=== PATIENT | male | born 1970 | race Caucasian/White ===

== ENCOUNTER 2020-01-25 14:55 | Outpatient (REF) | payer SELFPAY ==
[2020-01-25 16:40] LABS: Estmated Average Glucose 111; Hemoglobin A1C 5.5 % (4.0-6.0)
[2020-01-25 17:16] LABS: Chol HDL Ratio 4.53 mg/dL (1.0-5.00); Cholesterol 204 mg/dL (0-200); Glucose 88 mg/dL (65-115); HDL Cholesterol 45 mg/dL (60-100); LDL Cholesterol Calculated 118 mg/dL (50-129); LDL HDL Ratio 2.62 RATIO (0.00-3.22); Triglycerides 206 mg/dL (0-150)
== END 2020-01-25 14:56 | disposition home or self-care (01) ==
LOC: LAB 14:55
PROVIDERS: Family Provider Family Medicine; PCP Family Medicine; Visit Provider Dermatology
DX: Z13.9 Encounter for screening, unspecified (principal)
CPT/HCPCS: 80061; 82947; 83036

== ENCOUNTER → 2021-03-12 12:28 | Outpatient (BNVA) | payer BC, SELFPAY | PROVIDERS: Family Provider Family Medicine; PCP Family Medicine; Visit Provider Family Medicine | DX: M19.012 Primary osteoarthritis, left shoulder (principal); M51.16 Intervertebral disc disorders with radiculopathy, lumbar region; J32.1 Chronic frontal sinusitis | CPT/HCPCS: 73030 ==

== ENCOUNTER 2021-06-26 10:30 | Inpatient (IN) | payer BC, SELFPAY ==
[2021-06-26] VITALS (10 sets, daily range): BP systolic 135–173; BP diastolic 82–91; PULSE 70–116; RESP 20–32; TEMP 36.8–37.1; O2SAT 87–93; BMI 33.0
[2021-06-26] MEDS: dexamethasone 4 mg/mL INJ 6 MG IVP (11:45)
[2021-06-26] MEDS: sodium chloride 0.9% 1,000 ML 999 ML IV (11:45)
--- NOTE | 2021-06-26 11:57 | XR_ITS ---
WS: [id number] XR chest 1V portable [id number] REASON FOR EXAM: covid+ resp distress FINDINGS: The heart and mediastinum are within normal limits. Reticular nodular hazy infiltrative changes seen in the left lower and left midlung malcolm. Large are a of involvement in the left mid upper lung field. Mild degenerative changes in the lower thoracic spine. The bony thorax is otherwise intact. XR/XR chest 1V portable [id number] IMPRESSION: Infiltrates of unknown chronicity. The findings are compatible with subacute pn eumonitis, likely Covid.
--- NOTE | 2021-06-26 12:00 | ECG_ITS ---
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 Measurements Intervals [place] Rate: 114 P: 35 ND: 136 QRS: 43 QRSD: 100 T: 28 QT: 343 QTc: 472 Interpretive Statements SINUS TACHYCARDIA POSSIBLE INFERIOR MYOCARDIAL INFARCTION [30 ms Q WAVE IN II/aVF], PROBABLY OLD ABNORMAL RHYTHM ECG No previous ECG available for comparison Electronically Signed On 06-26-2021 14:42:22 CDT by Fiorella Arana M.D. [id number] f
--- NOTE | 2021-06-26 12:05 | W.ED.COVID ---
HPI - COVID General: Chief Complaint: Shortness of Breath/Dyspnea Stated Complaint: SOB COVID+ Time Seen by Provider: 06/26/21 11:43 Triage information: Has fever, cough or shortness of breath. Exposure to COVID + person last 14 days History of Present Illness: HPI Narrative: The patient is a 51-year-old male with past medical history hypertension who comes to the ER complaining of Covid symptoms since the , 9 days ago. He says his symptoms worsen significantly last night where he became short of breath satting 88% on room air. He called his primary and tried to arrange outpatient oxygen who advised him to come to the ED. Here he is satting 88% on room air and 94% on 3 L. He has previously been on steroids and azithromycin as an outpatient. MD complaint: known COVID positive COVID 19 common symptoms: positive non-productive cough, dyspnea, fatigue, body aches and headache(s); negative throat pain, nasal congestion or diarrhea COVID 19 other sytmptoms: positive requiring oxygen; negative chest pain Onset (ago): day(s) (9) Pertinent comorbid conditions: hypertension COVID Results: No Data to Display Review of Systems General: Reports: 10 or more systems reviewed and unremarkable except in HPI and below Const: Reports: body aches and fatigue Eyes: Denies: change in vision, blurry vision or eye redness ENMT: Denies: throat pain, swelling of lips/tongue, ear or mastoid pain or nasal congestion Card: Denies: chest pain, palpitations, irregular heart rhythm, edema, dyspnea on exertion or orthopnea Resp: Reports: dyspnea and non-productive cough GI: Denies: abdominal pain, diarrhea or GI cramping : Denies: flank pain, urinary frequency or urinary urgency Musc: Denies: neck pain, back pain, extremity pain, joint pain, joint redness, limited range of motion or muscle weakness Skin/Breast: Denies: rash, pruritus, erythema, skin pain or skin tenderness Neuro: Reports: headache(s) Psych: Denies: anxiety or depression Endo: Denies: polyuria All/Imm: Denies: urticaria, throat swelling or tongue swelling PFS ED PFSH: Medical History Acute sinus infection Anxiety Chronic sinusitis GERD (gastroesophageal reflux disease) Hypertension Lumbar disc disease with radiculopathy Surgical History History of circumcision History of tonsillectomy Social History Smoking and tobacco status: current every day smoker smokeless tobacco Alcohol intake: current Alcohol intake frequency: holidays/special occasions only Physical Exam Const: COMMON NORMALS: no acute distress, average body habitus, patient oriented x3, no limitations, healthy appearing, alert and well nourished GENERAL APPEARANCE: cooperative, comfortable, well kempt and well developed ORIENTATION/CONSCIOUSNESS: Yes awake, Yes oriented to person, Yes oriented to place and Yes oriented to time HENMT: COMMON NORMALS: normocephalic, external ears normal and Normal external nose present HEAD & SCALP: normal to inspection and normocephalic NOSE: Normal external nose present EXTERNAL EAR: Yes external ears normal MOUTH: Normal oral and palatal mucosa present THROAT: posterior oropharynx normal Eye: COMMON NORMALS: Equal, round and reactive pupils present and EOMs intact bilaterally GENERAL EYE: appearance normal, both eyes and all related structures PUPIL: Yes Equal, round and reactive pupils present Neck/C-Spine: COMMON NORMALS: full ROM, no lymphadenopathy, no meningeal signs and no JVD GENERAL: Yes normal visual inspection Lymph: LYMPHATIC: no lymphadenopathy noted Chest: COMMONS NORMALS: normal inspection of the chest and normal palpation of entire chest wall Resp: EFFORT & INSPECTION: Yes able to speak in complete sentences, Yes tachypneic, Yes respiratory distress (mild) and Yes uses accessory muscles AUSCULTATION: diminished lung sounds Cardio: COMMON NORMALS: no JVD, regular rhythm, S1 normal heart sound present, S2 normal heart sound present and Peripheral pulses 2+ throughout RATE: tachycardic RHYTHM: regular rhythm HEART SOUNDS: S1 normal heart sound present and S2 normal heart sound present PERIPHERAL PULSES: Peripheral pulses 2+ throughout GI: COMMON NORMALS: Normal to inspection, nondistended, normoactive bowel sounds present, Soft to palpation, non-tender and no masses INSPECTION: Yes normal to inspection PALPATION: Yes Soft to palpation : COMMON NORMALS: Yes no CVA tenderness BLADDER/KIDNEY EXAM: Yes no CVA tenderness Back/Pelvis: COMMON NORMALS: no CVA tenderness, thoracic and lumbar spine normal to inspection, no thoracic nor lumbar tenderness and thoraco-lumbar ROM normal Extremity: COMMON NORMALS: normal to inspection, full ROM, capillary refill normal, no joint enlargement and no pedal edema GENERAL: Yes normal exam except as noted Neuro: COMMON NORMALS: patient oriented x3, CN's II-XII intact bilaterally, moves all extremities, no focal motor deficits, no sensory deficits noted and gait normal SENSORIUM/ORIENTATION: Yes alert, Yes oriented to person, Yes oriented to place and Yes oriented to time MENINGEAL SIGNS: Yes no meningeal signs Psych: COMMON NORMALS: mental status grossly normal, Normal thought process present, cooperative, normal affect and speech normal APPEARANCE: Yes well kempt ATTITUDE: Yes calm SPEECH: Yes normal speech THOUGHT PROCESS: Normal thought process present Skin: COMMON NORMALS: no rashes or lesions noted GENERAL SKIN EXAM: no rashes or lesions noted Course Vital Signs: Vital signs: Vital Signs Temperature 98.3 F 06/26/21 11:30 Pulse Rate 110 H 06/26/21 21:04 Respiratory Rate 20 H 06/26/21 12:44 Blood Pressure 173/91 06/26/21 21:04 Pulse Oximetry 90 06/26/21 21:04 MDM - COVID MDM Narrative: Medical decision making narrative: The patient came in with known positive Covid on his ninth day of symptoms feeling increasing shortness of breath since last night. He is requiring 3 L and he did say albuterol did help his symptoms. He was given dexamethasone IV, fluids, remdesivir. His oxygen need has slightly increased and he is not on 4 L nasal cannula. [facility] Dr[facility] Lab Data: Labs: Lab Results 06/26/21 06/26/21 06/26/21 Range/Units 12:40 13:08 13:08 WBC 14.5 H (4.0-10.0) 10^3/ uL RBC 6.00 H (4.1-5.3) 10^6/u L Hgb 17.0 H (11.7-16.6) g/dL Hct 49.0 (42.0-52.0) % MCV 81.7 (80-94) fL MCH 28.3 (28.0-34.0) pg MCHC 34.7 (30.0-36.0) g/dL RDW 13.2 (12.1-15.1) % Plt Count 224 (130-400) 10^3/c mm MPV 9.5 (7.4-10.4) fL Neut % (Auto) 90.1 % Lymph % (Auto) 4.4 % Jefferson % (Auto) 4.2 % Eos % (Auto) 0.2 % Baso % (Auto) 0.3 % Neut # (Auto) 13.04 H (1.8-7.7) 10^3/u L Lymph # (Auto) 0.6 L (0.8-4.8) 10^3/u L Jefferson # (Auto) 0.6 (0.2-0.9) 10^3/u L Eos # (Auto) 0.0 (0.0-0.8) 10^3/u L Baso # (Auto) 0.1 (0.0-0.1) 10^3/u L Nucleated RBC % (a uto) 0 % Nucleated RBCs # 0.0 /100WBC D-Dimer (0-0.59) ug/mIFE U Specimen Type Arterial Sample Site Radial, right ABG pH 7.51 H (7.35-7.45) ABG pCO2 30.4 L (35-45) mmHg ABG pO2 55.8 L (80.0-100.0) mmH g ABG HCO3 24.2 (22-26) mmol/L ABG O2 Saturation 92.1 ABG Base Excess 2.2 H (-2.0-2.0) mmol/ L Gato Test Pos A-a O2 Gradient 17.5 H (5-10) mmHg Hematocrit 51.6 (42-52) % Hgb O2 Saturation 90.7 L (95-100) % Carboxyhemoglobin 0.9 (0.4-20.1) %THgb Methemoglobin 0.7 (0.4-1.5) % Total Hemoglobin 16.8 (14-18) g/dL Sodium 128.0 L 128 L (131-143) mmol/L Potassium 3.6 3.7 (3.5-5.0) mmol/L Glucose 109.0 99 (70-115) mg/dL Ionized Calcium 1.0 L (1.1-1.4) mmol/L O2 Delivery Device Nc O2 Liters/Min 3.0 % FiO2 32.0 % Corporate Law Specialist ID Cak Chloride 86 L (98-107) mmol/L Carbon Dioxide 26 (22-29) mmol/L Anion Gap 19.7 H (5-19) BUN 24 H (6-20) mg/dL Creatinine 1.7 H (0.7-1.2) mg/dL GFR Calculation 42.5 L (90-130) mL/min Calculated Osmolal ity 270 L (285-295) mOsm/k g Lactic Acid (0.5-2.2) mmol/L Calcium 7.7 L (8.5-10.5) mg/dL Total Bilirubin 0.5 (0.15-1.2) mg/dL AST 52 H (0-40) U/L ALT 32 (0-41) U/L Alkaline Phosphata se 69 (40-130) IU/L Troponin T Baselin e (0-15) ng/L Troponin T 120 Min [place] (0-15) ng/L Delta Troponin T (0-10) ABS# C-Reactive Protein 220.2 H (0.0-4.9) mg/L NT-Pro-B Natriuret Pep 65 (0-125) pg/mL Total Protein 6.4 L (6.6-8.7) g/dL Albumin 4.0 (3.5-5.2) g/dL Globulin 2.4 (1.3-4.6) g/dL 06/26/21 06/26/21 06/26/21 Range/Units 13:08 13:08 13:08 WBC (4.0-10.0) 10^3/ uL RBC (4.1-5.3) 10^6/u L Hgb (11.7-16.6) g/dL Hct (42.0-52.0) % MCV (80-94) fL MCH (28.0-34.0) pg MCHC (30.0-36.0) g/dL RDW (12.1-15.1) % Plt Count (130-400) 10^3/c mm MPV (7.4-10.4) fL Neut % (Auto) % Lymph % (Auto) % Jefferson % (Auto) % Eos % (Auto) % Baso % (Auto) % Neut # (Auto) (1.8-7.7) 10^3/u L Lymph # (Auto) (0.8-4.8) 10^3/u L Jefferson # (Auto) (0.2-0.9) 10^3/u L Eos # (Auto) (0.0-0.8) 10^3/u L Baso # (Auto) (0.0-0.1) 10^3/u L Nucleated RBC % (a uto) % Nucleated RBCs # /100WBC D-Dimer 0.57 (0-0.59) ug/mIFE U Specimen Type Sample Site ABG pH (7.35-7.45) ABG pCO2 (35-45) mmHg ABG pO2 (80.0-100.0) mmH g ABG HCO3 (22-26) mmol/L ABG O2 Saturation ABG Base Excess (-2.0-2.0) mmol/ L Gato Test A-a O2 Gradient (5-10) mmHg Hematocrit (42-52) % Hgb O2 Saturation (95-100) % Carboxyhemoglobin (0.4-20.1) %THgb Methemoglobin (0.4-1.5) % Total Hemoglobin (14-18) g/dL Sodium (131-143) mmol/L Potassium (3.5-5.0) mmol/L Glucose (70-115) mg/dL Ionized Calcium (1.1-1.4) mmol/L O2 Delivery Device O2 Liters/Min % FiO2 % Corporate Law Specialist ID Chloride (98-107) mmol/L Carbon Dioxide (22-29) mmol/L Anion Gap (5-19) BUN (6-20) mg/dL Creatinine (0.7-1.2) mg/dL GFR Calculation (90-130) mL/min Calculated Osmolal ity (285-295) mOsm/k g Lactic Acid 2.2 (0.5-2.2) mmol/L Calcium (8.5-10.5) mg/dL Total Bilirubin (0.15-1.2) mg/dL AST (0-40) U/L ALT (0-41) U/L Alkaline Phosphata se (40-130) IU/L Troponin T Baselin e 11 (0-15) ng/L Troponin T 120 Min [place] (0-15) ng/L Delta Troponin T (0-10) ABS# C-Reactive Protein (0.0-4.9) mg/L NT-Pro-B Natriuret Pep (0-125) pg/mL Total Protein (6.6-8.7) g/dL Albumin (3.5-5.2) g/dL Globulin (1.3-4.6) g/dL 06/26/21 Range/Units 14:26 WBC (4.0-10.0) 10^3/ uL RBC (4.1-5.3) 10^6/u L Hgb (11.7-16.6) g/dL Hct (42.0-52.0) % MCV (80-94) fL MCH (28.0-34.0) pg MCHC (30.0-36.0) g/dL RDW (12.1-15.1) % Plt Count (130-400) 10^3/c mm MPV (7.4-10.4) fL Neut % (Auto) % Lymph % (Auto) % Jefferson % (Auto) % Eos % (Auto) % Baso % (Auto) % Neut # (Auto) (1.8-7.7) 10^3/u L Lymph # (Auto) (0.8-4.8) 10^3/u L Jefferson # (Auto) (0.2-0.9) 10^3/u L Eos # (Auto) (0.0-0.8) 10^3/u L Baso # (Auto) (0.0-0.1) 10^3/u L Nucleated RBC % (a uto) % Nucleated RBCs # /100WBC D-Dimer (0-0.59) ug/mIFE U Specimen Type Sample Site ABG pH (7.35-7.45) ABG pCO2 (35-45) mmHg ABG pO2 (80.0-100.0) mmH g ABG HCO3 (22-26) mmol/L ABG O2 Saturation ABG Base Excess (-2.0-2.0) mmol/ L Gato Test A-a O2 Gradient (5-10) mmHg Hematocrit (42-52) % Hgb O2 Saturation (95-100) % Carboxyhemoglobin (0.4-20.1) %THgb Methemoglobin (0.4-1.5) % Total Hemoglobin (14-18) g/dL Sodium (131-143) mmol/L Potassium (3.5-5.0) mmol/L Glucose (70-115) mg/dL Ionized Calcium (1.1-1.4) mmol/L O2 Delivery Device O2 Liters/Min % FiO2 % Corporate Law Specialist ID Chloride (98-107) mmol/L Carbon Dioxide (22-29) mmol/L Anion Gap (5-19) BUN (6-20) mg/dL Creatinine (0.7-1.2) mg/dL GFR Calculation (90-130) mL/min Calculated Osmolal ity (285-295) mOsm/k g Lactic Acid (0.5-2.2) mmol/L Calcium (8.5-10.5) mg/dL Total Bilirubin (0.15-1.2) mg/dL AST (0-40) U/L ALT (0-41) U/L Alkaline Phosphata se (40-130) IU/L Troponin T Baselin e (0-15) ng/L Troponin T 120 Min [place] 10.43 (0-15) ng/L Delta Troponin T -0.57 L (0-10) ABS# C-Reactive Protein (0.0-4.9) mg/L NT-Pro-B Natriuret Pep (0-125) pg/mL Total Protein (6.6-8.7) g/dL Albumin (3.5-5.2) g/dL Globulin (1.3-4.6) g/dL COVID Results: No Data to Display Discharge Plan Discharge Patient Disposition: Admitted As Inpatient Admit Provider: Mo Garcia Clinical Impression: COVID-19, Hypoxia Condition: Stable Coding Level of Care Code ED 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
[2021-06-26] MEDS: remdesivir 200 MG in sodium chloride 0.9% (100 ml) 100 ML 100 MG IV (12:15)
[2021-06-26] MEDS: albuterol 8 gm MDI 2 PUFF INHALATION (12:38)
[2021-06-26 12:51] LABS: ABG PCO2 30.4 mmHg (35-45); ABG PH Result 7.51 (7.35-7.45); Alveolar-Arterial Oxygen Gradi 17.5 mmHg (5-10); Arterial Blood Gas Hematocrit 51.6 % (42-52); Base Excess ABG 2.2 mmol/L (-2.0-2.0); Blood Gas Allen Test Pos; Blood Gas Operator Identificat CAK; Blood Gas Sample Site Radial, right; Blood Gas Sample Type Arterial; Carboxyhemoglobin 0.9 %THgb (0.4-20.1); HCO3 ABG 24.2 mmol/L (22-26); HGB O2 Sat 90.7 % (95-100); Methemoglobin 0.7 % (0.4-1.5); Oxygen Device NC; Oxygen Saturation ABG 92.1; PO2 ABG 55.8 mmHg (80.0-100.0); Potassium Level - ABG 3.6 mmol/L (3.5-5.0); Total Hemoglobin 16.8 g/dL (14-18)
[2021-06-26 13:17] LABS: Basophils # 0.1 10^3/uL (0.0-0.1); Basophils % 0.3 %; Eosinophils % 0.2 %; Lymphocytes # 0.6 10^3/uL (0.8-4.8); Lymphocytes % 4.4 %; Mean Corpuscular HGB Conc 34.7 g/dL (30.0-36.0); Mean Corpuscular Hemoglobin 28.3 pg (28.0-34.0); Mean Corpuscular Volume 81.7 fL (80-94); Mean Platelet Volume 9.5 fL (7.4-10.4); Monocytes # 0.6 10^3/uL (0.2-0.9); Monocytes % 4.2 %; Neutrophils # 13.04 10^3/uL (1.8-7.7); Neutrophils % 90.1 %; Nucleated Red Blood Cells % 0 %; Platelet Count 224 10^3/cmm (130-400); Red Cell Distribution Width 13.2 % (12.1-15.1); White Blood Count 14.5 10^3/uL (4.0-10.0)
[2021-06-26 13:29] LABS: D Dimer 0.57 ug/mIFEU (0-0.59)
[2021-06-26 13:34] LABS: Lactic Sepsis W/Reflex 2.2 mmol/L (0.5-2.2)
[2021-06-26 13:36] LABS: Troponin(5th) Baseline 11 ng/L (0-15)
[2021-06-26 13:44] LABS: Alanine Aminotransferase 32 U/L (0-41); Alkaline Phosphatase 69 IU/L (40-130); Anion Gap 19.7 (5-19); Aspartate Amino Transferase 52 U/L (0-40); Blood Urea Nitrogen 24 mg/dL (6-20); C Reactive Protein 220.2 mg/L (0.0-4.9); Calcium 7.7 mg/dL (8.5-10.5); Carbon Dioxide 26 mmol/L (22-29); Chloride 86 mmol/L (98-107); Globulin 2.4 g/dL (1.3-4.6); Glomerular Filtration Rate 42.5 mL/min (90-130); Glucose 99 mg/dL (65-115); NT Pro B Type Natriuretic Pept 65 pg/mL (0-125); Osmolality Calculated 270 mOsm/kg (285-295); Potassium 3.7 mmol/L (3.5-5.1); Sodium 128 mmol/L (136-145); Total Bilirubin 0.5 mg/dL (0.15-1.2); Total Protein 6.4 g/dL (6.6-8.7)
[2021-06-26 14:54] LABS: Troponin 5 2HR 10.43 ng/L (0-15)
[2021-06-26 14:59] LABS: Troponin 5 2HR Delta -0.57 ABS# (0-10)
[2021-06-26 15:01] LABS: Reflex Lactate Order REFLEX LACTIC ORDERD
--- NOTE | 2021-06-26 16:11 | PC.NURSE ---
PT CURRENTLY HAS O2 SATURATION @ 90% ON ROOM AIR AT REST. WHEN PT TALKS WITH NURSE HIS O2 SATURATION DROPS INTO THE MID/HIGH 80S.
[2021-06-26 17:41] LABS: Lactic Acid level (Lactate) 1.1 mmol/L (0.5-2.2)
--- NOTE | 2021-06-26 19:08 | PC.NURSE ---
Report from HUNTER Torrez
--- NOTE | 2021-06-26 19:45 | PM.HP ---
Providers/Chief Complaint Primary Care Provider: Abbie Montero MD Chief Complaint: SOB COVID+ History of Present Illness Haim Gastelum is a 51 year old male with hypertension presents with about a week of congestion then fever. He was tested at outside facility and was positive for Covid. He was remaining at home watching his pulse ox. When it started to drop today he came to the emergency room. He was found to be in the 80% sat and was placed on 4 L of oxygen. Work-up in the ED showed an ABG of 7.5 12/28/54 with an O2 sat of 90% and that was on 2 L nasal cannula. Thus he was increased to the 4 L. And during my time examining him he required 6 L. Patient has a WBC of 14.5 his hemoglobin is 17 sodium 128. BUN and creatinine is 24 and 1.7. Chest x-ray shows infiltrates mostly on the left felt to be subacute pneumonitis most likely Covid. The patient will be admitted for pneumonia secondary to COVID-19 with acute respiratory failure. Review of Systems Const: Reports: fever(s), chills and body aches Eyes: Denies: change in vision Card: Denies: chest pain or palpitations Resp: Reports: dyspnea, non-productive cough and chest congestion GI: Denies: abdominal pain, nausea, vomiting or change in stool character : Denies: difficulty urinating or dysuria Musc: Denies: back pain or extremity pain Skin/Breast: Denies: rash or lesions Neuro: Denies: headache(s) or dizziness Psych: Denies: anxiety or depression Alexei/Lymph: Denies: easy bruising or easy bleeding Medications/Allergies Home Medications Medication Instructions Recorded Confirmed Last Taken Type lisinopril 10 1 tab PO DAILY 90 Days #90 tab 04/15/21 06/26/21 06/26/21 Rx mg-hydrochlorothiazide 12.5 mg tablet loratadine-pseudoephedrine ER 10 1 tab PO DAILY PRN 30 Days #30 tab 04/15/21 06/26/21 06/26/21 Rx mg-240 mg tablet,extended [id number] hydrocodone 10 mg-acetaminophen 1 tab PO BID PRN 30 Days #45 tab 05/26/21 06/26/21 Unknown Rx 325 mg tablet famotidine 20 mg tablet 20 mg PO DAILY 06/17/21 06/26/2106/26/21 History Allergies Allergy/AdvReac Type Severity Reaction Status Date / Time No Known Allergies Allergy Verified 06/17/21 09:01 PFSH Acute PFSH: Medical History Acute sinus infection Anxiety Chronic sinusitis GERD (gastroesophageal reflux disease) Hypertension Lumbar disc disease with radiculopathy Surgical History History of circumcision History of tonsillectomy Social History Smoking and tobacco status: current every day smoker smokeless tobacco Alcohol intake: current Alcohol intake frequency: holidays/special occasions only Vitals/I&O/Wt Last Vital Signs Temp 98.3 F 06/26/21 11:30 Pulse 85 06/26/21 15:55 Resp 20 H 06/26/21 12:44 BP 135/82 06/26/21 11:30 Pulse Ox 90 06/26/21 15:55 Weight last 48 hrs Weight 104.326 kg Physical Exam Const: COMMON NORMALS: patient oriented x3 GENERAL APPEARANCE: cooperative, comfortable, in distress, anxious and ill appearing NUTRITIONAL APPEARANCE: overweight ORIENTATION/CONSCIOUSNESS: Yes awake HENMT: COMMON NORMALS: normocephalic, atraumatic and hearing grossly normal bilaterally Eye: COMMON NORMALS: Equal, round and reactive pupils present, EOMs intact bilaterally, conjunctivae normal and no scleral icterus Neck/C-Spine: COMMON NORMALS: no lymphadenopathy, supple, no JVD, Thyroid normal and No carotid bruits Lymph: LYMPHATIC: no lymphadenopathy noted Chest: COMMONS NORMALS: normal inspection of the chest and normal palpation of entire chest wall Resp: COMMON NORMALS: normal respiratory effort AUSCULTATION: crackles and diminished lung sounds Cardio: COMMON NORMALS: no JVD, regular rate, regular rhythm, S1 normal heart sound present, S2 normal heart sound present and No murmurs present (Cardio) GI: COMMON NORMALS: Normal to inspection, nondistended, normoactive bowel sounds present, Soft to palpation, non-tender, No hepatosplenomegaly present and no masses : COMMON NORMALS: Yes no CVA tenderness and Yes normal external exam Back/Pelvis: COMMON NORMALS: no CVA tenderness and thoracic and lumbar spine normal to inspection Extremity: COMMON NORMALS: no joint enlargement and no calf tenderness GENERAL: Yes edema Neuro: COMMON NORMALS: patient oriented x3, CN's II-XII intact bilaterally, moves all extremities, no focal motor deficits and no sensory deficits noted Psych: COMMON NORMALS: mental status grossly normal Data : 06/26/21 13:08 06/26/21 13:08 Micro: Microbiology 06/26/21 14:26 Blood Culture - Preliminary Blood SPECIMEN COLLECTED 06/26/21 13:08 Blood Culture - Preliminary Blood SPECIMEN COLLECTED CXR: My impression: poor inspiration, elevated right hemidiaphragm. infiltrates in left lung Radiologist's impression: The heart and mediastinum are within normal limits. Reticular nodular hazy infiltrative changes seen in the left lower and left midlung malcolm. Large area of involvement in the left mid upper lung field. Mild degenerative changes in the lower thoracic spine. The bony thorax is otherwise intact. IMPRESSION: Infiltrates of unknown chronicity. The findings are compatible with subacute pneumonitis, likely Covid A&P Assessment and plan (1) COVID-19: supportive care with oxygen, RT to titrate, nebs prn, remdesivir and decadron gentle hydration. Status: Acute (2) Hypoxia: Status: Acute (3) Hypertension: continue home meds for now Status: Acute Qualifiers: Hypertension type: essential hypertension Qualified Code(s): I10 - Essential (primary) hypertension (4) Acute kidney injury: gentel hydration and monitor Status: Acute (5) Elevated WBC count: Status: Acute Attestations Medical Necessity Statement*: Pt with moderate COVID disease and will require 2 MN stay for treatment and monitoring for acute life threatening condition/complications. Coding Level of Care Code Acute Production Scheduler for [facility] Fwd Diagnoses COVID-19 U07.1 Hypoxia R09.02 Hypertension I10 Hypertension type: essential hypertension Acute kidney injury N17.9 Elevated WBC count D72.829
[2021-06-26 19:48] LABS: Troponin 5 6HR 9.82 ng/L (0-15)
[2021-06-26 19:52] LABS: Troponin 5 6HR Delta -1.18 ng/L (0-12)
[2021-06-26] MEDS: enoxaparin 40 mg/0.4 mL Syringe SUBCUT (22:06)
[2021-06-27] VITALS (15 sets, daily range): BP systolic 120–132; BP diastolic 63–80; PULSE 83–99; RESP 14–28; TEMP 36.8–38.3; O2SAT 89–95
[2021-06-27] MEDS: sodium chloride 0.9% 1,000 ML 75 ML IV (00:23)
[2021-06-27] MEDS: HYDROcodone-acetaminophen 10-325 mg Tablet 1 TAB PO ×2 (00:26→21:05)
[2021-06-27] MEDS: famotidine 20 mg Tablet PO ×3 (09:05→17:05)
[2021-06-27] MEDS: ascorbic acid 500 mg Tablet 1000 MG PO ×2 (09:06→17:05)
[2021-06-27] MEDS: docusate sodium 100 mg Capsule PO ×2 (09:06→17:05)
[2021-06-27] MEDS: lisinopril 10 mg Tablet PO (09:06)
[2021-06-27] MEDS: hydroCHLOROthiazide 25 mg Tablet 12.5 MG PO (09:06)
[2021-06-27] MEDS: dexamethasone 4 mg/mL INJ 6 MG IVP (12:00)
--- NOTE | 2021-06-27 12:49 | PM.PN ---
Subjective Subjective: Interval history: States breathing better now that on optiflow (? 70-80% FIO2) \ still very hot using towels on his head and abdomen Vitals/I&O/Wt Last Vital Signs Temp 98.9 F 06/27/21 11:53 Pulse 91 06/27/21 11:53 Resp 14 06/27/21 11:53 BP 121/75 06/27/21 11:53 Pulse Ox 95 06/27/21 11:53 06/26/21 06/27/21 06/27/21 22:59 06:59 14:59 Intake Total 1100 / 1100 750 / 1850 1240 / 1240 Output Total 700 / 700 Balance 1100 / 1100 50 / 1150 1240 / 1240 Weight last 48 hrs Weight 104.326 kg Physical Exam Narrative: EXAM NARRATIVE: ill appearing, sweating H: reg nl s1s2 no murmur L: diminished BS , scatterred crackles a: soft nt/nd nl BS E: no c/c/e Data : 06/26/21 13:08 06/26/21 13:08 Micro: Microbiology 06/26/21 14:26 Blood Culture - Preliminary Blood SPECIMEN COLLECTED 06/26/21 13:08 Blood Culture - Preliminary Blood SPECIMEN COLLECTED A&P Assessment and plan (1) Acute respiratory failure due to COVID-19: Severe worsening today from 4-6 L to Optiflow of 80% FIO2 r/o bacterial with procalcitonin. If normal or low abnormal then will use Tocilizumab. called lab to expediate. Status: Acute (2) COVID-19: supportive care with oxygen, RT ,, nebs prn, remdesivir and decadron stop hydration and keep dry. Status: Acute (3) Hypoxia: optiflow Status: Acute (4) Hypertension: continue home meds for now. Good control at this time. Status: Acute Qualifiers: Hypertension type: essential hypertension Qualified Code(s): I10 - Essential (primary) hypertension (5) Acute kidney injury: will follow stop hydration Status: Acute (6) Elevated WBC count: Status: Acute Attestations Medical Necessity Statement*: Severe worsening ARF due to COVID. Will require continued stay and aggressive measures to save his life. Coding Level of Care Code Acute Sterilization Specialist for [facility] Diagnoses Acute respiratory failure due to COVID-19 U07.1; J96.00 COVID-19 U07.1 Hypoxia R09.02 Hypertension I10 Hypertension type: essential hypertension Acute kidney injury N17.9 Elevated WBC count D72.829
[2021-06-27 13:24] LABS: Procalcitonin 0.89 ng/mL (0-0.5)
[2021-06-27 14:36] LABS: Anion Gap 16.6 (5-19); Blood Urea Nitrogen 24 mg/dL (6-20); Calcium 7.5 mg/dL (8.5-10.5); Carbon Dioxide 24 mmol/L (22-29); Chloride 95 mmol/L (98-107); Creatinine Clr Calc Pharmacy 130.6714; Glomerular Filtration Rate 101.5 mL/min (90-130); Glucose 115 mg/dL (65-115); Osmolality Calculated 279 mOsm/kg (285-295); Potassium 3.6 mmol/L (3.5-5.1); Sodium 132 mmol/L (136-145)
[2021-06-27] MEDS: remdesivir 100 MG in sodium chloride 0.9% (100 ml) 100 ML IV (17:02)
[2021-06-27] MEDS: piperacillin-tazobactam 3.375 GM in sodium chloride 0.9% (plus) 50 ML IV (18:07)
[2021-06-27 18:43] LABS: Add Urine Microscopic? NO; Charge for UA Resulting for Rev
[2021-06-27 19:12] LABS: Bilirubin Urine Neg (Negative); Blood Urine Neg (Negative); Glucose Urine UA Norm (Normal); Ketones Urine Negative (Negative); Leukocyte Esterase Urine Negative (Negative); Nitrate Urine Negative (Negative); Protein Urine Neg (Negative); Specific Gravity, Urine 1.015 (1.005-1.030); Urine Appearance Clear (CLEAR); Urine Color Yellow (Yellow); Urobilinogen Urine Norm (Negative); pH Urine 5 (5-7)
[2021-06-27] MEDS: enoxaparin 40 mg/0.4 mL Syringe SUBCUT (21:05)
[2021-06-28] VITALS (20 sets, daily range): BP systolic 92–124; BP diastolic 55–73; PULSE 72–90; RESP 16–26; TEMP 36.5–36.8; O2SAT 91–99
[2021-06-28] MEDS: piperacillin-tazobactam 3.375 GM in sodium chloride 0.9% (plus) 50 ML IV ×3 (02:46→23:40)
[2021-06-28 07:46] LABS: Basophils % 0.6 %; Hematocrit 47.9 % (42.0-52.0); Hemoglobin 15.5 g/dL (11.7-16.6); Lymphocytes # 0.8 10^3/uL (0.8-4.8); Mean Corpuscular HGB Conc 32.4 g/dL (30.0-36.0); Mean Corpuscular Hemoglobin 28.1 pg (28.0-34.0); Mean Corpuscular Volume 86.8 fL (80-94); Mean Platelet Volume 10.5 fL (7.4-10.4); Monocytes # 0.6 10^3/uL (0.2-0.9); Monocytes % 10.9 %; Neutrophils # 3.73 10^3/uL (1.8-7.7); Neutrophils % 71.6 %; Nucleated Red Blood Cells % 0 %; Platelet Count 218 10^3/cmm (130-400); Red Blood Count 5.52 10^6/uL (4.1-5.3); Red Cell Distribution Width 13.4 % (12.1-15.1); White Blood Count 5.2 10^3/uL (4.0-10.0)
--- NOTE | 2021-06-28 08:19 | PC.RESP ---
Helped patient up to chair at this time.
[2021-06-28 08:37] LABS: Blood Urea Nitrogen 23 mg/dL (6-20); Calcium 7.6 mg/dL (8.5-10.5); Carbon Dioxide 20 mmol/L (22-29); Creatinine Clr Calc Pharmacy 130.6714; Glomerular Filtration Rate 101.5 mL/min (90-130); Glucose 118 mg/dL (65-115)
[2021-06-28 08:49] LABS: Chloride 97 mmol/L (98-107); Osmolality Calculated 279 mOsm/kg (285-295); Sodium 132 mmol/L (136-145)
[2021-06-28] MEDS: docusate sodium 100 mg Capsule PO (10:13)
[2021-06-28] MEDS: famotidine 20 mg Tablet PO ×2 (10:14→18:05)
[2021-06-28] MEDS: ascorbic acid 500 mg Tablet 1000 MG PO ×2 (10:14→18:05)
[2021-06-28] MEDS: lisinopril 10 mg Tablet PO (10:14)
--- NOTE | 2021-06-28 13:59 | P.PN_ITS ---
Subjective Subjective: Interval history: Feeling much better today. seen sitting in chair. Vitals/I&O/Wt Last Vital Signs Temp 97.8 F 06/28/21 11:27 Pulse 75 06/28/21 11:27 Resp 18 06/28/21 11:27 BP 111/69 06/28/21 11:27 Pulse Ox 95 06/28/21 11:27 06/27/21 06/28/21 06/28/21 22:59 06:59 14:59 Intake Total 250 / 1490 250 / 1740 Output Total 250 / 1050 Balance 0 / 440 250 / 690 Physical Exam 2 Narrative: EXAM NARRATIVE: Looks better, still ill appearing, but better high flow oxygen 45% L and 70ish % - down from 80-100 % yesterday H: reg nl s1s2 no murmur L: diminished BS ,improved aeration and volumes, less crackles a: soft nt/nd nl BS E: no c/c/e Data : 06/28/21 07:11 06/28/21 07:11 Micro: Microbiology 06/27/21 18:14 Bacterial Antigens - Final Urine,Clean Catch 06/26/21 14:26 Blood Culture - Preliminary Blood NEGATIVE TO DATE 06/26/21 13:08 Blood Culture - Preliminary Blood NEGATIVE TO DATE A&P Assessment and plan (1) Acute respiratory failure due to COVID-19: stable to improved. Received Tocilizumab. needs protein (pt vegetarian) ordered dietary consult Status: Acute (2) COVID-19: supportive care with oxygen, RT ,, nebs prn, remdesivir and decadron stop hydration and keep dry. WBC now normal procal slightly elevated at .89 OIL RIGGER is 220 Status: Acute (3) Hypoxia: optiflow Status: Acute (4) Hypertension: continue home meds for now. Good control at this time. Status: Acute Qualifiers: Hypertension type: essential hypertension Qualified Code(s): I10 - Essential (primary) hypertension (5) Acute kidney injury: will follow stop hydration Status: Acute (6) Elevated WBC count: Status: Acute Attestations Medical Necessity Statement*: Pt with SEVERE respiratory failure due to COVID. Will require continued stay and aggressive measures to save his life. Coding Level of Care Code Acute Real Estate Transaction Coordinator for [facility] Perez Diagnoses Acute respiratory failure due to COVID-19 U07.1; J96.00 COVID-19 U07.1 Hypoxia R09.02 Hypertension I10 Hypertension type: essential hypertension Acute kidney injury N17.9 Elevated WBC count D72.829
[2021-06-28] MEDS: dexamethasone 4 mg/mL INJ 6 MG IVP (14:24)
--- NOTE | 2021-06-28 17:41 | PC.NUTR ---
NUTR CONSULT: Consult received for vegetarian. Discussed with [facility] staff pt preferences, eats eggs, no beef, fish, chicken, pork. Discussed beans, hard boiled eggs, cheese, and the use of beneprotein used in foods such as mashed potatoes, oatmeal, and beans.
[2021-06-28] MEDS: remdesivir 100 MG in sodium chloride 0.9% (100 ml) 100 ML IV (18:05)
--- NOTE | 2021-06-28 18:32 | PC.NURSE ---
Summary Has sat up in chair today, with O2 on per high flow. IV site remains intact. Has been getting self up to BSC by self today.
[2021-06-28] MEDS: enoxaparin 40 mg/0.4 mL Syringe SUBCUT (20:25)
[2021-06-28] MEDS: HYDROcodone-acetaminophen 10-325 mg Tablet 1 TAB PO (20:25)
[2021-06-29] VITALS (24 sets, daily range): BP systolic 106–125; BP diastolic 69–78; PULSE 68–93; RESP 16–24; TEMP 36.4–37.2; O2SAT 90–100
[2021-06-29] MEDS: ascorbic acid 500 mg Tablet 1000 MG PO ×2 (09:18→17:25)
[2021-06-29] MEDS: piperacillin-tazobactam 3.375 GM in sodium chloride 0.9% (plus) 50 ML IV ×2 (09:18→18:28)
[2021-06-29] MEDS: docusate sodium 100 mg Capsule PO ×2 (09:19→17:25)
[2021-06-29] MEDS: lisinopril 10 mg Tablet PO (09:19)
[2021-06-29] MEDS: famotidine 20 mg Tablet PO ×2 (09:19→17:25)
[2021-06-29] MEDS: dexamethasone 4 mg/mL INJ 6 MG IVP (11:30)
[2021-06-29] MEDS: remdesivir 100 MG in sodium chloride 0.9% (100 ml) 100 ML IV (17:25)
--- NOTE | 2021-06-29 17:56 | PM.PN ---
Subjective Subjective: Interval history: Continues to feel better. Wanting to sit in chair today. new IS -instructed in use. Vitals/I&O/Wt Last Vital Signs Temp 98.1 F 06/29/21 16:00 Pulse 78 06/29/21 16:00 Resp 18 06/29/21 16:00 BP 113/72 06/29/21 16:00 Pulse Ox 96 06/29/21 16:00 06/29/21 06/29/21 06/29/21 06:59 14:59 22:59 Intake Total 150 / 740 650 / 650 Output Total 1200 / 2200 1750 / 1750 Balance -1050 / -1460 -1100 / -1100 Physical Exam Narrative: EXAM NARRATIVE: Looks better, more color in face, less toxic appearing high flow oxygen remains 45% L and 70-80% H: reg nl s1s2 no murmur L: diminished BS ,improved aeration and volumes, few basilar crackles a: soft nt/nd nl BS E: no c/c/e Data : 06/28/21 07:11 06/28/21 07:11 A&P Assessment and plan (1) Acute respiratory failure due to COVID-19: improving now slowly Received Tocilizumab on 06/27 asked to wean oxygen and continue activity Status: Acute (2) COVID-19: supportive care with oxygen, RT ,, nebs prn, remdesivir and decadron no IVF, try to keep dry. WBC now normal procal slightly elevated at .89 CRP is 220 Will trend these markers Status: Acute (3) Hypoxia: optiflow wean Status: Acute (4) Hypertension: continue home meds for now. Good control at this time. Status: Acute Qualifiers: Hypertension type: essential hypertension Qualified Code(s): I10 - Essential (primary) hypertension (5) Acute kidney injury: will follow stop hydration Status: Acute (6) Elevated WBC count: Status: Resolved Attestations Medical Necessity Statement*: Pt with SEVERE respiratory failure due to COVID. Will require continued stay and aggressive measures to save his life. Coding Level of Care Code Acute Registration Representative for [facility] Fwadrianna Diagnoses Acute respiratory failure due to COVID-19 U07.1; J96.00 COVID-19 U07.1 Hypoxia R09.02 Hypertension I10 Hypertension type: essential hypertension Acute kidney injury N17.9 Elevated WBC count D72.829
[2021-06-29] MEDS: enoxaparin 40 mg/0.4 mL Syringe SUBCUT (21:15)
[2021-06-29] MEDS: HYDROcodone-acetaminophen 10-325 mg Tablet 1 TAB PO (21:16)
[2021-06-30] VITALS (17 sets, daily range): BP systolic 110–165; BP diastolic 66–89; PULSE 73–103; RESP 18–32; TEMP 36.4–37.6; O2SAT 83–99
[2021-06-30] MEDS: piperacillin-tazobactam 3.375 GM in sodium chloride 0.9% (plus) 50 ML IV ×3 (02:56→20:03)
[2021-06-30 07:31] LABS: Anion Gap 15.6 (5-19); Blood Urea Nitrogen 13 mg/dL (6-20); Calcium 7.9 mg/dL (8.5-10.5); Carbon Dioxide 27 mmol/L (22-29); Chloride 101 mmol/L (98-107); Glomerular Filtration Rate 141.5 mL/min (90-130); Glucose 91 mg/dL (65-115); Osmolality Calculated 290 mOsm/kg (285-295); Potassium 3.6 mmol/L (3.5-5.1); Sodium 140 mmol/L (136-145)
[2021-06-30 07:47] LABS: Ferritin 1137 ng/mL (30-400)
[2021-06-30] MEDS: docusate sodium 100 mg Capsule PO ×2 (08:55→18:21)
[2021-06-30] MEDS: lisinopril 10 mg Tablet PO (08:55)
[2021-06-30] MEDS: famotidine 20 mg Tablet PO ×2 (08:55→18:22)
[2021-06-30] MEDS: ascorbic acid 500 mg Tablet 1000 MG PO ×2 (08:55→18:21)
[2021-06-30] MEDS: dexamethasone 4 mg/mL INJ 6 MG IVP (11:03)
[2021-06-30] MEDS: albuterol 8 gm MDI 2 PUFF INHALATION ×4 (11:13→23:18)
--- NOTE | 2021-06-30 14:44 | PM.PN ---
Subjective Subjective: Interval history: He is having a headache. Some cough. Denies chest pain. Appetite is not very good. No nausea vomiting or diarrhea. Vitals/I&O/Wt Last Vital Signs Temp 97.7 F 06/30/21 12:00 Pulse 82 06/30/21 12:00 Resp 18 06/30/21 12:00 BP 119/76 06/30/21 12:00 Pulse Ox 93 06/30/21 12:00 06/29/21 06/30/21 06/30/21 22:59 06:59 14:59 Intake Total 150 / 800 410 / 410 Output Total 0 / 1750 2 1752 Balance 150 / -950 -2 / -952 410 / 410 Physical Exam Const: COMMON NORMALS: no acute distress and patient oriented x3 OTHER: Sitting up in chair HENMT: COMMON NORMALS: oropharynx normal Neck/C-Spine: COMMON NORMALS: no JVD Resp: COMMON NORMALS: normal respiratory effort and clear to auscultation bilaterally AUSCULTATION: clear to auscultation bilaterally Cardio: COMMON NORMALS: no JVD, regular rhythm, S1 normal heart sound present, S2 normal heart sound present and No murmurs present (Cardio) RHYTHM: regular rhythm HEART SOUNDS: S1 normal heart sound present and S2 normal heart sound present GI: COMMON NORMALS: Normal to inspection, nondistended, normoactive bowel sounds present, Soft to palpation and non-tender PALPATION: Yes Soft to palpation Extremity: COMMON NORMALS: no joint enlargement and no pedal edema Neuro: COMMON NORMALS: patient oriented x3 and moves all extremities Skin: COMMON NORMALS: no rashes or lesions noted GENERAL SKIN EXAM: no rashes or lesions noted Data : 06/28/21 07:11 06/30/21 06:32 A&P Assessment and plan (1) Acute respiratory failure due to COVID-19: Showing improvement initially, not improvement has plateaued on 45 L of oxygen by high flow cannula. Discussed with him and his . Continue remdesivir, Decadron at this time. CRP has come way down from 200 2211. Reassess clinical condition. Reassess inflammatory markers, D-dimer. Check chest x-ray in the morning. Depending on condition, consider repeat second dose tocilizumab if may be candidate/if available given shortage. Continue briefly on Zosyn. Does not have evidence of uncontrolled superimposed bacterial infection. Procalcitonin normalized on 06/30. Received Tocilizumab on 06/27 Discussed with his . Status: Acute (2) COVID-19: As above. Status: Acute (3) Hypoxia: optiflow wean Status: Acute (4) Hypertension: continue home meds for now. Good control at this time. Status: Acute Qualifiers: Hypertension type: essential hypertension Qualified Code(s): I10 - Essential (primary) hypertension (5) Acute kidney injury: Resolved Status: Acute (6) Elevated WBC count: Status: Resolved Attestations Medical Necessity Statement*: Continue admission for assessment management of hypoxic respiratory failure with severe COVID-19. Coding Level of Care Code Acute Sharepoint Architect for [facility] Chris Diagnoses Acute respiratory failure due to COVID-19 U07.1; J96.00 COVID-19 U07.1 Hypoxia R09.02 Hypertension I10 Hypertension type: essential hypertension Acute kidney injury N17.9 Elevated WBC count D72.829
--- NOTE | 2021-06-30 17:44 | XRR_ITS ---
PROCEDURE INFORMATION: Exam: XR Chest Exam date and time: 06/30/2021 5:44 PM Age: 51 years old Clinical indication: Other: Hypoxia TECHNIQUE: Imaging protocol: XR of the chest. Views: 1 view. COMPARISON: CR XR chest 1V portable [id number] 06/26/2021 12:03 PM FINDINGS: Lungs: Multifocal consolidations throughout both lungs with air bronchograms, more conspicuous from previous examination 06/26/2021. Pleural spaces: Unremarkable. No pleural effusion. No pneumothorax. Heart/Mediastinum: Unremarkable. No cardiomegaly. Bones/joints: Unremarkable. XR/XR chest 1V portable [id number] IMPRESSION: Multifocal consolidations throughout both lungs, more conspicuous than on previous exam, and suggestive of worsening infectious/inflammatory process.
[2021-06-30] MEDS: remdesivir 100 MG in sodium chloride 0.9% (100 ml) 100 ML IV (18:21)
[2021-06-30] MEDS: FUROsemide 10 mg/mL SDV 2mL 20 MG IVP (18:22)
[2021-06-30 21:30] LABS: D Dimer >= 20.00 ug/mIFEU (0-0.59)
[2021-06-30] MEDS: HYDROcodone-acetaminophen 10-325 mg Tablet 1 TAB PO (22:40)
[2021-06-30] MEDS: enoxaparin 40 mg/0.4 mL Syringe SUBCUT (22:40)
[2021-06-30] MEDS: linezolid premix 600 MG/300 ML PREMIX 300 MG IV (22:41)
[2021-07-01] VITALS (105 sets, daily range): BP systolic 100–162; BP diastolic 72–119; PULSE 76–113; RESP 21–49; TEMP 36.4–37.5; O2SAT 91–99
[2021-07-01] MEDS: piperacillin-tazobactam 3.375 GM in sodium chloride 0.9% (plus) 50 ML IV ×3 (02:33→18:17)
[2021-07-01] MEDS: albuterol 8 gm MDI 2 PUFF INHALATION ×4 (04:00→23:06)
--- NOTE | 2021-07-01 06:00 | XR_ITS ---
WS: [id number] Portable AP upright chest, 07/01/2021 Clinical Data: Hypoxia Comparison: Portable chest, 06/30/2021 Findings: The bilateral pulmonary opacities remain the same. The heart is normal. Monitor leads are o n the chest wall. XR/XR chest 1V portable [id number] Impression: No change in diffuse bilateral pulmonary opacities.
[2021-07-01 07:17] LABS: Basophils % 0.5 %; Eosinophils # 0.4 10^3/uL (0.0-0.8); Eosinophils % 4.9 %; Hematocrit 48.6 % (42.0-52.0); Hemoglobin 16.4 g/dL (11.7-16.6); Lymphocytes # 1.1 10^3/uL (0.8-4.8); Lymphocytes % 12.7 %; Mean Corpuscular HGB Conc 33.7 g/dL (30.0-36.0); Mean Corpuscular Hemoglobin 27.6 pg (28.0-34.0); Mean Corpuscular Volume 81.8 fL (80-94); Mean Platelet Volume 9.2 fL (7.4-10.4); Monocytes # 0.4 10^3/uL (0.2-0.9); Monocytes % 4.7 %; Neutrophils # 6.45 10^3/uL (1.8-7.7); Neutrophils % 75.7 %; Nucleated Red Blood Cells % 0 %; Platelet Count 213 10^3/cmm (130-400); Red Blood Count 5.94 10^6/uL (4.1-5.3); Red Cell Distribution Width 13.2 % (12.1-15.1); White Blood Count 8.5 10^3/uL (4.0-10.0)
[2021-07-01 07:30] LABS: C Reactive Protein 6.3 mg/L (0.0-4.9)
[2021-07-01 07:38] LABS: D Dimer >= 20.00 ug/mIFEU (0-0.59)
[2021-07-01 07:41] LABS: Alanine Aminotransferase 38 U/L (0-41); Albumin Level 3.5 g/dL (3.5-5.2); Alkaline Phosphatase 62 IU/L (40-130); Anion Gap 17.1 (5-19); Aspartate Amino Transferase 40 U/L (0-40); Blood Urea Nitrogen 15 mg/dL (6-20); Calcium 8.1 mg/dL (8.5-10.5); Carbon Dioxide 27 mmol/L (22-29); Chloride 100 mmol/L (98-107); Creatinine Clr Calc Pharmacy 149.3388; Globulin 2.2 g/dL (1.3-4.6); Glomerular Filtration Rate 118.4 mL/min (90-130); Glucose 76 mg/dL (65-115); Osmolality Calculated 290 mOsm/kg (285-295); Potassium 4.1 mmol/L (3.5-5.1); Sodium 140 mmol/L (136-145); Total Bilirubin 0.6 mg/dL (0.15-1.2); Total Protein 5.7 g/dL (6.6-8.7)
[2021-07-01] MEDS: docusate sodium 100 mg Capsule PO (08:09)
[2021-07-01] MEDS: linezolid premix 600 MG/300 ML PREMIX 300 MG IV ×2 (08:09→20:14)
[2021-07-01] MEDS: ascorbic acid 500 mg Tablet 1000 MG PO (08:09)
[2021-07-01] MEDS: lisinopril 10 mg Tablet PO (08:10)
[2021-07-01] MEDS: famotidine 20 mg Tablet PO (08:10)
--- NOTE | 2021-07-01 08:13 | PC.RESP ---
patient on NRB and heated high flow at this time. sats are 94%
--- NOTE | 2021-07-01 09:44 | PC.CHAP ---
Pastoral Care Encounter/Spiritual Assessment Type of Contact [] Declined bioprocess engineer visit [] Patient/Family/Request visit [] Outpatient visit [] Follow-up visit [] Physician referral [] Code/Alert [x] Routine visit [] Staff referral [] Actively dying [] Patient sleeping [] Family support [] [] Out of room [] Palliative care [] [] Receiving care in room [] Pre-surgical visit [] Trauma [] Long length of stay [] ICU visit [x] Other: covid Relational/Emotional Strength [] Patient feels connected with others/family/visitors/staff [] Distress [] Loneliness/isolation [] Abandonment Spirituality of Patient [] Person of Kellie [] Attends Muslim of their Kellie [] Believes in Prayer [] Reads Bible or Restorationism materials [] There are Spiritual issues to be addressed Drawing In Machine Tender Interventions [x] Prayer [] Active listening [] Non-anxious presence [] Spiritual/emotional support [] Crisis/trauma care [] Spiritual counseling [] Bereavement support [] Provided bereavement packet [] Provided Bible/devotional materials [] Provided toy/stuffed animal, coloring book to patient or family member [] Provided Communion [] Anointing/[place] [] Salvation [x] Completed spiritual assessment [] Other: Impact on Illness or Injury [] Angry [] Fearful [] Anxious [] Often cries [] Exhaustion [] Unable to work [] Unable to attend samaritan [] Unable to walk/stand [] Unable to read [] Unable to drive [] Unable to eat/drink [] Unable to sleep [] Unable to be with family [] Patient intubated [] Other: Summary Time spent with patient
[2021-07-01] MEDS: dexamethasone 4 mg/mL INJ 6 MG IVP (11:07)
--- NOTE | 2021-07-01 12:32 | USCV_ITS ---
Haim Gastelum Age: 51 Gender: M : 1970 Exam Date: 07/01/2021 14:55 Ordering Phys: Loki Kc MD Technologist: Exam [place] [facility] [place]: elevated d dimer, covid, assess dvt PROCEDURES: The following venous structures were evaluated: common femoral vein, profunda vein, proximal portion of the greater saphenous vein, superficial femoral vein, and the popliteal vein. The venous duplex Doppler examination of both lower extremities was performed in the standard fashion. FINDINGS: Left lower extremity: there is partially occlusive DVT of. Normal 2-D Doppler and augmentation and compressibility throughout the lower extremity venous structures. Additional imaging through the proximal calf veins also reveals no thrombus. Limited evaluation of the greater saphenous vein is patent with no thrombus. CONCLUSIONS No DVT bilateral lower extremities. Dr. Kim Womack DO (Electronically Signed) Final Date: 02 July 2021 07:48 S
--- NOTE | 2021-07-01 12:32 | CT_ITS ---
WS: [id number] CT CHEST ANGIOGRAPHY WITH REFORMATS HISTORY: hypoxia, tachycardia, assess PE TECHNIQUE: Contiguous axial images are obtained through the chest during arterial injection of intrav enous contrast. Images are reconstructed to evaluate the pulmonary arteries. MIP imaging also reviewe d. All CT scans at [facility] use at least one of these dose optimization techniques: aut omated exposure control; mA and/or kV adjustment per patient size (includes targeted exams where dose is matched to clinical indication); or iterative reconstruction. CONTRAST: Omnipaque 350; 95 mL IV. DLP: 540.23 mGy.cm COMPARISON: None available. Good opacification of the pulmonary arteries. No central pulmonary emboli. In the distal, subsegmenta l arteries the opacification becomes indistinct. Mildly enlarged pulmonary artery. Mild atheroscleros is aorta. Heart size is normal. No pericardial or pleural effusions. There is dense bilateral multi lobar groundglass opacifications. Increasing consolidation at the lung bases. There is evidence for pneumomediastinum and pneumopericardium. No definite pneumothorax. If t here is a pneumothorax it is very tiny. Source of the pneumomediastinum and pneumopericardium is unce rtain. Mediastinal and hilar lymphadenopathy. The largest lymph node burden at the RIGHT hilum measures 15 m m in diameter. Hepatic steatosis. Gallbladder is contracted. No adrenal mass. Straightening of the normal thoracic kyphosis. CT/CT angio chest PE protcl [id number] IMPRESSION: 1. No pulmonary embolism. 2. Pneumomediastinum and pneumopericardium. 3. Diffuse multilobar areas of groundglass attenuation and developing areas of consolidation at the lung bases from Covid 19. 4. Mediastinal and hilar lymphadenopathy may be reactive. Notified Loki Kc MD at 07/01/2021 3:53 PM. Was unable to contact Dr. Kc with this report. Also attempted to speak to patient's nurse but was unsuccessful.
--- NOTE | 2021-07-01 13:43 | PM.PN ---
Subjective Subjective: Interval history: States he is doing all right currently on high flow cannula and nonrebreather. States that overnight BiPAP did work for him. Although per discussion with RT he had previously declined to wear BiPAP, but on discussion with me he states that he will wear it if needed. Discussed with him also risks benefits and alternatives of additional escalation of supportive care with intubation mechanical ventilation. Discussed intubation being risky procedure in itself as well as risks of mechanical ventilation and associated care with sedation, possibly paralytic agents if necessary. He states he would be agreeable if this were needed. Discussed with him also regarding worsening of hypoxia. Discussed consideration of repeat second dose of Tocilizumab given clinical worsening, although CRP head been normalizing. Discussed also regarding elevation of D-dimer, worsening hypoxia. Discussed additional assessment including risks of CT angiogram PE protocol. Discussed also consideration of empiric anticoagulation for now until additional testing is performed. He is agreeable to proceed with both. Discussed also with his . He requests for his pain medication to be changed to 4 times daily as needed with reduced dose. Uses this for chronic back pain. Occasionally noted anxious by the nursing staff. Vitals/I&O/Wt Last Vital Signs Temp 97.6 F 07/01/21 12:00 Pulse 76 07/01/21 12:00 Resp 21 H 07/01/21 12:00 BP 122/72 07/01/21 12:00 Pulse Ox 98 07/01/21 12:00 06/30/21 07/01/21 07/01/21 22:59 06:59 14:59 Intake Total 250 / 660 400 / 1060 420 / 420 Output Total 800 / 800 Balance -550 / -140 400 / 260 420 / 420 Weight last 48 hrs Weight 99.246 kg Physical Exam Const: COMMON NORMALS: no acute distress, patient oriented x3 and alert GENERAL APPEARANCE: cooperative ORIENTATION/CONSCIOUSNESS: Yes awake HENMT: COMMON NORMALS: oropharynx normal Neck/C-Spine: COMMON NORMALS: no JVD Resp: COMMON NORMALS: normal respiratory effort and clear to auscultation bilaterally AUSCULTATION: clear to auscultation bilaterally Cardio: COMMON NORMALS: no JVD, regular rhythm, S1 normal heart sound present, S2 normal heart sound present and No murmurs present (Cardio) RHYTHM: regular rhythm HEART SOUNDS: S1 normal heart sound present and S2 normal heart sound present GI: COMMON NORMALS: Normal to inspection, nondistended, normoactive bowel sounds present, Soft to palpation and non-tender PALPATION: Yes Soft to palpation Extremity: COMMON NORMALS: no joint enlargement and no pedal edema Neuro: COMMON NORMALS: patient oriented x3 and moves all extremities SENSORIUM/ORIENTATION: Yes alert Skin: COMMON NORMALS: no rashes or lesions noted GENERAL SKIN EXAM: no rashes or lesions noted Data : 07/01/21 06:15 07/01/21 06:15 Micro: Microbiology 06/26/21 13:08 Blood Culture - Final Blood NO GROWTH AFTER 5 DAYS A&P Assessment and plan (1) Acute respiratory failure due to COVID-19: Worsening oxygen requirement noted overnight since last night. Required BiPAP support. Per discussion currently empiric anticoagulation, additional assessment with CTA, lower extremity duplex. Per discussion second dose of Tocilizumab. Continue high flow cannula, nonrebreather for oxygen support. He is agreeable to BiPAP as needed. Transfer to intensive care unit for closer monitoring for possible need for intubation and mechanical ventilatory support. Discussed with his who is agreeable with plan. Status: Acute (2) COVID-19: As above. Status: Acute (3) Hypoxia: Status: Acute (4) Hypertension: continue home meds for now. Good control at this time. Status: Acute Qualifiers: Hypertension type: essential hypertension Qualified Code(s): I10 - Essential (primary) hypertension (5) Acute kidney injury: Resolved Status: Acute (6) Elevated WBC count: Status: Resolved Attestations Medical Necessity Statement*: Continue admission for assessment management of hypoxic respiratory failure with severe COVID-19. Coding Level of Care Code Acute Print Shop Helper for [facility] Fw Exam Comprehensive Diagnoses Acute respiratory failure due to COVID-19 U07.1; J96.00 COVID-19 U07.1 Hypoxia R09.02 Hypertension I10 Hypertension type: essential hypertension Acute kidney injury N17.9 Elevated WBC count D72.829
[2021-07-01] MEDS: enoxaparin 100 mg/mL Syringe SUBCUT (14:28)
[2021-07-01] MEDS: ALPRAZolam 0.5 mg Tablet PO (14:39)
[2021-07-01] MEDS: iohexol 350 mg/mL 100 mL Btl IV (15:32)
--- NOTE | 2021-07-01 15:50 | PC.NURSE ---
Transfer Pt was taken down to CT then ICU. Report was given earlier to Chrissy HARRISON. Pt tolerated transfer well.
[2021-07-01] MEDS: LORazepam 2 mg/mL INJ 1 mL 1 MG IVP ×2 (15:55→21:39)
--- NOTE | 2021-07-01 16:20 | PC.NURSE ---
Patient to ICU 2 , Bipap 100%, 50RR, 109 hr, 96% SPO2, 129/90. Patient praying and reports severe anxiety. 1mg IV Ativan given stat to help control RR. Patient anxiously pulling at Bipap mask and pulled it off due to anxiety. Patient is AAOx4.
[2021-07-01 16:25] LABS: ABG PCO2 40.5 mmHg (35-45); ABG PH Result 7.48 (7.35-7.45); Alveolar-Arterial Oxygen Gradi 76.7 mmHg (5-10); Arterial Blood Gas Hematocrit 52.1 % (42-52); Base Excess ABG 5.7 mmol/L (-2.0-2.0); Blood Gas Allen Test Pos; Blood Gas Operator Identificat AMH; Blood Gas Sample Site Radial, right; Blood Gas Sample Type Arterial; Carboxyhemoglobin 0.4 %THgb (0.4-20.1); HCO3 ABG 29.9 mmol/L (22-26); HGB O2 Sat 94.8 % (95-100); Ionized Calcium Level - ABG 1.1 mmol/L (1.1-1.4); Methemoglobin 0.7 % (0.4-1.5); Oxygen Device BIPAP; Oxygen Saturation ABG 95.9; PO2 ABG 73.3 mmHg (80.0-100.0); Potassium Level - ABG 4.3 mmol/L (3.5-5.0)
[2021-07-01] MEDS: morphine 4 mg/mL SDV 1 mL 2 MG IVP (18:17)
--- NOTE | 2021-07-01 18:35 | PC.NURSE ---
, Lynnette [phone], updated on status. Patient not intubated at this time because he was able to calm down and slow his RR. She was earlier told he would be intubated. Verbal understanding. Sister, Randee,
[2021-07-02] VITALS (100 sets, daily range): BP systolic 103–135; BP diastolic 60–94; PULSE 74–105; RESP 17–43; TEMP 37.1–37.2; O2SAT 85–98; BMI 30.7
[2021-07-02] MEDS: enoxaparin 100 mg/mL Syringe SUBCUT (00:44)
[2021-07-02] MEDS: piperacillin-tazobactam 3.375 GM in sodium chloride 0.9% (plus) 50 ML IV ×3 (02:53→18:48)
[2021-07-02] MEDS: albuterol 8 gm MDI 2 PUFF INHALATION ×3 (03:08→23:55)
--- NOTE | 2021-07-02 03:19 | XRR_ITS ---
PROCEDURE INFORMATION: Exam: XR Chest Exam date and time: 07/02/2021 3:19 AM Age: 51 years old Clinical indication: Chest pressure; Patient HX: New onset of chest pain. Covid +. On bipap. TECHNIQUE: Imaging protocol: XR of the chest. Views: 1 view. COMPARISON: CR (CHEST, ) 07/01/2021 4:43 AM FINDINGS: Lungs: Stable patchy consolidation throughout both lungs. Pleural spaces: Unremarkable. No pleural effusion. No pneumothorax. Heart/Mediastinum: Unremarkable. No cardiomegaly. Bones/joints: Unremarkable. XR/XR chest 1V portable [id number] IMPRESSION: Stable chest x-ray.
[2021-07-02] MEDS: morphine 4 mg/mL SDV 1 mL 2 MG IVP ×3 (03:25→22:17)
--- NOTE | 2021-07-02 06:29 | PC.NURSE ---
Shift Summary Patient had an uneventful night. Patient complained of pain which was unrelieved by PRN Morphine IVP, patient was also anxious throughout the night, PRN Ativan was administered. Patient remains on the BIPAP with an FiO2 of 80%. Left AC IV and right AC IV remain saline locked at this time. Patient had 850 mls of clear dark yellow urine out all evening by urinal. Patient had one moderate liquid loose bowel movement. No wounds or skin issues noted at this time.
[2021-07-02 06:48] LABS: Basophils % 0.4 %; Eosinophils # 0.4 10^3/uL (0.0-0.8); Eosinophils % 4.1 %; Hematocrit 49.7 % (42.0-52.0); Hemoglobin 16.2 g/dL (11.7-16.6); Lymphocytes # 1.1 10^3/uL (0.8-4.8); Lymphocytes % 11.5 %; Mean Corpuscular HGB Conc 32.6 g/dL (30.0-36.0); Mean Corpuscular Hemoglobin 27.3 pg (28.0-34.0); Mean Corpuscular Volume 83.8 fL (80-94); Mean Platelet Volume 9.7 fL (7.4-10.4); Monocytes # 0.4 10^3/uL (0.2-0.9); Monocytes % 4.5 %; Neutrophils # 7.09 10^3/uL (1.8-7.7); Nucleated Red Blood Cells % 0 %; Platelet Count 197 10^3/cmm (130-400); Red Blood Count 5.93 10^6/uL (4.1-5.3); Red Cell Distribution Width 13.4 % (12.1-15.1); White Blood Count 9.2 10^3/uL (4.0-10.0)
[2021-07-02 07:02] LABS: Alanine Aminotransferase 37 U/L (0-41); Albumin Level 3.4 g/dL (3.5-5.2); Alkaline Phosphatase 74 IU/L (40-130); Anion Gap 16.2 (5-19); Aspartate Amino Transferase 54 U/L (0-40); Blood Urea Nitrogen 16 mg/dL (6-20); Calcium 7.9 mg/dL (8.5-10.5); Carbon Dioxide 25 mmol/L (22-29); Chloride 100 mmol/L (98-107); Globulin 2.1 g/dL (1.3-4.6); Glomerular Filtration Rate 174.6 mL/min (90-130); Glucose 80 mg/dL (65-115); Osmolality Calculated 284 mOsm/kg (285-295); Potassium 4.2 mmol/L (3.5-5.1); Sodium 137 mmol/L (136-145); Total Bilirubin 0.7 mg/dL (0.15-1.2); Total Protein 5.5 g/dL (6.6-8.7)
[2021-07-02 07:12] LABS: D Dimer >= 20.00 ug/mIFEU (0-0.59)
[2021-07-02] MEDS: HYDROcodone-acetaminophen 5-325 mg Tablet 1 TAB PO ×2 (07:34→14:54)
[2021-07-02] MEDS: linezolid premix 600 MG/300 ML PREMIX 300 MG IV ×2 (07:34→18:48)
--- NOTE | 2021-07-02 08:35 | PM.CONSULT ---
Providers/Reason For Consult Consulting Physician/Specialty*: Pulmonary critical care medicine Reason for Consult*: Acute hypoxic respiratory failure in the setting of SARS-CoV-2 pneumonia Attending Physician: Loki Kc Primary Care Provider: Abbie Montero MD History of Present Illness History of Present Illness Haim Gastelum is a 51 year old male with a past medical history only of hypertension. Patient was hospitalized on June 26 after his oxygen saturation dropped at home. When he presented to the emergency department his saturation was 80% and he was placed on 4 L oxygen. The initial blood gas showed a pH of 7.5, PCO2 of 30 and PO2 of 55. The initial chest x-ray on June 26 revealed bilateral alveolar opacity with air bronchograms. Unfortunately, after admission his oxygen requirement increased significantly and by the next day the patient was on 70 to 80% of oxygen on high flow. There had also been radiologic progression of his disease. Yesterday, the patient was requiring high flow nasal cannula 100% and a nonrebreather mask to obtain an adequate oxygen saturation. He underwent a CT angiogram of the chest which revealed no pulmonary embolism. Diffuse groundglass opacity involving both lungs were noted. The patient also had dense consolidation of the lower lobes. He has pneumomediastinum and pneumopericardium without any significant evidence of pneumothorax. The patient had been on remdesivir and dexamethasone. He had also received Tocilizumab because of increased inflammatory markers. Yesterday, there had been an elevation in his D-dimer level and a lower extremity Doppler in addition to the CTA was performed. The Doppler study was negative for DVT. The patient had received remdesivir. Currently he is on dexamethasone. He is empirically covered with linezolid and Zosyn. The patient was seen and examined in the ICU.He was resting comfortably. On BiPAP 100%. He appeared comfortable. Review of Systems Narrative: The patient was anxious. He was fatigued and short of breath. The review of system was limited because of the patient's condition and using BiPAP. Meds/Allergies Home Medications and Allergies Home Medications Medication Instructions Recorded Confirmed Last Taken Type lisinopril 10 1 tab PO DAILY 90 Days #90 tab 04/15/21 06/26/21 06/26/21 Rx mg-hydrochlorothiazide 12.5 mg tablet loratadine-pseudoephedrine ER 10 1 tab PO DAILY PRN 30 Days #30 tab 04/15/21 06/26/21 06/26/21 Rx mg-240 mg tablet,extended [id number] hydrocodone 10 mg-acetaminophen 1 tab PO BID PRN 30 Days #45 tab 05/26/21 06/26/21 Unknown Rx 325 mg tablet famotidine 20 mg tablet 20 mg PO DAILY 06/17/21 06/26/21 06/26/21 History Allergies Allergy/AdvReac Type Severity Reaction Status Date / Time No Known Allergies Allergy Verified 06/17/21 09:01 Current Medications Current Medications Generic Name Dose Route Start Last Admin Trade Name Freq PRN Reason Stop Dose Admin Hydrocodone Bitart/Acetaminophen 1 tab 07/01/21 12:40 07/02/21 07:34 Hydrocodone-Acetaminophen 5-325 Mg Tablet PO 1 tab Q6H PRN Administration MODERATE PAIN Albuterol Sulfate 2 puff 06/30/21 12:00 07/02/21 07:42 Albuterol 8 Gm Mdi INHALATION 2 puff Q4H.RESPIRATORY RAGHU Administration Alprazolam 0.5 mg 07/01/21 12:38 07/01/21 14:39 Alprazolam 0.5 Mg Tablet PO 0.5 mg Q4H PRN Administration ANXIETY Dexamethasone 6 mg 06/26/21 21:28 07/01/21 11:07 Dexamethasone 4 Mg/Ml Inj IVP 6 mg Q24H RAGHU Administration Docusate Sodium 100 mg 06/27/21 09:00 07/01/21 18:08 Docusate Sodium 100 Mg Capsule PO Not Given BID RAGHU Enoxaparin Sodium 100 mg 07/01/21 13:00 07/02/21 00:44 Enoxaparin 100 Mg/Ml Syringe 1 mg/kg (100 mg) 100 mg SUBCUT Administration Q12H RAGHU Famotidine 20 mg 06/27/21 09:00 07/01/21 18:08 Famotidine 20 Mg Tablet PO Not Given BID RAGHU Piperacillin Sod/Tazobactam 50 mls @ 12.5 mls/hr 06/27/21 15:00 07/02/21 02:53 Sod 3.375 gm/ Sodium Chloride IV 12.5 mls/hr Q8H RAGHU Administration Linezolid 600 mg in 300 mls @ 300 mls/hr 06/30/21 19:45 07/02/21 07:34 Zyvox Premix IV 300 mls/hr Q12H RAGHU Administration Protocol Lisinopril 10 mg 06/27/21 09:00 07/01/21 08:10 Lisinopril 10 Mg Tablet PO 10 mg DAILY RAGHU Administration Lorazepam 1 mg 07/01/21 15:51 07/01/21 21:39 Lorazepam 2 Mg/Ml Inj 1 Ml IVP 1 mg Q4H PRN Administration ANXIETY Morphine Sulfate 2 mg 07/01/21 17:46 07/02/21 03:25 Morphine 4 Mg/Ml Sdv 1 Ml IVP 2 mg Q4H PRN Administration SEVERE PAIN Fluticasone/Salmeterol 2 puff 06/26/21 21:28 07/02/21 07:43 Fluticasone-Salmeterol 250-50 Diskus INHALATION 2 puff BID.RESPIRATORY RAGHU Administration PFSH Acute PFSH: Medical History Acute sinus infection Anxiety Chronic sinusitis GERD (gastroesophageal reflux disease) Hypertension Lumbar disc disease with radiculopathy Surgical History History of circumcision History of tonsillectomy Social History Smoking and tobacco status: current every day smoker smokeless tobacco Alcohol intake: current Alcohol intake frequency: holidays/special occasions only Vitals/I&O/Wt Last Vital Signs Temp 98.7 F 07/02/21 07:30 Pulse 89 07/02/21 07:53 Resp 20 H 07/02/21 07:40 BP 109/80 07/02/21 07:30 Pulse Ox 93 07/02/21 07:40 07/01/21 07/02/21 07/02/21 22:59 06:59 14:59 Intake Total 450 / 920 Output Total 850 / 850 Balance -400 / 70 Weight last 48 hrs Weight 214 lb 8 oz Weight 218 lb 12.8 oz Physical Exam Narrative: EXAM NARRATIVE: General: Patient is awake alert and oriented, mild distress while resting from tachypnea Neck: No JVD Respiratory: Auscultation: Reduced breath sound bilaterally, minimal crackles at the lung bases Cardiovascular: Regular rate and rhythm, S1-S2 present, no murmur, no peripheral edema. Abdomen: Soft, nontender, nondistended, positive bowel sound Musculoskeletal: No obvious joint deformity Skin: No rash Neuro: Mental status is normal, no gross cranial nerve deficit, normal motor and coordination. Data Micro: Micro: Microbiology 06/26/21 14:26 Blood Culture - Fi nal Blood NO GROWTH AFTER 5 DAYS 06/26/21 13:08 Blood Culture - Fi nal Blood NO GROWTH AFTER 5 DAYS Other Data: Attestation for Other Data: I personally reviewed and interpreted the following: Other data: I have reviewed the patient's laboratory, microbiologic and radiologic data. A&P Assessment and plan (1) Acute respiratory failure due to COVID-19: This is a 51-year-old gentleman with severe COVID-19 due to SARS-CoV-2 pneumonia. Currently the patient is requiring 100% oxygen on BiPAP. He is on dexamethasone. He has received 5-day course of remdesivir as well as Tocilizumab. He is broadly covered with Zosyn and linezolid at this time. I am going to obtain a nasal MRSA PCR and if negative will be able to discontinue the linezolid. Status: Acute (2) ARDS (adult respiratory distress syndrome): The patient has ARDS based on the [place] definition. For now, his oxygen saturation is holding. The patient's mental status is good. If there is any worsening of the hypoxia or change in mental status the patient may need intubation. Status: Acute (3) Pneumomediastinum: The patient has evidence of pneumomediastinum and pneumopericardium without any evidence of pneumothorax. This has been a common finding in patients with COVID-19. This typically develops in the second week of infection likely due to a pathology similar to Flower phenomenon. We will have very close monitoring of his respiratory status. The patient will read immediate intervention if he develops any pneumothorax. Status: Acute (4) Pneumopericardium: See above Status: Acute (5) Hypertension: His blood pressure is stable now. The patient is on DIANE inhibitor. The initial LEANNE has resolved. I expect the patient to be in ICU for the next few days. Status: Acute Coding Level of Care Code Acute Enrollment Eligibility Representative for amrita Perez Diagnoses Acute respiratory failure due to COVID-19 U07.1; J96.00 ARDS (adult respiratory distress syndrome) J80 Pneumomediastinum J98.2 Pneumopericardium I31.9 Hypertension I10 Time Spent (min) 42
[2021-07-02] MEDS: lisinopril 10 mg Tablet PO (08:52)
[2021-07-02] MEDS: ALPRAZolam 0.5 mg Tablet PO ×2 (08:52→17:24)
[2021-07-02] MEDS: enoxaparin 40 mg/0.4 mL Syringe SUBCUT (08:52)
[2021-07-02] MEDS: docusate sodium 100 mg Capsule PO ×2 (08:52→17:23)
[2021-07-02] MEDS: famotidine 20 mg Tablet PO ×2 (08:53→17:23)
--- NOTE | 2021-07-02 09:43 | PC.CHAP ---
Pastoral Care Encounter/Spiritual Assessment Type of Contact [] Declined process designer visit [] Patient/Family/Request visit [] Outpatient visit [] Follow-up visit [] Physician referral [] Code/Alert [x] Routine visit [] Staff referral [] Actively dying [] Patient sleeping [] Family support [] [] Out of room [] Palliative care [] [x] Receiving care in room [] Pre-surgical visit [] Trauma [] Long length of stay [x] ICU visit [] Other: Relational/Emotional Strength [] Patient feels connected with others/family/visitors/staff [] Distress [] Loneliness/isolation [] Abandonment Spirituality of Patient [] Person of Kellie [] Attends Voodoo of their Kellie [] Believes in Prayer [] Reads Bible or Mormonism materials [] There are Spiritual issues to be addressed Director Of Business Operations Interventions [x] Prayer [] Active listening [] Non-anxious presence [] Spiritual/emotional support [] Crisis/trauma care [] Spiritual counseling [] Bereavement support [] Provided bereavement packet [] Provided Bible/devotional materials [] Provided toy/stuffed animal, coloring book to patient or family member [] Provided Communion [] Anointing/[place] [] Salvation [x] Completed spiritual assessment [] Other: Impact on Illness or Injury [] Angry [] Fearful [] Anxious [] Often cries [] Exhaustion [] Unable to work [] Unable to attend mormonism [] Unable to walk/stand [] Unable to read [] Unable to drive [] Unable to eat/drink [] Unable to sleep [] Unable to be with family [] Patient intubated [] Other: Summary Time spent with patient
[2021-07-02] MEDS: dexamethasone 4 mg/mL INJ 6 MG IVP (10:35)
[2021-07-02] MEDS: LORazepam 2 mg/mL INJ 1 mL 1 MG IVP (10:35)
--- NOTE | 2021-07-02 19:20 | PC.NURSE ---
Shift No events today. Patient SPO2 in mid/upper 90s on Bipap 80%, RR 20s-30s. Patient placed on 15L NRB for pills and eating periodically throughout day. Still requires Bipap support at all other times. Patient with very high anxiety, PRNs given often. Patient hopeful and feels improved.
--- NOTE | 2021-07-02 20:05 | PM.PN ---
Subjective Subjective: Interval history: Reports he feels better today. Starting to breathe easier. Denies chest pain or pressure. Denies nausea vomiting or diarrhea. Vitals/I&O/Wt Last Vital Signs Temp 98.7 F 07/02/21 07:30 Pulse 92 07/02/21 20:01 Resp 26 H 07/02/21 17:00 BP 112/74 07/02/21 17:00 Pulse Ox 97 07/02/21 20:01 07/02/21 07/02/21 07/02/21 06:59 14:59 22:59 Intake Total 520 / 520 300 / 820 Output Total 600 / 600 Balance -80 / -80 300 / 220 Weight last 48 hrs Weight 97.296 kg Weight 99.246 kg Physical Exam Const: COMMON NORMALS: no acute distress, patient oriented x3 and alert GENERAL APPEARANCE: cooperative ORIENTATION/CONSCIOUSNESS: Yes awake OTHER: Sitting up in bed HENMT: COMMON NORMALS: oropharynx normal Neck/C-Spine: COMMON NORMALS: no JVD Resp: COMMON NORMALS: normal respiratory effort and clear to auscultation bilaterally AUSCULTATION: clear to auscultation bilaterally OTHER: BiPAP on Cardio: COMMON NORMALS: no JVD, regular rhythm, S1 normal heart sound present, S2 normal heart sound present and No murmurs present (Cardio) RHYTHM: regular rhythm HEART SOUNDS: S1 normal heart sound present and S2 normal heart sound present GI: COMMON NORMALS: Normal to inspection, nondistended, normoactive bowel sounds present, Soft to palpation and non-tender PALPATION: Yes Soft to palpation Extremity: COMMON NORMALS: no joint enlargement and no pedal edema Neuro: COMMON NORMALS: patient oriented x3 and moves all extremities SENSORIUM/ORIENTATION: Yes alert Skin: COMMON NORMALS: no rashes or lesions noted GENERAL SKIN EXAM: no rashes or lesions noted Data : 07/02/21 05:47 07/02/21 05:47 A&P Assessment and plan (1) Acute respiratory failure due to COVID-19: So far has been tolerating alternating between BiPAP support and nonrebreather. Subjectively he is feeling better. CT negative for PE, on radiology read duplex negative for DVT. Lovenox dose change prophylactic. Continue Decadron. Empirically on Zosyn. Linezolid. Pneumomediastinum, pneumopericardium noted. Continue to monitor for any changes may suggest pneumothorax. Status: Acute (2) COVID-19: As above. Status: Acute (3) Hypoxia: Status: Acute (4) Hypertension: continue home meds for now. Good control at this time. Status: Acute Qualifiers: Hypertension type: essential hypertension Qualified Code(s): I10 - Essential (primary) hypertension (5) Acute kidney injury: Resolved Status: Acute (6) Elevated WBC count: Status: Resolved Attestations Medical Necessity Statement*: Continue admission for assessment management of severe COVID-19 with hypoxic respiratory failure and additional findings as above. Coding Level of Care Code Acute Supervisor Agency Appointments for [facility] Diagnoses Acute respiratory failure due to COVID-19 U07.1; J96.00 COVID-19 U07.1 Hypoxia R09.02 Hypertension I10 Hypertension type: essential hypertension Acute kidney injury N17.9 Elevated WBC count D72.829
[2021-07-03] VITALS (39 sets, daily range): BP systolic 94–165; BP diastolic 56–116; PULSE 75–137; RESP 18–42; TEMP 36.4; O2SAT 84–97
[2021-07-03] MEDS: piperacillin-tazobactam 3.375 GM in sodium chloride 0.9% (plus) 50 ML IV ×3 (03:02→19:22)
[2021-07-03] MEDS: LORazepam 2 mg/mL INJ 1 mL 1 MG IVP (03:02)
[2021-07-03] MEDS: albuterol 8 gm MDI 2 PUFF INHALATION (03:22)
[2021-07-03] MEDS: LORazepam 2 mg/mL INJ 1 mL 0.5 MG IVP (04:45)
--- NOTE | 2021-07-03 04:54 | PC.NURSE ---
pulled biapap off, very anxious, RR 60s, dr. Cortes contacted, gave t.o. ativan REGIONAL GUIDE 0.5 mg 1x, med was administered, no relief, Dr. cortes then gave t.o. for precedex drip
[2021-07-03] MEDS: morphine 4 mg/mL SDV 1 mL 2 MG IVP ×3 (05:27→20:11)
[2021-07-03] MEDS: dexmedetomidine 400 MCG in sodium chloride 0.9% (100 ml) 100 ML IV (05:29)
--- NOTE | 2021-07-03 06:47 | XRR_ITS ---
PROCEDURE INFORMATION: Exam: XR Chest Exam date and time: 07/03/2021 6:47 AM Age: 51 years old Clinical indication: Condition or disease; Lung condition and disease; Respiratory failure; Status not specified TECHNIQUE: Imaging protocol: XR of the chest. Views: 1 view. COMPARISON: CR (CHEST, ) 07/02/2021 3:23 AM FINDINGS: Lungs: Low lung volumes. Persistent bilateral airspace opacities. No large pleural effusion or pneumothorax. Pleural spaces: See Lungs finding. Heart/Mediastinum: Stable cardiomediastinal silhouette. Bones/joints: No acute osseous injury identified. XR/XR chest 1V portable [id number] IMPRESSION: Persistent bilateral airspace opacities.
[2021-07-03 06:56] LABS: Basophils # 0.2 10^3/uL (0.0-0.1); Basophils % 0.9 %; Eosinophils # 0.3 10^3/uL (0.0-0.8); Eosinophils % 1.5 %; Hematocrit 52.8 % (42.0-52.0); Hemoglobin 17.3 g/dL (11.7-16.6); Lymphocytes # 1.2 10^3/uL (0.8-4.8); Mean Corpuscular HGB Conc 32.8 g/dL (30.0-36.0); Mean Corpuscular Hemoglobin 28.1 pg (28.0-34.0); Mean Corpuscular Volume 85.9 fL (80-94); Mean Platelet Volume 9.4 fL (7.4-10.4); Monocytes # 0.9 10^3/uL (0.2-0.9); Monocytes % 4.1 %; Neutrophils % 84.6 %; Nucleated Red Blood Cells % 0 %; Platelet Count 235 10^3/cmm (130-400); Red Blood Count 6.15 10^6/uL (4.1-5.3); Red Cell Distribution Width 13.4 % (12.1-15.1); White Blood Count 20.7 10^3/uL (4.0-10.0)
[2021-07-03] MEDS: linezolid premix 600 MG/300 ML PREMIX 300 MG IV ×2 (07:04→20:02)
--- NOTE | 2021-07-03 07:04 | PC.NURSE ---
Shift Note Frequent safety and comfort rounds continue. Orders and/or nursing care completed as indicated. Patient monitored for response to intervention and treatment(s). Education provided includes[]. Patient and/or used equipment sales representative[]. Will continue to monitor.
--- NOTE | 2021-07-03 07:07 | PC.NURSE ---
Shift Note Frequent safety and comfort rounds continue. Orders and/or nursing care completed as indicated. Patient monitored for response to intervention and treatment(s). Education provided includes oxygen safety. Patient very anxious previously meds administered per mar. Will continue to monitor.
[2021-07-03 07:13] LABS: Alanine Aminotransferase 42 U/L (0-41); Albumin Level 3.6 g/dL (3.5-5.2); Alkaline Phosphatase 103 IU/L (40-130); Blood Urea Nitrogen 19 mg/dL (6-20); Calcium 7.9 mg/dL (8.5-10.5); Carbon Dioxide 26 mmol/L (22-29); Chloride 98 mmol/L (98-107); Globulin 2.3 g/dL (1.3-4.6); Glomerular Filtration Rate 118.4 mL/min (90-130); Glucose 105 mg/dL (65-115); Osmolality Calculated 287 mOsm/kg (285-295); Sodium 137 mmol/L (136-145); Total Bilirubin 0.9 mg/dL (0.15-1.2); Total Protein 5.9 g/dL (6.6-8.7)
[2021-07-03 07:21] LABS: Anion Gap 17.2 (5-19); Aspartate Amino Transferase 103 U/L (0-40); Potassium 4.2 mmol/L (3.5-5.1)
--- NOTE | 2021-07-03 07:58 | PC.NURSE ---
Patient confused at shift change, pulling Bipap mask off. Nurse reapplied and with patient until sats improved to mid 90s. Patient does not appear in pain/distress. Bipap 80%, RR 30s/40s, Vt up to 1300. Patient unable to urinate, complaining of needing to urinate, rogers placed 600 out.
--- NOTE | 2021-07-03 08:09 | PC.NURSE ---
updated on condition, possible intubation within next few hours. ask for doctor to use Toci medication again. I will inform Dr Sandoval. tearful.
--- NOTE | 2021-07-03 08:13 | PM.PN ---
Subjective Subjective: Interval history: The patient was seen and examined this morning. Overnight, the patient was confused. He received opioid and benzodiazepines. He was also on Precedex. He had also developed urinary retention. The patient was unable to follow any commands or respond appropriately to me this morning. His oxygen requirement has remained the same. He is on 80% oxygen. His oxygen saturation is in the mid 90s. His white count jumped to 20,000 today. There is some degree of hemoconcentration. His oral intake has not been the greatest. His DVT studies and CT angiogram has ruled out pulmonary embolism or deep venous thrombosis in the past. The liver enzymes are mildly elevated. Chest x-ray this morning revealed bilateral infiltrate. There has been no significant change. No pneumothorax. I have discussed his current condition with his and updated him about his current situation. Medications: Reviewed: Yes Vitals/I&O/Wt Last Vital Signs Temp 98.7 F 07/02/21 07:30 Pulse 103 H 07/03/21 08:10 Resp 31 H 07/03/21 08:08 BP 111/80 07/03/21 06:00 Pulse Ox 94 07/03/21 08:10 07/02/21 07/03/21 07/03/21 22:59 06:59 14:59 Intake Total 650 / 1170 6.241 / 6.241 Balance 650 / 570 6.241 / 6.241 Weight last 48 hrs Weight 212 lb Weight 214 lb 8 oz Physical Exam Narrative: EXAM NARRATIVE: General: The patient is tired and confused unable to answer questions Neck: No JVD Respiratory: Auscultation: Reduced breath sound bilaterally, minimal crackles at the lung bases Cardiovascular: Regular rate and rhythm, S1-S2 present, no murmur, no peripheral edema. Abdomen: Soft, nontender, nondistended, positive bowel sound Musculoskeletal: No obvious joint deformity Skin: No rash Neuro: He is moving all extremities spontaneously. There has been a sudden decline in his mental status. Urinary Catheter Management^: Barnes: Cath Placed During This Visit: yes Urinary Catheter Date of Insertion: 07/03/21 Urinary Catheter Time of Insertion: 07:56 Data : 07/03/21 06:24 07/03/21 06:24 Attestation for Other Data: I personally reviewed and interpreted the following: Other data: I have reviewed his laboratory, microbiologic and radiologic data. A&P Assessment and plan (1) Acute respiratory failure due to COVID-19: This is a 51-year-old gentleman with severe COVID-19 due to SARS-CoV-2 pneumonia. Currently the patient is requiring 80% oxygen on BiPAP. He is on dexamethasone. He has received 5-day course of remdesivir as well as 2 doses of Tocilizumab. He is broadly covered with Zosyn and linezolid at this time. He had a bump in his white count today to 20,000. This could be secondary to a bacterial or fungal infection however there is no definite evidence of that currently. The patient has received 2 doses of Tocilizumab so his risk of getting infection is higher than other individuals. Status: Acute (2) ARDS (adult respiratory distress syndrome): The patient has ARDS based on the [place] definition. Although his oxygen saturation did not deteriorate, his mental status has. The patient will likely need intubation and mechanical ventilation today. Once intubated, will get respiratory samples for bacterial and fungal cultures. His oral intake is minimal, he is going to receive D5 half NS for a liter 50 cc an hour. Status: Acute (3) Delirium: The patient has developed delirium. This could be secondary to the critical care illness or combination of critical care illness with BUSINESS SOLUTIONS DIRECTOR dysfunction in the setting of COVID-19. He had also developed urinary retention. If there is no significant change in his mental status he will need complete control of his airway. Status: Acute (4) Pneumomediastinum: The patient has evidence of pneumomediastinum and pneumopericardium without any evidence of pneumothorax. This has been a common finding in patients with COVID-19. This typically develops in the second week of infection likely due to a pathology similar to [place] phenomenon. Chest x-ray this morning did not reveal any worsening of the pneumomediastinum or new development of pneumothorax. Status: Acute (5) Pneumopericardium: See above Status: Acute (6) Hypertension: His blood pressure is stable now. The patient is on DIANE inhibitor. The initial LEANNE has resolved. Status: Acute Attestations Medical Necessity Statement*: Will defer to the primary team Coding Level of Care Code Acute Embedded Linux Developer for Zelda Perez Diagnoses Acute respiratory failure due to COVID-19 U07.1; J96.00 ARDS (adult respiratory distress syndrome) J80 Delirium R41.0 Pneumomediastinum J98.2 Pneumopericardium I31.9 Hypertension I10 Time Spent (min) 33
[2021-07-03] MEDS: dextrose 5%-sod chloride 0.45% 1,000 ML 50 ML IV (09:04)
--- NOTE | 2021-07-03 09:35 | PC.CHAP ---
Pastoral Care Encounter/Spiritual Assessment Type of Contact [] Declined director of scout work visit [] Patient/Family/Request visit [] Outpatient visit [] Follow-up visit [] Physician referral [] Code/Alert [x] Routine visit [] Staff referral [] Actively dying [] Patient sleeping [] Family support [] [] Out of room [] Palliative care [] [x] Receiving care in room [] Pre-surgical visit [] Trauma [] Long length of stay [x] ICU visit [x] Other:quarantined Relational/Emotional Strength [] Patient feels connected with others/family/visitors/staff [] Distress [] Loneliness/isolation [] Abandonment Spirituality of Patient [] Person of Kellie [] Attends Protestant of their Kellie [] Believes in Prayer [] Reads Bible or Holiness materials [] There are Spiritual issues to be addressed Erisa Attorney Interventions [x] Prayer [] Active listening [] Non-anxious presence [] Spiritual/emotional support [] Crisis/trauma care [] Spiritual counseling [] Bereavement support [] Provided bereavement packet [] Provided Bible/devotional materials [] Provided toy/stuffed animal, coloring book to patient or family member [] Provided Communion [] Anointing/[place] [] Salvation [x] Completed spiritual assessment [] Other: Impact on Illness or Injury [] Angry [] Fearful [] Anxious [] Often cries [] Exhaustion [] Unable to work [] Unable to attend tenriism [] Unable to walk/stand [] Unable to read [] Unable to drive [] Unable to eat/drink [] Unable to sleep [] Unable to be with family [] Patient intubated [] Other: Summary Time spent with patient
[2021-07-03] MEDS: dexamethasone 4 mg/mL INJ 6 MG IVP (09:57)
[2021-07-03] MEDS: enoxaparin 40 mg/0.4 mL Syringe SUBCUT (09:57)
[2021-07-03] MEDS: HYDROcodone-acetaminophen 5-325 mg Tablet 1 TAB PO ×2 (11:38→19:22)
[2021-07-03] MEDS: ALPRAZolam 0.5 mg Tablet PO (15:05)
[2021-07-03 15:31] LABS: ABG PCO2 42.8 mmHg (35-45); ABG PH Result 7.46 (7.35-7.45); Alveolar-Arterial Oxygen Gradi 58.7 mmHg (5-10); Arterial Blood Gas Hematocrit 50.9 % (42-52); Base Excess ABG 5.8 mmol/L (-2.0-2.0); Blood Gas Allen Test Pos; Blood Gas Operator Identificat GD; Blood Gas Sample Site Radial, left; Blood Gas Sample Type Arterial; Carboxyhemoglobin 0.9 %THgb (0.4-20.1); HCO3 ABG 30.4 mmol/L (22-26); HGB O2 Sat 93.1 % (95-100); Methemoglobin 0.7 % (0.4-1.5); Oxygen Device BIPAP; Oxygen Saturation ABG 94.6; PO2 ABG 67.3 mmHg (80.0-100.0); Potassium Level - ABG 4.4 mmol/L (3.5-5.0); Total Hemoglobin 16.6 g/dL (14-18)
[2021-07-03] MEDS: famotidine 20 mg Tablet PO (16:46)
--- NOTE | 2021-07-03 17:57 | P.PN_ITS ---
Subjective Subjective: Interval history: Last night he was confused, was started on Precedex drip. Through the day today his mental status has improved. So far has been able to wean off Precedex. States that he feels all right. Denies any particular complaints at this time. Vitals/I&O/Wt Last Vital Signs Temp 97.6 F 07/03/21 15:25 Pulse 91 07/03/21 16:04 Resp 26 H 07/03/21 16:00 BP 113/75 07/03/21 16:00 Pulse Ox 93 07/03/21 16:04 07/03/21 07/03/21 07/03/21 06:59 14:59 22:59 Intake Total 356.241 / 356.241 170 / 526.241 Output Total 850 / 850 Balance 356.241 / 356.241 -680 / -323.759 Weight last 48 hrs Weight 96.162 kg Weight 97.296 kg Physical Exam Const: COMMON NORMALS: no acute distress GENERAL APPEARANCE: cooperative and comfortable ORIENTATION/CONSCIOUSNESS: Yes awake OTHER: Sitting up in bed HENMT: COMMON NORMALS: oropharynx normal Neck/C-Spine: COMMON NORMALS: no JVD Resp: COMMON NORMALS: normal respiratory effort and clear to auscultation bilaterally AUSCULTATION: clear to auscultation bilaterally OTHER: BiPAP on Cardio: COMMON NORMALS: no JVD, regular rhythm, S1 normal heart sound present, S2 normal heart sound present and No murmurs present (Cardio) RHYTHM: regular rhythm HEART SOUNDS: S1 normal heart sound present and S2 normal heart sound present GI: COMMON NORMALS: Normal to inspection, nondistended, normoactive bowel sounds present, Soft to palpation and non-tender PALPATION: Yes Soft to palpation Extremity: COMMON NORMALS: no joint enlargement and no pedal edema Neuro: COMMON NORMALS: moves all extremities Skin: COMMON NORMALS: no rashes or lesions noted GENERAL SKIN EXAM: no rashes or lesions noted Urinary Catheter Management^: Barnes: Cath Placed During This Visit: yes Reason for Continuing Indwelling Catheter: Accurate Measurement of Urinary Output in Critically Ill Patients Urinary Catheter Date of Insertion: 07/03/21 Urinary Catheter Time of Insertion: 07:56 Data : 07/03/21 06:24 07/03/21 06:24 Micro: Microbiology 07/02/21 09:35 MRSA Culture - Final Nose A&P Assessment and plan (1) Acute respiratory failure due to COVID-19: Respiratory failure has been complicated by delirium. Appears to show an improvement today. Continue supportive care with BiPAP, nonrebreather as tolerating, monitoring for need for intubation/mechanical ventilation support. CT negative for PE, on radiology read duplex negative for DVT. Lovenox dose change prophylactic. Continue Decadron. Empirically on Zosyn. Linezolid. Completed course of remdesivir. Status post Tocilizumab x2. Pneumomediastinum, pneumopericardium noted. Continue to monitor for any changes may suggest pneumothorax. Status: Acute (2) COVID-19: As above. Status: Acute (3) Hypoxia: Status: Acute (4) Hypertension: continue home meds for now. Good control at this time. Status: Acute Qualifiers: Hypertension type: essential hypertension Qualified Code(s): I10 - Essential (primary) hypertension (5) Acute kidney injury: Resolved Status: Acute (6) Elevated WBC count: Status: Resolved Attestations Medical Necessity Statement*: Continue admission for hypoxic respiratory failure secondary to severe COVID-19. Coding Level of Care Code Acute Equipment Maintenance Technician for [facility] Diagnoses Acute respiratory failure due to COVID-19 U07.1; J96.00 COVID-19 U07.1 Hypoxia R09.02 Hypertension I10 Hypertension type: essential hypertension Acute kidney injury N17.9 Elevated WBC count D72.829
[2021-07-04] VITALS (31 sets, daily range): BP systolic 90–143; BP diastolic 52–86; PULSE 59–120; RESP 16–40; O2SAT 83–100
--- NOTE | 2021-07-04 00:20 | PC.NURSE ---
23:50- Hospitalist replied to my message about my concerns about pt's abd being distended and tender. X-ray of the abd was ordered. Hospitalist was asked to come to bedside due to x-ray findings. Hospitalist ordered NG to relieve pressure off abd. As the hospitalist entered the room to assess the pt the pt's HR dropped down into the 30's. After about 5-10 seconds of being in the 30's the pt went asystole. A code blue was then called. Refer to Code Blue sheet. Pt is now intubated and sedated. Before being sedated pt was alert and oriented and able to answer yes and no questions by shaking his head. I explained to the pt that we was doing good and that I was about to give him some medication to help him rest. Pt shook his head yes that he understood. at bed side. Dr. Cortes stated that the can stay at bedside for the rest of the night due to pt's condition. Pt's denies any further questions or concerns at this time. Bed in lowest and locked position, call light within reach, x's 2 rails up. Will continue to monitor pt. Dr. Montejo was notified that pt coded. Dr. Montejo stated to continue CRRT and call with AM labs.
[2021-07-04] MEDS: LORazepam 2 mg/mL INJ 1 mL 1 MG IVP (01:37)
[2021-07-04] MEDS: albuterol 8 gm MDI 2 PUFF INHALATION (01:59)
--- NOTE | 2021-07-04 02:15 | PC.NURSE ---
patient anxious with fast RR, required titration of precedex per protocol
[2021-07-04] MEDS: piperacillin-tazobactam 3.375 GM in sodium chloride 0.9% (plus) 50 ML IV ×3 (03:11→19:11)
[2021-07-04] MEDS: morphine 4 mg/mL SDV 1 mL 2 MG IVP (03:59)
[2021-07-04] MEDS: dexmedetomidine 400 MCG in sodium chloride 0.9% (100 ml) 100 ML IV (05:09)
[2021-07-04 06:03] LABS: Basophils # 0.1 10^3/uL (0.0-0.1); Basophils % 0.5 %; Eosinophils # 0.3 10^3/uL (0.0-0.8); Eosinophils % 1.6 %; Hematocrit 44.7 % (42.0-52.0); Hemoglobin 14.8 g/dL (11.7-16.6); Lymphocytes # 1.4 10^3/uL (0.8-4.8); Lymphocytes % 7.1 %; Mean Corpuscular HGB Conc 33.1 g/dL (30.0-36.0); Mean Corpuscular Hemoglobin 27.9 pg (28.0-34.0); Mean Corpuscular Volume 84.3 fL (80-94); Mean Platelet Volume 9.4 fL (7.4-10.4); Monocytes # 0.9 10^3/uL (0.2-0.9); Monocytes % 4.7 %; Neutrophils % 83.8 %; Nucleated Red Blood Cells % 0 %; Platelet Count 191 10^3/cmm (130-400); Red Cell Distribution Width 13.3 % (12.1-15.1); White Blood Count 19.7 10^3/uL (4.0-10.0)
--- NOTE | 2021-07-04 06:09 | PC.NURSE ---
Shift Note Frequent safety and comfort rounds continue. Orders and/or nursing care completed as indicated. Patient monitored for response to intervention and treatment(s). Education provided includes oxygen safety. Patient tolerated being on bipap with precedex, one episode of anxiety occurred which resulted in patient taking off bipap but was controlled with education and prns . Will continue to monitor.
[2021-07-04 06:24] LABS: Alanine Aminotransferase 33 U/L (0-41); Albumin Level 3.2 g/dL (3.5-5.2); Alkaline Phosphatase 124 IU/L (40-130); Anion Gap 11.1 (5-19); Aspartate Amino Transferase 76 U/L (0-40); Blood Urea Nitrogen 14 mg/dL (6-20); Calcium 7.5 mg/dL (8.5-10.5); Carbon Dioxide 27 mmol/L (22-29); Chloride 100 mmol/L (98-107); Globulin 1.8 g/dL (1.3-4.6); Glomerular Filtration Rate 225.9 mL/min (90-130); Glucose 108 mg/dL (65-115); Osmolality Calculated 279 mOsm/kg (285-295); Potassium 4.1 mmol/L (3.5-5.1); Sodium 134 mmol/L (136-145); Total Bilirubin 0.8 mg/dL (0.15-1.2)
[2021-07-04] MEDS: dextrose 5%-sod chloride 0.45% 1,000 ML 50 ML IV (07:42)
[2021-07-04] MEDS: linezolid premix 600 MG/300 ML PREMIX 300 MG IV (07:42)
[2021-07-04] MEDS: ipratropium-albuterol 3 mL Neb INHALATION (07:44)
[2021-07-04] MEDS: famotidine 20 mg Tablet PO ×2 (09:43→17:41)
[2021-07-04] MEDS: enoxaparin 40 mg/0.4 mL Syringe SUBCUT (09:43)
[2021-07-04] MEDS: lisinopril 10 mg Tablet PO (09:43)
[2021-07-04] MEDS: HYDROcodone-acetaminophen 5-325 mg Tablet 1 TAB PO (09:43)
--- NOTE | 2021-07-04 10:59 | PC.NURSE ---
called and notified of patient being intubated shortly.
[2021-07-04] MEDS: succinylcholine 20 mg/mL SDV 10mL 100 MG IVP (11:51)
[2021-07-04] MEDS: propofol 1,000 MG/100 ML INJ 28.85 MG IV ×2 (11:52→13:40)
[2021-07-04] MEDS: cisatracurium 100 MG in sodium chloride 0.9% 50 ML IV (11:56)
--- NOTE | 2021-07-04 13:12 | XRR_ITS ---
PROCEDURE INFORMATION: Exam: XR Chest Exam date and time: 07/04/2021 1:12 PM Age: 51 years old Clinical indication: Device placement; Other: Central line, oral gastric tube placement; Additional info: Tube placement, central line, oral gastric tube placement TECHNIQUE: Imaging protocol: XR of the chest. Views: 1 view. COMPARISON: CR XR chest 1V portable [id number] 07/03/2021 7:14 AM FINDINGS: Lungs: Patchy parenchymal densities seen throughout both lungs these findings may represent pulmonary edema or pneumonia. Comparison to prior examination appears similar. Pleural spaces: Unremarkable. No pleural effusion. No pneumothorax. Heart/Mediastinum: Unremarkable. No cardiomegaly. Bones/joints: Unremarkable. Endotracheal tube is above the kia. NG tube extends into the proximal stomach. A left central line extends into the SVC. XR/XR chest 1V portable [id number] IMPRESSION: 1. Patchy parenchymal densities in both lungs pneumonia or pulmonary edema 2. Endotracheal tube is above the kia. 3. NG tube is in the stomach. 4. Left central line is in the SVC
[2021-07-04] MEDS: dexamethasone 4 mg/mL INJ 6 MG IVP (13:29)
--- NOTE | 2021-07-04 13:58 | PC.NURSE ---
updated post intubation. All questions answered.
[2021-07-04 15:07] LABS: Arterial Blood Gas Hematocrit 51.5 % (42-52); Base Excess ABG -0.5 mmol/L (-2.0-2.0); Blood Gas Allen Test Pos; Blood Gas Sample Site Radial, right; Blood Gas Sample Type Arterial; Carboxyhemoglobin 1.2 %THgb (0.4-20.1); HCO3 ABG 32.2 mmol/L (22-26); HGB O2 Sat 90.8 % (95-100); Ionized Calcium Level - ABG 1.1 mmol/L (1.1-1.4); Methemoglobin 0.9 % (0.4-1.5); Oxygen Device VENT; Oxygen Saturation ABG 92.8; PO2 ABG 85.6 mmHg (80.0-100.0); Potassium Level - ABG 4.2 mmol/L (3.5-5.0); Total Hemoglobin 16.8 g/dL (14-18)
[2021-07-04 15:09] LABS: ABG PH Result 7.15 (7.35-7.45)
--- NOTE | 2021-07-04 16:28 | PC.NURSE ---
TOF 0/4, Nimbex titrated down to 1.75. Patient vent compliant. BIS 40s. Vitals stable, HR 111 sinus tach.
[2021-07-04 17:01] LABS: ABG PH Result 7.22 (7.35-7.45); Arterial Blood Gas Hematocrit 50.8 % (42-52); Base Excess ABG 0.2 mmol/L (-2.0-2.0); Blood Gas Allen Test Pos; Blood Gas Operator Identificat GD; Blood Gas Sample Site Radial, left; Blood Gas Sample Type Arterial; Blood Gas Tidal Volume 0.45; Carboxyhemoglobin 1.3 %THgb (0.4-20.1); HCO3 ABG 30.8 mmol/L (22-26); HGB O2 Sat 91.6 % (95-100); Ionized Calcium Level - ABG 1.1 mmol/L (1.1-1.4); Oxygen Device VENT; Oxygen Saturation ABG 93.7; PO2 ABG 79.9 mmHg (80.0-100.0); Potassium Level - ABG 4.8 mmol/L (3.5-5.0); Total Hemoglobin 16.6 g/dL (14-18)
[2021-07-04 17:02] LABS: ABG PCO2 76.1 mmHg (35-45)
--- NOTE | 2021-07-04 17:05 | PC.NUTR ---
Tube feeding recommendations: Spoke with Dr. Sandoval who states may start trickle tube feeds on pt soon. If unable to initiate oral diet within 1-3 days, and consistent with plan of care, would recommend Pulmocare, starting at 10 ml/hr, increasing by 10 ml/hr q 6 hours to goal rate of 30 ml/hr, with 200 ml H20 flushes q 6 hours, to provide 1080 kcal, 45 g protein, and 1765 ml H20. Noted pt is receiving 204 kcal from D5 and 762 kcal from propofol per day at this time. Goal rate likely to increase when propofol/D5 decrease. See full RD assessment for further details.
[2021-07-04] MEDS: cisatracurium 100 MG in sodium chloride 0.9% 50 ML 10.1 MG IV (17:40)
[2021-07-04] MEDS: propofol 1,000 MG/100 ML INJ 23.08 MG IV (17:41)
--- NOTE | 2021-07-04 18:10 | PM.PN ---
Subjective Subjective: Interval history: The patient was seen and examined this morning. He appeared comfortable on BiPAP however with removing his mask for a few seconds his oxygen saturation dropped to 70%. The patient was tired. Last night he also had an episode of confusion. On the BiPAP, the patient had a tidal volume ranging from 1200 to 1600 cc/breath. His minute ventilation was approximately 60 L. At this point, after discussion with his and the patient we had decided to proceed with intubation and mechanical ventilation and prone positioning if necessary. Medications: Reviewed: Yes Vitals/I&O/Wt Last Vital Signs Temp 97.6 F 07/03/21 15:25 Pulse 112 H 07/04/21 16:00 Resp 24 H 07/04/21 16:00 BP 92/56 07/04/21 16:00 Pulse Ox 92 07/04/21 16:00 07/04/21 07/04/21 07/04/21 06:59 14:59 22:59 Intake Total 1147.759 / 1974.000 739.465 / 739.465 295.714 / 1035.179 Output Total 450 / 1300 650 / 650 Balance 697.759 / 674.000 739.465 / 739.465 -354.286 / 385.179 Weight last 48 hrs Weight 212 lb Weight 212 lb Physical Exam Narrative: EXAM NARRATIVE: General: The patient is tired. He is awake alert and oriented and able to answer questions Neck: No JVD Respiratory: Auscultation: Reduced breath sound bilaterally, minimal crackles at the lung bases Cardiovascular: Regular rate and rhythm, S1-S2 present, no murmur, no peripheral edema. Abdomen: Soft, nontender, nondistended, positive bowel sound Musculoskeletal: No obvious joint deformity Skin: No rash Neuro: He is moving all extremities spontaneously. No focal deficit Urinary Catheter Management^: Barnes: Cath Placed During This Visit: yes Reason for Continuing Indwelling Catheter: Accurate Measurement of Urinary Output in Critically Ill Patients Urinary Catheter Date of Insertion: 07/03/21 Urinary Catheter Time of Insertion: 07:56 Data : 07/04/21 05:40 07/04/21 05:40 Micro: Microbiology 07/02/21 09:35 MRSA Culture - Final Nose Attestation for Other Data: I personally reviewed and interpreted the following: Other data: I have reviewed the patient's laboratory, microbiologic and radiologic data A&P Assessment and plan (1) Acute respiratory failure due to COVID-19: This is a 51-year-old gentleman with severe COVID-19 due to SARS-CoV-2 pneumonia. Currently the patient is requiring 80% oxygen on BiPAP. After discussion with the patient and his , the patient was intubated. His tidal volume on BiPAP ranged from 1200 to 1800 cc prior to intubation. He is on dexamethasone, today is day eight. He has received 5-day course of remdesivir as well as 2 doses of Tocilizumab. He is broadly covered with Zosyn and linezolid at this time. His nasal MRSA PCR was negative. I am going to discontinue the linezolid. The patient has developed significant amount of diarrhea and weight working him off for C. difficile infection. His white count is elevated but stable. There is no evidence of definitive infection. Status: Acute (2) ARDS (adult respiratory distress syndrome): The patient is currently intubated sedated and paralyzed. The he will be prone today. Post intubation arterial blood gas was consistent with respiratory acidosis and severe ARDS. Willing to start trickle feeds. I have discussed his care in detail with the after the patient was intubated. Status: Acute (3) Pneumomediastinum: Post intubation x-ray did not reveal any worsening evidence of pneumomediastinum or subcutaneous emphysema. There is no pneumothorax. Status: Acute (4) Pneumopericardium: See above Status: Acute (5) Shock: The patient likely has vasodilatory shock in the setting of multiple sedating medications. He is on a small dose of Levophed. The central line was inserted on 07/04/2021 Status: Acute Attestations Medical Necessity Statement*: Will defer to the primary team Coding Level of Care Code Acute Program Research Specialist for [facility] Diagnoses Acute respiratory failure due to COVID-19 U07.1; J96.00 ARDS (adult respiratory distress syndrome) J80 Pneumomediastinum J98.2 Pneumopericardium I31.9 Shock R57.9 Time Spent (min) 45
--- NOTE | 2021-07-04 18:17 | PM.ACPR ---
Procedure/Consent Time out: Time Out Performed: Yes Consent: Consent for Procedure: Emergency procedure Procedure Narrative: Name of the procedure: Endotracheal intubation. Indication: Hypoxic respiratory failure. Medications: Etomidate 20 mg, succinylcholine 100 mg Procedure: The patient was positioned optimally. The patient was oxygenated with 100% oxygen with noninvasive ventilator. After appropriate medications were given, the glide scope blade was introduced and advanced till vocal cords were visualized. The endotracheal tube was advanced through the vocal cords under direct visualization. There was fogging of the ET tube, positive change in end-tidal CO2 monitor, bilateral chest rise, bilateral positive breath sound. The ET tube was secured at 24 cm at the lips. Complications: There was no immediate complications. Chest x-ray: ET tube is in optimal place Acute Procedures Epistaxis Control: Time out performed: Yes
--- NOTE | 2021-07-04 18:19 | PM.ACPR ---
Procedure/Consent Time out: Time Out Performed: Yes Consent: Consent for Procedure: Emergency procedure Procedure Narrative: Name of the Procedure: Left Internal Jugular Central venous catheter placement under ultrasound guidance. Indication: Frequent blood work and possible need for vasopressor Anesthesiia: Lidocaine 1%, 5 ml Description of the procedure: The left IJ vein was identified with the Ultrasound from collapsibility and lack of pulsatility. The site was prepared using sterile technique. The skin and subcuteneous tissue was anesthetized using lidocaine. The introducer needle was advanced under US guidance till flash back was noted. Dark, non pulsatile blood noted. Using seldinger technique the CVC was put in.Blood return was noted in all ports. Catheter was secured with suture and covered with transparent dressing. Complications: None X-ray: The left IJ central venous catheter is in superior vena cava. No pneumothorax Acute Procedures Epistaxis Control: Time out performed: Yes
--- NOTE | 2021-07-04 19:37 | P.PN_ITS ---
Subjective Subjective: Interval history: Intubated, sedated, paralyzed. Vitals/I&O/Wt Last Vital Signs Temp 97.6 F 07/03/21 15:25 Pulse 112 H 07/04/21 16:00 Resp 24 H 07/04/21 16:00 BP 92/56 07/04/21 16:00 Pulse Ox 92 07/04/21 16:00 07/04/21 07/04/21 07/04/21 06:59 14:59 22:59 Intake Total 1147.759 / 1974.000 739.465 / 739.465 395.715 / 1135.180 Output Total 450 / 1300 650 / 650 Balance 697.759 / 674.000 739.465 / 739.465 -254.285 / 485.180 Weight last 48 hrs Weight 96.162 kg Weight 96.162 kg Physical Exam Const: COMMON NORMALS: no acute distress OTHER: Sedated, paralyzed HENMT: COMMON NORMALS: oropharynx normal Neck/C-Spine: COMMON NORMALS: no JVD Resp: COMMON NORMALS: normal respiratory effort and clear to auscultation bilaterally AUSCULTATION: clear to auscultation bilaterally Cardio: COMMON NORMALS: no JVD, regular rhythm, S1 normal heart sound present, S2 normal heart sound present and No murmurs present (Cardio) RHYTHM: regular rhythm HEART SOUNDS: S1 normal heart sound present and S2 normal heart sound present GI: COMMON NORMALS: Normal to inspection, nondistended, normoactive bowel sounds present, Soft to palpation and non-tender PALPATION: Yes Soft to pal pation Extremity: COMMON NORMALS: no joint enlargement and no pedal edema Skin: COMMON NORMALS: no rashes or lesions noted GENERAL SKIN EXAM: no rashes or lesions noted Urinary Catheter Management^: Barnes: Cath Placed During This Visit: yes Reason for Continuing Indwelling Catheter: Accurate Measurement of Urinary Output in Critically Ill Patients Urinary Catheter Date of Insertion: 07/03/21 Urinary Catheter Time of Insertion: 07:56 Data : 07/04/21 05:40 07/04/21 05:40 A&P Assessment and plan (1) Acute respiratory failure due to COVID-19: Progressive respiratory failure. Delirium. Intubated, sedated, paralyzed. Plans to be proned. Continue ventilatory support. CT negative for PE, on radiology read duplex negative for DVT. Prophylactic Lovenox. Continue Decadron. Leukocytosis. Empirically on Zosyn. MRSA PCR negative. Linezolid stopped. Completed course of remdesivir. Status post Tocilizumab x2. Pneumomediastinum, pneumopericardium noted. Continue to monitor for any changes may suggest pneumothorax. Status: Acute (2) COVID-19: As above. Status: Acute (3) Hypoxia: Status: Acute (4) Hypertension: continue home meds for now. Good control at this time. Status: Acute Qualifiers: Hypertension type: essential hypertension Qualified Code(s): I10 - Essential (primary) hypertension (5) Acute kidney injury: Resolved Status: Acute (6) Elevated WBC count: Status: Resolved (7) Diarrhea: C. difficile requested Status: Acute Attestations Medical Necessity Statement*: Continue admission for hypoxic respiratory failure with severe COVID-19 complicated by delirium. Coding Level of Care Code Acute Process Control Programmer for [facility] Diagnoses Acute respiratory failure due to COVID-19 U07.1; J96.00 COVID-19 U07.1 Hypoxia R09.02 Hypertension I10 Hypertension type: essential hypertension Acute kidney injury N17.9 Elevated WBC count D72.829 Diarrhea R19.7
--- NOTE | 2021-07-04 20:06 | PC.NURSE ---
updated on status and plan.
--- NOTE | 2021-07-04 20:06 | PC.NURSE ---
1 Prone at 1830, patient tolerated well, no significant change in vital signs, no complications.
[2021-07-04] MEDS: propofol 1,000 MG/100 ML INJ 20.19 MG IV (22:24)
[2021-07-05] VITALS (30 sets, daily range): BP systolic 74–148; BP diastolic 54–81; PULSE 75–111; RESP 16–26; O2SAT 93–98
[2021-07-05] MEDS: propofol 1,000 MG/100 ML INJ 20.19 MG IV ×5 (02:05→23:21)
[2021-07-05] MEDS: piperacillin-tazobactam 3.375 GM in sodium chloride 0.9% (plus) 50 ML IV (03:57)
[2021-07-05 04:02] LABS: Basophils # 0.2 10^3/uL (0.0-0.1); Basophils % 0.6 %; Hematocrit 44.5 % (42.0-52.0); Hemoglobin 14.8 g/dL (11.7-16.6); Lymphocytes # 1.5 10^3/uL (0.8-4.8); Lymphocytes % 4.2 %; Mean Corpuscular HGB Conc 33.3 g/dL (30.0-36.0); Mean Corpuscular Hemoglobin 28.5 pg (28.0-34.0); Mean Corpuscular Volume 85.6 fL (80-94); Mean Platelet Volume 9.7 fL (7.4-10.4); Monocytes # 1.6 10^3/uL (0.2-0.9); Monocytes % 4.4 %; Neutrophils # 31.29 10^3/uL (1.8-7.7); Neutrophils % 87.3 %; Nucleated Red Blood Cells % 0 %; Platelet Count 258 10^3/cmm (130-400); Red Cell Distribution Width 13.8 % (12.1-15.1)
[2021-07-05] MEDS: cisatracurium 100 MG in sodium chloride 0.9% 50 ML 10.1 MG IV (04:19)
[2021-07-05 04:21] LABS: Alanine Aminotransferase 42 U/L (0-41); Albumin Level 3.4 g/dL (3.5-5.2); Alkaline Phosphatase 155 IU/L (40-130); Anion Gap 15.6 (5-19); Aspartate Amino Transferase 54 U/L (0-40); Blood Urea Nitrogen 23 mg/dL (6-20); Calcium 7.2 mg/dL (8.5-10.5); Carbon Dioxide 25 mmol/L (22-29); Chloride 99 mmol/L (98-107); Globulin 1.9 g/dL (1.3-4.6); Glucose 113 mg/dL (65-115); Magnesium 2.6 mg/dL (1.7-2.3); Osmolality Calculated 284 mOsm/kg (285-295); Phosphorus 3.8 mg/dL (2.5-4.5); Potassium 4.6 mmol/L (3.5-5.1); Sodium 135 mmol/L (136-145); Total Bilirubin 0.7 mg/dL (0.15-1.2); Total Protein 5.3 g/dL (6.6-8.7)
[2021-07-05 05:00] LABS: White Blood Count 35.8 10^3/uL (4.0-10.0)
--- NOTE | 2021-07-05 05:28 | PC.NURSE ---
Dr. Sandoval notified of critical WBC 35.8, received t.o. to d/c zosyn, start vancomycin po 500 mg q6 hours, Cefepime 2gm BID, Lactate, procalcitonin, blood cultures, Linezolid
[2021-07-05] MEDS: linezolid premix 600 MG/300 ML PREMIX 300 MG IV ×2 (06:14→17:03)
[2021-07-05] MEDS: metroNIDAZOLE IV 500 MG/100 ML PREMIX 100 MG IV ×3 (06:15→22:04)
[2021-07-05 06:37] LABS: Lactate (Lactic Acid level) 1.5 mmol/L (0.5-2.2)
[2021-07-05 06:50] LABS: Procalcitonin 0.32 ng/mL (0-0.5)
--- NOTE | 2021-07-05 07:07 | PC.NURSE ---
Shift Note Frequent safety and comfort rounds continue. Orders and/or nursing care completed as indicated. Patient monitored for response to intervention and treatment(s). Education provided includes[vent compliance]. Will continue to monitor.
--- NOTE | 2021-07-05 07:21 | P.PN_ITS ---
Subjective Subjective: Interval history: The patient was seen and examined this morning. He is intubated, paralyzed and in prone position. Overall the patient did well overnight. His oxygen requirement actually has come down to 55%. However, this morning his white count has jumped to 35,000. The patient is hemodynamically stable on minimal amount of pressor. However, he has not had a bowel movement in days. We have been trying to get C. difficile PCR however could not get the sample as he did not have any bowel movement. The patient had received 2 doses of Tocilizumab which does increase his susceptibility to infection as well as bowel perforation which could be a rare side effect of Tocilizumab. Medications: Reviewed: Yes Vitals/I&O/Wt Last Vital Signs Temp 97.6 F 07/03/21 15:25 Pulse 103 H 07/05/21 06:00 Resp 26 H 07/05/21 04:50 BP 115/63 07/05/21 04:00 Pulse Ox 96 07/05/21 04:50 07/04/21 07/05/21 07/05/21 22:59 06:59 14:59 Intake Total 461.333 / 1200.798 426.784 / 1627.582 Output Total 650 / 650 300 / 950 Balance -188.667 / 550.798 126.784 / 677.582 Weight last 48 hrs Weight 219 lb Weight 212 lb Physical Exam Narrative: EXAM NARRATIVE: General: The patient is intubated, sedated and in prone position Respiratory: Auscultation: Minimal crackles at the most dependent position of the lungs in prone position Cardiovascular: Regular rate and rhythm, S1-S2 present, no murmur, no peripheral edema. Abdomen: Sluggish bowel sound Skin: No rash Neuro: Intubated and sedated Urinary Catheter Management^: Barnes: Cath Placed During This Visit: yes Reason for Continuing Indwelling Catheter: Accurate Measurement of Urinary Output in Critically Ill Patients Urinary Catheter Date of Insertion: 07/03/21 Urinary Catheter Time of Insertion: 07:56 Data : 07/05/21 03:40 07/05/21 03:40 Attestation for Other Data: I personally reviewed and interpreted the following: Other data: I have reviewed the patient's laboratory, microbiologic and radiologic data. The patient has significantly increased WBC count compared to yesterday. He has also developed LEANNE. A&P Assessment and plan (1) Acute respiratory failure due to COVID-19: This is a 51-year-old gentleman with severe COVID-19 due to SARS-CoV-2 pneumonia. The patient is intubated, paralyzed and in prone position now. He is on dexamethasone, today is day 9. He has received 5-day course of remdesivir as well as 2 doses of Tocilizumab. In the light of significantly increased WBC count and the fact that the patient had gotten 2 doses of Tocilizumab, I am going to broadly cover the patient with cefepime and linezolid. In addition, I am starting him on oral vancomycin and IV metronidazole. The patient will get a CT abdomen pelvis with oral contrast once he is in supine position. I am obtaining a repeat blood culture. His procalcitonin level was normal. Status: Acute (2) ARDS (adult respiratory distress syndrome): The patient is currently intubated sedated, paralyzed and in prone position. His oxygen requirement is down to 55%. If the oxygen requirement continues to stay below 60%, I may not have to prone him further. Status: Acute (3) Acute kidney injury: The patient sustained a LEANNE. This is likely secondary to hypoxia. However, LEANNE in the setting of SARS-CoV-2 infection is a known event. For now, we will continue with supportive therapy. The patient does not have any significant evidence of metabolic acidosis at this time. No additional IV fluid is necessary. Status: Acute (4) Shock: The patient is on small dose of Levophed. For now, I will be treating him for septic shock. His map goal of 65. The central line was inserted on 07/04/2021 Status: Acute (5) Pneumomediastinum: Post intubation x-ray did not reveal any worsening evidence of pneumomediastinum or subcutaneous emphysema. There is no pneumothorax. Status: Acute (6) Pneumopericardium: See above Status: Acute Attestations Medical Necessity Statement*: Will defer to the primary team Coding Level of Care Code Acute Correctional Supervisor Lieutenant for [facility] Diagnoses Acute respiratory failure due to COVID-19 U07.1; J96.00 ARDS (adult respiratory distress syndrome) J80 Acute kidney injury N17.9 Shock R57.9 Pneumomediastinum J98.2 Pneumopericardium I31.9 Time Spent (min) 35
[2021-07-05] MEDS: docusate sodium 100 mg Capsule PO ×2 (08:31→17:03)
[2021-07-05] MEDS: pantoprazole 40 mg SDV IVP (08:31)
[2021-07-05] MEDS: enoxaparin 40 mg/0.4 mL Syringe SUBCUT (08:31)
--- NOTE | 2021-07-05 10:09 | PC.NURSE ---
Patient in proned position so GI assessment cannot be done at this time. Will reassess.
[2021-07-05] MEDS: dexamethasone 4 mg/mL INJ 6 MG IVP (11:44)
--- NOTE | 2021-07-05 12:00 | CTR_ITS ---
PROCEDURE INFORMATION: Exam: CT Abdomen And Pelvis With Contrast Exam date and time: 07/05/2021 12:00 PM Age: 51 years old Clinical indication: Fever; Patient HX: Et and og in place covid+ w possible abd infection; Additional info: Looking for infectionn, with oral contrast TECHNIQUE: Imaging protocol: Computed tomography of the abdomen and pelvis with contrast. Total images: 256 Radiation optimization: All CT scans at this facility use at least one of these dose optimization techniques: automated exposure control; mA and/or kV adjustment per patient size (includes targeted exams where dose is matched to clinical indication); or iterative reconstruction. Contrast material: OMNI 300; Contrast volume: 95 ml; Contrast route: INTRAVENOUS (IV); Other contrast: Oral, 20ML OMNI 300, 20ML IN 450ML WATER; COMPARISON: CT angio chest PE protcl [id number] 07/01/2021 3:29 PM RADIATION DOSE METRICS: Total DLP (mGy-cm): 2016.78 FINDINGS: Tubes, catheters and devices: Nasogastric tube tip below the diaphragm tip just below the gastroesophageal junction. Central venous catheter tip partially imaged at the level of the atrial caval junction. Lungs: Limited assessment lung bases reveals diffuse ground-glass interstitial lung disease with segmental consolidated alveolar airspace disease in the bilateral lower lobes with associated air bronchograms consistent with diffuse bilateral pneumonitis/pneumonia. Pattern would be consistent with Covid-19 pneumonitis/pneumonia. Liver: Mild diffuse fatty infiltration of the liver. No visible hepatic mass or cystic structure. Gallbladder and bile ducts: Normal. No calcified stones. No ductal dilation. Pancreas: Pancreas is unremarkable. No visible pancreatic ductal ectasia. Spleen: Small splenule. Spleen otherwise unremarkable. Adrenal glands: Adrenal glands unremarkable. Kidneys and ureters: No hydronephrosis or perinephric fluid bilaterally. No visible nephrolithiasis or visible ureterolithiasis. Tiny simple cortical cyst inferior pole left kidney. No follow-up recommended. Stomach and bowel: Mild diverticulosis coli without visible evidence of acute diverticulitis. Nonobstructive bowel pattern. No visible adynamic or reactive ileus. Liquid stool within the colon. No findings to suggest the presence of either inflammatory or infectious colitis, however. Appendix: The appendix is visualized and appears noninflamed. Intraperitoneal space: No visible evidence of mesenteric lymphadenitis or active mesenteritis/panniculitis. No visible pneumoperitoneum or intraperitoneal ascites. Vasculature: Portal vein patent. The abdominal aorta is nonaneurysmal. Lymph nodes: No current visible evidence of active mesenteric or retroperitoneal lymphadenopathy. Urinary bladder: Barnes catheter within a decompressed urinary bladder. Free air within the lumen the urinary bladder. Cannot differentiate iatrogenic introduction from gas producing organism from acute cystitis. Reproductive: Unremarkable as visualized. Bones/joints: No visible active or acute osseous pathology. Soft tissues: Unremarkable. CT/CT abdomen pelvis w con* [id number] IMPRESSION: 1. Currently no visible evidence for acute abdominal or pelvic pathologic process. 2. Mild diverticulosis coli without visible evidence for acute diverticulitis. 3. Liquid stool within the colon. No findings to suggest the presence of either inflammatory or infectious colitis, however. 4. Barnes catheter within a decompressed urinary bladder. Free air within the lumen the urinary bladder. Cannot differentiate iatrogenic introduction from gas producing organism from acute cystitis. 5. Pneumonitis/pneumonia lung bases. Findings would be consistent with Covid-19 pneumonitis/pneumonia. 6. Other nonurgent/nonemergent related findings as detailed in text above. COMMENTS: Consistent with the [employer]'s Incidental Findings Committee white paper (J Am Sage [employer]iol 2018): Any incidental renal lesion less than 1 cm or classified as too small to characterize, or any incidental cystic renal lesion characterized as simple-appearing, is likely benign. No follow-up imaging is recommended for these lesions per consensus recommendations based on imaging criteria. Radiation Dose CTDIVOL = (mGy): DLP = 2016.78 (mGy-cm)
--- NOTE | 2021-07-05 16:58 | PM.PN ---
Subjective Subjective: Interval history: Intubated, sedated, paralyzed, prolonged. Vitals/I&O/Wt Last Vital Signs Temp 97.6 F 07/03/21 15:25 Pulse 86 07/05/21 16:00 Resp 26 H 07/05/21 16:00 BP 74/54 07/05/21 16:00 Pulse Ox 96 07/05/21 16:00 07/05/21 07/05/21 07/05/21 06:59 14:59 22:59 Intake Total 426.784 / 1627.582 665.158 / 665.158 Output Total 300 / 950 Balance 126.784 / 677.582 665.158 / 665.158 Weight last 48 hrs Weight 99.337 kg Weight 96.162 kg Physical Exam Const: OTHER: Sedated, paralyzed Neck/C-Spine: COMMON NORMALS: no JVD Resp: COMMON NORMALS: normal respiratory effort and clear to auscultation bilaterally AUSCULTATION: clear to auscultation bilaterally Cardio: COMMON NORMALS: no JVD, regular rhythm, S1 normal heart sound present, S2 normal heart sound present and No murmurs present (Cardio) RHYTHM: regular rhythm HEART SOUNDS: S1 normal heart sound present and S2 normal heart sound present GI: COMMON NORMALS: Normal to inspection, nondistended, normoactive bowel sounds present and Soft to palpation PALPATION: Yes Soft to palpation Extremity: COMMON NORMALS: no joint enlargement and no pedal edema Skin: COMMON NORMALS: no rashes or lesions noted GENERAL SKIN EXAM: no rashes or lesions noted Urinary Catheter Management^: Barnes: Cath Placed During This Visit: yes Reason for Continuing Indwelling Catheter: Accurate Measurement of Urinary Output in Critically Ill Patients Urinary Catheter Date of Insertion: 07/03/21 Urinary Catheter Time of Insertion: 07:56 Data : 07/05/21 03:40 07/05/21 03:40 Micro: Microbiology 07/05/21 14:35 Blood Culture - Preliminary Blood SPECIMEN COLLECTED 07/05/21 10:28 Blood Culture - Preliminary Blood SPECIMEN COLLECTED A&P Assessment and plan (1) Acute respiratory failure due to COVID-19: Has been prolonged overnight, overall with improvement in FiO2 requirement. Continue Decadron. Oxygen support. Mechanical ventilation. Noted increase in leukocytosis. Pending additional assessment by CT abdomen pelvis without contrast to exclude bowel perforation or other cause of rise of leukocytosis. Noted also request for C. difficile studies. Antibiotic regimen empirically expanded in addition to Zosyn with resumption of linezolid, addition of oral vancomycin, IV Flagyl. CT negative for PE, on radiology read duplex negative for DVT. Prophylactic Lovenox. Continue Decadron. Leukocytosis. Empirically on Zosyn. MRSA PCR negative. Linezolid stopped. Completed course of remdesivir. Status post Tocilizumab x2. Pneumomediastinum, pneumopericardium noted. Continue to monitor for any changes may suggest pneumothorax. Status: Acute (2) COVID-19: As above. Status: Acute (3) Hypoxia: Status: Acute (4) Hypertension: Antihypertensives held. Status: Acute Qualifiers: Hypertension type: essential hypertension Qualified Code(s): I10 - Essential (primary) hypertension (5) Acute kidney injury: Again noted LEANNE, creatinine 1.3. Continue supportive care. Reassess renal function. Continue to hold lisinopril. Maintain mean arterial pressure, so far requiring low intermittent rates of Levophed. Status: Acute (6) Elevated WBC count: Status: Resolved (7) Diarrhea: C. difficile PCR requested Status: Acute Attestations Medical Necessity Statement*: Continue mission for management of hypoxic respiratory failure with severe COVID-19, additional assessment and empiric antibiotic therapy with rising leukocytosis. Coding Level of Care Code Acute Hearing Healthcare Practitioner for [facility] Diagnoses Acute respiratory failure due to COVID-19 U07.1; J96.00 COVID-19 U07.1 Hypoxia R09.02 Hypertension I10 Hypertension type: essential hypertension Acute kidney injury N17.9 Elevated WBC count D72.829 Diarrhea R19.7
[2021-07-05] MEDS: cisatracurium 100 MG in sodium chloride 0.9% 50 ML 8.66 MG IV (17:04)
[2021-07-05] MEDS: iohexol 300 mg/mL 100 mL Btl IV (17:51)
[2021-07-05] MEDS: iohexol 300 mg/mL 50 mL Btl PO (17:51)
[2021-07-05] MEDS: cefepime 2,000 MG in sodium chloride 0.9% (plus) 50 ML 100 MG IV (21:21)
[2021-07-06] VITALS (32 sets, daily range): BP systolic 74–145; BP diastolic 47–88; PULSE 75–95; RESP 26–31; TEMP 37.1; O2SAT 90–98
[2021-07-06 04:06] LABS: Basophils # 0.1 10^3/uL (0.0-0.1); Basophils % 0.2 %; Eosinophils # 0.1 10^3/uL (0.0-0.8); Eosinophils % 0.3 %; Hematocrit 40.8 % (42.0-52.0); Hemoglobin 13.5 g/dL (11.7-16.6); Lymphocytes # 1.6 10^3/uL (0.8-4.8); Lymphocytes % 5.5 %; Mean Corpuscular HGB Conc 33.1 g/dL (30.0-36.0); Mean Corpuscular Volume 84.6 fL (80-94); Mean Platelet Volume 9.5 fL (7.4-10.4); Monocytes # 1.9 10^3/uL (0.2-0.9); Monocytes % 6.2 %; Neutrophils # 24.56 10^3/uL (1.8-7.7); Neutrophils % 82.5 %; Nucleated Red Blood Cells % 0 %; Platelet Count 280 10^3/cmm (130-400); Red Blood Count 4.82 10^6/uL (4.1-5.3); Red Cell Distribution Width 13.9 % (12.1-15.1); White Blood Count 29.8 10^3/uL (4.0-10.0)
[2021-07-06] MEDS: cisatracurium 100 MG in sodium chloride 0.9% 50 ML 8.66 MG IV (04:07)
[2021-07-06] MEDS: propofol 1,000 MG/100 ML INJ 20.19 MG IV ×2 (04:07→21:10)
[2021-07-06 04:41] LABS: Alanine Aminotransferase 46 U/L (0-41); Albumin Level 3.3 g/dL (3.5-5.2); Alkaline Phosphatase 171 IU/L (40-130); Anion Gap 14.3 (5-19); Aspartate Amino Transferase 58 U/L (0-40); Blood Urea Nitrogen 33 mg/dL (6-20); Calcium 7.1 mg/dL (8.5-10.5); Carbon Dioxide 26 mmol/L (22-29); Chloride 93 mmol/L (98-107); Creatinine Clr Calc Pharmacy 60.0577; Globulin 1.7 g/dL (1.3-4.6); Glomerular Filtration Rate 42.5 mL/min (90-130); Glucose 106 mg/dL (65-115); Magnesium 2.8 mg/dL (1.7-2.3); Osmolality Calculated 276 mOsm/kg (285-295); Phosphorus 3.9 mg/dL (2.5-4.5); Potassium 4.3 mmol/L (3.5-5.1); Sodium 129 mmol/L (136-145); Total Bilirubin 0.7 mg/dL (0.15-1.2)
[2021-07-06 05:15] LABS: Slide Review Slide Review Perform
[2021-07-06] MEDS: metroNIDAZOLE IV 500 MG/100 ML PREMIX 100 MG IV (05:37)
[2021-07-06] MEDS: linezolid premix 600 MG/300 ML PREMIX 300 MG IV ×2 (05:37→18:31)
--- NOTE | 2021-07-06 05:57 | PC.NURSE ---
Shift Note Frequent safety and comfort rounds continue. Orders and/or nursing care completed as indicated. Patient monitored for response to intervention and treatment(s). Education provided includes optimal respiratory function, decreased pain status]. Patient and/or field service representative reinforcement needed. Will continue to monitor.
--- NOTE | 2021-07-06 06:00 | PC.NURSE ---
BIS/TOF 1999 53/4 2200 38/4 0000 37/4 0200 52/4 0400 43/4 0600 41/4
[2021-07-06] MEDS: docusate sodium 100 mg Capsule PO (10:22)
[2021-07-06] MEDS: pantoprazole 40 mg SDV IVP (10:22)
[2021-07-06] MEDS: enoxaparin 40 mg/0.4 mL Syringe SUBCUT (10:23)
[2021-07-06] MEDS: cefepime 2,000 MG in sodium chloride 0.9% (plus) 50 ML 100 MG IV (10:32)
--- NOTE | 2021-07-06 11:52 | PM.PN ---
Subjective Subjective: Interval history: The patient was seen and examined. He is intubated sedated, paralyzed and put in prone position. Currently, the patient is on 40% FiO2. CT scan of the abdomen and pelvis with oral contrast did not reveal any significant concerning abnormalities. The C. difficile PCR was negative. Overnight, the patient has remained stable. His oxygen requirement has come down as stated above. His white count is also coming down. The patient has stable creatinine. He is likely in the polyuric phase after ATN. His serum sodium has dropped marginally. Medications: Reviewed: Yes Vitals/I&O/Wt Last Vital Signs Temp 97.6 F 07/03/21 15:25 Pulse 85 07/06/21 10:00 Resp 26 H 07/06/21 07:41 BP 108/68 07/06/21 10:00 Pulse Ox 94 07/06/21 09:00 07/05/21 07/06/21 07/06/21 22:59 06:59 14:59 Intake Total 582.536 / 1347.694 577.828 / 1925.522 100 / 100 Output Total 300 / 300 2600 / 2900 Balance 282.536 / 1047.694 -2022.172 / -974.478 100 / 100 Weight last 48 hrs Weight 224 lb 1 oz Weight 219 lb Physical Exam Narrative: EXAM NARRATIVE: General: The patient is intubated, sedated, paralyzed and in prone position Respiratory: Auscultation: Minimal crackles at the most dependent position of the lungs in prone position Cardiovascular: Regular rate and rhythm, S1-S2 present, no murmur, no peripheral edema. Abdomen: Sluggish bowel sound Skin: No rash Neuro: Intubated and sedated Urinary Catheter Management^: Barnes: Cath Placed During This Visit: yes Reason for Continuing Indwelling Catheter: Accurate Measurement of Urinary Output in Critically Ill Patients Urinary Catheter Date of Insertion: 07/03/21 Urinary Catheter Time of Insertion: 07:56 Data : 07/06/21 03:40 07/06/21 03:40 Micro: Microbiology 07/05/21 10:28 Blood Culture - Preliminary Blood NEGATIVE TO DATE 07/05/21 23:18 C.difficile Toxin B Gene (PCR) - Final Stool - Stool Aspirate 07/05/21 14:35 Blood Culture - Preliminary Blood SPECIMEN COLLECTED Attestation for Other Data: I personally reviewed and interpreted the following: Other data: I have reviewed his laboratory, microbiologic and radiologic data. Please see the HPI for detail A&P Assessment and plan (1) Acute respiratory failure due to COVID-19: This is a 51-year-old gentleman with severe COVID-19 due to SARS-CoV-2 pneumonia. The patient is intubated, paralyzed and in prone position now. Today is his second session. He is on dexamethasone, today is day 10. He has received 5-day course of remdesivir as well as 2 doses of Tocilizumab. The abdominal CT scan did not reveal any perforation or any source of infection. The C. difficile study was negative. I am going to discontinue the IV metronidazole and oral vancomycin. We will continue with the linezolid and cefepime for the time being. The white count is coming down. Blood cultures from 07/05 has remained negative so far. Status: Acute (2) ARDS (adult respiratory distress syndrome): The patient is currently intubated sedated, paralyzed and in prone position. His oxygen requirement is down to 40%. Once he is supine, he may not need to get prone position again. Over the next 24 to 48 hours, will have to optimize his sedation so he can be ready for extubation in the near future. Status: Acute (3) Acute kidney injury: The patient sustained a LEANNE. This is likely secondary to hypoxia. However, LEANNE in the setting of SARS-CoV-2 infection is a known event. His creatinine is stable. However, the patient has developed polyuria post ATN. I am going to start him on lactated Ringer's for 2 L. Status: Acute (4) Hyponatremia: Likely in the setting of polyuria. The lactated Ringer should help. Status: Acute (5) Shock: The patient is on small dose of Levophed. For now, I will be treating him for septic shock. His map goal of 65. The central line was inserted on 07/04/2021 Status: Acute (6) Pneumomediastinum: Post intubation x-ray did not reveal any worsening evidence of pneumomediastinum or subcutaneous emphysema. There is no pneumothorax. Status: Acute (7) Pneumopericardium: See above Status: Acute Additional A&P Information I am hoping for him to get extubated in the next 48 hours. Attestations Medical Necessity Statement*: Will defer to the primary team Coding Level of Care Code Acute Pathology Lab Technician for [facility] Diagnoses Acute respiratory failure due to COVID-19 U07.1; J96.00 ARDS (adult respiratory distress syndrome) J80 Acute kidney injury N17.9 Hyponatremia E87.1 Shock R57.9 Pneumomediastinum J98.2 Pneumopericardium I31.9 Time Spent (min) 38
--- NOTE | 2021-07-06 12:46 | PC.NURSE ---
Biz reading 63-71. Versed increased from 2mcg to 4mcg. TOF 4
[2021-07-06] MEDS: lactated ringers 1,000 ML 100 ML IV (13:59)
[2021-07-06] MEDS: propofol 1,000 MG/100 ML INJ 40 MG IV (17:41)
--- NOTE | 2021-07-06 20:12 | PM.PN ---
Vitals/I&O/Wt Last Vital Signs Temp 97.6 F 07/03/21 15:25 Pulse 81 07/06/21 16:00 Resp 26 H 07/06/21 19:48 BP 74/47 07/06/21 16:00 Pulse Ox 95 07/06/21 19:48 07/06/21 07/06/21 07/06/21 06:59 14:59 22:59 Intake Total 577.828 / 1925.522 415 / 415 835.158 / 1250.158 Output Total 2600 / 2900 800 / 800 Balance -2022.172 / -974.478 415 / 415 35.158 / 450.158 Weight last 48 hrs Weight 101.633 kg Weight 99.337 kg Physical Exam Const: COMMON NORMALS: no acute distress ORIENTATION/CONSCIOUSNESS: Yes awake OTHER: Sedated, paralyzed HENMT: COMMON NORMALS: oropharynx normal Neck/C-Spine: COMMON NORMALS: no JVD Resp: COMMON NORMALS: normal respiratory effort and clear to auscultation bilaterally AUSCULTATION: clear to auscultation bilaterally Cardio: COMMON NORMALS: no JVD, regular rhythm, S1 normal heart sound present, S2 normal heart sound present and No murmurs present (Cardio) RHYTHM: regular rhythm HEART SOUNDS: S1 normal heart sound present and S2 normal heart sound present GI: COMMON NORMALS: Normal to inspection, nondistended, normoactive bowel sounds present and Soft to palpation PALPATION: Yes Soft to palpation Extremity: COMMON NORMALS: no joint enlargement and no pedal edema Skin: COMMON NORMALS: no rashes or lesions noted GENERAL SKIN EXAM: no rashes or lesions noted Urinary Catheter Management^: Barnes: Cath Placed During This Visit: yes Reason for Continuing Indwelling Catheter: Accurate Measurement of Urinary Output in Critically Ill Patients Urinary Catheter Date of Insertion: 07/03/21 Urinary Catheter Time of Insertion: 07:56 Data : 07/06/21 03:40 07/06/21 03:40 Micro: Microbiology 07/05/21 14:35 Blood Culture - Preliminary Blood NEGATIVE TO DATE 07/05/21 10:28 Blood Culture - Preliminary Blood NEGATIVE TO DATE 07/05/21 23:18 C.difficile Toxin B Gene (PCR) - Final Stool - Stool Aspirate A&P Assessment and plan (1) Acute respiratory failure due to COVID-19: Continue Decadron. Oxygen support. MV. Noted increase in leukocytosis. No suggestion of active pathology by CT abdomen pelvis without contrast to exclude bowel perforation or other cause of rise of leukocytosis. Liquid stool in colon. C. difficile tested and negative. Zosyn, linezolid. Oral vancomycin, IV Flagyl were stopped. Weaning off paralytics, sedation considered. CT negative for PE, on radiology read duplex negative for DVT. Prophylactic Lovenox. Continue Decadron. Leukocytosis. Empirically on Zosyn. MRSA PCR negative. Completed course of remdesivir. Status post Tocilizumab x2. Pneumomediastinum, pneumopericardium noted. Continue to monitor for any changes may suggest pneumothorax. Status: Acute (2) COVID-19: As above. Status: Acute (3) Hypoxia: Status: Acute (4) Hypertension: Antihypertensives held. Status: Acute Qualifiers: Hypertension type: essential hypertension Qualified Code(s): I10 - Essential (primary) hypertension (5) Acute kidney injury: Again noted LEANNE, creatinine 1.3. Continue supportive care. Reassess renal function. Continue to hold lisinopril. Maintain mean arterial pressure, so far requiring low intermittent rates of Levophed. Status: Acute (6) Elevated WBC count: Status: Resolved (7) Diarrhea: C. difficile PCR requested Status: Acute (8) Hyponatremia: Started on LR due to polyuria. Status: Acute (9) Shock: Restarted on small dose of Levophed. Monitor blood pressures closely. Avoid hypotension. Status: Acute Attestations Medical Necessity Statement*: Continue admission for hypoxic respiratory failure with severe COVID-19, ARDS, acute kidney injury, leukocytosis. Coding Level of Care Code Acute Material Disposition Inspector for [facility] Fwd Exam Comprehensive Diagnoses Acute respiratory failure due to COVID-19 U07.1; J96.00 COVID-19 U07.1 Hypoxia R09.02 Hypertension I10 Hypertension type: essential hypertension Acute kidney injury N17.9 Elevated WBC count D72.829 Diarrhea R19.7 Hyponatremia E87.1 Shock R57.9
[2021-07-07] VITALS (56 sets, daily range): BP systolic 75–122; BP diastolic 43–78; PULSE 66–92; RESP 24–35; TEMP 36.3–36.8; O2SAT 88–99
--- NOTE | 2021-07-07 00:44 | PC.NURSE ---
07/07/[address] Nguyen at bedside Sats 83% patient breathing 35 per/min. Per Dr. Nguyen increase midazolam to 6 mg/hr. Order followed through, will continue to monitor.
[2021-07-07] MEDS: lactated ringers 1,000 ML 100 ML IV (01:04)
[2021-07-07] MEDS: propofol 1,000 MG/100 ML INJ 25.96 MG IV ×2 (01:16→05:30)
[2021-07-07 03:30] LABS: Basophils % 0.1 %; Eosinophils # 0.1 10^3/uL (0.0-0.8); Eosinophils % 0.3 %; Hematocrit 38.2 % (42.0-52.0); Hemoglobin 12.8 g/dL (11.7-16.6); Lymphocytes # 2.1 10^3/uL (0.8-4.8); Mean Corpuscular HGB Conc 33.5 g/dL (30.0-36.0); Mean Corpuscular Hemoglobin 28.3 pg (28.0-34.0); Mean Corpuscular Volume 84.3 fL (80-94); Mean Platelet Volume 9.8 fL (7.4-10.4); Monocytes # 2.8 10^3/uL (0.2-0.9); Monocytes % 8.2 %; Neutrophils # 27.32 10^3/uL (1.8-7.7); Nucleated Red Blood Cells % 0 %; Platelet Count 331 10^3/cmm (130-400); Red Blood Count 4.53 10^6/uL (4.1-5.3); Red Cell Distribution Width 13.7 % (12.1-15.1)
[2021-07-07 03:55] LABS: Alanine Aminotransferase 56 U/L (0-41); Albumin Level 3.1 g/dL (3.5-5.2); Alkaline Phosphatase 117 IU/L (40-130); Anion Gap 13.3 (5-19); Aspartate Amino Transferase 71 U/L (0-40); Blood Urea Nitrogen 49 mg/dL (6-20); Carbon Dioxide 25 mmol/L (22-29); Chloride 97 mmol/L (98-107); Globulin 1.7 g/dL (1.3-4.6); Glomerular Filtration Rate 37.4 mL/min (90-130); Glucose 121 mg/dL (65-115); Osmolality Calculated 286 mOsm/kg (285-295); Phosphorus 3.4 mg/dL (2.5-4.5); Potassium 4.3 mmol/L (3.5-5.1); Sodium 131 mmol/L (136-145); Total Bilirubin 0.8 mg/dL (0.15-1.2); Total Protein 4.8 g/dL (6.6-8.7)
[2021-07-07 03:59] LABS: Slide Review Slide Review Perform
[2021-07-07 04:00] LABS: White Blood Count 34.6 10^3/uL (4.0-10.0)
[2021-07-07] MEDS: linezolid premix 600 MG/300 ML PREMIX 300 MG IV ×2 (05:30→17:34)
--- NOTE | 2021-07-07 06:40 | PC.NURSE ---
Shift Note Frequent safety and comfort rounds continue. Orders and/or nursing care completed as indicated. Patient monitored for response to intervention and treatment(s). Education provided includes[]. Patient and/or territory service representative [ResponseToTeaching]. Will continue to monitor.
--- NOTE | 2021-07-07 06:41 | PC.NURSE ---
Unable to provide education at this time, patient is sedated on the vent and unable to respond.
--- NOTE | 2021-07-07 07:15 | XRR_ITS ---
PROCEDURE INFORMATION: Exam: XR Chest Exam date and time: 07/07/2021 7:15 AM Age: 51 years old Clinical indication: Condition or disease; Lung condition and disease; Pneumonia; Patient HX: Covid; Additional info: Pnemonia TECHNIQUE: Imaging protocol: XR of the chest. Views: 1 view. COMPARISON: CR XR chest 1V portable [id number] 07/04/2021 1:27 PM FINDINGS: Tubes, catheters and devices: Endotracheal tube projects above the level of the kia. Left upper extremity catheter tip projects over the SVC. NG tube courses below the diaphragm projects over the stomach bubble. Lungs: Multifocal bilateral airspace opacities which may be seen with viral pneumonia, no change. Pleural spaces: Unremarkable. No pleural effusion. No pneumothorax. Heart/Mediastinum: No cardiomegaly. Bones/joints: No acute fracture. XR/XR chest 1V portable [id number] IMPRESSION: Multifocal bilateral airspace opacities which may be seen with viral pneumonia, no change.
[2021-07-07 07:38] LABS: Magnesium 2.8 mg/dL (1.7-2.3)
--- NOTE | 2021-07-07 09:01 | PC.NURSE ---
Coffee Grower called , Lynnette, to update her on pts condition. Answered all questions and explained to her new tests ordered and the plan for the day. Instructed that we will call her back this afternoon.
--- NOTE | 2021-07-07 09:56 | PC.CHAP ---
Pastoral Care Encounter/Spiritual Assessment Type of Contact [] Declined wound care nurse visit [] Patient/Family/Request visit [] Outpatient visit [] Follow-up visit [] Physician referral [] Code/Alert [x] Routine visit [] Staff referral [] Actively dying [] Patient sleeping [] Family support [] [] Out of room [] Palliative care [] [] Receiving care in room [] Pre-surgical visit [] Trauma [] Long length of stay [x] ICU visit [] Other: Relational/Emotional Strength [] Patient feels connected with others/family/visitors/staff [] Distress [] Loneliness/isolation [] Abandonment Spirituality of Patient [] Person of Kellie [] Attends [employer] of their Kellie [] Believes in Prayer [] Reads Bible or Restoration materials [] There are Spiritual issues to be addressed Display Associate Interventions [x] Prayer [] Active listening [] Non-anxious presence [] Spiritual/emotional support [] Crisis/trauma care [] Spiritual counseling [] Bereavement support [] Provided bereavement packet [] Provided Bible/devotional materials [] Provided toy/stuffed animal, coloring book to patient or family member [] Provided Communion [] Anointing/[place] [] Salvation [x] Completed spiritual assessment [] Other: Impact on Illness or Injury [] Angry [] Fearful [] Anxious [] Often cries [] Exhaustion [] Unable to work [] Unable to attend jehovah's witness [] Unable to walk/stand [] Unable to read [] Unable to drive [] Unable to eat/drink [] Unable to sleep [] Unable to be with family [] Patient intubated [] Other: Summary Time spent with patient
[2021-07-07 10:12] LABS: ABG PCO2 45.5 mmHg (35-45); ABG PH Result 7.38 (7.35-7.45); Alveolar-Arterial Oxygen Gradi 56.9 mmHg (5-10); Arterial Blood Gas Hematocrit 42.4 % (42-52); Base Excess ABG 1.3 mmol/L (-2.0-2.0); Blood Gas Allen Test Pos; Blood Gas Operator Identificat CAK; Blood Gas Sample Site Radial, left; Blood Gas Sample Type Arterial; Carboxyhemoglobin 1.3 %THgb (0.4-20.1); HGB O2 Sat 93.3 % (95-100); Ionized Calcium Level - ABG 1.1 mmol/L (1.1-1.4); Methemoglobin 0.9 % (0.4-1.5); Oxygen Device VENT; Oxygen Saturation ABG 95.3; PO2 ABG 76.3 mmHg (80.0-100.0); Potassium Level - ABG 3.7 mmol/L (3.5-5.0); Total Hemoglobin 13.8 g/dL (14-18)
[2021-07-07] MEDS: propofol 1,000 MG/100 ML INJ 28.85 MG IV ×3 (11:00→15:36)
--- NOTE | 2021-07-07 11:05 | PC.NURSE ---
Sedation vacation. Pt very aggitated and unable to follow commands. resedated.
[2021-07-07] MEDS: enoxaparin 40 mg/0.4 mL Syringe SUBCUT (11:10)
[2021-07-07] MEDS: pantoprazole 40 mg SDV IVP (11:10)
[2021-07-07] MEDS: ipratropium-albuterol 3 mL Neb INHALATION ×4 (11:11→23:12)
[2021-07-07] MEDS: dexamethasone 4 mg/mL INJ 6 MG IVP (11:12)
--- NOTE | 2021-07-07 11:35 | PC.NURSE ---
Pt continues to breath over machine. Spoke with Dr. Reinoso, new orders to restart Nibex recieved.
[2021-07-07] MEDS: cisatracurium 100 MG in sodium chloride 0.9% 50 ML IV (12:35)
[2021-07-07] MEDS: dexmedetomidine 400 MCG in sodium chloride 0.9% (100 ml) 100 ML 5.29 MCG IV (13:28)
--- NOTE | 2021-07-07 15:33 | PC.NUTR ---
Addendum entered by Jesús Jacobs 07/07/21 15:35: Possible 12 lb weight gain per chart--also recommend monitor weight trends. Original Note: Nutrition follow up: TF as ordered providing 432 kcal, 20 g protein, and 291 ml H2O. Noted no H2O flushes in place at this time. Recommend addition of at least minimal flushes per MD discretion. Receiving 762 kcal from propofol at this time. Recommend checking triglycerides if to receive propofol for 5-7 days. If TF continues to be tolerated well, recommend increase by 10 ml/hr q 12 hrs to rate of 35 ml/hr to better meet estimated needs. See full RD assessment for further details.
[2021-07-07 16:07] LABS: D Dimer 9.35 ug/mIFEU (0-0.59)
--- NOTE | 2021-07-07 17:13 | P.PN_ITS ---
Subjective Subjective: Interval history: Hospital course, labs appreciated. Examination today patient was lying in bed, intubated. Currently patient is on 40% FiO2, PEEP of 12, rate of 14, tidal volume of 500. FiO2 has come down from 80% to 40% overnight. During the day patient sedation was weaned off and he became tachypneic. Since then he has remained on sedation and paralytic. Currently in prone position. Medications: Reviewed: Yes Vitals/I&O/Wt Last Vital Signs Temp 97.3 F L 07/07/21 13:00 Pulse 71 07/07/21 16:00 Resp 24 H 07/07/21 14:13 BP 79/45 07/07/21 16:00 Pulse Ox 96 07/07/21 16:00 07/07/21 07/07/21 07/07/21 06:59 14:59 22:59 Intake Total 1319.788 / 2714.410 550.933 / 550.933 75.01 / 625.943 Output Total 1250 / 2050 Balance 69.788 / 664.410 550.933 / 550.933 75.01 / 625.943 Weight last 48 hrs Weight 101.633 kg Weight 101.633 kg Physical Exam Narrative: EXAM NARRATIVE: General: The patient is intubated, sedated, paralyzed and in prone position Respiratory: Auscultation: Minimal crackles at the most dependent position of the lungs in prone position Cardiovascular: Regular rate and rhythm, S1-S2 present, no murmur, no peripheral edema. Abdomen: Sluggish bowel sound Skin: No rash Neuro: Intubated and sedated Urinary Catheter Management^: Barnes: Cath Placed During This Visit: yes Reason for Continuing Indwelling Catheter: Accurate Measurement of Urinary Output in Critically Ill Patients Urinary Catheter Date of Insertion: 07/03/21 Urinary Catheter Time of Insertion: 07:56 Data : 07/07/21 03:12 07/07/21 03:12 Micro: Microbiology 07/05/21 14:35 Blood Culture - Preliminary Blood NEGATIVE TO DATE A&P Assessment and plan (1) Sepsis: Patient continues to have patient continues to have elevated white count. Infectious work-up so far negative. Negative for any source of infection. Blood culture has remained negative. CT abdomen pelvis negative for any sign of infection. Recheck urinalysis, sputum culture. MRSA swab negative. Urine Legionella bacterial antigen negative. C. difficile negative. Continue linezolid. Widen from cefepime to imipenem. Check peripheral blood smear to rule out leukemoid reaction. CBC with manual differential tomorrow morning. Status: Acute (2) Shock: Restarted on small dose of Levophed. Monitor blood pressures closely. Avoid hypotension. Status: Acute (3) Acute respiratory failure due to COVID-19: ARDS: Ventilator Patient is post extended course of remdesivir. S/p 2 doses of Actemra. Continue with Decadron. Continue with nebulizations with DuoNeb and budesonide. Sedation medication when possible. Wean down ventilator support as possible keeping saturation over 90%. For now continue with sedation and sedation vacation when possible. Keep mean arterial pressure over 65. Status: Acute (4) COVID-19: As above. Status: Acute (5) Acute kidney injury: Baseline creatinine normal. Could be secondary to intermittent shock requiring Levophed along with dose of lisinopril in between. Patient did have contrast study with CTA on admission and then CT abdomen pelvis with contrast recently on July 05. Creatinine for now continues to worsen. 1.7 today. Medical reconciliation done for nephrotoxic drugs. CT abdomen pelvis negative for any obstructive uropathy, hydronephrosis. Check urine lites, urine creatinine. Urine output in last 24 hours over 2 L. Net +3 L since admission. For now continue to monitor BMP daily. No hyperkalemia or metabolic acidosis on the labs yesterday. Status: Acute (6) Elevated WBC count: Status: Resolved (7) Hyponatremia: Started on LR due to polyuria. Status: Acute (8) Hypertension: Antihypertensives held. Status: Acute Qualifiers: Hypertension type: essential hypertension Qualified Code(s): I10 - Essential (primary) hypertension (9) Diarrhea: Status: Acute Additional A&P Information Full code. Tube feedings. Lovenox for DVT prophylaxis. Famotidine for PUD prophylaxis Case discussed with air quality technician. Appreciate help. We will resume full care once patient out of ICU. Severely guarded prognosis. Attestations Medical Necessity Statement*: Requires further hospitalization for management of ARDS secondary to COVID-19 pneumonia, ventilator dependent Critical Care Time: The high probability of a clinically significant, sudden or life threatening deterioration of the patient's [cardiac, renal, respiratory] system(s) required my full and direct attention, intervention and personal management. The critical care time is as shown. This time is in addition to time spent performing any reported procedures but includes the following: [x] Data and vital sign review and interpretation [x] Patient assessment, examination and intervention [x] Documentation [x] Medication orders and management Critical Care Time (min): 50 Coding Level of Care Code Acute Survey Crew Chief for [facility] Fwd Diagnoses Sepsis A41.9 Shock R57.9 Acute respiratory failure due to COVID-19 U07.1; J96.00 COVID-19 U07.1 Acute kidney injury N17.9 Elevated WBC count D72.829 Hyponatremia E87.1 Hypertension I10 Hypertension type: essential hypertension Diarrhea R19.7
--- NOTE | 2021-07-07 18:25 | PC.NURSE ---
BIS 46 TOF 4
--- NOTE | 2021-07-07 19:17 | P.PN_ITS ---
Subjective Subjective: Interval history: pt seen at bedside today overbreathing the vent - increased sedation and paralyzed labs and imaging reviewed Medications: Reviewed: Yes Vitals/I&O/Wt Last Vital Signs Temp 97.9 F 07/07/21 17:00 Pulse 72 07/07/21 18:00 Resp 24 H 07/07/21 17:14 BP 75/43 07/07/21 18:00 Pulse Ox 97 07/07/21 18:00 07/07/21 07/07/21 07/07/21 06:59 14:59 22:59 Intake Total 1619.788 / 3014.410 750.933 / 750.933 319.966 / 1070.899 Output Total 1250 / 2050 300 / 300 Balance 369.788 / 964.410 450.933 / 450.933 319.966 / 770.899 Weight last 48 hrs Weight 224 lb 1 oz Weight 224 lb 1 oz Physical Exam Narrative: EXAM NARRATIVE: General: lying in bed, sedated and intubated. HEENT:NCAT, PERRLA, EOMI Neck: Supple Lungs: Reduced breath sounds bilaterally Heart: s1/s2, RRR Abd: soft, NT, ND, BS + Normoactive Extremities: No edema SUBSURFACE AUGMENTEE ELINT OPERATOR: sedated and limited SUBSURFACE AUGMENTEE ELINT OPERATOR exam possible, SKIN: no rash Urinary Catheter Management^: Barnes: Cath Placed During This Visit: yes Reason for Continuing Indwelling Catheter: Accurate Measurement of Urinary Output in Critically Ill Patients Urinary Catheter Date of Insertion: 07/03/21 Urinary Catheter Time of Insertion: 07:56 Data : 07/07/21 03:12 07/07/21 03:12 Other Labs: Laboratory Results WBC 34.6 10^3/uL (4.0-10.0) H* 07/07/21 03:12 RBC 4.53 10^6/uL (4.1-5.3) 07/07/21 03:12 Hgb 12.8 g/dL (11.7-16.6) 07/07/21 03:12 Hct 38.2 % (42.0-52.0) L 07/07/21 03:12 MCV 84.3 fL (80-94) 07/07/21 03:12 MCH 28.3 pg (28.0-34.0) 07/07/21 03:12 MCHC 33.5 g/dL (30.0-36.0) 07/07/21 03:12 RDW 13.7 % (12.1-15.1) 07/07/21 03:12 Plt Count 331 10^3/cmm (130-400) 07/07/21 03:12 MPV 9.8 fL (7.4-10.4) 07/07/21 03:12 Neut % (Auto) 79.0 % 07/07/21 03:12 Lymph % (Auto) 6.0 % 07/07/21 03:12 Whiteside % (Auto) 8.2 % 07/07/21 03:12 Eos % (Auto) 0.3 % 07/07/21 03:12 Baso % (Auto) 0.1 % 07/07/21 03:12 Neut # (Auto) 27.32 10^3/uL (1.8-7.7) H 07/07/21 03:12 Lymph # (Auto) 2.1 10^3/uL (0.8-4.8) 07/07/21 03:12 Whiteside # (Auto) 2.8 10^3/uL (0.2-0.9) H 07/07/21 03:12 Eos # (Auto) 0.1 10^3/uL (0.0-0.8) 07/07/21 03:12 Baso # (Auto) 0.0 10^3/uL (0.0-0.1) 07/07/21 03:12 Nucleated RBC % (auto) 0 % 07/07/21 03:12 Nucleated RBCs # 0.0 /100WBC 07/07/21 03:12 D-Dimer 9.35 ug/mIFEU (0-0.59) H 07/07/21 14:31 Specimen Type Arterial 07/07/21 10:00 Sample Site Radial, left 07/07/21 10:00 ABG pH 7.38 (7.35-7.45) 07/07/21 10:00 ABG pCO2 45.5 mmHg (35-45) H 07/07/21 10:00 ABG pO2 76.3 mmHg (80.0-100.0) L 07/07/21 10:00 ABG HCO3 27.0 mmol/L (22-26) H 07/07/21 10:00 ABG O2 Saturation 95.3 07/07/21 10:00 ABG Base Excess 1.3 mmol/L (-2.0-2.0) 07/07/21 10:00 Gato Test Pos 07/07/21 10:00 A-a O2 Gradient 56.9 mmHg (5-10) H 07/07/21 10:00 Hematocrit 42.4 % (42-52) 07/07/21 10:00 Hgb O2 Saturation 93.3 % (95-100) L 07/07/21 10:00 Carboxyhemoglobin 1.3 %THgb (0.4-20.1) 07/07/21 10:00 Methemoglobin 0.9 % (0.4-1.5) 07/07/21 10:00 Total Hemoglobin 13.8 g/dL (14-18) L 07/07/21 10:00 Sodium 131.0 mmol/L (131-143) 07/07/21 10:00 Potassium 3.7 mmol/L (3.5-5.0) 07/07/21 10:00 Glucose 123.0 mg/dL (70-115) H 07/07/21 10:00 Ionized Calcium 1.1 mmol/L (1.1-1.4) 07/07/21 10:00 O2 Delivery Device Vent 07/07/21 10:00 O2 Liters/Min 3.0 % 06/26/21 12:40 FiO2 80.0 % 07/07/21 10:00 Tidal Volume 0.50 07/07/21 10:00 PEEP 12.0 cmH20 07/07/21 10:00 Nursing Assistants Teacher ID Cak 07/07/21 10:00 Sodium 131 mmol/L (136-145) L 07/07/21 03:12 Potassium 4.3 mmol/L (3.5-5.1) 07/07/21 03:12 Chloride 97 mmol/L (98-107) L 07/07/21 03:12 Carbon Dioxide 25 mmol/L (22-29) 07/07/21 03:12 Anion Gap 13.3 (5-19) 07/07/21 03:12 BUN 49 mg/dL (6-20) H 07/07/21 03:12 Creatinine 1.9 mg/dL (0.7-1.2) H 07/07/21 03:12 GFR Calculation 37.4 mL/min (90-130) L 07/07/21 03:12 Glucose 121 mg/dL (65-115) H 07/07/21 03:12 Calculated Osmolality 286 mOsm/kg (285-295) 07/07/21 03:12 Lactic Acid 2.2 mmol/L (0.5-2.2) 06/26/21 13:08 Lactic Acid (Sepsis) 1.1 mmol/L (0.5-2.2) 06/26/21 17:10 Lactate 1.5 mmol/L (0.5-2.2) 07/05/21 06:05 Calcium 7.0 mg/dL (8.5-10.5) L 07/07/21 03:12 Phosphorus 3.4 mg/dL (2.5-4.5) 07/07/21 03:12 Magnesium 2.8 mg/dL (1.7-2.3) H 07/07/21 03:22 Ferritin 1137 ng/mL (30-400) H 06/30/21 06:32 Total Bilirubin 0.8 mg/dL (0.15-1.2) 07/07/21 03:12 AST 71 U/L (0-40) H 07/07/21 03:12 ALT 56 U/L (0-41) H 07/07/21 03:12 Alkaline Phosphatase 117 IU/L (40-130) 07/07/21 03:12 Troponin T Baseline 11 ng/L (0-15) 06/26/21 13:08 Troponin T 120 Minute 10.43 ng/L (0-15) 06/26/21 14:26 Delta Troponin T -0.57 ABS# (0-10) L 06/26/21 14:26 Troponin T Hi Sens 6Hr 9.82 ng/L (0-15) 06/26/21 18:40 Troponin T Hi Sens 6Hr Delta -1.18 ng/L (0-12) L 06/26/21 18:40 C-Reactive Protein 4.0 mg/L (0.0-4.9) 07/02/21 05:47 NT-Pro-B Natriuret Pep 65 pg/mL (0-125) 06/26/21 13:08 Total Protein 4.8 g/dL (6.6-8.7) L 07/07/21 03:12 Albumin 3.1 g/dL (3.5-5.2) L 07/07/21 03:12 Globulin 1.7 g/dL (1.3-4.6) 07/07/21 03:12 Procalcitonin 0.32 ng/mL (0-0.5) 07/05/21 06:05 Urine Color Yellow (Yellow) 06/27/21 18:14 Urine Appearance Clear (CLEAR) 06/27/21 18:14 Urine pH 5 (5-7) 06/27/21 18:14 Ur Specific [place] 1.015 (1.005-1.030) 06/27/21 18:14 Urine Protein Neg (Negative) 06/27/21 18:14 Urine Glucose (UA) Norm (Normal) 06/27/21 18:14 Urine Ketones Negative (Negative) 06/27/21 18:14 Urine Blood Neg (Negative) 06/27/21 18:14 Urine Nitrate Negative (Negative) 06/27/21 18:14 Urine Bilirubin Neg (Negative) 06/27/21 18:14 Urine Urobilinogen Norm mg/dL (Negative) 06/27/21 18:14 Ur Leukocyte Esterase Negative (Negative) 06/27/21 18:14 Impressions Chest CTA 07/01/21 12:32 IMPRESSION: 1. No pulmonary embolism. 2. Pneumomediastinum and pneumopericardium. 3. Diffuse multilobar areas of groundglass attenuation and developing areas of consolidation at the lung bases from Covid 19. 4. Mediastinal and hilar lymphadenopathy may be reactive. Notified Loki Kc MD at 07/01/2021 3:53 PM. Was unable to contact Dr. Kc with this report. Also attempted to speak to patient's nurse but was unsuccessful. Abdomen/Pelvis CT 07/05/21 12:00 IMPRESSION: 1. Currently no visible evidence for acute abdominal or pelvic pathologic process. 2. Mild diverticulosis coli without visible evidence for acute diverticulitis. 3. Liquid stool within the colon. No findings to suggest the presence of either inflammatory or infectious colitis, however. 4. Barnes catheter within a decompressed urinary bladder. Free air within the lumen the urinary bladder. Cannot differentiate iatrogenic introduction from gas producing organism from acute cystitis. 5. Pneumonitis/pneumonia lung bases. Findings would be consistent with Covid-19 pneumonitis/pneumonia. 6. Other nonurgent/nonemergent related findings as detailed in text above. COMMENTS: Consistent with the [employer]'s Incidental Findings Committee white paper (J Am Sage [employer]iol 2018): Any incidental renal lesion less than 1 cm or classified as too small to characterize, or any incidental cystic renal lesion characterized as simple-appearing, is likely benign. No follow-up imaging is recommended for these lesions per consensus recommendations based on imaging criteria. Radiation Dose CTDIVOL = (mGy): DLP = 2016.78 (mGy-cm) Chest X-Ray 07/07/21 07:15 IMPRESSION: Multifocal bilateral airspace opacities which may be seen with viral pneumonia, no change. Micro: Microbiology 07/05/21 14:35 Blood Culture - Preliminary Blood NEGATIVE TO DATE A&P Assessment and plan (1) ARDS (adult respiratory distress syndrome): Status: Acute (2) Acute respiratory failure due to COVID-19: Status: Acute (3) Pneumomediastinum: Status: Acute (4) Pneumopericardium: Status: Acute (5) Acute kidney injury: Status: Acute (6) Shock: Status: Acute (7) Delirium: Status: Acute (8) Elevated WBC count: Status: Acute - intubated, sedated, paralyzed and proned x 2 times - s/p 10 day dexamethasone 6 mg ivp carissa ; s/p 5 day remdesivir and Tocilizumab x 2 doses - On CMV 500/12/80%/26 ABG 7.38/45/76/27/95% - CTA 07/01/21:No PE; Pneumomediatinum and Pneumopericardium ; venous doppler negative for DVT - CXR 07/07/21: unchanged b/l airspace opacities which may be seen with viral pna - Duoneb q 6 hr carissa; pulmicort nebs, - monitor inflammatory markers q 48 hrs - On levophed 4 mcg/hr for septic shock - worsening renal functions and LFTS - I/O/N - +960 ml 24 hr / +3L since admission - lasix 20 mg one dose - sugars controlled - Persistent leucocytosis - on broad spectrum coverage - cefepime and linezolid - C. diff PCR negative; CT abd/pelvis 07/05/21: no visible evidence for acute abdominal or pelvic pathologic process. - so far cultures, MRSA Nares, bacterial antigens negative; low procal - PPI for gi ppx - Lovenox for DVT ppx recommendations conveyed to hospitalist, RN and RT covering the pt. Attestations Medical Necessity Statement*: Continue admission for hypoxic respiratory failure with severe COVID-19, ARDS, acute kidney injury, leukocytosis. Time Spent in Patient Care: Greater than 35 minutes (>than 50% of time spent in counselling and/or direct pt care on unit) . Critical Care Time: The high probability of a clinically significant, sudden or life threatening deterioration of the patient's [respiratory, infectious, renal ] system(s) required my full and direct attention, intervention and personal management. The critical care time is as shown. This time is in addition to time spent performing any reported procedures but includes the following: [x] Data and vital sign review and interpretation [x] Patient assessment, examination and intervention [x] Documentation [x] Medication orders and management Critical Care Time (min): 60 Coding Level of Care Code Established Pt Acute Multicultural Services Librarian for Chg Fwd Patient Type Established History Comprehensive Exam Comprehensive Medical Decision Making High Complexity Diagnoses ARDS (adult respiratory distress syndrome) J80 Acute respiratory failure due to COVID-19 U07.1; J96.00 Pneumomediastinum J98.2 Pneumopericardium I31.9 Acute kidney injury N17.9 Shock R57.9 Delirium R41.0 Elevated WBC count D72.829 Time Spent (min) 60
[2021-07-07] MEDS: propofol 1,000 MG/100 ML INJ 23.08 MG IV ×2 (19:35→23:22)
[2021-07-07] MEDS: budesonide 0.5 mg/2 mL Neb INHALATION (20:24)
[2021-07-07 20:59] LABS: LAB Peripheral Smear Sent for Review
[2021-07-07] MEDS: FUROsemide 10 mg/mL SDV 2mL 20 MG IVP (22:48)
[2021-07-07 23:28] LABS: Potassium, Radom Urine 19 mmol/L; Urine Creatinine 140 mg/dL (39-259); Urine Random Sodium 22 mmol/L
[2021-07-07 23:29] LABS: Bacteria Urine TRACE /hpf; Bilirubin Urine Neg (Negative); Blood Urine 3+ (Negative); Glucose Urine UA Norm (Normal); Ketones Urine Negative (Negative); Leukocyte Esterase Urine Negative (Negative); Nitrate Urine Negative (Negative); Protein Urine Trace (Negative); RBC Urine >100 /hpf (0-2); Squamous Epithelial Cell Urine 0-4 /hpf (0-5); Urine Appearance Hazy (CLEAR); Urine Color Dark Yellow (Yellow); Urobilinogen Urine Norm (Negative); WBC Urine 0-4 /hpf (0-5); pH Urine 5 (5-7)
[2021-07-07 23:30] LABS: Add Urine Culture? Yes; Amorphous Sediment Urine 3+ /hpf; Uric Acid Crystals Urine 15-25 /hpf
[2021-07-07 23:37] LABS: Urine Random Chloride < 10 mmol/L
[2021-07-08] VITALS (53 sets, daily range): BP systolic 85–116; BP diastolic 50–71; PULSE 63–105; RESP 15–29; TEMP 36.1–36.7; O2SAT 87–98
--- NOTE | 2021-07-08 01:24 | PC.NURSE ---
Held tube feeding at this time, due to residual being 130mL. Continue care
[2021-07-08] MEDS: cisatracurium 100 MG in sodium chloride 0.9% 50 ML 5.77 MG IV (03:02)
[2021-07-08] MEDS: propofol 1,000 MG/100 ML INJ 23.08 MG IV ×4 (03:07→16:14)
[2021-07-08] MEDS: dexmedetomidine 400 MCG in sodium chloride 0.9% (100 ml) 100 ML IV (04:12)
[2021-07-08 05:52] LABS: Hemoglobin 12.2 g/dL (11.7-16.6); Mean Corpuscular Volume 85.1 fL (80-94); Mean Platelet Volume 10.2 fL (7.4-10.4); Platelet Count 269 10^3/cmm (130-400); Red Blood Count 4.35 10^6/uL (4.1-5.3); Red Cell Distribution Width 14.2 % (12.1-15.1)
[2021-07-08 06:04] LABS: White Blood Count 34.3 10^3/uL (4.0-10.0)
[2021-07-08] MEDS: linezolid premix 600 MG/300 ML PREMIX 300 MG IV ×2 (06:13→17:32)
[2021-07-08 06:21] LABS: Alanine Aminotransferase 60 U/L (0-41); Albumin Level 3.1 g/dL (3.5-5.2); Alkaline Phosphatase 124 IU/L (40-130); Blood Urea Nitrogen 59 mg/dL (6-20); Carbon Dioxide 21 mmol/L (22-29); Chloride 95 mmol/L (98-107); Globulin 2.1 g/dL (1.3-4.6); Glomerular Filtration Rate 31.6 mL/min (90-130); Glucose 126 mg/dL (65-115); Osmolality Calculated 290 mOsm/kg (285-295); Sodium 131 mmol/L (136-145); Total Bilirubin 0.7 mg/dL (0.15-1.2); Total Protein 5.2 g/dL (6.6-8.7)
--- NOTE | 2021-07-08 06:21 | PC.NURSE ---
Shift Note Frequent safety and comfort rounds continue. Orders and/or nursing care completed as indicated. Patient monitored for response to intervention and treatment(s). Education provided includes optimal respiratory function. 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 Will continue to monitor.
[2021-07-08 06:22] LABS: Anion Gap 19.8 (5-19); Aspartate Amino Transferase 53 U/L (0-40); Potassium 4.8 mmol/L (3.5-5.1)
--- NOTE | 2021-07-08 06:22 | PC.NURSE ---
BIS TOF 1999 38/4 2200 36/4 2400 40/4 0200 34/4 0400 40/4 0600 38/
--- NOTE | 2021-07-08 06:23 | PC.NURSE ---
Taken off isolation per Dr. Reinoso
--- NOTE | 2021-07-08 07:06 | XRR_ITS ---
PROCEDURE INFORMATION: Exam: XR Chest Exam date and time: 07/08/2021 7:06 AM Age: 51 years old Clinical indication: Condition or disease; Other: Covid; Additional info: Intubated/covid TECHNIQUE: Imaging protocol: XR of the chest. Views: 1 view. COMPARISON: CR XR chest 1V portable [id number] 07/07/2021 7:33 AM FINDINGS: Tubes, catheters and devices: An endotracheal tube, central venous catheter, nasogastric tube are present in stable position. Lungs: There are diffuse bilateral pulmonary infiltrates greater in the left lung. These are unchanged. Pleural spaces: Unremarkable. No pleural effusion. No pneumothorax. Heart/Mediastinum: Unremarkable. No cardiomegaly. Bones/joints: Unremarkable. XR/XR chest 1V portable [id number] IMPRESSION: Stable extensive bilateral pulmonary infiltrates greater on the left side which are consistent with interstitial viral pneumonia.
[2021-07-08] MEDS: ipratropium-albuterol 3 mL Neb INHALATION ×4 (07:39→19:30)
[2021-07-08] MEDS: budesonide 0.5 mg/2 mL Neb INHALATION ×2 (07:39→19:30)
--- NOTE | 2021-07-08 08:01 | PM.PN ---
Subjective Subjective: Interval history: - Patient seen at bedside today multiple times -Plan is to decrease the sedation and start awakening trial -Peripheral blood smear showed atypical myeloid precursors identified with the bands, metamyelocytes and myelocytes and pathology reported although no blasts are identified there are concerns of an impending hematolymphoid disorder as the white count is extremely high but there is no source of infection identified and sent for flow cytometry -Other labs and imaging reviewed Medications: Reviewed: Yes Vitals/I&O/Wt Last Vital Signs Temp 98.1 F 07/08/21 04:00 Pulse 77 07/08/21 07:49 Resp 24 H 07/08/21 07:48 BP 92/57 07/08/21 06:00 Pulse Ox 96 07/08/21 07:48 07/07/21 07/08/21 07/08/21 22:59 06:59 14:59 Intake Total 926.716 / 1677.649 745.496 / 2423.145 100 / 100 Output Total 500 / 800 Balance 926.716 / 1377.649 245.496 / 1623.145 100 / 100 Weight last 48 hrs Weight 237 lb 8 oz Weight 224 lb 1 oz Physical Exam Narrative: EXAM NARRATIVE: General: lying in bed, sedated and intubated. HEENT:NCAT, PERRLA, EOMI Neck: Supple Lungs: Reduced breath sounds bilaterally Heart: s1/s2, RRR Abd: soft, NT, ND, BS + Normoactive Extremities: No edema BURNING MACHINE OPERATOR: sedated and limited BURNING MACHINE OPERATOR exam possible, SKIN: no rash Urinary Catheter Management^: Barnes: Cath Placed During This Visit: yes Reason for Continuing Indwelling Catheter: Accurate Measurement of Urinary Output in Critically Ill Patients Urinary Catheter Date of Insertion: 07/03/21 Urinary Catheter Time of Insertion: 07:56 Data : 07/08/21 05:26 07/08/21 19:52 Other Labs: Laboratory Results WBC 34.3 10^3/uL (4.0-10.0) H* 07/08/21 05:26 RBC 4.35 10^6/uL (4.1-5.3) 07/08/21 05:26 Hgb 12.2 g/dL (11.7-16.6) 07/08/21 05:26 Hct 37.0 % (42.0-52.0) L 07/08/21 05:26 MCV 85.1 fL (80-94) 07/08/21 05:26 MCH 28.0 pg (28.0-34.0) 07/08/21 05:26 MCHC 33.0 g/dL (30.0-36.0) 07/08/21 05:26 RDW 14.2 % (12.1-15.1) 07/08/21 05:26 Plt Count 269 10^3/cmm (130-400) 07/08/21 05:26 MPV 10.2 fL (7.4-10.4) 07/08/21 05:26 Neut % (Auto) 79.0 % 07/07/21 03:12 Lymph % (Auto) 6.0 % 07/07/21 03:12 [place] % (Auto) 8.2 % 07/07/21 03:12 Eos % (Auto) 0.3 % 07/07/21 03:12 Baso % (Auto) 0.1 % 07/07/21 03:12 Neut # (Auto) 27.32 10^3/uL (1.8-7.7) H 07/07/21 03:12 Lymph # (Auto) 2.1 10^3/uL (0.8-4.8) 07/07/21 03:12 [place] # (Auto) 2.8 10^3/uL (0.2-0.9) H 07/07/21 03:12 Eos # (Auto) 0.1 10^3/uL (0.0-0.8) 07/07/21 03:12 Baso # (Auto) 0.0 10^3/uL (0.0-0.1) 07/07/21 03:12 Nucleated RBC % (auto) 0 % 07/07/21 03:12 Total Counted 100 (0-100) 07/08/21 05:26 Atypical Lymphs % 0.0 % (0-5) 07/08/21 05:26 Absolute Neutrophils 29.8 10^3/cmm (1.4-6.5) H 07/08/21 05:26 Segmented Neutrophils 69 % 07/08/21 05:26 Abs Segm Neuts (Man) 23.7 10/cmm (1.6-7.1) H 07/08/21 05:26 Band Neutrophils 18.0 % 07/08/21 05:26 Abs Band Neuts (Man) 6.2 10^3/cmm (0.0-1.2) H 07/08/21 05:26 Absolute Lymphocytes 2.7 10^3/cmm (1.2-3.4) 07/08/21 05:26 Lymphocytes (Manual) 8 % 07/08/21 05:26 Monocytes (Manual) 3.0 % 07/08/21 05:26 Absolute Monocytes 1.0 10^3/cmm (0.1-0.6) H 07/08/21 05:26 Eosinophils (Manual) 0 % 07/08/21 05:26 Absolute Eosinophils 0.0 10^3/cmm (0.0-0.7) 07/08/21 05:26 Basophils (Manual) 0.0 % 07/08/21 05:26 Absolute Basophils 0.0 10^3/cmm (0.0-0.2) 07/08/21 05:26 Metamyelocytes 2.0 % 07/08/21 05:26 Nucleated RBCs # 0.0 /100WBC 07/07/21 03:12 Platelet Estimate Normal (Normal) 07/08/21 05:26 D-Dimer 9.35 ug/mIFEU (0-0.59) H 07/07/21 14:31 Specimen Type Arterial 07/07/21 10:00 Sample Site Radial, left 07/07/21 10:00 ABG pH 7.38 (7.35-7.45) 07/07/21 10:00 ABG pCO2 45.5 mmHg (35-45) H 07/07/21 10:00 ABG pO2 76.3 mmHg (80.0-100.0) L 07/07/21 10:00 ABG HCO3 27.0 mmol/L (22-26) H 07/07/21 10:00 ABG O2 Saturation 95.3 07/07/21 10:00 ABG Base Excess 1.3 mmol/L (-2.0-2.0) 07/07/21 10:00 Gato Test Pos 07/07/21 10:00 A-a O2 Gradient 56.9 mmHg (5-10) H 07/07/21 10:00 Hematocrit 42.4 % (42-52) 07/07/21 10:00 Hgb O2 Saturation 93.3 % (95-100) L 07/07/21 10:00 Carboxyhemoglobin 1.3 %THgb (0.4-20.1) 07/07/21 10:00 Methemoglobin 0.9 % (0.4-1.5) 07/07/21 10:00 Total Hemoglobin 13.8 g/dL (14-18) L 07/07/21 10:00 Sodium 131.0 mmol/L (131-143) 07/07/21 10:00 Potassium 3.7 mmol/L (3.5-5.0) 07/07/21 10:00 Glucose 123.0 mg/dL (70-115) H 07/07/21 10:00 Ionized Calcium 1.1 mmol/L (1.1-1.4) 07/07/21 10:00 O2 Delivery Device Vent 07/07/21 10:00 O2 Liters/Min 3.0 % 06/26/21 12:40 FiO2 80.0 % 07/07/21 10:00 Tidal Volume 0.50 07/07/21 10:00 PEEP 12.0 cmH20 07/07/21 10:00 Manager Terminal ID Cak 07/07/21 10:00 Sodium 131 mmol/L (136-145) L 07/08/21 19:52 Potassium 5.1 mmol/L (3.5-5.1) 07/08/21 19:52 Chloride 95 mmol/L (98-107) L 07/08/21 19:52 Carbon Dioxide 21 mmol/L (22-29) L 07/08/21 19:52 Anion Gap 20.1 (5-19) H 07/08/21 19:52 BUN 66 mg/dL (6-20) H 07/08/21 19:52 Creatinine 2.2 mg/dL (0.7-1.2) H 07/08/21 19:52 GFR Calculation 31.6 mL/min (90-130) L 07/08/21 19:52 Glucose 157 mg/dL (65-115) H 07/08/21 19:52 Calculated Osmolality 294 mOsm/kg (285-295) 07/08/21 19:52 Lactic Acid 2.2 mmol/L (0.5-2.2) 06/26/21 13:08 Lactic Acid (Sepsis) 1.1 mmol/L (0.5-2.2) 06/26/21 17:10 Lactate 1.5 mmol/L (0.5-2.2) 07/05/21 06:05 Calcium 7.4 mg/dL (8.5-10.5) L 07/08/21 19:52 Phosphorus 3.4 mg/dL (2.5-4.5) 07/07/21 03:12 Magnesium 2.8 mg/dL (1.7-2.3) H 07/07/21 03:22 Ferritin 1137 ng/mL (30-400) H 06/30/21 06:32 Total Bilirubin 0.7 mg/dL (0.15-1.2) 07/08/21 05:26 AST 53 U/L (0-40) H 07/08/21 05:26 ALT 60 U/L (0-41) H 07/08/21 05:26 Alkaline Phosphatase 124 IU/L (40-130) 07/08/21 05:26 Troponin T Baseline 11 ng/L (0-15) 06/26/21 13:08 Troponin T 120 Minute 10.43 ng/L (0-15) 06/26/21 14:26 Delta Troponin T -0.57 ABS# (0-10) L 06/26/21 14:26 Troponin T Hi Sens 6Hr 9.82 ng/L (0-15) 06/26/21 18:40 Troponin T Hi Sens 6Hr Delta -1.18 ng/L (0-12) L 06/26/21 18:40 C-Reactive Protein 4.0 mg/L (0.0-4.9) 07/02/21 05:47 NT-Pro-B Natriuret Pep 65 pg/mL (0-125) 06/26/21 13:08 Total Protein 5.2 g/dL (6.6-8.7) L 07/08/21 05:26 Albumin 3.1 g/dL (3.5-5.2) L 07/08/21 05:26 Globulin 2.1 g/dL (1.3-4.6) 07/08/21 05:26 Procalcitonin 0.32 ng/mL (0-0.5) 07/05/21 06:05 Urine Color Dark yellow (Yellow) 07/07/21 23:04 Urine Appearance Hazy (CLEAR) A 07/07/21 23:04 Urine pH 5 (5-7) 07/07/21 23:04 Ur Specific [place] 1.020 (1.005-1.030) 07/07/21 23:04 Urine Protein Trace (Negative) 07/07/21 23:04 Urine Glucose (UA) Norm (Normal) 07/07/21 23:04 Urine Ketones Negative (Negative) 07/07/21 23:04 Urine Blood 3+ (Negative) H 07/07/21 23:04 Urine Nitrate Negative (Negative) 07/07/21 23:04 Urine Bilirubin Neg (Negative) 07/07/21 23:04 Urine Urobilinogen Norm mg/dL (Negative) 07/07/21 23:04 Ur Leukocyte Esterase Negative (Negative) 07/07/21 23:04 Urine RBC >100 /hpf (0-2) H 07/07/21 23:04 Urine WBC 0-4 /hpf (0-5) H 07/07/21 23:04 Ur Squamous Epith Cells 0-4 /hpf (0-5) H 07/07/21 23:04 Uric Acid Crystals 15-25 /hpf H 07/07/21 23:04 Amorphous Sediment 3+ /hpf 07/07/21 23:04 Urine Bacteria Trace /hpf (NONE) 07/07/21 23:04 Ur Random Sodium 22 mmol/L 07/07/21 23:04 Ur Random Potassium 19 mmol/L 07/07/21 23:04 Ur Random Chloride < 10 mmol/L 07/07/21 23:04 Urine Creatinine 140 mg/dL (39-259) 07/07/21 23:04 Impressions Chest CTA 07/01/21 12:32 IMPRESSION: 1. No pulmonary embolism. 2. Pneumomediastinum and pneumopericardium. 3. Diffuse multilobar areas of groundglass attenuation and developing areas of consolidation at the lung bases from Covid 19. 4. Mediastinal and hilar lymphadenopathy may be reactive. Notified Loki Kc MD at 07/01/2021 3:53 PM. Was unable to contact Dr. Kc with this report. Also attempted to speak to patient's nurse but was unsuccessful. Abdomen/Pelvis CT 07/05/21 12:00 IMPRESSION: 1. Currently no visible evidence for acute abdominal or pelvic pathologic process. 2. Mild diverticulosis coli without visible evidence for acute diverticulitis. 3. Liquid stool within the colon. No findings to suggest the presence of either inflammatory or infectious colitis, however. 4. Barnes catheter within a decompressed urinary bladder. Free air within the lumen the urinary bladder. Cannot differentiate iatrogenic introduction from gas producing organism from acute cystitis. 5. Pneumonitis/pneumonia lung bases. Findings would be consistent with Covid-19 pneumonitis/pneumonia. 6. Other nonurgent/nonemergent related findings as detailed in text above. COMMENTS: Consistent with the [place] [employer]'s Incidental Findings Committee white paper (J Am Sage Radiol 2018): Any incidental renal lesion less than 1 cm or classified as too small to characterize, or any incidental cystic renal lesion characterized as simple-appearing, is likely benign. No follow-up imaging is recommended for these lesions per consensus recommendations based on imaging criteria. Radiation Dose CTDIVOL = (mGy): DLP = 2016.78 (mGy-cm) Chest X-Ray 07/08/21 07:06 IMPRESSION: Stable extensive bilateral pulmonary infiltrates greater on the left side which are consistent with interstitial viral pneumonia. A&P Assessment and plan (1) ARDS (adult respiratory distress syndrome): Status: Acute (2) Acute respiratory failure due to COVID-19: Status: Acute (3) Pneumomediastinum: Status: Acute (4) Pneumopericardium: Status: Acute (5) Acute kidney injury: Status: Acute (6) Shock: Status: Acute (7) Delirium: Status: Acute (8) Elevated WBC count: Status: Acute Qualifiers: Leukocytosis type: unspecified Qualified Code(s): D72.829 - Elevated white blood cell count, unspecified - intubated, sedated, paralyzed and proned x 2 times - s/p 10 day dexamethasone 6 mg ivp carissa ; s/p 5 day remdesivir and Tocilizumab x 2 doses - On CMV 500/12/80%/26 ABG 7.38/45/76/27/95% - CTA 07/01/21:No PE; Pneumomediatinum and Pneumopericardium ; venous doppler negative for DVT - CXR 07/07/21: Stable extensive bilateral pulmonary infiltrates greater on the left side which are consistent with interstitial viral pneumonia. No evidence of pneumomediastinum or pneumothorax - Duoneb q 6 hr carissa; pulmicort nebs, - monitor inflammatory markers q 48 hrs - On levophed 2 mcg/hr for septic shock - worsening renal functions and LFTS - I/O/N - +160 ml 24 hr / +3.4 L since admission - lasix 20 mg one dose - sugars controlled - Persistent leucocytosis -in the absence of positive infectious [id number] blood smear showing atypical myeloid precursors-flow cytometry for leukemoid/leukemia were sent to pathology -On broad spectrum coverage - cefepime and linezolid - C. diff PCR negative; CT abd/pelvis 07/05/21: no visible evidence for acute abdominal or pelvic pathologic process. - so far cultures, MRSA Nares, bacterial antigens negative; low procal - PPI for gi ppx - Lovenox for DVT ppx -Feeding, jevity Today decrease sedation and do spontaneous awakening trial and come down only fair to as much as possible recommendations conveyed to hospitalist, RN and RT covering the pt. Attestations Medical Necessity Statement*: Continue admission for hypoxic respiratory failure with severe COVID-19, ARDS, acute kidney injury, leukocytosis. Time Spent in Patient Care: Greater than 35 minutes (>than 50% of time spent in counselling and/or direct pt care on unit). Critical Care Time: The high probability of a clinically significant, sudden or life threatening deterioration of the patient's [respiratory, infectious, renal, hematologic] system(s) required my full and direct attention, intervention and personal management. The critical care time is as shown. This time is in addition to time spent performing any reported procedures but includes the following: [x] Data and vital sign review and interpretation [x] Patient assessment, examination and intervention [x] Documentation [x] Medication orders and management Critical Care Time (min): 60 Coding Level of Care Code Established Pt Acute Retort Operator for g Fwd Patient Type Established History Comprehensive Exam Comprehensive Medical Decision Making High Complexity Diagnoses ARDS (adult respiratory distress syndrome) J80 Acute respiratory failure due to COVID-19 U07.1; J96.00 Pneumomediastinum J98.2 Pneumopericardium I31.9 Acute kidney injury N17.9 Shock R57.9 Delirium R41.0 Elevated WBC count D72.829 Leukocytosis type: unspecified Time Spent (min) 60
[2021-07-08 08:17] LABS: Absolute Neutrophil 29.8 10^3/cmm (1.4-6.5); Absolute Segmented Neutrophil 23.7 10/cmm (1.6-7.1); Band Neutrophils Absolute 6.2 10^3/cmm (0.0-1.2); Eosinophils 0 %; Lymphocytes 8 %; Lymphocytes Absolute 2.7 10^3/cmm (1.2-3.4); Platelet Estimate Normal (Normal); Segmented Neutrophils 69 %; Total Cells Counted 100 (0-100)
--- NOTE | 2021-07-08 08:19 | PC.NURSE ---
Addendum entered by Verito Kay RN 07/08/21 08:21: BIZ 60 after weaning nimbex Original Note: report received at bedside. Dr. Reinoso here to round plans to weak paralytic and versed, awakening trial. TOF- 4/4 BIZ 60....will continue to closely monitor.
[2021-07-08] MEDS: enoxaparin 40 mg/0.4 mL Syringe SUBCUT (08:42)
[2021-07-08] MEDS: pantoprazole 40 mg SDV IVP (08:42)
[2021-07-08] MEDS: calcium chloride 10% Syr 10 mL 1 GM IVP (08:42)
[2021-07-08] MEDS: FUROsemide 10 mg/mL SDV 2mL 20 MG IVP (08:42)
[2021-07-08] MEDS: docusate sodium 100 mg Capsule PO ×2 (08:42→17:32)
--- NOTE | 2021-07-08 10:00 | PC.NURSE ---
BIZ 51
--- NOTE | 2021-07-08 11:21 | PC.NURSE ---
BIZ 42 and TOF 4
[2021-07-08] MEDS: dexamethasone 4 mg/mL INJ 6 MG IVP (11:49)
[2021-07-08] MEDS: LORazepam 2 mg/mL INJ 1 mL 1 MG IVP (14:14)
--- NOTE | 2021-07-08 15:57 | P.PN_ITS ---
Subjective Subjective: Interval history: No acute events overnight. Patient is on minimal ventilator setting. He is on 45% FiO2 saturating 93%. Plan for today would be to do sedation vacation and see if patient can be extubated. Patient's blood pressure overnight had been running from 88 systolic to 100 systolic. Documented urine output in last 24 hours 800 cc. Medications: Reviewed: Yes Vitals/I&O/Wt Last Vital Signs Temp 97.0 F L 07/08/21 08:00 Pulse 97 07/08/21 14:00 Resp 21 H 07/08/21 14:18 BP 108/56 07/08/21 14:00 Pulse Ox 92 07/08/21 14:18 07/08/21 07/08/21 07/08/21 06:59 14:59 22:59 Intake Total 745.496 / 2423.145 878.508 / 878.508 Output Total 500 / 800 Balance 245.496 / 1623.145 878.508 / 878.508 Weight last 48 hrs Weight 107.728 kg Weight 101.633 kg Physical Exam Narrative: EXAM NARRATIVE: General: The patient is intubated, sedated, paralyz ed and in prone position Respiratory: Auscultation: Minimal crackles at the most dependent position of the lungs in prone position Cardiovascular: Regular rate and rhythm, S1-S2 present, no murmur, no peripheral edema. Abdomen: Sluggish bowel sound Skin: No rash Neuro: Intubated and sedated Urinary Catheter Management^: Barnes: Cath Placed During This Visit: yes Reason for Continuing Indwelling Catheter: Accurate Measurement of Urinary Output in Critically Ill Patients Urinary Catheter Date of Insertion: 07/03/21 Urinary Catheter Time of Insertion: 07:56 Data : 07/08/21 05:26 07/08/21 05:26 Micro: Microbiology 07/07/21 17:40 Gram Stain - Final Sputum - Endotracheal Tube Aspirate A&P Assessment and plan (1) Sepsis: Patient continues to have patient continues to have elevated white count. Infectious work-up so far negative. Negative for any source of infection. Blood culture has remained negative. CT abdomen pelvis negative for any sign of infection. Recheck urinalysis, sputum culture. MRSA swab negative. Urine Legionella bacterial antigen negative. C. difficile negative. Continue linezolid. Widen from cefepime to imipenem. As per conversation with Dr. Arvizu from pathology peripheral smear concerning for possible leukemoid/leukemia. Flow cytometry for leukemia/lymphoma panel sent out. Status: Acute (2) Shock: Restarted on small dose of Levophed. Monitor blood pressures closely. Avoid hypotension. Status: Acute (3) Acute respiratory failure due to COVID-19: ARDS: Ventilator dependent Patient is post extended course of remdesivir. S/p 2 doses of Actemra. Continue with Decadron. Continue with nebulizations with DuoNeb and budesonide. Sedation vacation when possible. Wean down ventilator support as possible keeping saturation over 90%. For now continue with sedation and sedation vacation when possible. Keep mean arterial pressure over 65. Status: Acute (4) COVID-19: As above. Status: Acute (5) Acute kidney injury: Baseline creatinine normal. Could be secondary to intermittent shock requiring Levophed along with dose of lisinopril in between. Patient did have contrast study with CTA on admission and then CT abdomen pelvis with contrast recently on July 05. Creatinine for now continues to worsen. 1.7 today. Medical reconciliation done for nephrotoxic drugs. CT abdomen pelvis negative for any obstructive uropathy, hydronephrosis. Check urine lites, urine creatinine. Urine output in last 24 hours over 2 L. Net +3 L since admission. For now continue to monitor BMP daily. No hyperkalemia or metabolic acidosis on the labs yesterday. Given hypotension, worsening kidney function with creatinine going up to 2.2 today and patient developing oliguria with average urine output of 0.31 mL/kg/h in last 24 hours will discuss with c programmer if can give gentle hydration. Can also consider cheetah. Status: Acute (6) Elevated WBC count: Status: Resolved (7) Hyponatremia: Started on LR due to polyuria. Status: Acute (8) Hypertension: Antihypertensives held. Status: Acute Qualifiers: Hypertension type: essential hypertension Qualified Code(s): I10 - Essential (primary) hypertension (9) Diarrhea: Status: Acute Additional A&P Information Full code. Tube feedings. Lovenox for DVT prophylaxis. Famotidine for PUD prophylaxis Case discussed with c programmer. Appreciate help. We will resume full care once patient out of ICU. Severely guarded prognosis. Attestations Medical Necessity Statement*: Requires further hospitalization for management of ARDS secondary to COVID-19 pneumonia, leukocytosis, acute kidney injury, hypotension Critical Care Time: The high probability of a clinically significant, sudden or life threatening deterioration of the patient's [surgery, cardiology, nephrology] system(s) required my full and direct attention, intervention and personal management. The critical care time is as shown. This time is in addition to time spent performing any reported procedures but includes the following: [x] Data and vital sign review and interpretation [x] Patient assessment, examination and intervention [x] Documentation [x] Medication orders and management Critical Care Time (min): 60 Coding Level of Care Code Acute Food Service Hotel Runner for [facility] Diagnoses Sepsis A41.9 Shock R57.9 Acute respiratory failure due to COVID-19 U07.1; J96.00 COVID-19 U07.1 Acute kidney injury N17.9 Elevated WBC count D72.829 Hyponatremia E87.1 Hypertension I10 Hypertension type: essential hypertension Diarrhea R19.7
--- NOTE | 2021-07-08 17:57 | PC.NURSE ---
Shift Note Frequent safety and comfort rounds continue. Orders and/or nursing care completed as indicated. Patient monitored for response to intervention and treatment(s). Able to wean down the nimbex drip (TOF and BIZ monitor not monitored since weaning) and versed drip off. Levophed drip weaned down to 1 mcg. Frequent turning and oral care provided to ensure prevention of injury. heel protectors in place. rogers remains to gravity ti care provided. NO areas of skin breakdown noted except for skin tears to bilateral cheeks. Education provided to the patient and family includes plan of care and deep breathing. Patient and/or small business representative additional reinforcement will be necessary. Will continue to monitor.
[2021-07-08] MEDS: dexmedetomidine 400 MCG in sodium chloride 0.9% (100 ml) 100 ML 15.86 MCG IV (19:45)
[2021-07-08] MEDS: propofol 1,000 MG/100 ML INJ 28.85 MG IV ×2 (20:15→23:30)
[2021-07-08 20:48] LABS: Anion Gap 20.1 (5-19); Blood Urea Nitrogen 66 mg/dL (6-20); Calcium 7.4 mg/dL (8.5-10.5); Carbon Dioxide 21 mmol/L (22-29); Chloride 95 mmol/L (98-107); Glomerular Filtration Rate 31.6 mL/min (90-130); Glucose 157 mg/dL (65-115); Osmolality Calculated 294 mOsm/kg (285-295); Potassium 5.1 mmol/L (3.5-5.1); Sodium 131 mmol/L (136-145)
[2021-07-09] VITALS (66 sets, daily range): BP systolic 83–191; BP diastolic 44–136; PULSE 58–120; RESP 12–42; TEMP 36.2–36.5; O2SAT 66–98; BMI 34.0
[2021-07-09] MEDS: ipratropium-albuterol 3 mL Neb INHALATION ×6 (02:53→19:58)
[2021-07-09] MEDS: propofol 1,000 MG/100 ML INJ 28.85 MG IV ×2 (03:05→07:04)
[2021-07-09] MEDS: dexmedetomidine 400 MCG in sodium chloride 0.9% (100 ml) 100 ML 15.86 MCG IV ×3 (03:06→16:08)
--- NOTE | 2021-07-09 03:06 | PC.RESP ---
RT Shift Note Frequent safety and respiratory rounds continue. Orders completed as indicated. Patient monitored pre and post treatments throughout shift. Patient [Did.] tolerate treatments appropriately. Condition [.DidNotChange]. Patient and/or statement services representative educated on respiratory treatment and medications. Patient and/or statement services representative [Runable to comprehend]. Will continue to monitor patient progress.
[2021-07-09 05:28] LABS: Alanine Aminotransferase 62 U/L (0-41); Albumin Level 3.3 g/dL (3.5-5.2); Alkaline Phosphatase 95 IU/L (40-130); Anion Gap 17.2 (5-19); Aspartate Amino Transferase 51 U/L (0-40); Blood Urea Nitrogen 70 mg/dL (6-20); Calcium 7.4 mg/dL (8.5-10.5); Carbon Dioxide 23 mmol/L (22-29); Chloride 99 mmol/L (98-107); Glomerular Filtration Rate 28.6 mL/min (90-130); Glucose 116 mg/dL (65-115); Osmolality Calculated 299 mOsm/kg (285-295); Potassium 5.2 mmol/L (3.5-5.1); Sodium 134 mmol/L (136-145); Total Bilirubin 0.6 mg/dL (0.15-1.2); Total Protein 5.3 g/dL (6.6-8.7)
[2021-07-09] MEDS: linezolid premix 600 MG/300 ML PREMIX 300 MG IV ×2 (05:47→17:33)
--- NOTE | 2021-07-09 07:17 | PC.NURSE ---
Shift Note Frequent safety and comfort rounds continue. Orders and/or nursing care completed as indicated. Patient monitored for response to intervention and treatment(s). Education provided includes treatment plan and medication. Patient is unable to comprehend teaching due to being intubated and sedated, will need further reinforcement. Patient is unresponsive to verbal and painful stimulation. Vent settings are as follows; VC-AC, [id number], VT-400, Rate-24, PEEP-8. Will continue to monitor.
[2021-07-09] MEDS: budesonide 0.5 mg/2 mL Neb INHALATION ×2 (07:53→19:58)
[2021-07-09 08:16] LABS: Basophils # 0.1 10^3/uL (0.0-0.1); Basophils % 0.2 %; Eosinophils # 0.2 10^3/uL (0.0-0.8); Eosinophils % 0.6 %; Hematocrit 36.6 % (42.0-52.0); Hemoglobin 12.1 g/dL (11.7-16.6); Lymphocytes # 1.7 10^3/uL (0.8-4.8); Lymphocytes % 6.1 %; Mean Corpuscular HGB Conc 33.1 g/dL (30.0-36.0); Mean Corpuscular Hemoglobin 28.1 pg (28.0-34.0); Mean Corpuscular Volume 84.9 fL (80-94); Mean Platelet Volume 10.6 fL (7.4-10.4); Monocytes # 2.4 10^3/uL (0.2-0.9); Monocytes % 8.7 %; Neutrophils % 71.2 %; Nucleated Red Blood Cells % 0 %; Platelet Count 266 10^3/cmm (130-400); Red Blood Count 4.31 10^6/uL (4.1-5.3); Red Cell Distribution Width 14.2 % (12.1-15.1)
[2021-07-09] MEDS: FUROsemide 10 mg/mL SDV 4mL 40 MG IVP (08:19)
[2021-07-09] MEDS: pantoprazole 40 mg SDV IVP (08:19)
[2021-07-09] MEDS: docusate sodium 100 mg Capsule PO (08:19)
[2021-07-09] MEDS: enoxaparin 40 mg/0.4 mL Syringe SUBCUT (08:19)
[2021-07-09] MEDS: LORazepam 2 mg/mL INJ 1 mL 1 MG IVP ×4 (08:35→19:48)
[2021-07-09 09:11] LABS: Slide Review Slide Review Perform
--- NOTE | 2021-07-09 09:44 | XR_ITS ---
WS: [id number] Portable AP semiupright chest, 07/09/2021 Clinical Data: pneumonia Comparison: Portable chest, 07/08/2021 Findings: The patchy bilateral pulmonary opacities remain the same. The endotracheal tube, nasogastri c tube and left internal jugular venous catheter remain the same. The heart remains normal. Monitor l kevin are on the chest wall. XR/XR chest 1V portable [id number] Impression: 1. No change in diffuse bilateral pulmonary opacities consistent with pneumonia . 2. No change in multiple tubes.
--- NOTE | 2021-07-09 10:06 | PC.NURSE ---
0700 Report received, assessment completed. VSS. Gtts per orders. LIJ c/d/i. LAC PIV, dressing changed. Vent settings per RT. Pt does not react to stimuli. orders to decrease sedation and possibly extubate today. Barnes cath draining freely to BSD. ALYSSA hose in place. Will monitor. 914 Lasix given per orders. Sedation decreased as ordered. VT increased, ativan given per PRN orders.
[2021-07-09] MEDS: propofol 1,000 MG/100 ML INJ 25.96 MG IV (10:23)
--- NOTE | 2021-07-09 10:42 | PC.CHAP ---
Pastoral Care Encounter/Spiritual Assessment Type of Contact [] Declined industrial roof plumber visit [] Patient/Family/Request visit [] Outpatient visit [] Follow-up visit [] Physician referral [] Code/Alert [x] Routine visit [] Staff referral [] Actively dying [] Patient sleeping [] Family support [] [] Out of room [] Palliative care [] [x] Receiving care in room [] Pre-surgical visit [] Trauma [] Long length of stay [x] ICU visit [x] Other: ventilator Relational/Emotional Strength [] Patient feels connected with others/family/visitors/staff [] Distress [] Loneliness/isolation [] Abandonment Spirituality of Patient [] Person of Kellie [] Attends Buddhism of their Kellie [] Believes in Prayer [] Reads Bible or Worship materials [] There are Spiritual issues to be addressed Sales Representative Womens Health Interventions [x] Prayer [] Active listening [] Non-anxious presence [] Spiritual/emotional support [] Crisis/trauma care [] Spiritual counseling [] Bereavement support [] Provided bereavement packet [] Provided Bible/devotional materials [] Provided toy/stuffed animal, coloring book to patient or family member [] Provided Communion [] Anointing/[place] [] Salvation [x] Completed spiritual assessment [] Other: Impact on Illness or Injury [] Angry [] Fearful [] Anxious [] Often cries [] Exhaustion [] Unable to work [] Unable to attend synagogue [] Unable to walk/stand [] Unable to read [] Unable to drive [] Unable to eat/drink [] Unable to sleep [] Unable to be with family [] Patient intubated [] Other: Summary Time spent with patient
[2021-07-09 11:04] LABS: ABG PCO2 37.8 mmHg (35-45); ABG PH Result 7.39 (7.35-7.45); Alveolar-Arterial Oxygen Gradi 27.6 mmHg (5-10); Base Excess ABG -1.6 mmol/L (-2.0-2.0); Blood Gas Allen Test Pos; Blood Gas Sample Site Radial, left; Blood Gas Sample Type Arterial; Carboxyhemoglobin 1.3 %THgb (0.4-20.1); HCO3 ABG 23.1 mmol/L (22-26); HGB O2 Sat 89.6 % (95-100); Ionized Calcium Level - ABG 1.1 mmol/L (1.1-1.4); Methemoglobin 0.9 % (0.4-1.5); Oxygen Device VENT; Oxygen Saturation ABG 91.7; Potassium Level - ABG 4.6 mmol/L (3.5-5.0); Total Hemoglobin 12.4 g/dL (14-18)
[2021-07-09] MEDS: dexamethasone 4 mg/mL INJ 6 MG IVP (11:18)
--- NOTE | 2021-07-09 13:16 | PC.NURSE ---
Pt moving head around in bed. Sedation paused per orders to facilitate extubation. Pt following commands such as, squeezing hands and raising head. RT at bedside. notified. Awaiting orders.
--- NOTE | 2021-07-09 13:49 | PC.NURSE ---
Pt extubated per orders at 1332 to HHFNC 50L/100%. Tolerated well. Requires frequent teaching and reminders. 113ml fentanyl and 36ml propofol wasted per protocol with Adam Rosales RN. Will monitor.
--- NOTE | 2021-07-09 15:23 | PC.NURSE ---
Bedside swallow study performed per orders. Pt not able to follow commands enough to safely swallow. Will continue to reevaluate as possible. Will monitor.
--- NOTE | 2021-07-09 15:56 | PM.PN ---
Subjective Subjective: Interval history: -Patient seen at bedside multiple times today -Today morning was completely off sedation and started waking up -Tolerated SBT on pressure support 16/8 FiO2 45% -Extubated to hfnc 45 L 90% FiO2 -Labs and imaging reviewed Medications: Reviewed: Yes Vitals/I&O/Wt Last Vital Signs Temp 97.7 F 07/09/21 12:00 Pulse 81 07/09/21 15:32 Resp 22 H 07/09/21 15:30 BP 120/78 07/09/21 14:30 Pulse Ox 91 07/09/21 15:30 07/09/21 07/09/21 07/09/21 06:59 14:59 22:59 Intake Total 791.846 / 2448.478 803.016 / 803.016 12 / 815.016 Output Total 1200 / 1950 1350 / 1350 Balance -408.154 / 498.478 803.016 / 803.016 -1338 / -534.984 Weight last 48 hrs Weight 237 lb 3 oz Weight 237 lb 8 oz Physical Exam Narrative: EXAM NARRATIVE: General: lying in bed, sedated and intubated. HEENT:NCAT, PERRLA, EOMI Neck: Supple Lungs: Improving breath sounds bilaterally Heart: s1/s2, RRR Abd: soft, NT, ND, BS + Normoactive Extremities: No edema PRODUCTION PLANNING MANAGER: sedated and limited PRODUCTION PLANNING MANAGER exam possible, SKIN: no rash Urinary Catheter Management^: Barnes: Cath Placed During This Visit: yes Reason for Continuing Indwelling Catheter: Accurate Measurement of Urinary Output in Critically Ill Patients Urinary Catheter Date of Insertion: 07/03/21 Urinary Catheter Time of Insertion: 07:56 Data : 07/09/21 04:44 07/09/21 04:44 Other Labs: Laboratory Results WBC 28.0 10^3/uL (4.0-10.0) H 07/09/21 04:44 RBC 4.31 10^6/uL (4.1-5.3) 07/09/21 04:44 Hgb 12.1 g/dL (11.7-16.6) 07/09/21 04:44 Hct 36.6 % (42.0-52.0) L 07/09/21 04:44 MCV 84.9 fL (80-94) 07/09/21 04:44 MCH 28.1 pg (28.0-34.0) 07/09/21 04:44 MCHC 33.1 g/dL (30.0-36.0) 07/09/21 04:44 RDW 14.2 % (12.1-15.1) 07/09/21 04:44 Plt Count 266 10^3/cmm (130-400) 07/09/21 04:44 MPV 10.6 fL (7.4-10.4) H 07/09/21 04:44 Neut % (Auto) 71.2 % 07/09/21 04:44 Lymph % (Auto) 6.1 % 07/09/21 04:44 [place] % (Auto) 8.7 % 07/09/21 04:44 Eos % (Auto) 0.6 % 07/09/21 04:44 Baso % (Auto) 0.2 % 07/09/21 04:44 Neut # (Auto) 19.90 10^3/uL (1.8-7.7) H 07/09/21 04:44 Lymph # (Auto) 1.7 10^3/uL (0.8-4.8) 07/09/21 04:44 [place] # (Auto) 2.4 10^3/uL (0.2-0.9) H 07/09/21 04:44 Eos # (Auto) 0.2 10^3/uL (0.0-0.8) 07/09/21 04:44 Baso # (Auto) 0.1 10^3/uL (0.0-0.1) 07/09/21 04:44 Nucleated RBC % (auto) 0 % 07/09/21 04:44 Total Counted 100 (0-100) 07/08/21 05:26 Atypical Lymphs % 0.0 % (0-5) 07/08/21 05:26 Absolute Neutrophils 29.8 10^3/cmm (1.4-6.5) H 07/08/21 05:26 Segmented Neutrophils 69 % 07/08/21 05:26 Abs Segm Neuts (Man) 23.7 10/cmm (1.6-7.1) H 07/08/21 05:26 Band Neutrophils 18.0 % 07/08/21 05:26 Abs Band Neuts (Man) 6.2 10^3/cmm (0.0-1.2) H 07/08/21 05:26 Absolute Lymphocytes 2.7 10^3/cmm (1.2-3.4) 07/08/21 05:26 Lymphocytes (Manual) 8 % 07/08/21 05:26 Monocytes (Manual) 3.0 % 07/08/21 05:26 Absolute Monocytes 1.0 10^3/cmm (0.1-0.6) H 07/08/21 05:26 Eosinophils (Manual) 0 % 07/08/21 05:26 Absolute Eosinophils 0.0 10^3/cmm (0.0-0.7) 07/08/21 05:26 Basophils (Manual) 0.0 % 07/08/21 05:26 Absolute Basophils 0.0 10^3/cmm (0.0-0.2) 07/08/21 05:26 Metamyelocytes 2.0 % 07/08/21 05:26 Nucleated RBCs # 0.0 /100WBC 07/09/21 04:44 Platelet Estimate Normal (Normal) 07/08/21 05:26 D-Dimer 9.35 ug/mIFEU (0-0.59) H 07/07/21 14:31 Specimen Type Arterial 07/09/21 10:50 Sample Site Radial, left 07/09/21 10:50 ABG pH 7.39 (7.35-7.45) 07/09/21 10:50 ABG pCO2 37.8 mmHg (35-45) 07/09/21 10:50 ABG pO2 62.0 mmHg (80.0-100.0) L 07/09/21 10:50 ABG HCO3 23.1 mmol/L (22-26) 07/09/21 10:50 ABG O2 Saturation 91.7 07/09/21 10:50 ABG Base Excess -1.6 mmol/L (-2.0-2.0) 07/09/21 10:50 Gato Test Pos 07/09/21 10:50 A-a O2 Gradient 27.6 mmHg (5-10) H 07/09/21 10:50 Hematocrit 38.0 % (42-52) L 07/09/21 10:50 Hgb O2 Saturation 89.6 % (95-100) L 07/09/21 10:50 Carboxyhemoglobin 1.3 %THgb (0.4-20.1) 07/09/21 10:50 Methemoglobin 0.9 % (0.4-1.5) 07/09/21 10:50 Total Hemoglobin 12.4 g/dL (14-18) L 07/09/21 10:50 Sodium 133.0 mmol/L (131-143) 07/09/21 10:50 Potassium 4.6 mmol/L (3.5-5.0) 07/09/21 10:50 Glucose 124.0 mg/dL (70-115) H 07/09/21 10:50 Ionized Calcium 1.1 mmol/L (1.1-1.4) 07/09/21 10:50 O2 Delivery Device Vent 07/09/21 10:50 O2 Liters/Min 3.0 % 06/26/21 12:40 FiO2 45.0 % 07/09/21 10:50 Tidal Volume 0.50 07/07/21 10:00 PEEP 12.0 cmH20 07/07/21 10:00 Roll Forming Machine Set Up Operator ID Buttr 07/09/21 10:50 Sodium 134 mmol/L (136-145) L 07/09/21 04:44 Potassium 5.2 mmol/L (3.5-5.1) H 07/09/21 04:44 Chloride 99 mmol/L (98-107) 07/09/21 04:44 Carbon Dioxide 23 mmol/L (22-29) 07/09/21 04:44 Anion Gap 17.2 (5-19) 07/09/21 04:44 BUN 70 mg/dL (6-20) H 07/09/21 04:44 Creatinine 2.4 mg/dL (0.7-1.2) H 07/09/21 04:44 GFR Calculation 28.6 mL/min (90-130) L 07/09/21 04:44 Glucose 116 mg/dL (65-115) H 07/09/21 04:44 Calculated Osmolality 299 mOsm/kg (285-295) H 07/09/21 04:44 Lactic Acid 2.2 mmol/L (0.5-2.2) 06/26/21 13:08 Lactic Acid (Sepsis) 1.1 mmol/L (0.5-2.2) 06/26/21 17:10 Lactate 1.5 mmol/L (0.5-2.2) 07/05/21 06:05 Calcium 7.4 mg/dL (8.5-10.5) L 07/09/21 04:44 Phosphorus 3.4 mg/dL (2.5-4.5) 07/07/21 03:12 Magnesium 2.8 mg/dL (1.7-2.3) H 07/07/21 03:22 Ferritin 1137 ng/mL (30-400) H 06/30/21 06:32 Total Bilirubin 0.6 mg/dL (0.15-1.2) 07/09/21 04:44 AST 51 U/L (0-40) H 07/09/21 04:44 ALT 62 U/L (0-41) H 07/09/21 04:44 Alkaline Phosphatase 95 IU/L (40-130) 07/09/21 04:44 Troponin T Baseline 11 ng/L (0-15) 06/26/21 13:08 Troponin T 120 Minute 10.43 ng/L (0-15) 06/26/21 14:26 Delta Troponin T -0.57 ABS# (0-10) L 06/26/21 14:26 Troponin T Hi Sens 6Hr 9.82 ng/L (0-15) 06/26/21 18:40 Troponin T Hi Sens 6Hr Delta -1.18 ng/L (0-12) L 06/26/21 18:40 C-Reactive Protein 4.0 mg/L (0.0-4.9) 07/02/21 05:47 NT-Pro-B Natriuret Pep 65 pg/mL (0-125) 06/26/21 13:08 Total Protein 5.3 g/dL (6.6-8.7) L 07/09/21 04:44 Albumin 3.3 g/dL (3.5-5.2) L 07/09/21 04:44 Globulin 2.0 g/dL (1.3-4.6) 07/09/21 04:44 Procalcitonin 0.32 ng/mL (0-0.5) 07/05/21 06:05 Urine Color Dark yellow (Yellow) 07/07/21 23:04 Urine Appearance Hazy (CLEAR) A 07/07/21 23:04 Urine pH 5 (5-7) 07/07/21 23:04 Ur Specific [place] 1.020 (1.005-1.030) 07/07/21 23:04 Urine Protein Trace (Negative) 07/07/21 23:04 Urine Glucose (UA) Norm (Normal) 07/07/21 23:04 Urine Ketones Negative (Negative) 07/07/21 23:04 Urine Blood 3+ (Negative) H 07/07/21 23:04 Urine Nitrate Negative (Negative) 07/07/21 23:04 Urine Bilirubin Neg (Negative) 07/07/21 23:04 Urine Urobilinogen Norm mg/dL (Negative) 07/07/21 23:04 Ur Leukocyte Esterase Negative (Negative) 07/07/21 23:04 Urine RBC >100 /hpf (0-2) H 07/07/21 23:04 Urine WBC 0-4 /hpf (0-5) H 07/07/21 23:04 Ur Squamous Epith Cells 0-4 /hpf (0-5) H 07/07/21 23:04 Uric Acid Crystals 15-25 /hpf H 07/07/21 23:04 Amorphous Sediment 3+ /hpf 07/07/21 23:04 Urine Bacteria Trace /hpf (NONE) 07/07/21 23:04 Ur Random Sodium 22 mmol/L 07/07/21 23:04 Ur Random Potassium 19 mmol/L 07/07/21 23:04 Ur Random Chloride < 10 mmol/L 07/07/21 23:04 Urine Creatinine 140 mg/dL (39-259) 07/07/21 23:04 Impressions Chest CTA 07/01/21 12:32 IMPRESSION: 1. No pulmonary embolism. 2. Pneumomediastinum and pneumopericardium. 3. Diffuse multilobar areas of groundglass attenuation and developing areas of consolidation at the lung bases from Covid 19. 4. Mediastinal and hilar lymphadenopathy may be reactive. Notified Loki Kc MD at 07/01/2021 3:53 PM. Was unable to contact Dr. Kc with this report. Also attempted to speak to patient's nurse but was unsuccessful. Abdomen/Pelvis CT 07/05/21 12:00 IMPRESSION: 1. Currently no visible evidence for acute abdominal or pelvic pathologic process. 2. Mild diverticulosis coli without visible evidence for acute diverticulitis. 3. Liquid stool within the colon. No findings to suggest the presence of either inflammatory or infectious colitis, however. 4. Barnes catheter within a decompressed urinary bladder. Free air within the lumen the urinary bladder. Cannot differentiate iatrogenic introduction from gas producing organism from acute cystitis. 5. Pneumonitis/pneumonia lung bases. Findings would be consistent with Covid-19 pneumonitis/pneumonia. 6. Other nonurgent/nonemergent related findings as detailed in text above. COMMENTS: Consistent with the [employer]'s Incidental Findings Committee white paper (J Am Sage [employer]iol 2018): Any incidental renal lesion less than 1 cm or classified as too small to characterize, or any incidental cystic renal lesion characterized as simple-appearing, is likely benign. No follow-up imaging is recommended for these lesions per consensus recommendations based on imaging criteria. Radiation Dose CTDIVOL = (mGy): DLP = 2016.78 (mGy-cm) Chest X-Ray 07/09/21 09:44 Impression: 1. No change in diffuse bilateral pulmonary opacities consistent with pneumonia. 2. No change in multiple tubes. Micro: Microbiology 07/07/21 17:40 Gram Stain - Final Sputum - Endotracheal Tube Aspirate Sputum Culture - Preliminary Yeast species 07/07/21 23:04 Urine Culture - Final Urine,Clean Catch 07/07/21 15:00 Urine Culture - Final Urine Catheterized A&P Assessment and plan (1) ARDS (adult respiratory distress syndrome): Status: Acute (2) Acute respiratory failure due to COVID-19: Status: Acute (3) Pneumomediastinum: Status: Acute (4) Pneumopericardium: Status: Acute (5) Acute kidney injury: Status: Acute (6) Shock: Status: Acute (7) Delirium: Status: Acute (8) Elevated WBC count: Status: Acute Qualifiers: Leukocytosis type: unspecified Qualified Code(s): D72.829 - Elevated white blood cell count, unspecified - intubated, sedated, paralyzed and proned x 2 times - s/p 10 day dexamethasone 6 mg ivp carissa ; s/p 5 day remdesivir and Tocilizumab x 2 doses -Off sedation, opening eyes moving limbs, improved mentation tolerated SBT on pressure support 16/8 on 45% FiO2 saturating 92% and ABG 7.3 /62/20 3/45% FiO2 -Extubated to high flow nasal cannula 45 L and 90%, patient still anxious-still on low-dose Precedex drip -Chest x-ray 07/09/2021: No change in diffuse bilateral pulmonary opacities consistent with pneumonia - CTA 07/01/21:No PE; Pneumomediatinum and Pneumopericardium ; venous doppler negative for DVT which are consistent with interstitial viral pneumonia. No evidence of pneumomediastinum or pneumothorax - Duoneb q 6 hr carissa; pulmicort nebs, - monitor inflammatory markers q 48 hrs -Off Levophed -LEANNE likely due to COVID-19 pneumonia-renal functions plateaued - I/O/N - + 500 ml 24 hr / + 4.1 L since admission - lasix 40 mg one dose -Worsening LFTs-likely due to COVID-19 pneumonia-plan to - sugars controlled - Persistent leucocytosis -in the absence of positive infectious [id number] blood smear showing atypical myeloid precursors-flow cytometry for leukemoid/leukemia were sent to pathology-today down to 28K -On broad spectrum coverage - cefepime and linezolid since 07/05/2021-we will discontinue after total 7 days treatment -Sputum positive for yeast species-identification pending; I will start on fluconazole until final results available - C. diff PCR negative; CT abd/pelvis 07/05/21: no visible evidence for acute abdominal or pelvic pathologic process. - so far cultures, MRSA Nares, bacterial antigens negative; low procal - PPI for gi ppx - Lovenox for DVT ppx -Feeding, jevity Extubated today-on high flow 45 L 90%-intermittently anxious on Precedex drip-can give Ativan 1 mg every 2 hours as needed recommendations conveyed to hospitalist, RN and RT covering the pt. Attestations Medical Necessity Statement*: Continue admission for hypoxic respiratory failure with severe COVID-19, ARDS, acute kidney injury, leukocytosis. Time Spent in Patient Care: Greater than 35 minutes (>than 50% of time spent in counselling and/or direct pt care on unit). Critical Care Time: The high probability of a clinically significant, sudden or life threatening deterioration of the patient's [respiratory, infectious, renal, hematologic] system(s) required my full and direct attention, intervention and personal management. The critical care time is as shown. This time is in addition to time spent performing any reported procedures but includes the following: [x] Data and vital sign review and interpretation [x] Patient assessment, examination and intervention [x] Documentation [x] Medication orders and management Critical Care Time (min): 60 Coding Level of Care Code Established Pt Acute Subsystems Engineer for Chg Fwd Patient Type Established History Comprehensive Exam Comprehensive Medical Decision Making High Complexity Diagnoses ARDS (adult respiratory distress syndrome) J80 Acute respiratory failure due to COVID-19 U07.1; J96.00 Pneumomediastinum J98.2 Pneumopericardium I31.9 Acute kidney injury N17.9 Shock R57.9 Delirium R41.0 Elevated WBC count D72.829 Leukocytosis type: unspecified Time Spent (min) 60
--- NOTE | 2021-07-09 16:36 | PM.PN ---
Subjective Subjective: Interval history: Documents overnight. Has remained on ventilator. On minimal ventilator setting at present. FiO2 45% saturating 91%. Was off sedation earlier in the day and has been waking up more than before. Possible extubation within a day or 2. Has remained hemodynamically stable and afebrile. Documented urine output in last 24 hours around 2 L. Has been off pressors for more than 24 hours. Medications: Reviewed: Yes Vitals/I&O/Wt Last Vital Signs Temp 97.7 F 07/09/21 12:00 Pulse 81 07/09/21 15:32 Resp 22 H 07/09/21 15:30 BP 120/78 07/09/21 14:30 Pulse Ox 91 07/09/21 15:30 07/09/21 07/09/21 07/09/21 06:59 14:59 22:59 Intake Total 791.846 / 2448.478 803.016 / 803.016 109.275 / 912.291 Output Total 1200 / 1950 1350 / 1350 Balance -408.154 / 498.478 803.016 / 803.016 -1240.725 / -437.709 Weight last 48 hrs Weight 107.586 kg Weight 107.728 kg Physical Exam Narrative: EXAM NARRATIVE: General: The patient is intubated, sedated, paralyzed and in prone position Respiratory: Auscultation: Minimal crackles at the most dependent position of the lungs in prone position Cardiovascular: Regular rate and rhythm, S1-S2 present, no murmur, no peripheral edema. Abdomen: Sluggish bowel sound Skin: No rash Neuro: Intubated and sedated Urinary Catheter Management^: Barnes: Cath Placed During This Visit: yes Reason for Continuing Indwelling Catheter: Accurate Measurement of Urinary Output in Critically Ill Patients Urinary Catheter Date of Insertion: 07/03/21 Urinary Catheter Time of Insertion: 07:56 Data : 07/09/21 04:44 07/09/21 04:44 Micro: Microbiology 07/07/21 17:40 Gram Stain - Final Sputum - Endotracheal Tube Aspirate Sputum Culture - Preliminary Yeast species 07/07/21 23:04 Urine Culture - Final Urine,Clean Catch 07/07/21 15:00 Urine Culture - Final Urine Catheterized A&P Assessment and plan (1) Sepsis: Patient continues to have patient continues to have elevated white count. Infectious work-up so far negative. Negative for any source of infection. Blood culture has remained negative. CT abdomen pelvis negative for any sign of infection. Recheck urinalysis, sputum culture. MRSA swab negative. Urine Legionella bacterial antigen negative. C. difficile negative. White count slightly better today Continue linezolid. Widen from cefepime to imipenem. As per conversation with Dr. Lemos from pathology peripheral smear concerning for possible leukemoid/leukemia. Flow cytometry for leukemia/lymphoma panel sent out. Status: Acute (2) Shock: Restarted on small dose of Levophed. Monitor blood pressures closely. Avoid hypotension. Status: Acute (3) Acute respiratory failure due to COVID-19: ARDS: Ventilator dependent Patient is post extended course of remdesivir. S/p 2 doses of Actemra. Continue with Decadron. Continue with nebulizations with DuoNeb and budesonide. Sedation vacation when possible. Wean down ventilator support as possible keeping saturation over 90%. For now continue with sedation and sedation vacation when possible. Keep mean arterial pressure over 65. Status: Acute (4) COVID-19: As above. Status: Acute (5) Acute kidney injury: Baseline creatinine normal. Could be secondary to intermittent shock requiring Levophed along with dose of lisinopril in between. Patient did have contrast study with CTA on admission and then CT abdomen pelvis with contrast recently on July 05. Creatinine for now continues to worsen. Medical reconciliation done for nephrotoxic drugs. CT abdomen pelvis negative for any obstructive uropathy, hydronephrosis. Check urine lites, urine creatinine. Urine output in last 24 hours over 2 L. Net +3 L since admission. For now continue to monitor BMP daily. No hyperkalemia or metabolic acidosis on the labs yesterday. Case discussed with bottle gauger team. For now continue to monitor. Status: Acute (6) Elevated WBC count: Status: Resolved (7) Hyponatremia: Status: Acute (8) Hypertension: Antihypertensives held. Status: Acute Qualifiers: Hypertension type: essential hypertension Qualified Code(s): I10 - Essential (primary) hypertension (9) Diarrhea: Status: Acute Additional A&P Information Full code. Tube feedings. Lovenox for DVT prophylaxis. Famotidine for PUD prophylaxis Case discussed with bottle gauger. Appreciate help. We will resume full care once patient out of ICU. Severely guarded prognosis. Attestations Medical Necessity Statement*: Hospitalization for management of ARDS, ventilator dependent in setting of COVID-19 pneumonia, acute kidney injury Critical Care Time: The high probability of a clinically significant, sudden or life threatening deterioration of the patient's [respiratory, renal] system(s) required my full and direct attention, intervention and personal management. The critical care time is as shown. This time is in addition to time spent performing any reported procedures but includes the following: [x] Data and vital sign review and interpretation [x] Patient assessment, examination and intervention [x] Documentation [x] Medication orders and management Critical Care Time (min): 40 Coding Level of Care Code Acute Natural Gas Treating Unit Operator for [facility] Fwd Diagnoses Sepsis A41.9 Shock R57.9 Acute respiratory failure due to COVID-19 U07.1; J96.00 COVID-19 U07.1 Acute kidney injury N17.9 Elevated WBC count D72.829 Hyponatremia E87.1 Hypertension I10 Hypertension type: essential hypertension Diarrhea R19.7
--- NOTE | 2021-07-09 17:01 | PC.NURSE ---
PT very anxious, desatted into 60's. NRB placed on pt. O2 sats increased to 95%. Pt attempting to take out HFNC. Education provided r/t proper breathing and need for O2. Spoke with MD and he said to place mittens on pt if needed to keep pt from taking off NC. NRB removed. Pt given ativan per MD orders and precedex increased per orders. Will monitor.
[2021-07-09] MEDS: fentaNYL 50 mcg/mL INJ 2mL 25 MCG IVP ×2 (19:17→20:27)
[2021-07-09] MEDS: fluconazole premix 400 MG/200 ML PIGGYBACK 200 MG IV (19:54)
[2021-07-09] MEDS: midazolam 1 mg/mL INJ 2 mL 2 MG IVP (20:27)
[2021-07-09] MEDS: propofol 1,000 MG/100 ML INJ 23.08 MG IV (21:00)
--- NOTE | 2021-07-09 21:00 | PC.NURSE ---
Intubation Note Patient noted to have anxiety and respiratory distress on heated high flow at 100% FiO2 and 50L. Patient also wearing nonrebreather mask on top of the heated high flow,which was turned up to 15L. Called Dr. Reinoso and informed him about patient condition also informed him that PRN Ativan 1 mg and PRN Fentanyl 25 mcg had been given with no relief to patient. Dr. Reinoso gave verbal phone orders to give another one time dose of Fentanyl 25 mcg in addition to one time dose of Versed 2 mg. After administering those medications, patient condition did not improve. Dr. Reinoso on unit, gave orders to intubate patient due to declining respiratory status. Dr. Reinoso gave verbal orders at bedside for Etomidate 10 mg IVP, Rocuronium 100 mg IVP, and Versed 4 mg IVP for intubation. Per Dr. Reinoso orders, Etomidate 10 mg IVP admin first, then Versed 4 mg IVP admin, and then Rocuronium 100 mg IVP administered. Once ET tube was secured, orders for STAT chest x-ray, OG tube insertion, and non-violent bilateral soft wrist restraints were obtained. OG tube size 18 inserted, secured, and clamped. Auscultated for correct placement in addition to obtaining a chest x-ray. Applied non-violent bilateral soft wrist restraints to patient wrists, surrounding skin temp warm, skin color pink. Patient has Propofol infusing at 40 mcg/kg/min per Dr. Reinoso approval, Precedex infusing at 0.9 mcg/kg/hr, and Fentanyl infusing at 25 mcg/hr.
--- NOTE | 2021-07-09 21:00 | XRR_ITS ---
PROCEDURE INFORMATION: Exam: XR Chest Exam date and time: 07/09/2021 9:00 PM Age: 51 years old Clinical indication: Device placement; Ett placement (vent status); Additional info: Intubation TECHNIQUE: Imaging protocol: XR of the chest. Views: 1 view. COMPARISON: CR XR chest 1V portable [id number] 07/09/2021 10:14 AM FINDINGS: Tubes, catheters and devices: There is an enteric tube, the tip of the enteric tube is not included in the image. However, the tube has been advanced and is seen extending into the upper body of the stomach. The endotracheal tube is stable in position with the tip 4.3 cm above the kia. Left IJ central line is stable in position in the SVC. Lungs: Improved inspiration. Partial resolution of bilateral lower lobe atelectasis. There are diffuse persistent interstitial and alveolar opacities that are stable however, suspicious for pneumonia including atypical organisms. Pleural spaces: No pleural effusion. No pneumothorax. Heart/Mediastinum: Stable mild enlargement of the cardiac silhouette. Mediastinal contours are unremarkable. Bones/joints: Unremarkable for age. XR/XR chest 1V portable [id number] IMPRESSION: 1. Improved inspiration. Partial resolution of bilateral lower lobe atelectasis. There are diffuse persistent interstitial and alveolar opacities that are stable however, suspicious for pneumonia including atypical organisms. Recommend followup chest x-ray to ensure resolution. 2. There is an enteric tube, the tip of the enteric tube is not included in the image. However, the tube has been advanced and is seen extending into the upper body of the stomach. 3. The endotracheal tube is stable in position with the tip 4.3 cm above the kia. 4. Left IJ central line is stable in position in the SVC. 5. Incidental/nonacute findings are listed in the report.
--- NOTE | 2021-07-09 21:25 | PM.ACPR ---
Procedure/Consent Time out: Time Out Performed: Yes Consent: Consent for Procedure: Emergency procedure Procedure Narrative: Endotracheal Intubation Procedure Note: Indication for endotracheal intubation: Altered mental status likely secondary to opiates and benzodiazepine withdrawal and patient with COVID-19 hypoxia Consent: The patient was in immediate danger, and required the procedure emergently, also to verbal consent as witnessed by the staff. Sedation: Etomidate 10, Versed 4,-prior to intubation patient received fentanyl 25 MCG Paralytic: Rocuronium 100 Equipment: [place] scope View: Grade 1 Cricoid Pressure: No Number of attempts: 1 ETT location confirmed by colorimetric change, fogging of ET tube, bilateral breath sounds, chest x-ray. Aneudy DatarMD Pulm/Critical Care Medicine Acute Procedures Epistaxis Control: Time out performed: Yes
[2021-07-09] MEDS: midazolam 1 mg/mL INJ 2 mL 4 MG IVP (21:41)
[2021-07-09] MEDS: rocuronium 10 mg/mL INJ 5mL 100 MG IVP (21:45)
[2021-07-09] MEDS: dexmedetomidine 400 MCG in sodium chloride 0.9% (100 ml) 100 ML 23.78 MCG IV (22:12)
[2021-07-09] MEDS: norepinephrine 8 MG in dextrose 5 % 500 ML 7.62 MG IV (23:40)
[2021-07-10] VITALS (59 sets, daily range): BP systolic 83–117; BP diastolic 55–75; PULSE 75–104; RESP 10–30; TEMP 36.3–36.5; O2SAT 92–97; BMI 34.0
[2021-07-10] MEDS: quetiapine 25 mg Tablet 50 MG PO ×3 (00:01→21:48)
[2021-07-10] MEDS: ipratropium-albuterol 3 mL Neb INHALATION ×7 (00:07→23:30)
[2021-07-10 00:57] LABS: ABG PCO2 47.6 mmHg (35-45); ABG PH Result 7.31 (7.35-7.45); Alveolar-Arterial Oxygen Gradi 50.8 mmHg (5-10); Arterial Blood Gas Hematocrit 39.7 % (42-52); Base Excess ABG -2.9 mmol/L (-2.0-2.0); Blood Gas Allen Test Pos; Blood Gas Operator Identificat BD; Blood Gas Sample Site Brachial, right; Blood Gas Sample Type Arterial; Blood Gas Tidal Volume 0.45; Carboxyhemoglobin 1.3 %THgb (0.4-20.1); HCO3 ABG 23.7 mmol/L (22-26); HGB O2 Sat 93.2 % (95-100); Ionized Calcium Level - ABG 1.1 mmol/L (1.1-1.4); Oxygen Device VENT; Oxygen Saturation ABG 95.3; Potassium Level - ABG 5.3 mmol/L (3.5-5.0); Total Hemoglobin 12.9 g/dL (14-18)
[2021-07-10] MEDS: dexmedetomidine 400 MCG in sodium chloride 0.9% (100 ml) 100 ML 23.78 MCG IV ×3 (02:14→13:05)
[2021-07-10] MEDS: propofol 1,000 MG/100 ML INJ 28.85 MG IV ×4 (02:40→23:02)
--- NOTE | 2021-07-10 05:34 | PC.NURSE ---
Shift Note Frequent safety and comfort rounds continue. Orders and/or nursing care completed as indicated. Patient monitored for response to intervention and treatment(s). Education provided includes sedation medication and treatment goals. Patient is unable to comprehend teaching due to being intubated and sedated. He will require reinforcement. Patient had to be intubated earlier this evening, please see intubation note for further details. Vent settings are currently; Mode-VC-AC, FiO2-75, VT-450, Rate-20, Peep-10. Patient does not respond to verbal or painful stimuli at this time. He has bilateral skin tears on his cheeks, they are covered with dressings. No other wounds or skin issues are noted at this time. Barnes catheter drained 2125 mls of bright yellow cloudy urine and patient had 2 bowel movements. Medications infusing at this time include; Precedex @ 0.9 mcg/kg/hr, Fentanyl @ 100 mcg/hr, and Propofol @ 40 mcg/min. Versed and Levophed drips have been paused at this time. Will continue to monitor.
[2021-07-10] MEDS: propofol 1,000 MG/100 ML INJ 23.08 MG IV (06:12)
[2021-07-10] MEDS: linezolid premix 600 MG/300 ML PREMIX 300 MG IV ×2 (06:12→19:26)
[2021-07-10] MEDS: budesonide 0.5 mg/2 mL Neb INHALATION ×2 (08:07→19:36)
[2021-07-10 09:12] LABS: Hemoglobin 11.9 g/dL (11.7-16.6); Mean Corpuscular HGB Conc 33.1 g/dL (30.0-36.0); Mean Corpuscular Hemoglobin 28.8 pg (28.0-34.0); Mean Corpuscular Volume 87.2 fL (80-94); Mean Platelet Volume 10.4 fL (7.4-10.4); Platelet Count 272 10^3/cmm (130-400); Red Blood Count 4.13 10^6/uL (4.1-5.3); Red Cell Distribution Width 14.5 % (12.1-15.1); White Blood Count 25.1 10^3/uL (4.0-10.0)
[2021-07-10 09:35] LABS: Alanine Aminotransferase 56 U/L (0-41); Albumin Level 3.2 g/dL (3.5-5.2); Alkaline Phosphatase 107 IU/L (40-130); Anion Gap 17.6 (5-19); Aspartate Amino Transferase 59 U/L (0-40); Blood Urea Nitrogen 72 mg/dL (6-20); Calcium 7.4 mg/dL (8.5-10.5); Carbon Dioxide 22 mmol/L (22-29); Chloride 102 mmol/L (98-107); Globulin 1.9 g/dL (1.3-4.6); Glomerular Filtration Rate 35.3 mL/min (90-130); Glucose 107 mg/dL (65-115); Magnesium 3.1 mg/dL (1.7-2.3); Osmolality Calculated 304 mOsm/kg (285-295); Potassium 5.6 mmol/L (3.5-5.1); Sodium 136 mmol/L (136-145); Total Bilirubin 0.5 mg/dL (0.15-1.2); Total Protein 5.1 g/dL (6.6-8.7)
[2021-07-10] MEDS: enoxaparin 40 mg/0.4 mL Syringe SUBCUT (09:39)
[2021-07-10] MEDS: pantoprazole 40 mg SDV IVP (09:39)
[2021-07-10 09:54] LABS: Slide Review Slide Review Perform
[2021-07-10 09:58] LABS: Absolute Segmented Neutrophil 17.8 10/cmm (1.6-7.1); Band Neutrophils Absolute 0.5 10^3/cmm (0.0-1.2); Eosinophils 0 %; Lymphocytes 8 %; Lymphocytes Absolute 3.5 10^3/cmm (1.2-3.4); Monocytes Absolute 0.8 10^3/cmm (0.1-0.6); Segmented Neutrophils 71 %; Total Cells Counted 100 (0-100)
[2021-07-10 10:00] LABS: Absolute Neutrophil 18.3 10^3/cmm (1.4-6.5); Platelet Estimate Normal (Normal)
[2021-07-10 10:00] LABS: ABG PCO2 42.4 mmHg (35-45); ABG PH Result 7.37 (7.35-7.45); Alveolar-Arterial Oxygen Gradi 51.8 mmHg (5-10); Arterial Blood Gas Hematocrit 36.5 % (42-52); Blood Gas Allen Test Pos; Blood Gas Operator Identificat GD; Blood Gas Sample Site Radial, left; Blood Gas Sample Type Arterial; Blood Gas Tidal Volume 0.45; HCO3 ABG 24.4 mmol/L (22-26); HGB O2 Sat 95.1 % (95-100); Ionized Calcium Level - ABG 1.1 mmol/L (1.1-1.4); Methemoglobin 0.9 % (0.4-1.5); Oxygen Device VENT; PO2 ABG 84.6 mmHg (80.0-100.0); Potassium Level - ABG 5.3 mmol/L (3.5-5.0); Total Hemoglobin 11.9 g/dL (14-18)
[2021-07-10] MEDS: propofol 1,000 MG/100 ML INJ 25.96 MG IV ×3 (10:20→17:02)
--- NOTE | 2021-07-10 10:37 | PC.NUTR ---
Nutrition follow up: Discussed upward wt trend with nurse who reports some documented wts may be in error. Recommend monitor weight closely given possible 19 lb gain since 07/01. Also continue to recommend checking triglycerides given propofol use since 07/04. If appropriate, recommend resume trophic feeding at 15 ml/hr, and increase by 10 ml/hr q 12 hrs to goal of 35 ml/hr. Note additional 685 kcal from propofol. H2O flushes per MD discretion. If renal fx not improved, may benefit from change to Nepro when feeding resumed. See full RD assessment for further details.
[2021-07-10] MEDS: dexamethasone 4 mg/mL INJ 6 MG IVP (13:30)
[2021-07-10] MEDS: fluconazole premix 100 MG in empty flexible container 1 EACH 50 MG IV (17:35)
--- NOTE | 2021-07-10 17:43 | PC.RESP ---
RT Shift Note Frequent safety and respiratory rounds continue. Orders completed as indicated. Patient monitored pre and post treatments throughout shift. Patient [Did.] tolerate treatments appropriately. Condition .DidNotChange]. Patient and/or circulation sales representative educated on respiratory treatment and medications. Patient and/or circulation sales representative [unable to comprehend]. Will continue to monitor patient progress.
[2021-07-10] MEDS: dexmedetomidine 400 MCG in sodium chloride 0.9% (100 ml) 100 ML 21.14 MCG IV ×2 (18:08→23:02)
--- NOTE | 2021-07-10 18:11 | PM.PN ---
Subjective Subjective: Interval history: In last 24 hours patient was reintubated yesterday evening because of agitation and impending respiratory failure. In morning he sedated and saturating 96% on 70% FiO2. Currently he is on CMV 75% tidal volume 450 PEEP 10 sedated with fentanyl and propofol. Medications: Reviewed: Yes Vitals/I&O/Wt Last Vital Signs Temp 97.7 F 07/10/21 12:00 Pulse 86 07/10/21 16:23 Resp 30 H 07/10/21 16:23 BP 93/61 07/10/21 14:30 Pulse Ox 93 07/10/21 16:23 07/10/21 07/10/21 07/10/21 06:59 14:59 22:59 Intake Total 782.895 / 2250.643 608.936 / 608.936 205.06 / 813.996 Output Total 2125 / 3475 Balance -1342.105 / -1224.357 608.936 / 608.936 205.06 / 813.996 Weight last 48 hrs Weight 102.965 kg Weight 107.586 kg Weight 107.586 kg Physical Exam Narrative: EXAM NARRATIVE: General: The patient is intubated, sedated, Respiratory: Auscultation: Minimal crackles at the most dependent position of the lungs in prone position Cardiovascular: Regular rate and rhythm, S1-S2 present, no murmur, no peripheral edema. Abdomen: Sluggish bowel sound Skin: No rash Neuro: Intubated and sedated Urinary Catheter Management^: Barnes: Cath Placed During This Visit: yes Reason for Continuing Indwelling Catheter: Accurate Measurement of Urinary Output in Critically Ill Patients Urinary Catheter Date of Insertion: 07/03/21 Urinary Catheter Time of Insertion: 07:56 Data : 07/10/21 08:22 07/10/21 21:19 Micro: Microbiology 07/05/21 14:35 Blood Culture - Final Blood NO GROWTH AFTER 5 DAYS 07/05/21 10:28 Blood Culture - Final Blood NO GROWTH AFTER 5 DAYS A&P Assessment and plan (1) Sepsis: Patient continues to have patient continues to have elevated white count. Infectious work-up so far negative. Negative for any source of infection. Blood culture has remained negative. CT abdomen pelvis negative for any sign of infection. Recheck urinalysis, sputum culture appreciated. MRSA swab negative. Urine Legionella bacterial antigen negative. C. difficile negative. White count slightly better today Continue linezolid?day 6 today. Continue with imipenem?day 2 today. Can most likely stop Linezolid after day 7. As per conversation with Dr. Lemos from pathology peripheral smear concerning for possible leukemoid/leukemia. Flow cytometry for leukemia/lymphoma panel sent out. Status: Acute (2) Shock: Restarted on small dose of Levophed. Monitor blood pressures closely. Avoid hypotension. Status: Acute (3) Acute respiratory failure due to COVID-19: ARDS: Ventilator dependent. Failed extubation on July 09 for agitation and impending respiratory failure. Can try to wean down or extubate to Precedex drip along with fentanyl pushes. Patient is post extended course of remdesivir. S/p 2 doses of Actemra. More than 10 days of IV Decadron. Decrease to 3 mg daily. Continue with nebulizations with DuoNeb and budesonide. Sedation vacation when possible. Wean down ventilator support as possible keeping saturation over 90%. For now continue with sedation and sedation vacation when possible. Keep mean arterial pressure over 65. Status: Acute (4) COVID-19: As above. Status: Acute (5) Acute kidney injury: Baseline creatinine normal. Could be secondary to intermittent shock requiring Levophed along with dose of lisinopril in between. Patient did have contrast study with CTA on admission and then CT abdomen pelvis with contrast recently on July 05. Medical reconciliation done for nephrotoxic drugs. CT abdomen pelvis negative for any obstructive uropathy, hydronephrosis. Check urine lites, urine creatinine. Urine output in last 24 hours over 3 L. Net +3 L since admission. For now continue to monitor BMP daily. No hyperkalemia or metabolic acidosis on the labs yesterday. Case discussed with flight operations inspector team. For now continue to monitor. Status: Acute (6) Elevated WBC count: Status: Resolved (7) Hyponatremia: Status: Acute (8) Hypertension: Antihypertensives held. Status: Acute Qualifiers: Hypertension type: essential hypertension Qualified Code(s): I10 - Essential (primary) hypertension (9) Diarrhea: Status: Acute Additional A&P Information Full code. Tube feedings. Lovenox for DVT prophylaxis. Famotidine for PUD prophylaxis Case discussed with flight operations inspector. Appreciate help. We will resume full care once patient out of ICU. Severely guarded prognosis. Attestations Medical Necessity Statement*: Patient requires further hospitalization for management of ARDS secondary to COVID-19 pneumonia, ventilator dependent, failed extubation, acute kidney injury Critical Care Time: The high probability of a clinically significant, sudden or life threatening deterioration of the patient's [respiratory, renal, neurological] system(s) required my full and direct attention, intervention and personal management. The critical care time is as shown. This time is in addition to time spent performing any reported procedures but includes the following: [x] Data and vital sign review and interpretation [x] Patient assessment, examination and intervention [x] Documentation [x] Medication orders and management Coding Level of Care Code Acute Marketing Analytics Manager for [facility] Diagnoses Sepsis A41.9 Shock R57.9 Acute respiratory failure due to COVID-19 U07.1; J96.00 COVID-19 U07.1 Acute kidney injury N17.9 Elevated WBC count D72.829 Hyponatremia E87.1 Hypertension I10 Hypertension type: essential hypertension Diarrhea R19.7
--- NOTE | 2021-07-10 19:35 | PC.NURSE ---
Shift Note Frequent safety and comfort rounds continue. Orders and/or nursing care completed as indicated. Patient monitored for response to intervention and treatment(s). Uneventful shift. Was able to reduce Fentanyl rate to 50mcg. Versed and levophed have been discontinued. Patient rested comfortably in bed. throughout shift.
--- NOTE | 2021-07-10 20:53 | PM.PN ---
Subjective Subjective: Interval history: -Patient seen multiple times at bedside today -Reintubated yesterday night for confusion and agitation -Sedated and currently saturating 96% on 70% FiO2 -Labs and imaging reviewed Medications: Reviewed: Yes Vitals/I&O/Wt Last Vital Signs Temp 97.7 F 07/10/21 16:00 Pulse 83 07/10/21 19:50 Resp 22 H 07/10/21 19:42 BP 108/63 07/10/21 19:30 Pulse Ox 96 07/10/21 19:42 07/10/21 07/10/21 07/10/21 06:59 14:59 22:59 Intake Total 782.895 / 2250.643 608.936 / 608.936 482.216 / 1091.152 Output Total 2125 / 3475 1000 / 1000 Balance -1342.105 / -1224.357 608.936 / 608.936 -517.784 / 91.152 Weight last 48 hrs Weight 227 lb Weight 237 lb 3 oz Weight 237 lb 3 oz Physical Exam Narrative: EXAM NARRATIVE: General: lying in bed, sedated and intubated. HEENT:NCAT, PERRLA, EOMI Neck: Supple Lungs: Bilateral diffuse crackles Heart: s1/s2, RRR Abd: soft, NT, ND, BS + Normoactive Extremities: No edema CUT OUT OPERATOR: sedated and limited CUT OUT OPERATOR exam possible, SKIN: no rash Urinary Catheter Management^: Barnes: Cath Placed During This Visit: yes Reason for Continuing Indwelling Catheter: Accurate Measurement of Urinary Output in Critically Ill Patients Urinary Catheter Date of Insertion: 07/03/21 Urinary Catheter Time of Insertion: 07:56 Data : 07/10/21 08:22 07/10/21 08:22 Other Labs: Laboratory Results WBC 25.1 10^3/uL (4.0-10.0) H 07/10/21 08:22 RBC 4.13 10^6/uL (4.1-5.3) 07/10/21 08:22 Hgb 11.9 g/dL (11.7-16.6) 07/10/21 08:22 Hct 36.0 % (42.0-52.0) L 07/10/21 08:22 MCV 87.2 fL (80-94) 07/10/21 08:22 MCH 28.8 pg (28.0-34.0) 07/10/21 08:22 MCHC 33.1 g/dL (30.0-36.0) 07/10/21 08:22 RDW 14.5 % (12.1-15.1) 07/10/21 08:22 Plt Count 272 10^3/cmm (130-400) 07/10/21 08:22 MPV 10.4 fL (7.4-10.4) 07/10/21 08:22 Neut % (Auto) 71.2 % 07/09/21 04:44 Lymph % (Auto) Not Reportable 07/10/21 08:22 Tyler % (Auto) Not Reportable 07/10/21 08:22 Eos % (Auto) 0.6 % 07/09/21 04:44 Baso % (Auto) 0.2 % 07/09/21 04:44 Neut # (Auto) 19.90 10^3/uL (1.8-7.7) H 07/09/21 04:44 Lymph # (Auto) Not Reportable 07/10/21 08:22 Tyler # (Auto) Not Reportable 07/10/21 08:22 Eos # (Auto) 0.2 10^3/uL (0.0-0.8) 07/09/21 04:44 Baso # (Auto) 0.1 10^3/uL (0.0-0.1) 07/09/21 04:44 Nucleated RBC % (auto) 0 % 07/09/21 04:44 Total Counted 100 (0-100) 07/10/21 08:22 Atypical Lymphs % 6.0 % (0-5) H 07/10/21 08:22 Absolute Neutrophils 18.3 10^3/cmm (1.4-6.5) H 07/10/21 08:22 Segmented Neutrophils 71 % 07/10/21 08:22 Abs Segm Neuts (Man) 17.8 10/cmm (1.6-7.1) H 07/10/21 08:22 Band Neutrophils 2.0 % 07/10/21 08:22 Abs Band Neuts (Man) 0.5 10^3/cmm (0.0-1.2) 07/10/21 08:22 Absolute Lymphocytes 3.5 10^3/cmm (1.2-3.4) H 07/10/21 08:22 Lymphocytes (Manual) 8 % 07/10/21 08:22 Monocytes (Manual) 3.0 % 07/10/21 08:22 Absolute Monocytes 0.8 10^3/cmm (0.1-0.6) H 07/10/21 08:22 Eosinophils (Manual) 0 % 07/10/21 08:22 Absolute Eosinophils 0.0 10^3/cmm (0.0-0.7) 07/10/21 08:22 Basophils (Manual) 0.0 % 07/10/21 08: Absolute Basophils 0.0 10^3/cmm (0.0-0.2) 07/10/21 08: Metamyelocytes 10.0 % 07/10/21 08: Nucleated RBCs # 0.0 /100WBC 07/09/21 04:44 Platelet Estimate Normal (Normal) 07/10/21 08:22 D-Dimer 9.35 ug/mIFEU (0-0.59) H 07/07/21 14:31 Specimen Type Arterial 07/10/21 09:41 Sample Site Radial, left 07/10/21 09:41 ABG pH 7.37 (7.35-7.45) 07/10/21 09:41 ABG pCO2 42.4 mmHg (35-45) 07/10/21 09:41 ABG pO2 84.6 mmHg (80.0-100.0) 07/10/21 09:41 ABG HCO3 24.4 mmol/L (22-26) 07/10/21 09:41 ABG O2 Saturation 97.0 07/10/21 09:41 ABG Base Excess -1.0 mmol/L (-2.0-2.0) 07/10/21 09:41 Gato Test Pos 07/10/21 09:41 A-a O2 Gradient 51.8 mmHg (5-10) H 07/10/21 09:41 Hematocrit 36.5 % (42-52) L 07/10/21 09:41 Hgb O2 Saturation 95.1 % (95-100) 07/10/21 09:41 Carboxyhemoglobin 1.0 %THgb (0.4-20.1) 07/10/21 09:41 Methemoglobin 0.9 % (0.4-1.5) 07/10/21 09:41 Total Hemoglobin 11.9 g/dL (14-18) L 07/10/21 09:41 Sodium 138.0 mmol/L (131-143) 07/10/21 09:41 Potassium 5.3 mmol/L (3.5-5.0) H 07/10/21 09:41 Glucose 97.0 mg/dL (70-115) 07/10/21 09:41 Ionized Calcium 1.1 mmol/L (1.1-1.4) 07/10/21 09:41 O2 Delivery Device Vent 07/10/21 09:41 O2 Liters/Min 3.0 % 06/26/21 12:40 FiO2 75.0 % 07/10/21 09:41 Tidal Volume 0.45 07/10/21 09:41 PEEP 10.0 cmH20 07/10/21 09:41 Parking Lot Supervisor ID Gd 07/10/21 09:41 Sodium 136 mmol/L (136-145) 07/10/21 08:22 Potassium 5.6 mmol/L (3.5-5.1) H 07/10/21 08:22 Chloride 102 mmol/L (98-107) 07/10/21 08:22 Carbon Dioxide 22 mmol/L (22-29) 07/10/21 08:22 Anion Gap 17.6 (5-19) 07/10/21 08:22 BUN 72 mg/dL (6-20) H 07/10/21 08:22 Creatinine 2.0 mg/dL (0.7-1.2) H 07/10/21 08:22 GFR Calculation 35.3 mL/min (90-130) L 07/10/21 08:22 Glucose 107 mg/dL (65-115) 07/10/21 08:22 Calculated Osmolality 304 mOsm/kg (285-295) H 07/10/21 08:22 Lactic Acid 2.2 mmol/L (0.5-2.2) 06/26/21 13:08 Lactic Acid (Sepsis) 1.1 mmol/L (0.5-2.2) 06/26/21 17:10 Lactate 1.5 mmol/L (0.5-2.2) 07/05/21 06:05 Calcium 7.4 mg/dL (8.5-10.5) L 07/10/21 08:22 Phosphorus 3.4 mg/dL (2.5-4.5) 07/07/21 03:12 Magnesium 3.1 mg/dL (1.7-2.3) H 07/10/21 08:22 Ferritin 1137 ng/mL (30-400) H 06/30/21 06:32 Total Bilirubin 0.5 mg/dL (0.15-1.2) 07/10/21 08:22 AST 59 U/L (0-40) H 07/10/21 08:22 ALT 56 U/L (0-41) H 07/10/21 08:22 Alkaline Phosphatase 107 IU/L (40-130) 07/10/21 08:22 Troponin T Baseline 11 ng/L (0-15) 06/26/21 13:08 Troponin T 120 Minute 10.43 ng/L (0-15) 06/26/21 14:26 Delta Troponin T -0.57 ABS# (0-10) L 06/26/21 14:26 Troponin T Hi Sens 6Hr 9.82 ng/L (0-15) 06/26/21 18:40 Troponin T Hi Sens 6Hr Delta -1.18 ng/L (0-12) L 06/26/21 18:40 C-Reactive Protein 4.0 mg/L (0.0-4.9) 07/02/21 05:47 NT-Pro-B Natriuret Pep 65 pg/mL (0-125) 06/26/21 13:08 Total Protein 5.1 g/dL (6.6-8.7) L 07/10/21 08:22 Albumin 3.2 g/dL (3.5-5.2) L 07/10/21 08:22 Globulin 1.9 g/dL (1.3-4.6) 07/10/21 08:22 Procalcitonin 0.32 ng/mL (0-0.5) 07/05/21 06:05 Urine Color Dark yellow (Yellow) 07/07/21 23:04 Urine Appearance Hazy (CLEAR) A 07/07/21 23:04 Urine pH 5 (5-7) 07/07/21 23:04 Ur Specific [place] 1.020 (1.005-1.030) 07/07/21 23:04 Urine Protein Trace (Negative) 07/07/21 23:04 Urine Glucose (UA) Norm (Normal) 07/07/21 23:04 Urine Ketones Negative (Negative) 07/07/21 23:04 Urine Blood 3+ (Negative) H 07/07/21 23:04 Urine Nitrate Negative (Negative) 07/07/21 23:04 Urine Bilirubin Neg (Negative) 07/07/21 23:04 Urine Urobilinogen Norm mg/dL (Negative) 07/07/21 23:04 Ur Leukocyte Esterase Negative (Negative) 07/07/21 23:04 Urine RBC >100 /hpf (0-2) H 07/07/21 23:04 Urine WBC 0-4 /hpf (0-5) H 07/07/21 23:04 Ur Squamous Epith Cells 0-4 /hpf (0-5) H 07/07/21 23:04 Uric Acid Crystals 15-25 /hpf H 07/07/21 23:04 Amorphous Sediment 3+ /hpf 07/07/21 23:04 Urine Bacteria Trace /hpf (NONE) 07/07/21 23:04 Ur Random Sodium 22 mmol/L 07/07/21 23:04 Ur Random Potassium 19 mmol/L 07/07/21 23:04 Ur Random Chloride < 10 mmol/L 07/07/21 23:04 Urine Creatinine 140 mg/dL (39-259) 07/07/21 23:04 Impressions Chest CTA 07/01/21 12:32 IMPRESSION: 1. No pulmonary embolism. 2. Pneumomediastinum and pneumopericardium. 3. Diffuse multilobar areas of groundglass attenuation and developing areas of consolidation at the lung bases from Covid 19. 4. Mediastinal and hilar lymphadenopathy may be reactive. Notified Loki Kc MD at 07/01/2021 3:53 PM. Was unable to contact Dr. Kc with this report. Also attempted to speak to patient's nurse but was unsuccessful. Abdomen/Pelvis CT 07/05/21 12:00 IMPRESSION: 1. Currently no visible evidence for acute abdominal or pelvic pathologic process. 2. Mild diverticulosis coli without visible evidence for acute diverticulitis. 3. Liquid stool within the colon. No findings to suggest the presence of either inflammatory or infectious colitis, however. 4. Barnes catheter within a decompressed urinary bladder. Free air within the lumen the urinary bladder. Cannot differentiate iatrogenic introduction from gas producing organism from acute cystitis. 5. Pneumonitis/pneumonia lung bases. Findings would be consistent with Covid-19 pneumonitis/pneumonia. 6. Other nonurgent/nonemergent related findings as detailed in text above. COMMENTS: Consistent with the [employer]'s Incidental Findings Committee white paper (J Am Sage [employer]iol 2018): Any incidental renal lesion less than 1 cm or classified as too small to characterize, or any incidental cystic renal lesion characterized as simple-appearing, is likely benign. No follow-up imaging is recommended for these lesions per consensus recommendations based on imaging criteria. Radiation Dose CTDIVOL = (mGy): DLP = 2016.78 (mGy-cm) Chest X-Ray 07/09/21 21:00 IMPRESSION: 1. Improved inspiration. Partial resolution of bilateral lower lobe atelectasis. There are diffuse persistent interstitial and alveolar opacities that are stable however, suspicious for pneumonia including atypical organisms. Recommend followup chest x-ray to ensure resolution. 2. There is an enteric tube, the tip of the enteric tube is not included in the image. However, the tube has been advanced and is seen extending into the upper body of the stomach. 3. The endotracheal tube is stable in position with the tip 4.3 cm above the kai. 4. Left IJ central line is stable in position in the SVC. 5. Incidental/nonacute findings are listed in the report. Micro: Microbiology 07/05/21 14:35 Blood Culture - Final Blood NO GROWTH AFTER 5 DAYS 07/05/21 10:28 Blood Culture - Final Blood NO GROWTH AFTER 5 DAYS A&P Assessment and plan (1) ARDS (adult respiratory distress syndrome): Status: Acute (2) Acute respiratory failure due to COVID-19: Status: Acute (3) Acute kidney injury: Status: Acute (4) Delirium: Status: Acute (5) Elevated WBC count: Status: Acute Qualifiers: Leukocytosis type: unspecified Qualified Code(s): D72.829 - Elevated white blood cell count, unspecified (6) Yeast species isolated but not further identified: Status: Acute (7) COVID-19: Status: Acute (8) Elevated WBC count: Status: Resolved - intubated, sedated, paralyzed and proned x 2 times - s/p 10 day dexamethasone 6 mg ivp carissa ; s/p 5 day remdesivir and Tocilizumab x 2 doses -Off sedation, opening eyes moving limbs, improved mentation tolerated SBT on pressure support 14/07 on 45% FiO2 saturating 92% and ABG 7.3 37/62/20 3/45% FiO2 -Extubated to high flow nasal cannula 45 L and 90%, -Post extubation patient was extremely anxious and combative, on max dose Precedex drip, pulling of his high flow nasal cannula and desaturating into the 70s-got reintubated same day night 07/10/2021 -Today he is on CMV 75%/450/10 and ABG 7.3 /84/20 4/97% -Currently sedated with fentanyl, propofol -Chest x-ray 07/09/2021: Post intubation showed improved inspiration. Partial resolution of bilateral lower lobe atelectasis. There are diffuse persistent interstitial and alveolar opacities that are stable - CTA 07/01/21:No PE; Pneumomediatinum and Pneumopericardium ; venous doppler negative for DVT which are consistent with interstitial viral pneumonia. No evidence of pneumomediastinum or pneumothorax - Duoneb q 6 hr carissa; pulmicort nebs, - monitor inflammatory markers q 48 hrs -Off Levophed -LEANNE likely due to COVID-19 pneumonia-renal functions plateaued - I/O/N - + 500 ml 24 hr / + 4.1 L since admission - lasix 40 mg one dose -Worsening LFTs-likely due to COVID-19 pneumonia - sugars controlled - Persistent leucocytosis -in the absence of positive infectious [id number] blood smear showing atypical myeloid precursors-flow cytometry for leukemoid/leukemia were sent to pathology-today down to 25K -On broad spectrum coverage - cefepime and linezolid since 07/05/2021-we will discontinue after total 7 days treatment -Sputum positive for yeast species-identification pending; I will start on fluconazole until final results available - C. diff PCR negative; CT abd/pelvis 07/05/21: no visible evidence for acute abdominal or pelvic pathologic process. - so far cultures, MRSA Nares, bacterial antigens negative; low procal - PPI for gi ppx - Lovenox for DVT ppx -Feeding, jevity recommendations conveyed to hospitalist, RN and RT covering the pt. Attestations Medical Necessity Statement*: Continue admission for hypoxic respiratory failure with severe COVID-19, ARDS, acute kidney injury, leukocytosis. Time Spent in Patient Care: Greater than 35 minutes (>than 50% of time spent in counselling and/or direct pt care on unit). Critical Care Time: The high probability of a clinically significant, sudden or life threatening deterioration of the patient's [respiratory, infectious, renal, hematologic] system(s) required my full and direct attention, intervention and personal management. The critical care time is as shown. This time is in addition to time spent performing any reported procedures but includes the following: [x] Data and vital sign review and interpretation [x] Patient assessment, examination and intervention [x] Documentation [x] Medication orders and management Critical Care Time (min): 60 Coding Level of Care Code Established Pt Acute Contact Lens Manufacturer for Chg Fwd Patient Type Established History Comprehensive Exam Comprehensive Medical Decision Making High Complexity Diagnoses ARDS (adult respiratory distress syndrome) J80 Acute respiratory failure due to COVID-19 U07.1; J96.00 Acute kidney injury N17.9 Delirium R41.0 Elevated WBC count D72.829 Leukocytosis type: unspecified Yeast species isolated but not further identified B37.9 COVID-19 U07.1 Elevated WBC count D72.829 Time Spent (min) 60
[2021-07-10] MEDS: FUROsemide 10 mg/mL SDV 4mL 40 MG IVP (21:49)
[2021-07-10 22:06] LABS: Anion Gap 18.4 (5-19); Blood Urea Nitrogen 73 mg/dL (6-20); Calcium 7.2 mg/dL (8.5-10.5); Carbon Dioxide 21 mmol/L (22-29); Chloride 101 mmol/L (98-107); Glomerular Filtration Rate 35.3 mL/min (90-130); Glucose 152 mg/dL (65-115); Osmolality Calculated 303 mOsm/kg (285-295); Potassium 6.4 mmol/L (3.5-5.1); Sodium 134 mmol/L (136-145)
[2021-07-10] MEDS: calcium chloride 10% Syr 10 mL 1 GM IVP (23:27)
[2021-07-10] MEDS: dextrose 50% syringe 50 mL IVP (23:35)
[2021-07-10] MEDS: insulin regular-human 10 UNIT in SYRINGE 1 EACH 999 UNIT IVP (23:36)
[2021-07-10] MEDS: sodium bicarbonate 8.4% 1 mEq/mL 50mL Syr 50 MEQ IVP (23:50)
[2021-07-11] VITALS (64 sets, daily range): BP systolic 83–127; BP diastolic 58–77; PULSE 69–94; RESP 20–24; TEMP 36.7–37.3; O2SAT 86–98; BMI 32.4
[2021-07-11] MEDS: propofol 1,000 MG/100 ML INJ 28.85 MG IV ×6 (02:35→23:00)
[2021-07-11 02:40] LABS: Basophils % 0.1 %; Eosinophils % 0.1 %; Hematocrit 35.8 % (42.0-52.0); Hemoglobin 11.4 g/dL (11.7-16.6); Lymphocytes # 1.1 10^3/uL (0.8-4.8); Lymphocytes % 4.5 %; Mean Corpuscular HGB Conc 31.8 g/dL (30.0-36.0); Mean Corpuscular Hemoglobin 28.2 pg (28.0-34.0); Mean Corpuscular Volume 88.6 fL (80-94); Mean Platelet Volume 10.3 fL (7.4-10.4); Monocytes # 1.8 10^3/uL (0.2-0.9); Monocytes % 7.6 %; Neutrophils % 74.4 %; Nucleated Red Blood Cells % 0 %; Platelet Count 277 10^3/cmm (130-400); Red Blood Count 4.04 10^6/uL (4.1-5.3); Red Cell Distribution Width 14.6 % (12.1-15.1); White Blood Count 23.3 10^3/uL (4.0-10.0)
[2021-07-11 02:59] LABS: Slide Review Slide Review Perform
[2021-07-11 03:03] LABS: Magnesium 3.2 mg/dL (1.7-2.3)
[2021-07-11 03:05] LABS: Alanine Aminotransferase 50 U/L (0-41); Albumin Level 3.2 g/dL (3.5-5.2); Alkaline Phosphatase 105 IU/L (40-130); Anion Gap 15.5 (5-19); Aspartate Amino Transferase 55 U/L (0-40); Blood Urea Nitrogen 79 mg/dL (6-20); Calcium 8.2 mg/dL (8.5-10.5); Carbon Dioxide 24 mmol/L (22-29); Chloride 104 mmol/L (98-107); Glomerular Filtration Rate 31.6 mL/min (90-130); Glucose 97 mg/dL (65-115); Osmolality Calculated 308 mOsm/kg (285-295); Sodium 137 mmol/L (136-145); Total Bilirubin 0.7 mg/dL (0.15-1.2); Total Protein 5.2 g/dL (6.6-8.7)
[2021-07-11 03:08] LABS: Creatine Phosphokinase 648 U/L (39-308); Potassium 6.5 mmol/L (3.5-5.1)
[2021-07-11] MEDS: ipratropium-albuterol 3 mL Neb INHALATION ×6 (03:19→23:20)
[2021-07-11] MEDS: dexmedetomidine 400 MCG in sodium chloride 0.9% (100 ml) 100 ML 21.14 MCG IV ×2 (03:41→07:59)
[2021-07-11] MEDS: dextrose 50% syringe 50 mL 25 ML IVP ×2 (04:30→04:32)
[2021-07-11] MEDS: sodium polystyrene sulfonate 15 gm/60 mL Btl PO ×2 (04:32→23:21)
[2021-07-11] MEDS: insulin regular-human 10 UNIT in SYRINGE 1 EACH 999 UNIT IVP (04:32)
[2021-07-11] MEDS: dexamethasone 4 mg/mL INJ 3 MG IVP (06:06)
[2021-07-11] MEDS: linezolid premix 600 MG/300 ML PREMIX 300 MG IV ×2 (06:06→17:49)
[2021-07-11] MEDS: budesonide 0.5 mg/2 mL Neb INHALATION ×2 (07:56→20:00)
--- NOTE | 2021-07-11 08:44 | P.PN_ITS ---
Subjective Subjective: Interval history: No acute events overnight. Patient has remained hemodynamically stable and afebrile. Found to be hyperkalemic on labs today. Continues to remain on 60% mechanical ventilation saturating 95%. Plan to come down on sedation slowly. Currently on Precedex of 0.8 and fentanyl of 75. Medications: Reviewed: Yes Vitals/I&O/Wt Last Vital Signs Temp 99.1 F 07/11/21 06:00 Pulse 70 07/11/21 07:57 Resp 23 H 07/11/21 07:58 BP 99/68 07/11/21 02:30 Pulse Ox 95 07/11/21 07:58 07/10/21 07/11/21 07/11/21 22:59 06:59 14:59 Intake Total 903.299 / 1512.235 709.072 / 2221.307 498.393 / 498.393 Output Total 1000 / 1000 1350 / 2350 Balance -96.701 / 512.235 -640.928 / -128.693 498.393 / 498.393 Weight last 48 hrs Weight 102.557 kg Weight 102.965 kg Weight 107.586 kg Physical Exam Narrative: EXAM NARRATIVE: General: The patient is intubated, sedated, Respiratory: Auscultation: Minimal crackles at the most dependent position of the lungs in prone position Cardiovascular: Regular rate and rhythm, S1-S2 present, no murmur, no peripheral edema. Abdomen: Sluggish bowel sound Skin: No rash Neuro: Intubated and sedated Urinary Catheter Management^: Barnes: Cath Placed During This Visit: yes Reason for Continuing Indwelling Catheter: Accurate Measurement of Urinary Output in Critically Ill Patients Urinary Catheter Date of Insertion: 07/03/21 Urinary Catheter Time of Insertion: 07:56 Data : 07/11/21 02:00 07/11/21 14:35 Micro: Microbiology 07/05/21 14:35 Blood Culture - Final Blood NO GROWTH AFTER 5 DAYS 07/05/21 10:28 Blood Culture - Final Blood NO GROWTH AFTER 5 DAYS A&P Assessment and plan (1) Sepsis: Patient continues to have patient continues to have elevated white count. Infectious work-up so far negative. Negative for any source of infection. Blood culture has remained negative. CT abdomen pelvis negative for any sign of infection. Recheck urinalysis, sputum culture appreciated. MRSA swab negative. Urine Legionella bacterial antigen negative. C. difficile negative. White count slightly better today Last day of linezolid today. Continue with imipenem. Day 3 today. As per conversation with Dr. Lemos from pathology peripheral smear concerning for possible leukemoid/leukemia. Flow cytometry for leukemia/lymphoma panel sent out. Status: Acute (2) Shock: Restarted on small dose of Levophed. Monitor blood pressures closely. Avoid hypotension. Status: Acute (3) Acute respiratory failure due to COVID-19: ARDS: Ventilator dependent. Failed extubation on July 09 for agitation and impending respiratory failure. Can try to wean down or extubate to Precedex drip along with fentanyl pushes. Patient is post extended course of remdesivir. S/p 2 doses of Actemra. More than 10 days of IV Decadron. Decrease to 3 mg daily. Continue with nebulizations with DuoNeb and budesonide. Sedation vacation when possible. We will plan to wean sedation slowly to avoid withdrawal. Wean down ventilator support as possible keeping saturation over 90%. For now continue with sedation and sedation vacation when possible. Keep mean arterial pressure over 65. Status: Acute (4) COVID-19: As above. Status: Acute (5) Acute kidney injury: Baseline creatinine normal. Could be secondary to intermittent shock requiring Levophed along with dose of lisinopril in between. Patient did have contrast study with CTA on admission and then CT abdomen pelvis with contrast recently on July 05. Medical reconciliation done for nephrotoxic drugs. CT abdomen pelvis negative for any obstructive uropathy, hydronephrosis. Check urine lites, urine creatinine. Urine output in last 24 hours over 3 L. Net +3 L since admission. For now continue to monitor BMP daily. Case discussed with filter cloth maker team. For now continue to monitor. Status: Acute (6) Hyperkalemia: Persistent hyperkalemia. Kayexalate, calcium chloride, insulin and dextrose. Repeat BMP in 2 hours. If patient continues to have hyperkalemia will most likely have to consult nephrology for possible dialysis. For now we will continue to monitor. Status: Acute (7) Yeast species isolated but not further identified: On the sputum culture from repeat intubation on July 09. Started on fluconazole 200 mg IV daily. Status: Acute (8) Hyponatremia: Resolved. Status: Acute (9) Hypertension: Goal blood pressure less than 140/90 mmHg with mean over 65. Antihypertensives held. Status: Acute Qualifiers: Hypertension type: essential hypertension Qualified Code(s): I10 - Essential (primary) hypertension (10) Diarrhea: Status: Acute (11) Elevated WBC count: Status: Resolved Additional A&P Information Full code. Tube feedings. Lovenox for DVT prophylaxis. Famotidine for PUD prophylaxis Case discussed with filter cloth maker. Appreciate help. We will resume full care once patient out of ICU. Discharge planning: Given patient being ventilator dependent with one attempt at extubation patient would most likely require further prolonged lung gustavo abilitation. Have asked case management to look for possible transfer to select once patient is stabilized. Patient is hemodynamically stable but has worsening renal functions for now. Can plan to transfer if accepted and saturation less than 60% and renal function stabilizes. Severely guarded prognosis. Attestations Medical Necessity Statement*: Requires further hospitalization for management of ventilator dependent ARDS secondary to COVID-19 pneumonia, LEANNE hyperkalemia Critical Care Time: The high probability of a clinically significant, sudden or life threatening deterioration of the patient's renal, pulmonary system(s) required my full and direct attention, intervention and personal management. The critical care time is as shown. This time is in addition to time spent performing any reported procedures but includes the following: [x] Data and vital sign review and interpretation [x] Patient assessment, examination and intervention [x] Documentation [x] Medication orders and management Critical Care Time (min): 47 Coding Level of Care Code Acute Endo Tech for [facility] Fw Diagnoses Sepsis A41.9 Shock R57.9 Acute respiratory failure due to COVID-19 U07.1; J96.00 COVID-19 U07.1 Acute kidney injury N17.9 Hyperkalemia E87.5 Yeast species isolated but not further identified B37.9 Hyponatremia E87.1 Hypertension I10 Hypertension type: essential hypertension Diarrhea R19.7 Elevated WBC count D72.829
--- NOTE | 2021-07-11 08:50 | PC.NURSE ---
drs. sanders, datar in, will start weaning process, slowly.
[2021-07-11] MEDS: insulin regular-human 10 UNIT in SYRINGE 1 EACH IVP ×2 (08:56→17:05)
[2021-07-11] MEDS: quetiapine 25 mg Tablet 50 MG PO ×2 (08:57→17:46)
[2021-07-11] MEDS: enoxaparin 40 mg/0.4 mL Syringe SUBCUT (08:57)
[2021-07-11] MEDS: pantoprazole 40 mg SDV IVP (08:57)
[2021-07-11] MEDS: docusate sodium 100 mg Capsule PO (08:57)
[2021-07-11] MEDS: propofol 1,000 MG/100 ML INJ 25.96 MG IV (09:12)
[2021-07-11] MEDS: dextrose 50% syringe 50 mL IVP ×2 (09:21→17:04)
[2021-07-11] MEDS: sodium polystyrene sulfonate 15 gm/60 mL Btl 30 GM PR (09:21)
--- NOTE | 2021-07-11 09:21 | PC.NURSE ---
30gm. kayexelate order was per og tube not p.r. as on order.
--- NOTE | 2021-07-11 09:35 | PM.PN ---
Subjective Subjective: Interval history: Patient seen multiple times at bedside today Labs and imaging reviewed Significant aklj-hqzta-fngqiqon calcium chloride; 1 g and dextrose and insulin Intubated and sedated-on FiO2 60% Medications: Reviewed: Yes Vitals/I&O/Wt Last Vital Signs Temp 99.1 F 07/11/21 06:00 Pulse 76 07/11/21 08:30 Resp 23 H 07/11/21 07:58 BP 113/73 07/11/21 08:30 Pulse Ox 96 07/11/21 08:30 07/10/21 07/11/21 07/11/21 22:59 06:59 14:59 Intake Total 903.299 / 1512.235 709.072 / 2221.307 512.671 / 512.671 Output Total 1000 / 1000 1350 / 2350 Balance -96.701 / 512.235 -640.928 / -128.693 512.671 / 512.671 Weight last 48 hrs Weight 226 lb 1.6 oz Weight 227 lb Weight 237 lb 3 oz Physical Exam Narrative: EXAM NARRATIVE: General: lying in bed, sedated and intubated. HEENT:NCAT, PERRLA, EOMI Neck: Supple Lungs: Bilateral diffuse crackles Heart: s1/s2, RRR Abd: soft, NT, ND, BS + Normoactive Extremities: No edema YOUTH DEVELOPMENT SPECIALIST: sedated and limited YOUTH DEVELOPMENT SPECIALIST exam possible, SKIN: no rash Urinary Catheter Management^: Barnes: Cath Placed During This Visit: yes Reason for Continuing Indwelling Catheter: Accurate Measurement of Urinary Output in Critically Ill Patients Urinary Catheter Date of Insertion: 07/03/21 Urinary Catheter Time of Insertion: 07:56 Data : 07/11/21 02:00 07/11/21 02:00 Other Labs: Laboratory Results WBC 23.3 10^3/uL (4.0-10.0) H 07/11/21 02:00 RBC 4.04 10^6/uL (4.1-5.3) L 07/11/21 02:00 Hgb 11.4 g/dL (11.7-16.6) L 07/11/21 02:00 Hct 35.8 % (42.0-52.0) L 07/11/21 02:00 MCV 88.6 fL (80-94) 07/11/21 02:00 MCH 28.2 pg (28.0-34.0) 07/11/21 02:00 MCHC 31.8 g/dL (30.0-36.0) 07/11/21 02:00 RDW 14.6 % (12.1-15.1) 07/11/21 02:00 Plt Count 277 10^3/cmm (130-400) 07/11/21 02:00 MPV 10.3 fL (7.4-10.4) 07/11/21 02:00 Neut % (Auto) 74.4 % 07/11/21 02:00 Lymph % (Auto) 4.5 % 07/11/21 02:00 [place] % (Auto) 7.6 % 07/11/21 02:00 Eos % (Auto) 0.1 % 07/11/21 02:00 Baso % (Auto) 0.1 % 07/11/21 02:00 Neut # (Auto) 17.30 10^3/uL (1.8-7.7) H 07/11/21 02:00 Lymph # (Auto) 1.1 10^3/uL (0.8-4.8) 07/11/21 02:00 [place] # (Auto) 1.8 10^3/uL (0.2-0.9) H 07/11/21 02:00 Eos # (Auto) 0.0 10^3/uL (0.0-0.8) 07/11/21 02:00 Baso # (Auto) 0.0 10^3/uL (0.0-0.1) 07/11/21 02:00 Nucleated RBC % (auto) 0 % 07/11/21 02:00 Total Counted 100 (0-100) 07/10/21 08:22 Atypical Lymphs % 6.0 % (0-5) H 07/10/21 08:22 Absolute Neutrophils 18.3 10^3/cmm (1.4-6.5) H 07/10/21 08:22 Segmented Neutrophils 71 % 07/10/21 08:22 Abs Segm Neuts (Man) 17.8 10/cmm (1.6-7.1) H 07/10/21 08:22 Band Neutrophils 2.0 % 07/10/21 08:22 Abs Band Neuts (Man) 0.5 10^3/cmm (0.0-1.2) 07/10/21 08:22 Absolute Lymphocytes 3.5 10^3/cmm (1.2-3.4) H 07/10/21 08:22 Lymphocytes (Manual) 8 % 07/10/21 08:22 Monocytes (Manual) 3.0 % 07/10/21 08:22 Absolute Monocytes 0.8 10^3/cmm (0.1-0.6) H 07/10/21 08:22 Eosinophils (Manual) 0 % 07/10/21 08:22 Absolute Eosinophils 0.0 10^3/cmm (0.0-0.7) 07/10/21 08:22 Basophils (Manual) 0.0 % 07/10/21 08: Absolute Basophils 0.0 10^3/cmm (0.0-0.2) 07/10/21 08:22 Metamyelocytes 10.0 % 07/10/21 08:22 Nucleated RBCs # 0.0 /100WBC 07/11/21 02:00 Platelet Estimate Normal (Normal) 07/10/21 08:22 D-Dimer 9.35 ug/mIFEU (0-0.59) H 07/07/21 14:31 Specimen Type Arterial 07/10/21 09:41 Sample Site Radial, left 07/10/21 09:41 ABG pH 7.37 (7.35-7.45) 07/10/21 09:41 ABG pCO2 42.4 mmHg (35-45) 07/10/21 09:41 ABG pO2 84.6 mmHg (80.0-100.0) 07/10/21 09:41 ABG HCO3 24.4 mmol/L (22-26) 07/10/21 09:41 ABG O2 Saturation 97.0 07/10/21 09:41 ABG Base Excess -1.0 mmol/L (-2.0-2.0) 07/10/21 09:41 Gato Test Pos 07/10/21 09:41 A-a O2 Gradient 51.8 mmHg (5-10) H 07/10/21 09:41 Hematocrit 36.5 % (42-52) L 07/10/21 09:41 Hgb O2 Saturation 95.1 % (95-100) 07/10/21 09:41 Carboxyhemoglobin 1.0 %THgb (0.4-20.1) 07/10/21 09:41 Methemoglobin 0.9 % (0.4-1.5) 07/10/21 09:41 Total Hemoglobin 11.9 g/dL (14-18) L 07/10/21 09:41 Sodium 138.0 mmol/L (131-143) 07/10/21 09:41 Potassium 5.3 mmol/L (3.5-5.0) H 07/10/21 09:41 Glucose 97.0 mg/dL (70-115) 07/10/21 09:41 Ionized Calcium 1.1 mmol/L (1.1-1.4) 07/10/21 09:41 O2 Delivery Device Vent 07/10/21 09:41 O2 Liters/Min 3.0 % 06/26/21 12:40 FiO2 75.0 % 07/10/21 09:41 Tidal Volume 0.45 07/10/21 09:41 PEEP 10.0 cmH20 07/10/21 09:41 Extrusion Supervisor ID Gd 07/10/21 09:41 Sodium 137 mmol/L (136-145) 07/11/21 02:00 Potassium 6.5 mmol/L (3.5-5.1) H* 07/11/21 02:00 Chloride 104 mmol/L (98-107) 07/11/21 02:00 Carbon Dioxide 24 mmol/L (22-29) 07/11/21 02:00 Anion Gap 15.5 (5-19) 07/11/21 02:00 BUN 79 mg/dL (6-20) H 07/11/21 02:00 Creatinine 2.2 mg/dL (0.7-1.2) H 07/11/21 02:00 GFR Calculation 31.6 mL/min (90-130) L 07/11/21 02:00 Glucose 97 mg/dL (65-115) 07/11/21 02:00 Calculated Osmolality 308 mOsm/kg (285-295) H 07/11/21 02:00 Lactic Acid 2.2 mmol/L (0.5-2.2) 06/26/21 13:08 Lactic Acid (Sepsis) 1.1 mmol/L (0.5-2.2) 06/26/21 17:10 Lactate 1.5 mmol/L (0.5-2.2) 07/05/21 06:05 Calcium 8.2 mg/dL (8.5-10.5) L 07/11/21 02:00 Phosphorus 3.4 mg/dL (2.5-4.5) 07/07/21 03:12 Magnesium 3.2 mg/dL (1.7-2.3) H 07/11/21 02:00 Ferritin 1137 ng/mL (30-400) H 06/30/21 06:32 Total Bilirubin 0.7 mg/dL (0.15-1.2) 07/11/21 02:00 AST 55 U/L (0-40) H 07/11/21 02:00 ALT 50 U/L (0-41) H 07/11/21 02:00 Alkaline Phosphatase 105 IU/L (40-130) 07/11/21 02:00 Creatine Kinase 648 U/L (39-308) H* 07/11/21 02:00 Troponin T Baseline 11 ng/L (0-15) 06/26/21 13:08 Troponin T 120 Minute 10.43 ng/L (0-15) 06/26/21 14:26 Delta Troponin T -0.57 ABS# (0-10) L 06/26/21 14:26 Troponin T Hi Sens 6Hr 9.82 ng/L (0-15) 06/26/21 18:40 Troponin T Hi Sens 6Hr Delta -1.18 ng/L (0-12) L 06/26/21 18:40 C-Reactive Protein 4.0 mg/L (0.0-4.9) 07/02/21 05:47 NT-Pro-B Natriuret Pep 65 pg/mL (0-125) 06/26/21 13:08 Total Protein 5.2 g/dL (6.6-8.7) L 07/11/21 02:00 Albumin 3.2 g/dL (3.5-5.2) L 07/11/21 02:00 Globulin 2.0 g/dL (1.3-4.6) 07/11/21 02:00 Procalcitonin 0.32 ng/mL (0-0.5) 07/05/21 06:05 Urine Color Dark yellow (Yellow) 07/07/21 23:04 Urine Appearance Hazy (CLEAR) A 07/07/21 23:04 Urine pH 5 (5-7) 07/07/21 23:04 Ur Specific [place] 1.020 (1.005-1.030) 07/07/21 23:04 Urine Protein Trace (Negative) 07/07/21 23:04 Urine Glucose (UA) Norm (Normal) 07/07/21 23:04 Urine Ketones Negative (Negative) 07/07/21 23:04 Urine Blood 3+ (Negative) H 07/07/21 23:04 Urine Nitrate Negative (Negative) 07/07/21 23:04 Urine Bilirubin Neg (Negative) 07/07/21 23:04 Urine Urobilinogen Norm mg/dL (Negative) 07/07/21 23:04 Ur Leukocyte Esterase Negative (Negative) 07/07/21 23:04 Urine RBC >100 /hpf (0-2) H 07/07/21 23:04 Urine WBC 0-4 /hpf (0-5) H 07/07/21 23:04 Ur Squamous Epith Cells 0-4 /hpf (0-5) H 07/07/21 23:04 Uric Acid Crystals 15-25 /hpf H 07/07/21 23:04 Amorphous Sediment 3+ /hpf 07/07/21 23:04 Urine Bacteria Trace /hpf (NONE) 07/07/21 23:04 Ur Random Sodium 22 mmol/L 07/07/21 23:04 Ur Random Potassium 19 mmol/L 07/07/21 23:04 Ur Random Chloride < 10 mmol/L 07/07/21 23:04 Urine Creatinine 140 mg/dL (39-259) 07/07/21 23:04 Impressions Chest CTA 07/01/21 12:32 IMPRESSION: 1. No pulmonary embolism. 2. Pneumomediastinum and pneumopericardium. 3. Diffuse multilobar areas of groundglass attenuation and developing areas of consolidation at the lung bases from Covid 19. 4. Mediastinal and hilar lymphadenopathy may be reactive. Notified Loki Kc MD at 07/01/2021 3:53 PM. Was unable to contact Dr. Kc with this report. Also attempted to speak to patient's nurse but was unsuccessful. Abdomen/Pelvis CT 07/05/21 12:00 IMPRESSION: 1. Currently no visible evidence for acute abdominal or pelvic pathologic process. 2. Mild diverticulosis coli without visible evidence for acute diverticulitis. 3. Liquid stool within the colon. No findings to suggest the presence of either inflammatory or infectious colitis, however. 4. Barnes catheter within a decompressed urinary bladder. Free air within the lumen the urinary bladder. Cannot differentiate iatrogenic introduction from gas producing organism from acute cystitis. 5. Pneumonitis/pneumonia lung bases. Findings would be consistent with Covid-19 pneumonitis/pneumonia. 6. Other nonurgent/nonemergent related findings as detailed in text above. COMMENTS: Consistent with the [employer]'s Incidental Findings Committee white paper (J Am Sage [employer]iol 2018): Any incidental renal lesion less than 1 cm or classified as too small to characterize, or any incidental cystic renal lesion characterized as simple-appearing, is likely benign. No follow-up imaging is recommended for these lesions per consensus recommendations based on imaging criteria. Radiation Dose CTDIVOL = (mGy): DLP = 2016.78 (mGy-cm) Chest X-Ray 07/11/21 16:00 Impression: 1. No change in patchy bilateral pulmonary opacities. 2. No change in position of multiple tubes. Micro: Microbiology 07/05/21 14:35 Blood Culture - Final Blood NO GROWTH AFTER 5 DAYS 07/05/21 10:28 Blood Culture - Final Blood NO GROWTH AFTER 5 DAYS A&P Assessment and plan (1) ARDS (adult respiratory distress syndrome): Status: Acute (2) Acute respiratory failure due to COVID-19: Status: Acute (3) Acute kidney injury: Status: Acute (4) Delirium: Status: Acute (5) Elevated WBC count: Status: Acute Qualifiers: Leukocytosis type: unspecified Qualified Code(s): D72.829 - Elevated white blood cell count, unspecified (6) Yeast species isolated but not further identified: Status: Acute (7) COVID-19: Status: Acute (8) Elevated WBC count: Status: Resolved Qualifiers: Leukocytosis type: unspecified Qualified Code(s): D72.829 - Elevated white blood cell count, unspecified (9) Hyperkalemia: Status: Acute - intubated, sedated, paralyzed and proned x 2 times -Seroquel 50 mg p.o. twice daily - s/p 10 day dexamethasone 6 mg ivp carissa for 10 days; s/p 5 day remdesivir and Tocilizumab x 2 doses -Currently on dexamethasone 3 mg IV push daily -Post extubation patient was extremely anxious and combative, on max dose Precedex drip, pulling of his high flow nasal cannula and desaturating into the 70s-got reintubated same day night 07/10/2021 -Today he is on PCV 25/10/60 percent and chest x-ray no change in patchy bilateral opacities -Currently sedated with fentanyl, propofol -Chest x-ray 07/09/2021: No change in patchy bilateral pulmonary opacities - CTA 07/01/21:No PE; Pneumomediatinum and Pneumopericardium ; venous doppler negative for DVT which are consistent with interstitial viral pneumonia. No evidence of pneumomediastinum or pneumothorax - Duoneb q 6 hr carissa; pulmicort nebs, - monitor inflammatory markers q 48 hrs -Off Levophed -LEANNE likely due to COVID-19 pneumonia-renal functions plateaued - I/O/N --128/since admission - lasix 40 mg one dose -Worsening LFTs-likely due to COVID-19 pneumonia - sugars controlled - Persistent leucocytosis -in the absence of positive infectious fmzr-qb-jsjvlljfys blood smear showing atypical myeloid precursors-flow cytometry for leukemoid/leukemia were sent to pathology-today down to 23K -On broad spectrum coverage - cefepime and linezolid since 07/05/2021-we will discontinue after today's dose -Sputum positive for yeast species-identification pending; on fluconazole until final results available - C. diff PCR negative; CT abd/pelvis 07/05/21: no visible evidence for acute abdominal or pelvic pathologic process. - so far cultures, MRSA Nares, bacterial antigens negative; low procal - PPI for gi ppx - Lovenox for DVT ppx -Feeding, jevity recommendations conveyed to hospitalist, RN and RT covering the pt. Attestations Medical Necessity Statement*: Continue admission for hypoxic respiratory failure with severe COVID-19, ARDS, acute kidney injury, leukocytosis. Time Spent in Patient Care: Greater than 35 minutes (>than 50% of time spent in counselling and/or direct pt care on unit). Critical Care Time: The high probability of a clinically significant, sudden or life threatening deterioration of the patient's [respiratory, infectious, renal, hematologic] system(s) required my full and direct attention, intervention and personal management. The critical care time is as shown. 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
[2021-07-11] MEDS: FUROsemide 10 mg/mL SDV 4mL 40 MG IVP (10:19)
--- NOTE | 2021-07-11 10:27 | PC.NURSE ---
weaning gtts. conts. no changes
--- NOTE | 2021-07-11 10:55 | PC.NURSE ---
pt. turned, became anxious, oened eyes r.r. up to 30+ abd. breathing. gtts increased per dr. casas to keep pt calm.
[2021-07-11 12:25] LABS: ABG PCO2 55.2 mmHg (35-45); ABG PH Result 7.32 (7.35-7.45); Arterial Blood Gas Hematocrit 48.1 % (42-52); Base Excess ABG 0.6 mmol/L (-2.0-2.0); Blood Gas Allen Test Pos; Blood Gas Operator Identificat BD; Blood Gas Sample Site Radial, right; Blood Gas Sample Type Arterial; HCO3 ABG 28.1 mmol/L (22-26); Oxygen Device VENT; PO2 ABG 72.1 mmHg (80.0-100.0)
[2021-07-11] MEDS: dexmedetomidine 400 MCG in sodium chloride 0.9% (100 ml) 100 ML 18.5 MCG IV ×2 (14:51→21:14)
--- NOTE | 2021-07-11 15:05 | PC.RESP ---
RT Shift Note Frequent safety and respiratory rounds continue. Orders completed as indicated. Patient monitored pre and post treatments throughout shift. Patient [Did.] tolerate treatments appropriately. Condition [.DidNotChange]. Patient and/or food service sales representatives educated on respiratory treatment and medications. Patient and/or food service sales representatives [unable to comprehend]. Will continue to monitor patient progress.
--- NOTE | 2021-07-11 15:29 | PC.NURSE ---
1200- note pt.eyes open, not focusing, eyes roll back in his head. closed them shortly.
[2021-07-11 15:49] LABS: Anion Gap 18.3 (5-19); Blood Urea Nitrogen 70 mg/dL (6-20); Calcium 7.9 mg/dL (8.5-10.5); Carbon Dioxide 24 mmol/L (22-29); Chloride 101 mmol/L (98-107); Glomerular Filtration Rate 35.3 mL/min (90-130); Glucose 110 mg/dL (65-115); Magnesium 3.2 mg/dL (1.7-2.3); Osmolality Calculated 305 mOsm/kg (285-295); Potassium 6.3 mmol/L (3.5-5.1); Sodium 137 mmol/L (136-145)
--- NOTE | 2021-07-11 16:00 | XR_ITS ---
WS: [id number] Portable AP semiupright chest, 07/11/2021 Clinical Data: PNEUMONIA Comparison: Portable chest, 07/09/2021. Findings: The patchy bilateral pulmonary opacities not changed. The endotracheal tube, nasogastric tu be and left internal jugular venous catheter remain in the same position. The heart is normal. There are monitor leads on the chest wall. XR/XR chest 1V portable [id number] Impression: 1. No change in patchy bilateral pulmonary opacities. 2. No change in position of multiple tubes.
--- NOTE | 2021-07-11 16:14 | PC.NUTR ---
Tube feeding follow up: TF still not resumed at this time. Recommend resume feeding, and change formula to Nepro. Recommend starting at 20 ml/hr, and increasing by 10 ml/hr q 6 hrs to goal rate of 30 ml/hr, with 100 ml H2O flushes q 4 hrs. TF at goal with flushes to provide 1296 kcal, 58 g protein, and 1723 ml H2O. Receiving additional 762 kcal/day from propofol at current rate--may increase goal beyond 30 ml/hr once propofol decreased. Also continue to recommend checking triglycerides given propofol use since 07/04, and check Phos given renal function. See full RD assessment for further details.
[2021-07-11] MEDS: sodium polystyrene sulfonate 15 gm/60 mL Btl 30 GM NG-TUBE (17:04)
[2021-07-11] MEDS: sodium bicarbonate 8.4% 1 mEq/mL 50mL Syr 50 MEQ IVP (17:04)
[2021-07-11 17:49] LABS: ABG PCO2 44.9 mmHg (35-45); ABG PH Result 7.38 (7.35-7.45); Arterial Blood Gas Hematocrit 34.8 % (42-52); Base Excess ABG 0.9 mmol/L (-2.0-2.0); Blood Gas Allen Test Pos; Blood Gas Operator Identificat glc; Blood Gas Sample Site Radial, left; Blood Gas Sample Type Arterial; HCO3 ABG 26.4 mmol/L (22-26); HGB O2 Sat 95.9 % (95-100); Ionized Calcium Level - ABG 1.2 mmol/L (1.1-1.4); Methemoglobin 0.6 % (0.4-1.5); Oxygen Device VENT; Oxygen Saturation ABG 97.5; PO2 ABG 93.4 mmHg (80.0-100.0); Potassium Level - ABG 5.6 mmol/L (3.5-5.0); Total Hemoglobin 11.4 g/dL (14-18)
[2021-07-11] MEDS: fluconazole premix 100 MG in empty flexible container 1 EACH 50 MG IV (17:49)
[2021-07-11] MEDS: docusate sodium 10 mg/mL (5ml) Liq 100 MG PO (17:49)
[2021-07-11] MEDS: lactulose oral liq 20 gm/30 mL UDC 200 GM PR (18:43)
[2021-07-11 20:03] LABS: Potassium 5.7 mmol/L (3.5-5.1)
[2021-07-12] VITALS (44 sets, daily range): BP systolic 82–122; BP diastolic 56–82; PULSE 60–91; RESP 21–24; TEMP 36.2–36.8; O2SAT 93–97; BMI 32.1
[2021-07-12] MEDS: propofol 1,000 MG/100 ML INJ 28.85 MG IV ×5 (02:22→14:26)
[2021-07-12] MEDS: ipratropium-albuterol 3 mL Neb INHALATION ×5 (03:32→20:03)
[2021-07-12] MEDS: dexmedetomidine 400 MCG in sodium chloride 0.9% (100 ml) 100 ML 18.5 MCG IV ×4 (04:03→23:07)
[2021-07-12 04:11] LABS: Basophils # 0.1 10^3/uL (0.0-0.1); Basophils % 0.3 %; Eosinophils # 0.6 10^3/uL (0.0-0.8); Eosinophils % 2.9 %; Hematocrit 36.5 % (42.0-52.0); Hemoglobin 11.3 g/dL (11.7-16.6); Lymphocytes # 1.8 10^3/uL (0.8-4.8); Lymphocytes % 9.1 %; Mean Corpuscular Volume 90.3 fl (80-94); Mean Platelet Volume 9.9 fL (7.4-10.4); Monocytes # 2.2 10^3/uL (0.2-0.9); Monocytes % 11.2 %; Neutrophils # 12.19 10^3/uL (1.8-7.7); Neutrophils % 63.2 %; Nucleated Red Blood Cells % 0 %; Platelet Count 292 10^3/cmm (130-400); Red Blood Count 4.04 10^6/uL (4.1-5.3); Red Cell Distribution Width 15.3 % (12.1-15.1); White Blood Count 19.3 10^3/uL (4.0-10.0)
[2021-07-12 04:24] LABS: Alanine Aminotransferase 38 U/L (0-41); Albumin Level 3.2 g/dL (3.5-5.2); Alkaline Phosphatase 95 IU/L (40-130); Anion Gap 16.5 (5-19); Aspartate Amino Transferase 40 U/L (0-40); Blood Urea Nitrogen 75 mg/dL (6-20); Calcium 7.7 mg/dL (8.5-10.5); Carbon Dioxide 25 mmol/L (22-29); Chloride 107 mmol/L (98-107); Glucose 100 mg/dL (65-115); Osmolality Calculated 318 mOsm/kg (285-295); Potassium 5.5 mmol/L (3.5-5.1); Sodium 143 mmol/L (136-145); Total Bilirubin 0.5 mg/dL (0.15-1.2); Total Protein 5.2 g/dL (6.6-8.7)
[2021-07-12 04:30] LABS: Magnesium 3.3 mg/dL (1.7-2.3)
[2021-07-12 05:27] LABS: Slide Review Slide Review Perform
[2021-07-12] MEDS: dexamethasone 4 mg/mL INJ 3 MG IVP (05:35)
--- NOTE | 2021-07-12 06:00 | PC.NURSE ---
Shift Note Frequent safety and comfort rounds continue. Orders and/or nursing care completed as indicated. Patient monitored for response to intervention and treatment(s). Education provided includes informing the patient's spouse at the beginning of shift updates.[]. Patient and/or nutrition representative [ResponseToTeaching]. Will continue to monitor. The patient during the last two hours of shift displayed a SBP that was hovering between 76-84. The MAP remained at 65 while the SBP dipped during this time period. There was no previous complications with the patient's blood pressure during the shift. The patient received another dose of kayexalate and the potassium level dropped down to 5.7 this morning.
--- NOTE | 2021-07-12 08:27 | PM.PN ---
Subjective Subjective: Interval history: off pressors, precedex 0.7, fentanyl 10, propofol 50 PC 50%//09/21 afebrile ; wbc decreasing Had large bowel movements yesterday after 2 doses of kayaxalate, lactulose enema - placed rectal tube - K down to 5.5; LFTs wnl - sputum yeast - -1.1L /1.4 L - Dexa 3 - lovenox - diflucan - PPI - Vanc and imipenam - Medications: Reviewed: Yes Vitals/I&O/Wt Last Vital Signs Temp 97.5 F L 07/12/21 08:14 Pulse 88 07/12/21 08:14 Resp 21 H 07/12/21 08:14 BP 91/58 07/12/21 08:14 Pulse Ox 97 07/12/21 08:14 07/11/21 07/12/21 07/12/21 22:59 06:59 14:59 Intake Total 866.478 / 1717.415 564.215 / 2281.630 94.724 / 94.724 Output Total 950 / 1350 2075 / 3425 Balance -83.522 / 367.415 -1510.785 / -1143.370 94.724 / 94.724 Weight last 48 hrs Weight 223 lb 9.6 oz Weight 226 lb 1.6 oz Weight 227 lb Physical Exam Narrative: EXAM NARRATIVE: General: lying in bed, sedated and intubated. HEENT:NCAT, PERRLA, EOMI Neck: Supple Lungs: Bilateral diffuse crackles Heart: s1/s2, RRR Abd: soft, NT, ND, BS + Normoactive Extremities: No edema EDUCATION SITE MANAGER: sedated and limited EDUCATION SITE MANAGER exam possible, SKIN: no rash Urinary Catheter Management^: Barnes: Cath Placed During This Visit: yes Reason for Continuing Indwelling Catheter: Accurate Measurement of Urinary Output in Critically Ill Patients Urinary Catheter Date of Insertion: 07/03/21 Urinary Catheter Time of Insertion: 07:56 Data : 07/13/21 03:12 07/13/21 03:12 Other Labs: Laboratory Results WBC 19.3 10^3/uL (4.0-10.0) H 07/12/21 03:56 RBC 4.04 10^6/uL (4.1-5.3) L 07/12/21 03:56 Hgb 11.3 g/dL (11.7-16.6) L 07/12/21 03:56 Hct 36.5 % (42.0-52.0) L 07/12/21 03:56 MCV 90.3 fl (80-94) 07/12/21 03:56 MCH 28.0 pg (28.0-34.0) 07/12/21 03:56 MCHC 31.0 g/dL (30.0-36.0) 07/12/21 03:56 RDW 15.3 % (12.1-15.1) H 07/12/21 03:56 Plt Count 292 10^3/cmm (130-400) 07/12/21 03:56 MPV 9.9 fL (7.4-10.4) 07/12/21 03:56 Neut % (Auto) 63.2 % 07/12/21 03:56 Lymph % (Auto) 9.1 % 07/12/21 03:56 [place] % (Auto) 11.2 % 07/12/21 03:56 Eos % (Auto) 2.9 % 07/12/21 03:56 Baso % (Auto) 0.3 % 07/12/21 03:56 Neut # (Auto) 12.19 10^3/uL (1.8-7.7) H 07/12/21 03:56 Lymph # (Auto) 1.8 10^3/uL (0.8-4.8) 07/12/21 03:56 [place] # (Auto) 2.2 10^3/uL (0.2-0.9) H 07/12/21 03:56 Eos # (Auto) 0.6 10^3/uL (0.0-0.8) 07/12/21 03:56 Baso # (Auto) 0.1 10^3/uL (0.0-0.1) 07/12/21 03:56 Nucleated RBC % (auto) 0 % 07/12/21 03:56 Total Counted 100 (0-100) 07/10/21 08:22 Atypical Lymphs % 6.0 % (0-5) H 07/10/21 08:22 Absolute Neutrophils 18.3 10^3/cmm (1.4-6.5) H 07/10/21 08:22 Segmented Neutrophils 71 % 07/10/21 08:22 Abs Segm Neuts (Man) 17.8 10/cmm (1.6-7.1) H 07/10/21 08:22 Band Neutrophils 2.0 % 07/10/21 08:22 Abs Band Neuts (Man) 0.5 10^3/cmm (0.0-1.2) 07/10/21 08:22 Absolute Lymphocytes 3.5 10^3/cmm (1.2-3.4) H 07/10/21 08:22 Lymphocytes (Manual) 8 % 07/10/21 08:22 Monocytes (Manual) 3.0 % 07/10/21 08: Absolute Monocytes 0.8 10^3/cmm (0.1-0.6) H 07/10/21 08:22 Eosinophils (Manual) 0 % 07/10/21 08: Absolute Eosinophils 0.0 10^3/cmm (0.0-0.7) 07/10/21 08: Basophils (Manual) 0.0 % 07/10/21 08: Absolute Basophils 0.0 10^3/cmm (0.0-0.2) 07/10/21 08: Metamyelocytes 10.0 % 07/10/21 08: Nucleated RBCs # 0.0 /100WBC 07/12/21 03:56 Platelet Estimate Normal (Normal) 07/10/21 08:22 D-Dimer 9.35 ug/mIFEU (0-0.59) H 07/07/21 14:31 Specimen Type Arterial 07/11/21 17:37 Sample Site Radial, left 07/11/21 17:37 ABG pH 7.38 (7.35-7.45) 07/11/21 17:37 ABG pCO2 44.9 mmHg (35-45) 07/11/21 17:37 ABG pO2 93.4 mmHg (80.0-100.0) 07/11/21 17:37 ABG HCO3 26.4 mmol/L (22-26) H 07/11/21 17:37 ABG O2 Saturation 97.5 07/11/21 17:37 ABG Base Excess 0.9 mmol/L (-2.0-2.0) 07/11/21 17:37 Gato Test Pos 07/11/21 17:37 A-a O2 Gradient 27.0 mmHg (5-10) H 07/11/21 17:37 Hematocrit 34.8 % (42-52) L 07/11/21 17:37 Hgb O2 Saturation 95.9 % (95-100) 07/11/21 17:37 Carboxyhemoglobin 1.0 %THgb (0.4-20.1) 07/11/21 17:37 Methemoglobin 0.6 % (0.4-1.5) 07/11/21 17:37 Total Hemoglobin 11.4 g/dL (14-18) L 07/11/21 17:37 Sodium 140.0 mmol/L (131-143) 07/11/21 17:37 Potassium 5.6 mmol/L (3.5-5.0) H 07/11/21 17:37 Glucose 222.0 mg/dL (70-115) H 07/11/21 17:37 Ionized Calcium 1.2 mmol/L (1.1-1.4) 07/11/21 17:37 O2 Delivery Device Vent 07/11/21 17:37 O2 Liters/Min 3.0 % 06/26/21 12:40 FiO2 50.0 % 07/11/21 17:37 Tidal Volume 1.10 07/11/21 17:37 PEEP 10.0 cmH20 07/11/21 17:37 Wrist Liner ID glc 07/11/21 17:37 Sodium 143 mmol/L (136-145) 07/12/21 03:56 Potassium 5.5 mmol/L (3.5-5.1) H 07/12/21 03:56 Chloride 107 mmol/L (98-107) 07/12/21 03:56 Carbon Dioxide 25 mmol/L (22-29) 07/12/21 03:56 Anion Gap 16.5 (5-19) 07/12/21 03:56 BUN 75 mg/dL (6-20) H 07/12/21 03:56 Creatinine 2.3 mg/dL (0.7-1.2) H 07/12/21 03:56 GFR Calculation 30.0 mL/min (90-130) L 07/12/21 03:56 Glucose 100 mg/dL (65-115) 07/12/21 03:56 Calculated Osmolality 318 mOsm/kg (285-295) H 07/12/21 03:56 Lactic Acid 2.2 mmol/L (0.5-2.2) 06/26/21 13:08 Lactic Acid (Sepsis) 1.1 mmol/L (0.5-2.2) 06/26/21 17:10 Lactate 1.5 mmol/L (0.5-2.2) 07/05/21 06:05 Calcium 7.7 mg/dL (8.5-10.5) L 07/12/21 03:56 Phosphorus 3.4 mg/dL (2.5-4.5) 07/07/21 03:12 Magnesium 3.3 mg/dL (1.7-2.3) H 07/12/21 03:56 Ferritin 1137 ng/mL (30-400) H 06/30/21 06:32 Total Bilirubin 0.5 mg/dL (0.15-1.2) 07/12/21 03:56 AST 40 U/L (0-40) 07/12/21 03:56 ALT 38 U/L (0-41) 07/12/21 03:56 Alkaline Phosphatase 95 IU/L (40-130) 07/12/21 03:56 Creatine Kinase 648 U/L (39-308) H* 07/11/21 02:00 Troponin T Baseline 11 ng/L (0-15) 06/26/21 13:08 Troponin T 120 Minute 10.43 ng/L (0-15) 06/26/21 14:26 Delta Troponin T -0.57 ABS# (0-10) L 06/26/21 14:26 Troponin T Hi Sens 6Hr 9.82 ng/L (0-15) 06/26/21 18:40 Troponin T Hi Sens 6Hr Delta -1.18 ng/L (0-12) L 06/26/21 18:40 C-Reactive Protein 4.0 mg/L (0.0-4.9) 07/02/21 05:47 NT-Pro-B Natriuret Pep 65 pg/mL (0-125) 06/26/21 13:08 Total Protein 5.2 g/dL (6.6-8.7) L 07/12/21 03:56 Albumin 3.2 g/dL (3.5-5.2) L 07/12/21 03:56 Globulin 2.0 g/dL (1.3-4.6) 07/12/21 03:56 Procalcitonin 0.32 ng/mL (0-0.5) 07/05/21 06:05 Random Cortisol 0.70 ug/dL (2.47-19.5) L 07/11/21 14:35 Urine Color Dark yellow (Yellow) 07/07/21 23:04 Urine Appearance Hazy (CLEAR) A 07/07/21 23:04 Urine pH 5 (5-7) 07/07/21 23:04 Ur Specific [place] 1.020 (1.005-1.030) 07/07/21 23:04 Urine Protein Trace (Negative) 07/07/21 23:04 Urine Glucose (UA) Norm (Normal) 07/07/21 23:04 Urine Ketones Negative (Negative) 07/07/21 23:04 Urine Blood 3+ (Negative) H 07/07/21 23:04 Urine Nitrate Negative (Negative) 07/07/21 23:04 Urine Bilirubin Neg (Negative) 07/07/21 23:04 Urine Urobilinogen Norm mg/dL (Negative) 07/07/21 23:04 Ur Leukocyte Esterase Negative (Negative) 07/07/21 23:04 Urine RBC >100 /hpf (0-2) H 07/07/21 23:04 Urine WBC 0-4 /hpf (0-5) H 07/07/21 23:04 Ur Squamous Epith Cells 0-4 /hpf (0-5) H 07/07/21 23:04 Uric Acid Crystals 15-25 /hpf H 07/07/21 23:04 Amorphous Sediment 3+ /hpf 07/07/21 23:04 Urine Bacteria Trace /hpf (NONE) 07/07/21 23:04 Ur Random Sodium 22 mmol/L 07/07/21 23:04 Ur Random Potassium 19 mmol/L 07/07/21 23:04 Ur Random Chloride < 10 mmol/L 07/07/21 23:04 Urine Creatinine 140 mg/dL (39-259) 07/07/21 23:04 Impressions Chest CTA 07/01/21 12:32 IMPRESSION: 1. No pulmonary embolism. 2. Pneumomediastinum and pneumopericardium. 3. Diffuse multilobar areas of groundglass attenuation and developing areas of consolidation at the lung bases from Covid 19. 4. Mediastinal and hilar lymphadenopathy may be reactive. Notified Loki Kc MD at 07/01/2021 3:53 PM. Was unable to contact Dr. Kc with this report. Also attempted to speak to patient's nurse but was unsuccessful. Abdomen/Pelvis CT 07/05/21 12:00 IMPRESSION: 1. Currently no visible evidence for acute abdominal or pelvic pathologic process. 2. Mild diverticulosis coli without visible evidence for acute diverticulitis. 3. Liquid stool within the colon. No findings to suggest the presence of either inflammatory or infectious colitis, however. 4. Barnes catheter within a decompressed urinary bladder. Free air within the lumen the urinary bladder. Cannot differentiate iatrogenic introduction from gas producing organism from acute cystitis. 5. Pneumonitis/pneumonia lung bases. Findings would be consistent with Covid-19 pneumonitis/pneumonia. 6. Other nonurgent/nonemergent related findings as detailed in text above. COMMENTS: Consistent with the [employer]'s Incidental Findings Committee white paper (J [employer] Sage [employer]iol 2018): Any incidental renal lesion less than 1 cm or classified as too small to characterize, or any incidental cystic renal lesion characterized as simple-appearing, is likely benign. No follow-up imaging is recommended for these lesions per consensus recommendations based on imaging criteria. Radiation Dose CTDIVOL = (mGy): DLP = 2016.78 (mGy-cm) Chest X-Ray 07/11/21 16:00 Impression: 1. No change in patchy bilateral pulmonary opacities. 2. No change in position of multiple tubes. Micro: Microbiology 07/07/21 17:40 Gram Stain - Final Sputum - Endotracheal Tube Aspirate Sputum Culture - Preliminary Yeast species A&P Assessment and plan (1) ARDS (adult respiratory distress syndrome): Status: Acute (2) Acute respiratory failure due to COVID-19: Status: Acute (3) Acute kidney injury: Status: Acute (4) Delirium: Status: Acute (5) Elevated WBC count: Status: Acute Qualifiers: Leukocytosis type: unspecified Qualified Code(s): D72.829 - Elevated white blood cell count, unspecified (6) Yeast species isolated but not further identified: Status: Acute (7) COVID-19: Status: Acute (8) Elevated WBC count: Status: Resolved Qualifiers: Leukocytosis type: unspecified Qualified Code(s): D72.829 - Elevated white blood cell count, unspecified (9) Hyperkalemia: Status: Acute - intubated, sedated, paralyzed and proned x 2 times -Seroquel 50 mg p.o. twice daily - s/p 10 day dexamethasone 6 mg ivp carissa for 10 days; s/p 5 day remdesivir and Tocilizumab x 2 doses -Currently on dexamethasone 3 mg IV daily -Post extubation 07/10/2021 patient was extremely anxious and combative, on max dose Precedex drip, pulling of his high flow nasal cannula and desaturating into the 70s-got reintubated same day night 07/10/2021 -Today he is on PCV PC 50%//09/21 and chest x-ray no change in patchy bilateral opacities - off pressors, precedex 0.7, fentanyl 10, propofol 50 -Currently sedated with fentanyl, propofol -Chest x-ray 07/09/2021: No change in patchy bilateral pulmonary opacities - CTA 07/01/21:No PE; Pneumomediatinum and Pneumopericardium ; venous doppler negative for DVT which are consistent with interstitial viral pneumonia. No evidence of pneumomediastinum or pneumothorax - Duoneb q 6 hr carissa; pulmicort nebs, - monitor inflammatory markers q 48 hrs -LEANNE likely due to COVID-19 pneumonia-renal functions plateaued - I/O/N -- -1.1L /1.4 L -Had large bowel movements yesterday after 2 doses of kayaxalate, lactulose enema - placed rectal tube - K down to 5.5; LFTs wnl -Worsening LFTs-likely due to COVID-19 pneumonia - sugars controlled - afebrile ; wbc decreasing;- C. diff PCR negative; CT abd/pelvis 07/05/21: no visible evidence for acute abdominal or pelvic pathologic process. - so far cultures, MRSA Nares, bacterial antigens negative; low procal - s/p cefepime and linezolid 7 days -Sputum positive for yeast species-identification pending; on fluconazole until final results available - PPI for gi ppx - Lovenox for DVT ppx -Feeding, jevity recommendations conveyed to hospitalist, RN and RT covering the pt. Attestations Medical Necessity Statement*: Continue admission for hypoxic respiratory failure with severe COVID-19, ARDS, acute kidney injury, leukocytosis. Time Spent in Patient Care: Greater than 35 minutes (>than 50% of time spent in counselling and/or direct pt care on unit). Critical Care Time: The high probability of a clinically significant, sudden or life threatening deterioration of the patient's [respiratory, infectious, renal, ] system(s) required my full and direct attention, intervention and personal management. The critical care time is as shown. This time is in addition to time spent performing any reported procedures but includes the following: [x] Data and vital sign review and interpretation [x] Patient assessment, examination and intervention [x] Documentation [x] Medication orders and management Critical Care Time (min): 40 Coding Level of Care Code Established Pt Acute Body Shop Worker for Chg Fwd Patient Type Established History Comprehensive Exam Comprehensive Medical Decision Making High Complexity Diagnoses ARDS (adult respiratory distress syndrome) J80 Acute respiratory failure due to COVID-19 U07.1; J96.00 Acute kidney injury N17.9 Delirium R41.0 Elevated WBC count D72.829 Leukocytosis type: unspecified Yeast species isolated but not further identified B37.9 COVID-19 U07.1 Elevated WBC count D72.829 Leukocytosis type: unspecified Hyperkalemia E87.5 Time Spent (min) 40
[2021-07-12] MEDS: enoxaparin 40 mg/0.4 mL Syringe SUBCUT (09:18)
[2021-07-12] MEDS: docusate sodium 10 mg/mL (5ml) Liq 100 MG PO ×2 (09:18→17:23)
[2021-07-12] MEDS: quetiapine 25 mg Tablet 50 MG PO ×2 (09:18→17:22)
[2021-07-12] MEDS: pantoprazole 40 mg SDV IVP (09:19)
[2021-07-12] MEDS: budesonide 0.5 mg/2 mL Neb INHALATION ×2 (09:36→20:03)
--- NOTE | 2021-07-12 15:37 | PM.PN ---
Subjective Subjective: Interval history: No acute events overnight. Patient has remained off pressors. Currently on Precedex 0.7, fentanyl of 10, propofol at 50 on pressure support, 50% FiO2, PEEP of 10. On examination was found to have a mean arterial pressure of 66. Plan for continuous sedation vaginal bleeding for now. Monitor urine output and renal functions. Medications: Reviewed: Yes Vitals/I&O/Wt Last Vital Signs Temp 97.8 F 07/12/21 14:00 Pulse 71 07/12/21 14:00 Resp 21 H 07/12/21 14:36 BP 90/60 07/12/21 14:00 Pulse Ox 95 07/12/21 14:36 07/12/21 07/12/21 07/12/21 06:59 14:59 22:59 Intake Total 564.215 / 2281.630 538.562 / 538.562 Output Total 2075 / 3425 Balance -1510.785 / -1143.370 538.562 / 538.562 Weight last 48 hrs Weight 101.423 kg Weight 102.557 kg Weight 102.965 kg Physical Exam Narrative: EXAM NARRATIVE: General: The patient is intubated, sedated, Respiratory: Auscultation: Minimal crackles at the most dependent position of the lungs in prone position Cardiovascular: Regular rate and rhythm, S1-S2 present, no murmur, no peripheral edema. Abdomen: Sluggish bowel sound Skin: No rash Neuro: Intubated and sedated Urinary Catheter Management^: Barnes: Cath Placed During This Visit: yes Reason for Continuing Indwelling Catheter: Accurate Measurement of Urinary Output in Critically Ill Patients Urinary Catheter Date of Insertion: 07/03/21 Urinary Catheter Time of Insertion: 07:56 Data : 07/12/21 03:56 07/12/21 03:56 Micro: Microbiology 07/07/21 17:40 Gram Stain - Final Sputum - Endotracheal Tube Aspirate Sputum Culture - Preliminary Yeast species A&P Assessment and plan (1) Sepsis: Patient continues to have patient continues to have elevated white count. Infectious work-up so far negative. Negative for any source of infection. Blood culture has remained negative. CT abdomen pelvis negative for any sign of infection. Recheck urinalysis, sputum culture appreciated. MRSA swab negative. Urine Legionella bacterial antigen negative. C. difficile negative. White count slightly better today Linezolid course ended on July 11. Continue with imipenem. Day 3 today. As per conversation with Dr. Lemos from pathology peripheral smear concerning for possible leukemoid/leukemia. Flow cytometry for leukemia/lymphoma panel sent out. Status: Acute (2) Shock: Restarted on small dose of Levophed. Monitor blood pressures closely. Avoid hypotension. Status: Acute (3) Acute respiratory failure due to COVID-19: ARDS: Ventilator dependent. Failed extubation on July 09 for agitation and impending respiratory failure. Can try to wean down or extubate to Precedex drip along with fentanyl pushes. Patient is post extended course of remdesivir. S/p 2 doses of Actemra. More than 10 days of IV Decadron. Decrease to 3 mg daily. Continue with nebulizations with DuoNeb and budesonide. Sedation vacation when possible. We will plan to wean sedation slowly to avoid withdrawal. Wean down ventilator support as possible keeping saturation over 90%. For now continue with sedation and sedation vacation when possible. Keep mean arterial pressure over 65. Status: Acute (4) COVID-19: As above. Status: Acute (5) Acute kidney injury: Baseline creatinine normal. Could be secondary to intermittent shock requiring Levophed along with dose of lisinopril in between. Patient did have contrast study with CTA on admission and then CT abdomen pelvis with contrast recently on July 05. Medical reconciliation done for nephrotoxic drugs. CT abdomen pelvis negative for any obstructive uropathy, hydronephrosis. Check urine lites, urine creatinine. Urine output in last 24 hours over 3 L. Net +3 L since admission. For now continue to monitor BMP daily. Case discussed with corporate general manager team. For now continue to monitor. Status: Acute (6) Hyperkalemia: Potassium better today. Still mildly elevated. Getting better since patient side having bowel movements with lactulose. Status: Acute (7) Yeast species isolated but not further identified: On the sputum culture from repeat intubation on July 09. Started on fluconazole 200 mg IV daily. Status: Acute (8) Hyponatremia: Resolved. Status: Acute (9) Hypertension: Goal blood pressure less than 140/90 mmHg with mean over 65. Antihypertensives held. Status: Acute Qualifiers: Hypertension type: essential hypertension Qualified Code(s): I10 - Essential (primary) hypertension (10) Diarrhea: Status: Acute (11) Elevated WBC count: Status: Resolved Qualifiers: Leukocytosis type: unspecified Qualified Code(s): D72.829 - Elevated white blood cell count, unspecified Additional A&P Information Full code. Tube feedings. Lovenox for DVT prophylaxis. Famotidine for PUD prophylaxis Case discussed with corporate general manager. Appreciate help. We will resume full care once patient out of ICU. Discharge planning: Given patient being ventilator dependent with one attempt at extubation patient would most likely require further prolonged lung rehabilitation. Have asked case management to look for possible transfer to select once patient is stabilized. Patient is hemodynamically stable but has worsening renal functions for now. Can plan to transfer if accepted and saturation less than 60% and renal function stabilizes. Severely guarded prognosis. Attestations Medical Necessity Statement*: Requires further hospitalization for being vent dependent, ARDS secondary to COVID-19 pneumonia LEANNE, hyperkalemia Time Spent in Patient Care: Greater than 35 minutes (>than 50% of time spent in counselling and/or direct pt care on unit). Coding Level of Care Code Acute Process Development Associate for [facility] Fwd Diagnoses Sepsis A41.9 Shock R57.9 Acute respiratory failure due to COVID-19 U07.1; J96.00 COVID-19 U07.1 Acute kidney injury N17.9 Hyperkalemia E87.5 Yeast species isolated but not further identified B37.9 Hyponatremia E87.1 Hypertension I10 Hypertension type: essential hypertension Diarrhea R19.7 Elevated WBC count D72.829 Leukocytosis type: unspecified
[2021-07-12] MEDS: fluconazole premix 100 MG in empty flexible container 1 EACH 50 MG IV (17:36)
--- NOTE | 2021-07-12 18:44 | NUR.SHIFT ---
Shift Note Frequent safety and comfort rounds continue. Orders and/or nursing care completed as indicated. Patient monitored for response to intervention and treatment(s). Sedation weaned and pt responded to verbal stimuli and followed commands. sedation resumed at half the level of previous rate. Updated with patient status. Will continue to monitor.
[2021-07-12] MEDS: propofol 1,000 MG/100 ML INJ 14.42 MG IV (20:04)
[2021-07-13] VITALS (47 sets, daily range): BP systolic 92–157; BP diastolic 61–109; PULSE 70–119; RESP 10–23; TEMP 36.8–36.9; O2SAT 89–100; BMI 31.7
[2021-07-13] MEDS: ipratropium-albuterol 3 mL Neb INHALATION ×6 (00:37→20:25)
[2021-07-13] MEDS: propofol 1,000 MG/100 ML INJ 14.42 MG IV ×2 (01:00→05:10)
[2021-07-13 03:56] LABS: Basophils % 0.2 %; Eosinophils # 1.1 10^3/uL (0.0-0.8); Eosinophils % 6.3 %; Hematocrit 37.9 % (42.0-52.0); Hemoglobin 11.7 g/dL (11.7-16.6); Lymphocytes # 1.6 10^3/uL (0.8-4.8); Lymphocytes % 9.4 %; Mean Corpuscular HGB Conc 30.9 g/dL (30.0-36.0); Mean Corpuscular Hemoglobin 28.3 pg (28.0-34.0); Mean Corpuscular Volume 91.5 fl (80-94); Mean Platelet Volume 10.2 fL (7.4-10.4); Monocytes # 1.9 10^3/uL (0.2-0.9); Monocytes % 11.1 %; Neutrophils # 11.06 10^3/uL (1.8-7.7); Neutrophils % 64.1 %; Nucleated Red Blood Cells % 0 %; Platelet Count 275 10^3/cmm (130-400); Red Blood Count 4.14 10^6/uL (4.1-5.3); Red Cell Distribution Width 15.5 % (12.1-15.1); White Blood Count 17.3 10^3/uL (4.0-10.0)
[2021-07-13 04:21] LABS: Alanine Aminotransferase 35 U/L (0-41); Albumin Level 3.4 g/dL (3.5-5.2); Alkaline Phosphatase 99 IU/L (40-130); Aspartate Amino Transferase 38 U/L (0-40); Blood Urea Nitrogen 78 mg/dL (6-20); Carbon Dioxide 25 mmol/L (22-29); Chloride 107 mmol/L (98-107); Globulin 2.1 g/dL (1.3-4.6); Glomerular Filtration Rate 31.6 mL/min (90-130); Glucose 87 mg/dL (65-115); Osmolality Calculated 317 mOsm/kg (285-295); Sodium 142 mmol/L (136-145); Total Bilirubin 0.6 mg/dL (0.15-1.2); Total Protein 5.5 g/dL (6.6-8.7)
[2021-07-13 04:22] LABS: Magnesium 3.2 mg/dL (1.7-2.3)
[2021-07-13 04:38] LABS: Anion Gap 15.3 (5-19); Potassium 5.3 mmol/L (3.5-5.1)
[2021-07-13 04:51] LABS: Slide Review Slide Review Perform
[2021-07-13] MEDS: dexmedetomidine 400 MCG in sodium chloride 0.9% (100 ml) 100 ML 18.5 MCG IV ×3 (05:12→18:44)
[2021-07-13] MEDS: dexamethasone 4 mg/mL INJ 3 MG IVP (05:58)
--- NOTE | 2021-07-13 06:39 | PC.NURSE ---
Shift Note Frequent safety and comfort rounds continue. Orders and/or nursing care completed as indicated. Patient monitored for response to intervention and treatment(s). Education provided to the spouse]. 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 Will continue to monitor. At the beginning of shift the patient was breathing in the upper 20's, so the fentanyl and propofol drips were increased slighty. From then on the patient experience no other complications during the shift, and no new changes were noted with the patient's condition and vitals. The patient has developed a couple of pressure injuries on his cheek bilaterally from the tube tamer. Urine output was great, and the patient's elevated potassium continues to trend downward. This mornings potassium was 5.3.
--- NOTE | 2021-07-13 08:06 | XRR_ITS ---
PROCEDURE INFORMATION: Exam: XR Chest Exam date and time: 07/13/2021 8:06 AM Age: 51 years old Clinical indication: Shortness of breath; Additional info: Pneumonia TECHNIQUE: Imaging protocol: XR of the chest. Views: 1 view. Total images: 1 COMPARISON: CR XR chest 1V portable [id number] 07/11/2021 5:43 AM FINDINGS: Tubes, catheters and devices: Tubes and catheters are unchanged from the prior exam. Lungs: Bilateral pulmonary opacities are again noted with the right-sided opacities showing interval improvement. Pleural spaces: Unremarkable. No pleural effusion. No pneumothorax. Heart/Mediastinum: Heart size is stable when compared to the prior exam. Bones/joints: Osseous structures are unchanged from the prior exam. XR/XR chest 1V portable [id number] IMPRESSION: 1. Tubes and catheters are unchanged from the prior exam. 2. Bilateral pulmonary opacities are again noted with the right-sided opacities showing interval improvement.
[2021-07-13] MEDS: docusate sodium 10 mg/mL (5ml) Liq 100 MG PO ×2 (08:45→17:25)
[2021-07-13] MEDS: enoxaparin 40 mg/0.4 mL Syringe SUBCUT (08:45)
[2021-07-13] MEDS: pantoprazole 40 mg SDV IVP (08:45)
[2021-07-13] MEDS: quetiapine 25 mg Tablet 50 MG PO ×3 (08:45→20:52)
[2021-07-13] MEDS: budesonide 0.5 mg/2 mL Neb INHALATION ×2 (09:55→20:25)
[2021-07-13] MEDS: propofol 1,000 MG/100 ML INJ 17.31 MG IV (10:19)
[2021-07-13 10:58] LABS: ABG PCO2 42.5 mmHg (35-45); ABG PH Result 7.39 (7.35-7.45); Arterial Blood Gas Hematocrit 35.7 % (42-52); Base Excess ABG 0.6 mmol/L (-2.0-2.0); Blood Gas Allen Test Pos; Blood Gas Sample Type Arterial; Carboxyhemoglobin 1.3 %THgb (0.4-20.1); HCO3 ABG 25.8 mmol/L (22-26); HGB O2 Sat 94.9 % (95-100); Ionized Calcium Level - ABG 1.2 mmol/L (1.1-1.4); Methemoglobin 0.4 % (0.4-1.5); Oxygen Saturation ABG 96.6; PO2 ABG 81.3 mmHg (80.0-100.0); Total Hemoglobin 11.6 g/dL (14-18)
[2021-07-13 11:00] LABS: Alveolar-Arterial Oxygen Gradi 15.1 mmHg (5-10); Blood Gas Operator Identificat ED; Blood Gas Sample Site Radial, left; Blood Gas Tidal Volume 0.45; Oxygen Device VENT
--- NOTE | 2021-07-13 13:28 | P.PN_ITS ---
Subjective Subjective: Interval history: No complaints overnight. Coming down on sedation. Patient is opening his eyes today. Seems calm. Currently on ventilator setting of FiO2 35%, tidal volume 450 with PEEP of 8. Saturations being maintained. Blood pressures better. No pressors. Documented urine output last 24 hours 1650. Medications: Reviewed: Yes Vitals/I&O/Wt Last Vital Signs Temp 98.2 F 07/13/21 08:55 Pulse 71 07/13/21 13:07 Resp 12 07/13/21 13:04 BP 112/73 07/13/21 12:00 Pulse Ox 93 07/13/21 13:04 07/12/21 07/13/21 07/13/21 22:59 06:59 14:59 Intake Total 379.554 / 918.116 518.443 / 1436.559 192.281 / 192.281 Output Total 400 / 400 1226 / 1626 Balance -20.446 / 518.116 -707.557 / -189.441 192.281 / 192.281 Weight last 48 hrs Weight 100.386 kg Weight 101.423 kg Physical Exam Narrative: EXAM NARRATIVE: General: The patient is intubated, sedated, Respiratory: Auscultation: Minimal crackles at the most dependent position of the lungs in prone position Cardiovascular: Regular rate and rhythm, S1-S2 present, no murmur, no peripheral edema. Abdomen: Sluggish bowel sound Skin: No rash Neuro: Intubated and sedated Urinary Catheter Management^: Barnes: Cath Placed During This Visit: yes Reason for Continuing Indwelling Catheter: Accurate Measurement of Urinary Output in Critically Ill Patients Urinary Catheter Date of Insertion: 07/03/21 Urinary Catheter Time of Insertion: 07:56 Data : 07/13/21 03:12 07/13/21 03:12 A&P Assessment and plan (1) Sepsis: Patient continues to have patient continues to have elevated white count. Infectious work-up so far negative. Negative for any source of infection. Blo od culture has remained negative. CT abdomen pelvis negative for any sign of infection. Recheck urinalysis, sputum culture appreciated. MRSA swab negative. Urine Legionella bacterial antigen negative. C. difficile negative. White count slightly better today Linezolid course ended on July 11. Continue with imipenem. Day 3 today. As per conversation with Dr. Lemos from pathology peripheral smear concerning for possible leukemoid/leukemia. Flow cytometry for leukemia/lymphoma panel sent out. Status: Acute (2) Shock: Restarted on small dose of Levophed. Monitor blood pressures closely. Avoid hypotension. Status: Acute (3) Acute respiratory failure due to COVID-19: ARDS: Ventilator dependent. Failed extubation on July 09 for agitation and impending respiratory failure. Can try to wean down or extubate to Precedex drip along with fentanyl pushes. Patient is post extended course of remdesivir. S/p 2 doses of Actemra. More than 10 days of IV Decadron. Decrease to 3 mg daily. Continue with nebulizations with DuoNeb and budesonide. Sedation vacation when possible. We will plan to wean sedation slowly to avoid withdrawal. Wean down ventilator support as possible keeping saturation over 90%. For now continue with sedation and sedation vacation when possible. Keep mean arterial pressure over 65. Status: Acute (4) COVID-19: As above. Status: Acute (5) Acute kidney injury: Creatinine has remained high stable for last 3 days. Around 2.2. Baseline creatinine normal. Could be secondary to intermittent shock requiring Levophed along with dose of lisinopril in between. Patient did have contrast study with CTA on admission and then CT abdomen pelvis with contrast recently on July 05. Medical reconciliation done for nephrotoxic drugs. CT abdomen pelvis negative for any obstructive uropathy, hydronephrosis. Check urine lites, urine creatinine. Urine output in last 24 hours over 3 L. Net +3 L since admission. For now continue to monitor BMP daily. Case discussed with track worker team. For now continue to monitor. Status: Acute (6) Hyperkalemia: Potassium better today. Still mildly elevated. Getting better since patient side having bowel movements with lactulose. Status: Acute (7) Yeast species isolated but not further identified: On the sputum culture from repeat intubation on July 09. Started on fluconazole 200 mg IV daily. Status: Acute (8) Hyponatremia: Resolved. Status: Acute (9) Hypertension: Goal blood pressure less than 140/90 mmHg with mean over 65. Antihypertensives held. Status: Acute Qualifiers: Hypertension type: essential hypertension Qualified Code(s): I10 - Essential (primary) hypertension (10) Diarrhea: Status: Acute (11) Elevated WBC count: Status: Resolved Qualifiers: Leukocytosis type: unspecified Qualified Code(s): D72.829 - Elevated white blood cell count, unspecified Additional A&P Information Full code. Tube feedings. Lovenox for DVT prophylaxis. Famotidine for PUD prophylaxis Case discussed with track worker. Appreciate help. We will resume full care once patient out of ICU. Discharge planning: Given patient being ventilator dependent with one attempt at extubation patient would most likely require further prolonged lung rehabilitation. Have asked case management to look for possible transfer to select once patient is stabilized. Patient is hemodynamically stable but has worsening renal functions for now. Can plan to transfer if accepted and saturation less than 60% and renal function stabilizes. Plan for today: Continue to wean off sedation gradually, waking trial to extubate gradually to nasal cannula to prevent agitation or drug withdrawal. Severely guarded prognosis. Attestations Medical Necessity Statement*: Requires further hospitalization for management of ventilator dependent, ARDS secondary COVID-19 pneumonia, acute kidney injury with hyperkalemia. Time Spent in Patient Care: Greater than 35 minutes (>than 50% of time spent in counselling and/or direct pt care on unit) . Coding Level of Care Code Acute [employer] Customer Service for g Fwd Diagnoses Sepsis A41.9 Shock R57.9 Acute respiratory failure due to COVID-19 U07.1; J96.00 COVID-19 U07.1 Acute kidney injury N17.9 Hyperkalemia E87.5 Yeast species isolated but not further identified B37.9 Hyponatremia E87.1 Hypertension I10 Hypertension type: essential hypertension Diarrhea R19.7 Elevated WBC count D72.829 Leukocytosis type: unspecified
[2021-07-13] MEDS: propofol 1,000 MG/100 ML INJ 28.85 MG IV ×3 (14:23→20:45)
--- NOTE | 2021-07-13 15:49 | P.PN_ITS ---
Subjective Subjective: Interval history: Patient seen at bedside today morning -Plan is to do spontaneous awakening trial and followed by breathing trial -Renal functions plateaued with potassium 5.3 -Afebrile last 24 hours-downtrending WBC 17 K today -Labs and imaging reviewed Vitals/I&O/Wt Last Vital Signs Temp 98.2 F 07/13/21 08:55 Pulse 77 07/13/21 14:00 Resp 12 07/13/21 13:04 BP 112/73 07/13/21 12:00 Pulse Ox 93 07/13/21 13:04 07/13/21 07/13/21 07/13/21 06:59 14:59 22:59 Intake Total 518.443 / 1436.559 286.628 / 286.628 Output Total 1226 / 1626 Balance -707.557 / -189.441 286.628 / 286.628 Weight last 48 hrs Weight 221 lb 5 oz Weight 223 lb 9.6 oz Physical Exam Narrative: EXAM NARRATIVE: General: lying in bed, sedated and intubated. HEENT:NCAT, PERRLA, EOMI Neck: Supple Lungs: Bilateral diffuse crackles Heart: s1/s2, RRR Abd: soft, NT, ND, BS + Normoactive Extremities: No edema SADDLE LINING STITCHER: sedated and limited SADDLE LINING STITCHER exam possible, SKIN: no rash Urinary Catheter Management^: Barnes: Cath Placed During This Visit: yes Reason for Continuing Indwelling Catheter: Accurate Measurement of Urinary Output in Critically Ill Patients Urinary Catheter Date of Insertion: 07/03/21 Urinary Catheter Time of Insertion: 07:56 Data : 07/13/21 03:12 07/13/21 03:12 Other Labs: Laboratory Results WBC 17.3 10^3/uL (4.0-10.0) H 07/13/21 03:12 RBC 4.14 10^6/uL (4.1-5.3) 07/13/21 03:12 Hgb 11.7 g/dL (11.7-16.6) 07/13/21 03:12 Hct 37.9 % (42.0-52.0) L 07/13/21 03:12 MCV 91.5 fl (80-94) 07/13/21 03:12 MCH 28.3 pg (28.0-34.0) 07/13/21 03:12 MCHC 30.9 g/dL (30.0-36.0) 07/13/21 03:12 RDW 15.5 % (12.1-15.1) H 07/13/21 03:12 Plt Count 275 10^3/cmm (130-400) 07/13/21 03:12 MPV 10.2 fL (7.4-10.4) 07/13/21 03:12 Neut % (Auto) 64.1 % 07/13/21 03:12 Lymph % (Auto) 9.4 % 07/13/21 03:12 Ward % (Auto) 11.1 % 07/13/21 03:12 Eos % (Auto) 6.3 % 07/13/21 03:12 Baso % (Auto) 0.2 % 07/13/21 03:12 Neut # (Auto) 11.06 10^3/uL (1.8-7.7) H 07/13/21 03:12 Lymph # (Auto) 1.6 10^3/uL (0.8-4.8) 07/13/21 03:12 Ward # (Auto) 1.9 10^3/uL (0.2-0.9) H 07/13/21 03:12 Eos # (Auto) 1.1 10^3/uL (0.0-0.8) H 07/13/21 03:12 Baso # (Auto) 0.0 10^3/uL (0.0-0.1) 07/13/21 03:12 Nucleated RBC % (auto) 0 % 07/13/21 03:12 Total Counted 100 (0-100) 07/10/21 08:22 Atypical Lymphs % 6.0 % (0-5) H 07/10/21 08:22 Absolute Neutrophils 18.3 10^3/cmm (1.4-6.5) H 07/10/21 08:22 Segmented Neutrophils 71 % 07/10/21 08:22 Abs Segm Neuts (Man) 17.8 10/cmm (1.6-7.1) H 07/10/21 08:22 Band Neutrophils 2.0 % 07/10/21 08:22 Abs Band Neuts (Man) 0.5 10^3/cmm (0.0-1.2) 07/10/21 08:22 Absolute Lymphocytes 3.5 10^3/cmm (1.2-3.4) H 07/10/21 08:22 Lymphocytes (Manual) 8 % 07/10/21 08:22 Monocytes (Manual) 3.0 % 07/10/21 08: Absolute Monocytes 0.8 10^3/cmm (0.1-0.6) H 07/10/21 08:22 Eosinophils (Manual) 0 % 07/10/21 08: Absolute Eosinophils 0.0 10^3/cmm (0.0-0.7) 07/10/21 08:22 Basophils (Manual) 0.0 % 07/10/21 08: Absolute Basophils 0.0 10^3/cmm (0.0-0.2) 07/10/21 08: Metamyelocytes 10.0 % 07/10/21 08: Nucleated RBCs # 0.0 /100WBC 07/13/21 03:12 Platelet Estimate Normal (Normal) 07/10/21 08:22 D-Dimer 9.35 ug/mIFEU (0-0.59) H 07/07/21 14:31 Specimen Type Arterial 07/13/21 10:47 Sample Site Radial, left 07/13/21 10:47 ABG pH 7.39 (7.35-7.45) 07/13/21 10:47 ABG pCO2 42.5 mmHg (35-45) 07/13/21 10:47 ABG pO2 81.3 mmHg (80.0-100.0) 07/13/21 10:47 ABG HCO3 25.8 mmol/L (22-26) 07/13/21 10:47 ABG O2 Saturation 96.6 07/13/21 10:47 ABG Base Excess 0.6 mmol/L (-2.0-2.0) 07/13/21 10:47 Gato Test Pos 07/13/21 10:47 A-a O2 Gradient 15.1 mmHg (5-10) H 07/13/21 10:47 Hematocrit 35.7 % (42-52) L 07/13/21 10:47 Hgb O2 Saturation 94.9 % (95-100) L 07/13/21 10:47 Carboxyhemoglobin 1.3 %THgb (0.4-20.1) 07/13/21 10:47 Methemoglobin 0.4 % (0.4-1.5) 07/13/21 10:47 Total Hemoglobin 11.6 g/dL (14-18) L 07/13/21 10:47 Sodium 145.0 mmol/L (131-143) H 07/13/21 10:47 Potassium 5.0 mmol/L (3.5-5.0) 07/13/21 10:47 Glucose 127.0 mg/dL (70-115) H 07/13/21 10:47 Ionized Calcium 1.2 mmol/L (1.1-1.4) 07/13/21 10:47 O2 Delivery Device Vent 07/13/21 10:47 O2 Liters/Min 3.0 % 06/26/21 12:40 FiO2 35.0 % 07/13/21 10:47 Tidal Volume 0.45 07/13/21 10:47 PEEP 8.0 cmH20 07/13/21 10:47 Computerized Mill Recorder ID Ed 07/13/21 10:47 Sodium 142 mmol/L (136-145) 07/13/21 03:12 Potassium 5.3 mmol/L (3.5-5.1) H 07/13/21 03:12 Chloride 107 mmol/L (98-107) 07/13/21 03:12 Carbon Dioxide 25 mmol/L (22-29) 07/13/21 03:12 Anion Gap 15.3 (5-19) 07/13/21 03:12 BUN 78 mg/dL (6-20) H 07/13/21 03:12 Creatinine 2.2 mg/dL (0.7-1.2) H 07/13/21 03:12 GFR Calculation 31.6 mL/min (90-130) L 07/13/21 03:12 Glucose 87 mg/dL (65-115) 07/13/21 03:12 Calculated Osmolality 317 mOsm/kg (285-295) H 07/13/21 03:12 Lactic Acid 2.2 mmol/L (0.5-2.2) 06/26/21 13:08 Lactic Acid (Sepsis) 1.1 mmol/L (0.5-2.2) 06/26/21 17:10 Lactate 1.5 mmol/L (0.5-2.2) 07/05/21 06:05 Calcium 8.0 mg/dL (8.5-10.5) L 07/13/21 03:12 Phosphorus 3.4 mg/dL (2.5-4.5) 07/07/21 03:12 Magnesium 3.2 mg/dL (1.7-2.3) H 07/13/21 03:12 Ferritin 1137 ng/mL (30-400) H 06/30/21 06:32 Total Bilirubin 0.6 mg/dL (0.15-1.2) 07/13/21 03:12 AST 38 U/L (0-40) 07/13/21 03:12 ALT 35 U/L (0-41) 07/13/21 03:12 Alkaline Phosphatase 99 IU/L (40-130) 07/13/21 03:12 Creatine Kinase 648 U/L (39-308) H* 07/11/21 02:00 Troponin T Baseline 11 ng/L (0-15) 06/26/21 13:08 Troponin T 120 Minute 10.43 ng/L (0-15) 06/26/21 14:26 Delta Troponin T -0.57 ABS# (0-10) L 06/26/21 14:26 Troponin T Hi Sens 6Hr 9.82 ng/L (0-15) 06/26/21 18:40 Troponin T Hi Sens 6Hr Delta -1.18 ng/L (0-12) L 06/26/21 18:40 C-Reactive Protein 4.0 mg/L (0.0-4.9) 07/02/21 05:47 NT-Pro-B Natriuret Pep 65 pg/mL (0-125) 06/26/21 13:08 Total Protein 5.5 g/dL (6.6-8.7) L 07/13/21 03:12 Albumin 3.4 g/dL (3.5-5.2) L 07/13/21 03:12 Globulin 2.1 g/dL (1.3-4.6) 07/13/21 03:12 Procalcitonin 0.32 ng/mL (0-0.5) 07/05/21 06:05 Random Cortisol 0.70 ug/dL (2.47-19.5) L 07/11/21 14:35 Urine Color Dark yellow (Yellow) 07/07/21 23:04 Urine Appearance Hazy (CLEAR) A 07/07/21 23:04 Urine pH 5 (5-7) 07/07/21 23:04 Ur Specific Fleming 1.020 (1.005-1.030) 07/07/21 23:04 Urine Protein Trace (Negative) 07/07/21 23:04 Urine Glucose (UA) Norm (Normal) 07/07/21 23:04 Urine Ketones Negative (Negative) 07/07/21 23:04 Urine Blood 3+ (Negative) H 07/07/21 23:04 Urine Nitrate Negative (Negative) 07/07/21 23:04 Urine Bilirubin Neg (Negative) 07/07/21 23:04 Urine Urobilinogen Norm mg/dL (Negative) 07/07/21 23:04 Ur Leukocyte Esterase Negative (Negative) 07/07/21 23:04 Urine RBC >100 /hpf (0-2) H 07/07/21 23:04 Urine WBC 0-4 /hpf (0-5) H 07/07/21 23:04 Ur Squamous Epith Cells 0-4 /hpf (0-5) H 07/07/21 23:04 Uric Acid Crystals 15-25 /hpf H 07/07/21 23:04 Amorphous Sediment 3+ /hpf 07/07/21 23:04 Urine Bacteria Trace /hpf (NONE) 07/07/21 23:04 Ur Random Sodium 22 mmol/L 07/07/21 23:04 Ur Random Potassium 19 mmol/L 07/07/21 23:04 Ur Random Chloride < 10 mmol/L 07/07/21 23:04 Urine Creatinine 140 mg/dL (39-259) 07/07/21 23:04 Impressions Chest CTA 07/01/21 12:32 IMPRESSION: 1. No pulmonary embolism. 2. Pneumomediastinum and pneumopericardium. 3. Diffuse multilobar areas of groundglass attenuation and developing areas of consolidation at the lung bases from Covid 19. 4. Mediastinal and hilar lymphadenopathy may be reactive. Notified Loki Kc MD at 07/01/2021 3:53 PM. Was unable to contact Dr. Kc with this report. Also attempted to speak to patient's nurse but was unsuccessful. Abdomen/Pelvis CT 07/05/21 12:00 IMPRESSION: 1. Currently no visible evidence for acute abdominal or pelvic pathologic process. 2. Mild diverticulosis coli without visible evidence for acute diverticulitis. 3. Liquid stool within the colon. No findings to suggest the presence of either inflammatory or infectious colitis, however. 4. Barnes catheter within a decompressed urinary bladder. Free air within the lumen the urinary bladder. Cannot differentiate iatrogenic introduction from gas producing organism from acute cystitis. 5. Pneumonitis/pneumonia lung bases. Findings would be consistent with Covid-19 pneumonitis/pneumonia. 6. Other nonurgent/nonemergent related findings as detailed in text above. COMMENTS: Consistent with the [employer]'s Incidental Findings Committee white paper (J Am Sage [employer]iol 2018): Any incidental renal lesion less than 1 cm or classified as too small to characterize, or any incidental cystic renal lesion characterized as simple-appearing, is likely benign. No follow-up imaging is recommended for these lesions per consensus recommendations based on imaging criteria. Radiation Dose CTDIVOL = (mGy): DLP = 2016.78 (mGy-cm) Chest X-Ray 07/13/21 08:06 IMPRESSION: 1. Tubes and catheters are unchanged from the prior exam. 2. Bilateral pulmonary opacities are again noted with the right-sided opacities showing interval improvement. A&P Assessment and plan (1) ARDS (adult respiratory distress syndrome): Status: Acute (2) Acute respiratory failure due to COVID-19: Status: Acute (3) Acute kidney injury: Status: Acute (4) Delirium: Status: Acute (5) Elevated WBC count: Status: Acute Qualifiers: Leukocytosis type: unspecified Qualified Code(s): D72.829 - Elevated white blood cell count, unspecified (6) Yeast species isolated but not further identified: Status: Acute (7) COVID-19: Status: Acute (8) Elevated WBC count: Status: Resolved Qualifiers: Leukocytosis type: unspecified Qualified Code(s): D72.829 - Elevated white blood cell count, unspecified (9) Hyperkalemia: Status: Acute - intubated, sedated, paralyzed and proned x 2 times -Seroquel 50 mg p.o. twice daily - s/p 10 day dexamethasone 6 mg ivp carissa for 10 days; s/p 5 day remdesivir and Tocilizumab x 2 doses -Currently on dexamethasone 3 mg IV daily -Post extubation 07/10/2021 patient was extremely anxious and combative, on max dose Precedex drip, pulling of his high flow nasal cannula and desaturating into the 70s-got reintubated same day night 07/10/2021 -Currently on MMV 35%/12/450/16/8 - off pressors, precedex 0.7, fentanyl 50, propofol 10 - -Today plan is to taper down sedation and plan awakening trial- -Chest x-ray 07/09/2021: No change in patchy bilateral pulmonary opacities - CTA 07/01/21:No PE; Pneumomediatinum and Pneumopericardium ; venous doppler negative for DVT which are consistent with interstitial viral pneumonia. No evidence of pneumomediastinum or pneumothorax - Duoneb q 6 hr carissa; pulmicort nebs, - monitor inflammatory markers q 48 hrs -LEANNE likely due to COVID-19 pneumonia-renal functions plateaued - I/O/N ---189 cc last 24 hours/ +1.2 L since admission-potassium 5.3 today -LFTs normalized - sugars controlled - afebrile ; wbc decreasing 17 K;- C. diff PCR negative; - CT abd/pelvis 07/05/21: no visible evidence for acute abdominal or pelvic pathologic process. - so far cultures, MRSA Nares, bacterial antigens negative; low procal -S/p cefepime followed by imipenem and vancomycin-oral antibiotic DC'd -Sputum positive for yeast species-identification pending; on fluconazole until final results available - PPI for gi ppx; Colace 100 mg p.o. twice daily - Lovenox for DVT ppx - Feeding, jevity recommendations conveyed to hospitalist, RN and RT covering the pt. Attestations Medical Necessity Statement*: Continue admission for hypoxic respiratory failure with severe COVID-19, ARDS, acute kidney injury, leukocytosis. Time Spent in Patient Care: Greater than 35 minutes (>than 50% of time spent in counselling and/or direct pt care on unit) . Critical Care Time: The high probability of a clinically significant, sudden or life threatening deterioration of the patient's [respiratory, infectious, renal, ] system(s) required my full and direct attention, intervention and personal management. The critical care time is as shown. This time is in addition to time spent performing any reported procedures but includes the following: [x] Data and vital sign review and interpretation [x] Patient assessment, examination and intervention [x] Documentation [x] Medication orders and management Critical Care Time (min): 40 Coding Level of Care Code Established Pt Acute Obgyn Hospitalist Physician for Chg Fwd Patient Type Established History Comprehensive Exam Comprehensive Medical Decision Making High Complexity Diagnoses ARDS (adult respiratory distress syndrome) J80 Acute respiratory failure due to COVID-19 U07.1; J96.00 Acute kidney injury N17.9 Delirium R41.0 Elevated WBC count D72.829 Leukocytosis type: unspecified Yeast species isolated but not further identified B37.9 COVID-19 U07.1 Elevated WBC count D72.829 Leukocytosis type: unspecified Hyperkalemia E87.5 Time Spent (min) 40
[2021-07-13] MEDS: cetacaine Spray 5 gm Can 1 SPRAY TOPICAL (17:22)
[2021-07-13] MEDS: LORazepam 2 mg/mL INJ 1 mL IVP ×2 (17:22→22:45)
[2021-07-13] MEDS: fluconazole premix 100 MG in empty flexible container 1 EACH 50 MG IV (17:32)
[2021-07-13 17:35] LABS: Calcium 8.1 mg/dL (8.5-10.5); Carbon Dioxide 24 mmol/L (22-29); Chloride 108 mmol/L (98-107); Glomerular Filtration Rate 35.3 mL/min (90-130); Glucose 120 mg/dL (65-115); Osmolality Calculated 327 mOsm/kg (285-295); Sodium 144 mmol/L (136-145)
[2021-07-13 17:45] LABS: Blood Urea Nitrogen 91 mg/dL (6-20)
[2021-07-13] MEDS: FUROsemide 10 mg/mL SDV 4mL 40 MG IVP (18:22)
[2021-07-13 18:48] LABS: Ammonia 61 umol/L (16-60)
--- NOTE | 2021-07-13 19:17 | NUR.SHIFT ---
Shift Note Frequent safety and comfort rounds continue. Orders and/or nursing care completed as indicated. Patient monitored for response to intervention and treatment(s). updated on patient status. Pt restless this afternoon requiring increased sedation. Noted elevation in BUN dr. casas notified with decreased u/o of 350 mL. Will continue to monitor.
[2021-07-14] VITALS (66 sets, daily range): BP systolic 74–136; BP diastolic 56–88; PULSE 76–110; RESP 10–23; TEMP 36.4–37.1; O2SAT 87–97; BMI 31.7
[2021-07-14] MEDS: propofol 1,000 MG/100 ML INJ 28.85 MG IV ×2 (00:13→03:30)
[2021-07-14] MEDS: ipratropium-albuterol 3 mL Neb INHALATION ×7 (00:23→23:56)
[2021-07-14] MEDS: dexmedetomidine 400 MCG in sodium chloride 0.9% (100 ml) 100 ML 18.5 MCG IV ×4 (00:51→19:05)
[2021-07-14 04:43] LABS: ABG PCO2 44.5 mmHg (35-45); ABG PH Result 7.37 (7.35-7.45); Arterial Blood Gas Hematocrit 38.2 % (42-52); Base Excess ABG -0.2 mmol/L (-2.0-2.0); Blood Gas Allen Test Pos; Blood Gas Sample Type Arterial; HCO3 ABG 25.4 mmol/L (22-26)
[2021-07-14 04:44] LABS: Blood Gas Sample Site Radial, right; Oxygen Device VENT
[2021-07-14] MEDS: dexamethasone 4 mg/mL INJ 3 MG IVP (05:10)
[2021-07-14] MEDS: propofol 1,000 MG/100 ML INJ 17.31 MG IV ×2 (07:30→23:23)
--- NOTE | 2021-07-14 07:47 | PC.NURSE ---
Shift Note Frequent safety and comfort rounds continue. Orders and/or nursing care completed as indicated. Patient monitored for response to intervention and treatment(s). Education provided includes[]. Patient and/or medical sales representative [ResponseToTeaching]. Will continue to monitor. The patient had an extensive amount of urine output, once the Barnes was changed, where there was almost 2 liters at the beginning of shift that came out. During the shift the sedation was slightly increased to accommodate a very anxious patient who was breathing over the vent in the 30's. Once the adjustment was made on sedation there were no new developments that took place during the shift. Vitals were stable during the shift. Two prism were placed under the tube tamer to cover the pressure injuries bilaterally. The patient was shaved and also received a bath.
[2021-07-14] MEDS: budesonide 0.5 mg/2 mL Neb INHALATION ×2 (08:30→19:38)
--- NOTE | 2021-07-14 08:52 | PC.CHAP ---
Pastoral Care Encounter/Spiritual Assessment Type of Contact [] Declined warehouse receiving clerk visit [] Patient/Family/Request visit [] Outpatient visit [] Follow-up visit [] Physician referral [] Code/Alert [x] Routine visit [] Staff referral [] Actively dying [] Patient sleeping [] Family support [] [] Out of room [] Palliative care [] [x] Receiving care in room [] Pre-surgical visit [] Trauma [] Long length of stay [x] ICU visit [x] Other: vent Relational/Emotional Strength [] Patient feels connected with others/family/visitors/staff [] Distress [] Loneliness/isolation [] Abandonment Spirituality of Patient [] Person of Kellie [] Attends Protestant of their Kellie [] Believes in Prayer [] Reads Bible or Sikh materials [] There are Spiritual issues to be addressed Hand Silvering Supervisor Interventions [x] Prayer [] Active listening [] Non-anxious presence [] Spiritual/emotional support [] Crisis/trauma care [] Spiritual counseling [] Bereavement support [] Provided bereavement packet [] Provided Bible/devotional materials [] Provided toy/stuffed animal, coloring book to patient or family member [] Provided Communion [] Anointing/[place] [] Salvation [x] Completed spiritual assessment [] Other: Impact on Illness or Injury [] Angry [] Fearful [] Anxious [] Often cries [] Exhaustion [] Unable to work [] Unable to attend taoist [] Unable to walk/stand [] Unable to read [] Unable to drive [] Unable to eat/drink [] Unable to sleep [] Unable to be with family [] Patient intubated [] Other: Summary Time spent with patient
[2021-07-14] MEDS: quetiapine 100 mg Tablet PO ×2 (08:58→17:58)
[2021-07-14] MEDS: lactulose oral liq 20 gm/30 mL UDC 10 GM PO ×3 (08:58→20:48)
[2021-07-14] MEDS: enoxaparin 40 mg/0.4 mL Syringe SUBCUT (08:59)
[2021-07-14] MEDS: pantoprazole 40 mg SDV IVP (08:59)
[2021-07-14] MEDS: docusate sodium 10 mg/mL (5ml) Liq 100 MG PO ×2 (09:00→17:58)
[2021-07-14 10:28] LABS: Basophils # 0.1 10^3/uL (0.0-0.1); Basophils % 0.8 %; Eosinophils # 1.4 10^3/uL (0.0-0.8); Eosinophils % 8.1 %; Hematocrit 36.5 % (42.0-52.0); Hemoglobin 11.2 g/dL (11.7-16.6); Lymphocytes # 0.6 10^3/uL (0.8-4.8); Lymphocytes % 3.3 %; Mean Corpuscular HGB Conc 30.7 g/dL (30.0-36.0); Mean Corpuscular Hemoglobin 28.4 pg (28.0-34.0); Mean Corpuscular Volume 92.6 fl (80-94); Mean Platelet Volume 9.9 fL (7.4-10.4); Monocytes # 1.2 10^3/uL (0.2-0.9); Monocytes % 6.6 %; Neutrophils # 13.34 10^3/uL (1.8-7.7); Neutrophils % 76.8 %; Nucleated Red Blood Cells % 0 %; Platelet Count 236 10^3/cmm (130-400); Red Blood Count 3.94 10^6/uL (4.1-5.3); Red Cell Distribution Width 15.5 % (12.1-15.1); White Blood Count 17.4 10^3/uL (4.0-10.0)
[2021-07-14 10:47] LABS: Alanine Aminotransferase 40 U/L (0-41); Albumin Level 3.2 g/dL (3.5-5.2); Alkaline Phosphatase 100 IU/L (40-130); Anion Gap 16.6 (5-19); Aspartate Amino Transferase 41 U/L (0-40); Calcium 7.9 mg/dL (8.5-10.5); Carbon Dioxide 25 mmol/L (22-29); Chloride 109 mmol/L (98-107); Glomerular Filtration Rate 35.3 mL/min (90-130); Glucose 127 mg/dL (65-115); Magnesium 3.1 mg/dL (1.7-2.3); Osmolality Calculated 333 mOsm/kg (285-295); Potassium 4.6 mmol/L (3.5-5.1); Sodium 146 mmol/L (136-145); Total Bilirubin 0.6 mg/dL (0.15-1.2); Total Protein 5.2 g/dL (6.6-8.7)
[2021-07-14 11:01] LABS: Blood Urea Nitrogen 94 mg/dL (6-20)
[2021-07-14] MEDS: propofol 1,000 MG/100 ML INJ 14.42 MG IV (12:05)
--- NOTE | 2021-07-14 12:47 | PC.NURSE ---
Dr. Reinoso gave verbal orders to stop tube feeding and start the weaning process.
--- NOTE | 2021-07-14 14:00 | XRR_ITS ---
PROCEDURE INFORMATION: Exam: XR Chest Exam date and time: 07/14/2021 2:00 PM Age: 51 years old Clinical indication: Condition or disease; Lung condition and disease; Pneumonia; Patient HX: PT unable to provide history TECHNIQUE: Imaging protocol: XR of the chest. Views: 1 view. COMPARISON: CR (CHEST, ) 07/13/2021 9:48 AM FINDINGS: Tubes, catheters and devices: Endotracheal tube, feeding tube, and central venous catheter again demonstrated. The endotracheal tube terminates 3.8 cm above the kia. Lungs: Interstitial/asymmetric airspace disease. Pleural spaces: No significant pleural effusion. Heart/Mediastinum: Borderline cardiomegaly. Bones/joints: Unremarkable. XR/XR chest 1V portable [id number] IMPRESSION: 1. Endotracheal tube, feeding tube, and central venous catheter again demonstrated. The endotracheal tube terminates 3.8 cm above the kia. 2. Interstitial/asymmetric airspace disease.
--- NOTE | 2021-07-14 16:33 | PC.NUTR ---
Tube feeding follow up: TF held at this time to initiate weaning process and possible extubation. If extubation fails, recommend resume TF ERICKA given poor nutritional provision since 07/04. Continue to recommend change to Nepro. Nepro starting at 20 ml/hr, and increasing by 10 ml/hr q 6 hrs to goal rate of 40 ml/hr, with 200 ml H2O flushes q 4 hrs. TF at goal with flushes to provide 1728 kcal, 78 g protein, and 1896 ml H2O. Also continue to recommend checking triglycerides and Phos. If propofol resumed, may need to hold TF at 30 ml/hr to avoid overfeeding from propofol kcal. See full RD assessment for further details.
[2021-07-14] MEDS: fluconazole premix 100 MG in empty flexible container 1 EACH 50 MG IV (17:58)
--- NOTE | 2021-07-14 18:37 | PC.NURSE ---
Patient has been awake and following commands most of shift. Sedation was titrated up for comfort and rest this evening.
--- NOTE | 2021-07-14 21:29 | PM.PN ---
Subjective Subjective: Interval history: During my visit he is awake. He appears to be try to give answers by nodding, although sometimes questions need to be repeated multiple times, sometimes does not appear to understand some simple commands, other times he does. Somewhat groggy. When asked if he is in pain, states he is. When asked to try to point where the pain is, does not. Later appears perhaps trying to point downward direction of his legs, but when asked if the pain is in his legs, does not respond to me. Appears respond to the request by his nurse to raise his right hand, wiggle his fingers. Vitals/I&O/Wt Last Vital Signs Temp 97.6 F 07/14/21 20:00 Pulse 81 07/14/21 21:00 Resp 12 07/14/21 19:42 BP 134/88 07/14/21 21:00 Pulse Ox 97 07/14/21 21:00 07/14/21 07/14/21 07/14/21 06:59 14:59 22:59 Intake Total 824.599 / 1718.697 563.709 / 563.709 275.436 / 839.145 Output Total 2475 / 2825 700 / 700 550 / 1250 Balance -1650.401 / -1106.303 -136.291 / -136.291 -274.564 / -410.855 Weight last 48 hrs Weight 100.272 kg Weight 100.386 kg Physical Exam Const: COMMON NORMALS: no acute distress EXAM LIMITATIONS: physical limitations and other limitations GENERAL APPEARANCE: patient mechanically ventilated ORIENTATION/CONSCIOUSNESS: Yes awake OTHER: Sedated, paralyzed HENMT: COMMON NORMALS: oropharynx normal Neck/C-Spine: COMMON NORMALS: no JVD Resp: COMMON NORMALS: normal respiratory effort and clear to auscultation bilaterally AUSCULTATION: clear to auscultation bilaterally OTHER: BiPAP on Cardio: COMMON NORMALS: no JVD, regular rhythm, S1 normal heart sound present, S2 normal heart sound present and No murmurs present (Cardio) RHYTHM: regular rhythm HEART SOUNDS: S1 normal heart sound present and S2 normal heart sound present GI: COMMON NORMALS: Normal to inspection, nondistended, normoactive bowel sounds present and Soft to palpation PALPATION: Yes Soft to palpation Extremity: COMMON NORMALS: no joint enlargement and no pedal edema Neuro: COMMON NORMALS: moves all extremities Skin: COMMON NORMALS: no rashes or lesions noted GENERAL SKIN EXAM: no rashes or lesions noted Urinary Catheter Management^: Barnes: Cath Placed During This Visit: yes Reason for Continuing Indwelling Catheter: Accurate Measurement of Urinary Output in Critically Ill Patients Urinary Catheter Date of Insertion: 07/03/21 Urinary Catheter Time of Insertion: 07:56 Data : 07/14/21 10:05 07/14/21 10:05 Micro: Microbiology 07/14/21 09:59 C.difficile Toxin B Gene (PCR) - Final Stool - Stool Aspirate Occult Blood (FIT) - Final A&P Assessment and plan (1) Acute respiratory failure due to COVID-19: Continue times to wean sedation. Reassess in the morning with regards to mental status, ability to understand and follow commands well, weaning trial with consideration of possible extubation given prior failed attempt. Consideration of LTAC. Status: Acute (2) Sepsis: Sepsis so far has resolved. Has been taken off antibiotics. WBC count has shown improvement. Pending flow cytometry due to concern for possible leukemoid reaction. Continues on fluconazole due to yeast noted in sputum. C. difficile repeat requested today. Status: Acute (3) Shock: Resolved. Status: Acute (4) COVID-19: As above. Status: Acute (5) Acute kidney injury: Overall creatinine with improvement, today down to 2. BUN elevated 94. Monitor HEATHER. Recheck renal function. Antibiotics deescalated. C. difficile requested. Blood count stable without suggestion of GI bleeding. Continue tube feeds. Add fluid flushes. Status: Acute (6) Hyperkalemia: Potassium better Status: Acute (7) Yeast species isolated but not further identified: On the sputum culture from repeat intubation on July 09. Fluconazole Status: Acute (8) Hyponatremia: Resolved. Status: Acute (9) Hypertension: At goal Status: Acute Qualifiers: Hypertension type: essential hypertension Qualified Code(s): I10 - Essential (primary) hypertension (10) Diarrhea: Repeat C diff Status: Acute (11) Elevated WBC count: Follow-up flow cytometry for assessment possible leukemoid reaction. Repeat C. difficile. Status: Resolved Qualifiers: Leukocytosis type: unspecified Qualified Code(s): D72.829 - Elevated white blood cell count, unspecified Additional A&P Information Case discussed with broadcast director operations. Appreciate help. We will resume full care once patient out of ICU. Attestations Medical Necessity Statement*: Continue admission for cyst management of hypoxic respite failure, weaning of sedation, mechanical ventilatory support. Coding Level of Care Code Acute Instructor Hairspring for Chg Fwd Diagnoses Acute respiratory failure due to COVID-19 U07.1; J96.00 Sepsis A41.9 Shock R57.9 COVID-19 U07.1 Acute kidney injury N17.9 Hyperkalemia E87.5 Yeast species isolated but not further identified B37.9 Hyponatremia E87.1 Hypertension I10 Hypertension type: essential hypertension Diarrhea R19.7 Elevated WBC count D72.829 Leukocytosis type: unspecified
--- NOTE | 2021-07-14 22:57 | P.PN_ITS ---
Subjective Subjective: Interval history: Patient seen at bedside multiple times today -Labs and imaging reviewed -Placed on spontaneous awakening trial-and MMv on ventilator -Towards the evening patient tolerating breathing trial well and opening eyes following commands -Tomorrow we will try spontaneous breathing trial and try to extubate Medications: Reviewed: Yes Vitals/I&O/Wt Last Vital Signs Temp 97.6 F 07/14/21 20:00 Pulse 81 07/14/21 21:00 Resp 12 07/14/21 19:42 BP 134/88 07/14/21 21:00 Pulse Ox 97 07/14/21 21:00 07/14/21 07/14/21 07/14/21 06:59 14:59 22:59 Intake Total 824.599 / 1718.697 563.709 / 563.709 275.436 / 839.145 Output Total 2475 / 2825 700 / 700 550 / 1250 Balance -1650.401 / -1106.303 -136.291 / -136.291 -274.564 / -410.855 Weight last 48 hrs Weight 221 lb 1 oz Weight 221 lb 5 oz Physical Exam Narrative: EXAM NARRATIVE: General: lying in bed, sedated and intubated. HEENT:NCAT, PERRLA, EOMI Neck: Supple Lungs: Bilateral diffuse crackles Heart: s1/s2, RRR Abd: soft, NT, ND, BS + Normoactive Extremities: No edema GROUP INSURANCE SPECIAL AGENT: sedated and limited GROUP INSURANCE SPECIAL AGENT exam possible, SKIN: no rash Urinary Catheter Management^: Barnes: Cath Placed During This Visit: yes Reason for Continuing Indwelling Catheter: Accurate Measurement of Urinary Output in Critically Ill Patients Urinary Catheter Date of Insertion: 07/03/21 Urinary Catheter Time of Insertion: 07:56 Data : 07/14/21 10:05 07/14/21 10:05 Other Labs: Laboratory Results WBC 17.4 10^3/uL (4.0-10.0) H 07/14/21 10:05 RBC 3.94 10^6/uL (4.1-5.3) L 07/14/21 10:05 Hgb 11.2 g/dL (11.7-16.6) L 07/14/21 10:05 Hct 36.5 % (42.0-52.0) L 07/14/21 10:05 MCV 92.6 fl (80-94) 07/14/21 10:05 MCH 28.4 pg (28.0-34.0) 07/14/21 10:05 MCHC 30.7 g/dL (30.0-36.0) 07/14/21 10:05 RDW 15.5 % (12.1-15.1) H 07/14/21 10:05 Plt Count 236 10^3/cmm (130-400) 07/14/21 10:05 MPV 9.9 fL (7.4-10.4) 07/14/21 10:05 Neut % (Auto) 76.8 % 07/14/21 10:05 Lymph % (Auto) 3.3 % 07/14/21 10:05 [place] % (Auto) 6.6 % 07/14/21 10:05 Eos % (Auto) 8.1 % 07/14/21 10:05 Baso % (Auto) 0.8 % 07/14/21 10:05 Neut # (Auto) 13.34 10^3/uL (1.8-7.7) H 07/14/21 10:05 Lymph # (Auto) 0.6 10^3/uL (0.8-4.8) L 07/14/21 10:05 [place] # (Auto) 1.2 10^3/uL (0.2-0.9) H 07/14/21 10:05 Eos # (Auto) 1.4 10^3/uL (0.0-0.8) H 07/14/21 10:05 Baso # (Auto) 0.1 10^3/uL (0.0-0.1) 07/14/21 10:05 Nucleated RBC % (auto) 0 % 07/14/21 10:05 Total Counted 100 (0-100) 07/10/21 08: Atypical Lymphs % 6.0 % (0-5) H 07/10/21 08: Absolute Neutrophils 18.3 10^3/cmm (1.4-6.5) H 07/10/21 08:22 Segmented Neutrophils 71 % 07/10/21 08:22 Abs Segm Neuts (Man) 17.8 10/cmm (1.6-7.1) H 07/10/21 08:22 Band Neutrophils 2.0 % 07/10/21 08:22 Abs Band Neuts (Man) 0.5 10^3/cmm (0.0-1.2) 07/10/21 08:22 Absolute Lymphocytes 3.5 10^3/cmm (1.2-3.4) H 07/10/21 08:22 Lymphocytes (Manual) 8 % 07/10/21 08:22 Monocytes (Manual) 3.0 % 07/10/21 08:22 Absolute Monocytes 0.8 10^3/cmm (0.1-0.6) H 07/10/21 08:22 Eosinophils (Manual) 0 % 07/10/21 08: Absolute Eosinophils 0.0 10^3/cmm (0.0-0.7) 07/10/21 08: Basophils (Manual) 0.0 % 07/10/21 08: Absolute Basophils 0.0 10^3/cmm (0.0-0.2) 07/10/21 08: Metamyelocytes 10.0 % 07/10/21 08: Nucleated RBCs # 0.0 /100WBC 07/14/21 10:05 Platelet Estimate Normal (Normal) 07/10/21 08:22 D-Dimer 9.35 ug/mIFEU (0-0.59) H 07/07/21 14:31 Specimen Type Arterial 07/14/21 04:10 Sample Site Radial, right 07/14/21 04:10 ABG pH 7.37 (7.35-7.45) 07/14/21 04:10 ABG pCO2 44.5 mmHg (35-45) 07/14/21 04:10 ABG pO2 91.0 mmHg (80.0-100.0) 07/14/21 04:10 ABG HCO3 25.4 mmol/L (22-26) 07/14/21 04:10 ABG O2 Saturation 96.6 07/13/21 10:47 ABG Base Excess -0.2 mmol/L (-2.0-2.0) 07/14/21 04:10 Gato Test Pos 07/14/21 04:10 A-a O2 Gradient 15.1 mmHg (5-10) H 07/13/21 10:47 Hematocrit 38.2 % (42-52) L 07/14/21 04:10 Hgb O2 Saturation 94.9 % (95-100) L 07/13/21 10:47 Carboxyhemoglobin 1.3 %THgb (0.4-20.1) 07/13/21 10:47 Methemoglobin 0.4 % (0.4-1.5) 07/13/21 10:47 Total Hemoglobin 11.6 g/dL (14-18) L 07/13/21 10:47 Sodium 145.0 mmol/L (131-143) H 07/13/21 10:47 Potassium 5.0 mmol/L (3.5-5.0) 07/13/21 10:47 Glucose 127.0 mg/dL (70-115) H 07/13/21 10:47 Ionized Calcium 1.2 mmol/L (1.1-1.4) 07/13/21 10:47 O2 Delivery Device Vent 07/14/21 04:10 O2 Liters/Min 3.0 % 06/26/21 12:40 FiO2 35.0 % 07/14/21 04:10 Tidal Volume 0.45 07/13/21 10:47 PEEP 10.0 cmH20 07/14/21 04:10 Director Of Supply Chain ID Hinja 07/14/21 04:10 Sodium 146 mmol/L (136-145) H 07/14/21 10:05 Potassium 4.6 mmol/L (3.5-5.1) 07/14/21 10:05 Chloride 109 mmol/L (98-107) H 07/14/21 10:05 Carbon Dioxide 25 mmol/L (22-29) 07/14/21 10:05 Anion Gap 16.6 (5-19) 07/14/21 10:05 BUN 94 mg/dL (6-20) H* 07/14/21 10:05 Creatinine 2.0 mg/dL (0.7-1.2) H 07/14/21 10:05 GFR Calculation 35.3 mL/min (90-130) L 07/14/21 10:05 Glucose 127 mg/dL (65-115) H 07/14/21 10:05 Calculated Osmolality 333 mOsm/kg (285-295) H 07/14/21 10:05 Lactic Acid 2.2 mmol/L (0.5-2.2) 06/26/21 13:08 Lactic Acid (Sepsis) 1.1 mmol/L (0.5-2.2) 06/26/21 17:10 Lactate 1.5 mmol/L (0.5-2.2) 07/05/21 06:05 Calcium 7.9 mg/dL (8.5-10.5) L 07/14/21 10:05 Phosphorus 3.4 mg/dL (2.5-4.5) 07/07/21 03:12 Magnesium 3.1 mg/dL (1.7-2.3) H 07/14/21 10:05 Ferritin 1137 ng/mL (30-400) H 06/30/21 06:32 Total Bilirubin 0.6 mg/dL (0.15-1.2) 07/14/21 10:05 AST 41 U/L (0-40) H 07/14/21 10:05 ALT 40 U/L (0-41) 07/14/21 10:05 Alkaline Phosphatase 100 IU/L (40-130) 07/14/21 10:05 Ammonia 61 umol/L (16-60) H 07/13/21 18:19 Creatine Kinase 648 U/L (39-308) H* 07/11/21 02:00 Troponin T Baseline 11 ng/L (0-15) 06/26/21 13:08 Troponin T 120 Minute 10.43 ng/L (0-15) 06/26/21 14:26 Delta Troponin T -0.57 ABS# (0-10) L 06/26/21 14:26 Troponin T Hi Sens 6Hr 9.82 ng/L (0-15) 06/26/21 18:40 Troponin T Hi Sens 6Hr Delta -1.18 ng/L (0-12) L 06/26/21 18:40 C-Reactive Protein 4.0 mg/L (0.0-4.9) 07/02/21 05:47 NT-Pro-B Natriuret Pep 65 pg/mL (0-125) 06/26/21 13:08 Total Protein 5.2 g/dL (6.6-8.7) L 07/14/21 10:05 Albumin 3.2 g/dL (3.5-5.2) L 07/14/21 10:05 Globulin 2.0 g/dL (1.3-4.6) 07/14/21 10:05 Procalcitonin 0.32 ng/mL (0-0.5) 07/05/21 06:05 Random Cortisol 0.70 ug/dL (2.47-19.5) L 07/11/21 14:35 Urine Color Dark yellow (Yellow) 07/07/21 23:04 Urine Appearance Hazy (CLEAR) A 07/07/21 23:04 Urine pH 5 (5-7) 07/07/21 23:04 Ur Specific Clever 1.020 (1.005-1.030) 07/07/21 23:04 Urine Protein Trace (Negative) 07/07/21 23:04 Urine Glucose (UA) Norm (Normal) 07/07/21 23:04 Urine Ketones Negative (Negative) 07/07/21 23:04 Urine Blood 3+ (Negative) H 07/07/21 23:04 Urine Nitrate Negative (Negative) 07/07/21 23:04 Urine Bilirubin Neg (Negative) 07/07/21 23:04 Urine Urobilinogen Norm mg/dL (Negative) 07/07/21 23:04 Ur Leukocyte Esterase Negative (Negative) 07/07/21 23:04 Urine RBC >100 /hpf (0-2) H 07/07/21 23:04 Urine WBC 0-4 /hpf (0-5) H 07/07/21 23:04 Ur Squamous Epith Cells 0-4 /hpf (0-5) H 07/07/21 23:04 Uric Acid Crystals 15-25 /hpf H 07/07/21 23:04 Amorphous Sediment 3+ /hpf 07/07/21 23:04 Urine Bacteria Trace /hpf (NONE) 07/07/21 23:04 Ur Random Sodium 22 mmol/L 07/07/21 23:04 Ur Random Potassium 19 mmol/L 07/07/21 23:04 Ur Random Chloride < 10 mmol/L 07/07/21 23:04 Urine Creatinine 140 mg/dL (39-259) 07/07/21 23:04 Impressions Chest CTA 07/01/21 12:32 IMPRESSION: 1. No pulmonary embolism. 2. Pneumomediastinum and pneumopericardium. 3. Diffuse multilobar areas of groundglass attenuation and developing areas of consolidation at the lung bases from Covid 19. 4. Mediastinal and hilar lymphadenopathy may be reactive. Notified Loki Kc MD at 07/01/2021 3:53 PM. Was unable to contact Dr. Kc with this report. Also attempted to speak to patient's nurse but was unsuccessful. Abdomen/Pelvis CT 07/05/21 12:00 IMPRESSION: 1. Currently no visible evidence for acute abdominal or pelvic pathologic process. 2. Mild diverticulosis coli without visible evidence for acute diverticulitis. 3. Liquid stool within the colon. No findings to suggest the presence of either inflammatory or infectious colitis, however. 4. Barnes catheter within a decompressed urinary bladder. Free air within the lumen the urinary bladder. Cannot differentiate iatrogenic introduction from gas producing organism from acute cystitis. 5. Pneumonitis/pneumonia lung bases. Findings would be consistent with Covid-19 pneumonitis/pneumonia. 6. Other nonurgent/nonemergent related findings as detailed in text above. COMMENTS: Consistent with the [employer]'s Incidental Findings Committee white paper ([employer]iol 2018): Any incidental renal lesion less than 1 cm or classified as too small to characterize, or any incidental cystic renal lesion characterized as simple-appearing, is likely benign. No follow-up imaging is recommended for these lesions per consensus recommendations based on imaging criteria. Radiation Dose CTDIVOL = (mGy): DLP = 2016.78 (mGy-cm) Chest X-Ray 07/14/21 14:00 IMPRESSION: 1. Endotracheal tube, feeding tube, and central venous catheter again demonstrated. The endotracheal tube terminates 3.8 cm above the kia. 2. Interstitial/asymmetric airspace disease. Micro: Microbiology 07/14/21 09:59 C.difficile Toxin B Gene (PCR) - Final Stool - Stool Aspirate Occult Blood (FIT) - Final A&P Assessment and plan (1) ARDS (adult respiratory distress syndrome): Status: Acute (2) Acute respiratory failure due to COVID-19: Status: Acute (3) Acute kidney injury: Status: Acute (4) Delirium: Status: Acute (5) Elevated WBC count: Status: Acute Qualifiers: Leukocytosis type: unspecified Qualified Code(s): D72.829 - Elevated white blood cell count, unspecified (6) Yeast species isolated but not further identified: Status: Acute (7) COVID-19: Status: Acute (8) Elevated WBC count: Status: Resolved Qualifiers: Leukocytosis type: unspecified Qualified Code(s): D72.829 - Elevated white blood cell count, unspecified (9) Hyperkalemia: Status: Acute - intubated, sedated, paralyzed and proned x 2 times -Seroquel 50 mg p.o. twice daily - s/p 10 day dexamethasone 6 mg ivp carissa for 10 days; s/p 5 day remdesivir and Tocilizumab x 2 doses -Currently on dexamethasone 3 mg IV daily -Post extubation 07/10/2021 patient was extremely anxious and combative, on max dose Precedex drip, pulling of his high flow nasal cannula and desaturating into the 70s-got reintubated same day night 07/10/2021 -Currently on MMV 35%/12/450/16/8 and ABG 7.3 7/44/91/20 5/96% saturation - off pressors, precedex 0.7, fentanyl 50, propofol 10 - -Today plan is to taper down sedation and plan awakening trial- -We will plan for extubation next couple of days -Fentanyl 25 MCG transdermal patch applied for opiate withdrawal and on Seroquel 100 mg p.o. twice daily -Chest x-ray 07/09/2021: No change in patchy bilateral pulmonary opacities - CTA 07/01/21:No PE; Pneumomediatinum and Pneumopericardium ; venous doppler negative for DVT which are consistent with interstitial viral pneumonia. No evidence of pneumomediastinum or pneumothorax - Duoneb q 6 hr carissa; pulmicort nebs, - monitor inflammatory markers q 48 hrs -LEANNE likely due to COVID-19 pneumonia-renal functions plateaued -BUN 91 - I/O/N -1.1 L last 24 hours/ -300 cc since admission-potassium 4.6 today -LFTs normalized; ammonia 61-lactulose 10 mg p.o. 3 times daily - sugars controlled - afebrile ; wbc decreasing 17 K;- C. diff PCR negative; - CT abd/pelvis 07/05/21: no visible evidence for acute abdominal or pelvic pathologic process. - so far cultures, MRSA Nares, bacterial antigens negative; low procal -Off antibiotics -Sputum positive for yeast species-identification pending; on fluconazole until final results available - PPI for gi ppx; Colace 100 mg p.o. twice daily -Noted melena-stool occult negative, C. difficile PCR negative second time, normal hemoglobin hematocrit - Lovenox for DVT ppx - Feeding, jevity recommendations conveyed to hospitalist, RN and RT covering the pt. Attestations Medical Necessity Statement*: Continue admission for hypoxic respiratory failure with severe COVID-19, ARDS, acute kidney injury, leukocytosis. Time Spent in Patient Care: Greater than 35 minutes (>than 50% of time sp ent in counselling and/or direct pt care on unit) . Critical Care Time: The high probability of a clinically significant, sudden or life threatening deterioration of the patient's [respiratory, infectious, renal, ] system(s) required my full and direct attention, intervention and personal management. The critical care time is as shown. This time is in addition to time spent performing any reported procedures but includes the following: [x] Data and vital sign review and interpretation [x] Patient assessment, examination and intervention [x] Documentation [x] Medication orders and management Critical Care Time (min): 45 Coding Level of Care Code Established Pt Acute Asphalt Mixer for Chg Fwd Patient Type Established History Comprehensive Exam Comprehensive Medical Decision Making High Complexity Diagnoses ARDS (adult respiratory distress syndrome) J80 Acute respiratory failure due to COVID-19 U07.1; J96.00 Acute kidney injury N17.9 Delirium R41.0 Elevated WBC count D72.829 Leukocytosis type: unspecified Yeast species isolated but not further identified B37.9 COVID-19 U07.1 Elevated WBC count D72.829 Leukocytosis type: unspecified Hyperkalemia E87.5 Time Spent (min) 45
[2021-07-14] MEDS: fentaNYL 25 mcg Patch 1 PATCH TRANSDERMA (23:39)
[2021-07-15] VITALS (59 sets, daily range): BP systolic 116–168; BP diastolic 75–103; PULSE 82–117; RESP 11–33; TEMP 36.9–37.6; O2SAT 90–100
[2021-07-15] MEDS: dexmedetomidine 400 MCG in sodium chloride 0.9% (100 ml) 100 ML 18.5 MCG IV ×4 (01:15→20:20)
[2021-07-15] MEDS: propofol 1,000 MG/100 ML INJ 17.31 MG IV (03:47)
[2021-07-15] MEDS: ipratropium-albuterol 3 mL Neb INHALATION ×5 (03:56→23:28)
[2021-07-15 05:28] LABS: Basophils # 0.1 10^3/uL (0.0-0.1); Basophils % 0.8 %; Eosinophils # 1.7 10^3/uL (0.0-0.8); Eosinophils % 12.3 %; Hematocrit 37.1 % (42.0-52.0); Hemoglobin 11.6 g/dL (11.7-16.6); Lymphocytes % 7.4 %; Mean Corpuscular HGB Conc 31.3 g/dL (30.0-36.0); Mean Corpuscular Hemoglobin 28.8 pg (28.0-34.0); Mean Corpuscular Volume 92.1 fl (80-94); Mean Platelet Volume 9.9 fL (7.4-10.4); Monocytes # 1.1 10^3/uL (0.2-0.9); Monocytes % 8.3 %; Neutrophils # 9.31 10^3/uL (1.8-7.7); Neutrophils % 67.8 %; Nucleated Red Blood Cells % 0 %; Platelet Count 244 10^3/cmm (130-400); Red Blood Count 4.03 10^6/uL (4.1-5.3); Red Cell Distribution Width 15.4 % (12.1-15.1); White Blood Count 13.7 10^3/uL (4.0-10.0)
[2021-07-15 05:47] LABS: Alanine Aminotransferase 34 U/L (0-41); Albumin Level 3.2 g/dL (3.5-5.2); Alkaline Phosphatase 106 IU/L (40-130); Anion Gap 14.3 (5-19); Aspartate Amino Transferase 46 U/L (0-40); Blood Urea Nitrogen 75 mg/dL (6-20); Calcium 7.9 mg/dL (8.5-10.5); Carbon Dioxide 25 mmol/L (22-29); Chloride 113 mmol/L (98-107); Creatinine Clr Calc Pharmacy 56.9751; Globulin 2.1 g/dL (1.3-4.6); Glomerular Filtration Rate 39.8 mL/min (90-130); Glucose 104 mg/dL (65-115); Osmolality Calculated 329 mOsm/kg (285-295); Potassium 4.3 mmol/L (3.5-5.1); Sodium 148 mmol/L (136-145); Total Bilirubin 0.5 mg/dL (0.15-1.2); Total Protein 5.3 g/dL (6.6-8.7)
[2021-07-15] MEDS: dexamethasone 4 mg/mL INJ 3 MG IVP (05:51)
--- NOTE | 2021-07-15 07:05 | XRR_ITS ---
PROCEDURE INFORMATION: Exam: XR Chest Exam date and time: 07/15/2021 7:05 AM Age: 51 years old Clinical indication: Condition or disease; Lung condition and disease; Pneumonia; Patient HX: Covid follow up PT on vent TECHNIQUE: Imaging protocol: XR of the chest. Views: 1 view. Total images: 1 COMPARISON: CR XR chest 1V portable [id number] 07/14/2021 1:58 PM FINDINGS: Tubes, catheters and devices: Tubes and catheters are unchanged from the prior exam. Lungs: Bilateral pulmonary opacities are again noted and appear unchanged. Pleural spaces: Unremarkable. No pleural effusion. No pneumothorax. Heart/Mediastinum: Heart size is stable when compared to the prior exam. Bones/joints: Osseous structures are unchanged from the prior exam. XR/XR chest 1V portable [id number] IMPRESSION: 1. Tubes and catheters are unchanged from the prior exam. 2. Bilateral pulmonary opacities are again noted and appear unchanged.
[2021-07-15] MEDS: budesonide 0.5 mg/2 mL Neb INHALATION ×2 (08:00→20:03)
[2021-07-15] MEDS: lactulose oral liq 20 gm/30 mL UDC 10 GM PO ×3 (08:09→20:19)
[2021-07-15] MEDS: quetiapine 100 mg Tablet PO ×2 (08:09→17:24)
[2021-07-15] MEDS: pantoprazole 40 mg SDV IVP (08:09)
[2021-07-15] MEDS: docusate sodium 10 mg/mL (5ml) Liq 100 MG PO ×2 (09:28→20:22)
--- NOTE | 2021-07-15 09:36 | PC.CHAP ---
Pastoral Care Encounter/Spiritual Assessment Type of Contact [] Declined fax machine repairer visit [] Patient/Family/Request visit [] Outpatient visit [] Follow-up visit [] Physician referral [] Code/Alert [x] Routine visit [] Staff referral [] Actively dying [] Patient sleeping [x] Family support [] [] Out of room [] Palliative care [] [] Receiving care in room [] Pre-surgical visit [] Trauma [] Long length of stay [x] ICU visit [] Other: Relational/Emotional Strength [] Patient feels connected with others/family/visitors/staff [] Distress [] Loneliness/isolation [] Abandonment Spirituality of Patient [x] Person of Kellie [] Attends Mormon of their Kellie [] Believes in Prayer [] Reads Bible or Presybeterian materials [] There are Spiritual issues to be addressed Optical Mechanic Interventions [x] Prayer [x] Active listening [x] Non-anxious presence [x] Spiritual/emotional support [] Crisis/trauma care [] Spiritual counseling [] Bereavement support [] Provided bereavement packet [] Provided Bible/devotional materials [] Provided toy/stuffed animal, coloring book to patient or family member [] Provided Communion [] Anointing/[place] [] Salvation [x] Completed spiritual assessment [] Other: Impact on Illness or Injury [] Angry [] Fearful [] Anxious [] Often cries [] Exhaustion [] Unable to work [] Unable to attend adventism [] Unable to walk/stand [] Unable to read [] Unable to drive [] Unable to eat/drink [] Unable to sleep [] Unable to be with family [] Patient intubated [] Other: Summary patient improving.. Time spent with patient 5 min
--- NOTE | 2021-07-15 10:30 | PC.NURSE ---
Patient was extubated at around 1015 and placed on bipap. Respirations are in high 20's. at bedside.
[2021-07-15] MEDS: enoxaparin 40 mg/0.4 mL Syringe SUBCUT (10:35)
--- NOTE | 2021-07-15 10:57 | PC.RESP ---
extubated pt extubated to bipap, tolerated well
--- NOTE | 2021-07-15 17:13 | P.PN_ITS ---
Subjective Subjective: Interval history: Extubated, is at bedside, he is feeling well. She is intermittently feeling him ice chips. Denies any cough with discharge. He is comfortable. Denies chest pain or pressure. Vitals/I&O/Wt Last Vital Signs Temp 98.4 F 07/15/21 14:00 Pulse 90 07/15/21 17:00 Resp 16 07/15/21 17:00 BP 147/92 07/15/21 17:00 Pulse Ox 94 07/15/21 17:00 07/15/21 07/15/21 07/15/21 06:59 14:59 22:59 Intake Total 419.129 / 1258.274 82.633 / 82.633 Output Total 1050 / 2300 1250 / 1250 Balance -630.871 / -1041.726 -1167.367 / -1167.367 Weight last 48 hrs Weight 100.272 kg Physical Exam Narrative: EXAM NARRATIVE: at bedside. Const: COMMON NORMALS: no acute distress and alert GENERAL APPEARANCE: cooperative ORIENTATION/CONSCIOUSNESS: Yes awake OTHER: Slightly sluggish, but responds to questions, follows commands, interactive, in good spirits, joking around. HENMT: COMMON NORMALS: oropharynx normal Neck/C-Spine: COMMON NORMALS: no JVD Resp: COMMON NORMALS: normal respiratory effort and clear to auscultation bilaterally AUSCULTATION: clear to auscultation bilaterally OTHER: HHF on. Cardio: COMMON NORMALS: no JVD, regular rhythm, S1 normal heart sound present, S2 normal heart sound present and No murmurs present (Cardio) RHYTHM: regular rhythm HEART SOUNDS: S1 normal heart sound present and S2 normal heart sound present GI: COMMON NORMALS: Normal to inspection, nondistended, normoactive bowel sounds present, Soft to palpation and non-tender PALPATION: Yes Soft to p alpation Extremity: COMMON NORMALS: no joint enlargement and no pedal edema Neuro: COMMON NORMALS: moves all extremities SENSORIUM/ORIENTATION: Yes alert Skin: COMMON NORMALS: no rashes or lesions noted GENERAL SKIN EXAM: no rashes or lesions noted Urinary Catheter Management^: Barnes: Cath Placed During This Visit: yes Reason for Continuing Indwelling Catheter: Accurate Measurement of Urinary Output in Critically Ill Patients Urinary Catheter Date of Insertion: 07/03/21 Urinary Catheter Time of Insertion: 07:56 Data : 07/15/21 04:41 07/15/21 04:41 Micro: Microbiology 07/14/21 09:59 C.difficile Toxin B Gene (PCR) - Final Stool - Stool Aspirate Occult Blood (FIT) - Final A&P Assessment and plan (1) Acute respiratory failure due to COVID-19: Extubated. Currently on 50 L, 50% FiO2. Doing well so far. Continue to attempt to wean as tolerating. Continue to monitor for need for reintubation due to prior unsuccessful extubation. Hopefully they will as well. Continue supportive care. We will request for PT, OT. Resume I-S, flutter valve. Status: Acute (2) Sepsis: Sepsis so far has resolved. Has been taken off antibiotics. WBC count improving. Pending flow cytometry due to concern for possible leukemoid reaction. Continues on fluconazole due to yeast noted in sputum. C. difficile 07/14 -ve. Status: Acute (3) Shock: Resolved. Status: Acute (4) COVID-19: As above. Status: Acute (5) Acute kidney injury: Continues to improve. Monitor volume status, I&O as he appears may be in diuretic phase. Sips and ice chips currently, and if does well from respiratory status standpoint, resume oral intake as tolerating. BUN better. Hemoccult negative. C. difficile negative. Status: Acute (6) Hyperkalemia: Potassium better Status: Acute (7) Yeast species isolated but not further identified: On the sputum culture from repeat intubation on July 09. Fluconazole Status: Acute (8) Hyponatremia: Resolved. Status: Acute (9) Hypertension: At goal Status: Acute Qualifiers: Hypertension type: essential hypertension Qualified Code(s): I10 - Essential (primary) hypertension (10) Diarrhea: Repeat C diff negative Status: Acute (11) Elevated WBC count: Follow-up flow cytometry for assessment possible leukemoid reaction. Repeat C. difficile. Status: Resolved Qualifiers: Leukocytosis type: unspecified Qualified Code(s): D72.829 - Elevated white blood cell count, unspecified Attestations Medical Necessity Statement*: Continue admission for cyst management of hypoxic respiratory failure status post extubation, with prior failed extubation attempt following severe COVID-19, ARDS. Coding Level of Care Code Acute Telephone Repairer for [facility] Fwd Exam Comprehensive Diagnoses Acute respiratory failure due to COVID-19 U07.1; J96.00 Sepsis A41.9 Shock R57.9 COVID-19 U07.1 Acute kidney injury N17.9 Hyperkalemia E87.5 Yeast species isolated but not further identified B37.9 Hyponatremia E87.1 Hypertension I10 Hypertension type: essential hypertension Diarrhea R19.7 Elevated WBC count D72.829 Leukocytosis type: unspecified
[2021-07-15] MEDS: fluconazole premix 100 MG in empty flexible container 1 EACH 50 MG IV (17:25)
--- NOTE | 2021-07-15 21:09 | PM.PN ---
Subjective Subjective: Interval history: -Patient seen at bedside today multiple times -Tolerated awakening trial of breathing trial-extubated to BiPAP -Appears drowsy and weak and intermittent tachypnea -Labs and imaging reviewed Medications: Reviewed: Yes Vitals/I&O/Wt Last Vital Signs Temp 98.4 F 07/15/21 14:00 Pulse 89 07/15/21 20:36 Resp 17 07/15/21 20:02 BP 146/93 07/15/21 19:00 Pulse Ox 95 07/15/21 20:36 07/15/21 07/15/21 07/15/21 06:59 14:59 22:59 Intake Total 419.129 / 1258.274 82.633 / 82.633 254 / 336.633 Output Total 1050 / 2300 1250 / 1250 900 / 2150 Balance -630.871 / -1041.726 -1167.367 / -1167.367 -646 / -1813.367 Weight last 48 hrs Weight 221 lb 1 oz Physical Exam Narrative: EXAM NARRATIVE: General: lying in bed, extubated to BiPAP HEENT:NCAT, PERRLA, EOMI Neck: Supple Lungs: Bilateral diffuse crackles Heart: s1/s2, RRR Abd: soft, NT, ND, BS + Normoactive Extremities: No edema LINE MAINTAINER SECTION: Appears weak, following commands SKIN: no rash Urinary Catheter Management^: Barnes: Cath Placed During This Visit: yes Reason for Continuing Indwelling Catheter: Accurate Measurement of Urinary Output in Critically Ill Patients Urinary Catheter Date of Insertion: 07/03/21 Urinary Catheter Time of Insertion: 07:56 Data : 07/15/21 04:41 07/15/21 04:41 Other Labs: Laboratory Results WBC 13.7 10^3/uL (4.0-10.0) H 07/15/21 04:41 RBC 4.03 10^6/uL (4.1-5.3) L 07/15/21 04:41 Hgb 11.6 g/dL (11.7-16.6) L 07/15/21 04:41 Hct 37.1 % (42.0-52.0) L 07/15/21 04:41 MCV 92.1 fl (80-94) 07/15/21 04:41 MCH 28.8 pg (28.0-34.0) 07/15/21 04:41 MCHC 31.3 g/dL (30.0-36.0) 07/15/21 04:41 RDW 15.4 % (12.1-15.1) H 07/15/21 04:41 Plt Count 244 10^3/cmm (130-400) 07/15/21 04:41 MPV 9.9 fL (7.4-10.4) 07/15/21 04:41 Neut % (Auto) 67.8 % 07/15/21 04:41 Lymph % (Auto) 7.4 % 07/15/21 04:41 [place] % (Auto) 8.3 % 07/15/21 04:41 Eos % (Auto) 12.3 % 07/15/21 04:41 Baso % (Auto) 0.8 % 07/15/21 04:41 Neut # (Auto) 9.31 10^3/uL (1.8-7.7) H 07/15/21 04:41 Lymph # (Auto) 1.0 10^3/uL (0.8-4.8) 07/15/21 04:41 Morton # (Auto) 1.1 10^3/uL (0.2-0.9) H 07/15/21 04:41 Eos # (Auto) 1.7 10^3/uL (0.0-0.8) H 07/15/21 04:41 Baso # (Auto) 0.1 10^3/uL (0.0-0.1) 07/15/21 04:41 Nucleated RBC % (auto) 0 % 07/15/21 04:41 Total Counted 100 (0-100) 07/10/21 08:22 Atypical Lymphs % 6.0 % (0-5) H 07/10/21 08:22 Absolute Neutrophils 18.3 10^3/cmm (1.4-6.5) H 07/10/21 08:22 Segmented Neutrophils 71 % 07/10/21 08:22 Abs Segm Neuts (Man) 17.8 10/cmm (1.6-7.1) H 07/10/21 08:22 Band Neutrophils 2.0 % 07/10/21 08:22 Abs Band Neuts (Man) 0.5 10^3/cmm (0.0-1.2) 07/10/21 08:22 Absolute Lymphocytes 3.5 10^3/cmm (1.2-3.4) H 07/10/21 08:22 Lymphocytes (Manual) 8 % 07/10/21 08:22 Monocytes (Manual) 3.0 % 07/10/21 08:22 Absolute Monocytes 0.8 10^3/cmm (0.1-0.6) H 07/10/21 08:22 Eosinophils (Manual) 0 % 07/10/21 08:22 Absolute Eosinophils 0.0 10^3/cmm (0.0-0.7) 07/10/21 08:22 Basophils (Manual) 0.0 % 07/10/21 08: Absolute Basophils 0.0 10^3/cmm (0.0-0.2) 07/10/21 08: Metamyelocytes 10.0 % 07/10/21 08: Nucleated RBCs # 0.0 /100WBC 07/15/21 04:41 Platelet Estimate Normal (Normal) 07/10/21 08:22 D-Dimer 9.35 ug/mIFEU (0-0.59) H 07/07/21 14:31 Specimen Type Arterial 07/14/21 04:10 Sample Site Radial, right 07/14/21 04:10 ABG pH 7.37 (7.35-7.45) 07/14/21 04:10 ABG pCO2 44.5 mmHg (35-45) 07/14/21 04:10 ABG pO2 91.0 mmHg (80.0-100.0) 07/14/21 04:10 ABG HCO3 25.4 mmol/L (22-26) 07/14/21 04:10 ABG O2 Saturation 96.6 07/13/21 10:47 ABG Base Excess -0.2 mmol/L (-2.0-2.0) 07/14/21 04:10 Gato Test Pos 07/14/21 04:10 A-a O2 Gradient 15.1 mmHg (5-10) H 07/13/21 10:47 Hematocrit 38.2 % (42-52) L 07/14/21 04:10 Hgb O2 Saturation 94.9 % (95-100) L 07/13/21 10:47 Carboxyhemoglobin 1.3 %THgb (0.4-20.1) 07/13/21 10:47 Methemoglobin 0.4 % (0.4-1.5) 07/13/21 10:47 Total Hemoglobin 11.6 g/dL (14-18) L 07/13/21 10:47 Sodium 145.0 mmol/L (131-143) H 07/13/21 10:47 Potassium 5.0 mmol/L (3.5-5.0) 07/13/21 10:47 Glucose 127.0 mg/dL (70-115) H 07/13/21 10:47 Ionized Calcium 1.2 mmol/L (1.1-1.4) 07/13/21 10:47 O2 Delivery Device Vent 07/14/21 04:10 O2 Liters/Min 3.0 % 06/26/21 12:40 FiO2 35.0 % 07/14/21 04:10 Tidal Volume 0.45 07/13/21 10:47 PEEP 10.0 cmH20 07/14/21 04:10 Armature Straightener ID Hinja 07/14/21 04:10 Sodium 148 mmol/L (136-145) H 07/15/21 04:41 Potassium 4.3 mmol/L (3.5-5.1) 07/15/21 04:41 Chloride 113 mmol/L (98-107) H 07/15/21 04:41 Carbon Dioxide 25 mmol/L (22-29) 07/15/21 04:41 Anion Gap 14.3 (5-19) 07/15/21 04:41 BUN 75 mg/dL (6-20) H 07/15/21 04:41 Creatinine 1.8 mg/dL (0.7-1.2) H 07/15/21 04:41 GFR Calculation 39.8 mL/min (90-130) L 07/15/21 04:41 Glucose 104 mg/dL (65-115) 07/15/21 04:41 Calculated Osmolality 329 mOsm/kg (285-295) H 07/15/21 04:41 Lactic Acid 2.2 mmol/L (0.5-2.2) 06/26/21 13:08 Lactic Acid (Sepsis) 1.1 mmol/L (0.5-2.2) 06/26/21 17:10 Lactate 1.5 mmol/L (0.5-2.2) 07/05/21 06:05 Calcium 7.9 mg/dL (8.5-10.5) L 07/15/21 04:41 Phosphorus 3.4 mg/dL (2.5-4.5) 07/07/21 03:12 Magnesium 3.1 mg/dL (1.7-2.3) H 07/14/21 10:05 Ferritin 1137 ng/mL (30-400) H 06/30/21 06:32 Total Bilirubin 0.5 mg/dL (0.15-1.2) 07/15/21 04:41 AST 46 U/L (0-40) H 07/15/21 04:41 ALT 34 U/L (0-41) 07/15/21 04:41 Alkaline Phosphatase 106 IU/L (40-130) 07/15/21 04:41 Ammonia 61 umol/L (16-60) H 07/13/21 18:19 Creatine Kinase 648 U/L (39-308) H* 07/11/21 02:00 Troponin T Baseline 11 ng/L (0-15) 06/26/21 13:08 Troponin T 120 Minute 10.43 ng/L (0-15) 06/26/21 14:26 Delta Troponin T -0.57 ABS# (0-10) L 06/26/21 14:26 Troponin T Hi Sens 6Hr 9.82 ng/L (0-15) 06/26/21 18:40 Troponin T Hi Sens 6Hr Delta -1.18 ng/L (0-12) L 06/26/21 18:40 C-Reactive Protein 4.0 mg/L (0.0-4.9) 07/02/21 05:47 NT-Pro-B Natriuret Pep 65 pg/mL (0-125) 06/26/21 13:08 Total Protein 5.3 g/dL (6.6-8.7) L 07/15/21 04:41 Albumin 3.2 g/dL (3.5-5.2) L 07/15/21 04:41 Globulin 2.1 g/dL (1.3-4.6) 07/15/21 04:41 Procalcitonin 0.32 ng/mL (0-0.5) 07/05/21 06:05 Random Cortisol 0.70 ug/dL (2.47-19.5) L 07/11/21 14:35 Urine Color Dark yellow (Yellow) 07/07/21 23:04 Urine Appearance Hazy (CLEAR) A 07/07/21 23:04 Urine pH 5 (5-7) 07/07/21 23:04 Ur Specific [place] 1.020 (1.005-1.030) 07/07/21 23:04 Urine Protein Trace (Negative) 07/07/21 23:04 Urine Glucose (UA) Norm (Normal) 07/07/21 23:04 Urine Ketones Negative (Negative) 07/07/21 23:04 Urine Blood 3+ (Negative) H 07/07/21 23:04 Urine Nitrate Negative (Negative) 07/07/21 23:04 Urine Bilirubin Neg (Negative) 07/07/21 23:04 Urine Urobilinogen Norm mg/dL (Negative) 07/07/21 23:04 Ur Leukocyte Esterase Negative (Negative) 07/07/21 23:04 Urine RBC >100 /hpf (0-2) H 07/07/21 23:04 Urine WBC 0-4 /hpf (0-5) H 07/07/21 23:04 Ur Squamous Epith Cells 0-4 /hpf (0-5) H 07/07/21 23:04 Uric Acid Crystals 15-25 /hpf H 07/07/21 23:04 Amorphous Sediment 3+ /hpf 07/07/21 23:04 Urine Bacteria Trace /hpf (NONE) 07/07/21 23:04 Ur Random Sodium 22 mmol/L 07/07/21 23:04 Ur Random Potassium 19 mmol/L 07/07/21 23:04 Ur Random Chloride < 10 mmol/L 07/07/21 23:04 Urine Creatinine 140 mg/dL (39-259) 07/07/21 23:04 Impressions Chest CTA 07/01/21 12:32 IMPRESSION: 1. No pulmonary embolism. 2. Pneumomediastinum and pneumopericardium. 3. Diffuse multilobar areas of groundglass attenuation and developing areas of consolidation at the lung bases from Covid 19. 4. Mediastinal and hilar lymphadenopathy may be reactive. Notified Loki Kc MD at 07/01/2021 3:53 PM. Was unable to contact Dr. Kc with this report. Also attempted to speak to patient's nurse but was unsuccessful. Abdomen/Pelvis CT 07/05/21 12:00 IMPRESSION: 1. Currently no visible evidence for acute abdominal or pelvic pathologic process. 2. Mild diverticulosis coli without visible evidence for acute diverticulitis. 3. Liquid stool within the colon. No findings to suggest the presence of either inflammatory or infectious colitis, however. 4. Barnes catheter within a decompressed urinary bladder. Free air within the lumen the urinary bladder. Cannot differentiate iatrogenic introduction from gas producing organism from acute cystitis. 5. Pneumonitis/pneumonia lung bases. Findings would be consistent with Covid-19 pneumonitis/pneumonia. 6. Other nonurgent/nonemergent related findings as detailed in text above. COMMENTS: Consistent with the [employer]'s Incidental Findings Committee white paper (J Am Sage [employer]iol 2018): Any incidental renal lesion less than 1 cm or classified as too small to characterize, or any incidental cystic renal lesion characterized as simple-appearing, is likely benign. No follow-up imaging is recommended for these lesions per consensus recommendations based on imaging criteria. Radiation Dose CTDIVOL = (mGy): DLP = 2016.78 (mGy-cm) Chest X-Ray 07/15/21 07:05 IMPRESSION: 1. Tubes and catheters are unchanged from the prior exam. 2. Bilateral pulmonary opacities are again noted and appear unchanged. Micro: Microbiology 07/14/21 09:59 C.difficile Toxin B Gene (PCR) - Final Stool - Stool Aspirate Occult Blood (FIT) - Final A&P Assessment and plan (1) ARDS (adult respiratory distress syndrome): Status: Acute (2) Acute respiratory failure due to COVID-19: Status: Acute (3) Acute kidney injury: Status: Acute (4) Delirium: Status: Acute (5) Elevated WBC count: Status: Acute Qualifiers: Leukocytosis type: unspecified Qualified Code(s): D72.829 - Elevated white blood cell count, unspecified (6) Yeast species isolated but not further identified: Status: Acute (7) COVID-19: Status: Acute (8) Elevated WBC count: Status: Resolved Qualifiers: Leukocytosis type: unspecified Qualified Code(s): D72.829 - Elevated white blood cell count, unspecified (9) Hyperkalemia: Status: Acute -Initially extubated on 07/10/2021 patient was extremely anxious and combative, on max dose Precedex drip, pulling of his high flow nasal cannula and desaturating into the 70s-got reintubated same day night 07/10/2021 -Today appeared more awake and following commands-extubated BiPAP 50% - off pressors, continue precedex 0.7, fentanyl 25 MCG/hour and slowly taper -Also placed on fentanyl 25 MCG transdermal patch, Ativan 2 mg every 4 hours as needed -Fentanyl 25 MCG transdermal patch applied for opiate withdrawal and on Seroquel 100 mg p.o. twice daily -Chest x-ray 07/09/2021: No change in patchy bilateral pulmonary opacities - CTA 07/01/21:No PE; Pneumomediatinum and Pneumopericardium ; venous doppler negative for DVT which are consistent with interstitial viral pneumonia. No evidence of pneumomediastinum or pneumothorax - s/p 10 day dexamethasone 6 mg ivp carissa for 10 days; s/p 5 day remdesivir and Tocilizumab x 2 doses -Currently on dexamethasone 3 mg IV daily - Duoneb q 6 hr carissa; pulmicort nebs, - monitor inflammatory markers q 48 hrs -LEANNE likely due to COVID-19 pneumonia-renal functions-improving - I/O/N -1.1 L last 24 hours/ - 2.7 L cc since admission -LFTs normalized; ammonia 61-lactulose 10 mg p.o. 3 times daily - sugars controlled - afebrile ; wbc decreasing 13 K; - CT abd/pelvis 07/05/21: no visible evidence for acute abdominal or pelvic pathologic process. - so far cultures, MRSA Nares, bacterial antigens negative; low procal -Off antibiotics -Sputum positive for yeast species-identification pending; on fluconazole until final results available - PPI for gi ppx; Colace 100 mg p.o. twice daily -Noted melena-stool occult negative, C. difficile PCR negative second time, normal hemoglobin hematocrit - Lovenox for DVT ppx - Feeding, jevity recommendations conveyed to hospitalist, RN and RT covering the pt. Attestations Medical Necessity Statement*: Continue admission for hypoxic respiratory failure with severe COVID-19, ARDS, acute kidney injury, leukocytosis. Time Spent in Patient Care: Greater than 35 minutes (>than 50% of time spent in counselling and/or direct pt care on unit). Critical Care Time: The high probability of a clinically significant, sudden or life threatening deterioration of the patient's [respiratory, infectious, renal, ] system(s) required my full and direct attention, intervention and personal management. The critical care time is as shown. 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
[2021-07-16] VITALS (45 sets, daily range): BP systolic 100–166; BP diastolic 70–100; PULSE 82–111; RESP 12–36; TEMP 36.6–36.9; O2SAT 87–100
[2021-07-16] MEDS: dexmedetomidine 400 MCG in sodium chloride 0.9% (100 ml) 100 ML 18.5 MCG IV ×4 (02:10→21:11)
[2021-07-16] MEDS: ipratropium-albuterol 3 mL Neb INHALATION ×5 (03:00→20:27)
--- NOTE | 2021-07-16 04:00 | XR_ITS ---
WS: [id number] Portable AP upright chest, 07/16/2021 Clinical Data: PNEUMONIA Comparison: Portable chest, 07/15/2021 Findings: The endotracheal tube and nasogastric tube are no longer present. The left internal jugular venous catheter ends in the superior vena cava. The bilateral pulmonary opacities are not changed. T he heart is slightly enlarged. Monitor leads are on the chest wall. XR/XR chest 1V portable [id number] Impression: 1. Removal of endotracheal tube and nasogastric tube. 2. No change in bilateral pulmonary opacities.
[2021-07-16 04:20] LABS: Basophils # 0.1 10^3/uL (0.0-0.1); Basophils % 0.5 %; Eosinophils # 1.7 10^3/uL (0.0-0.8); Eosinophils % 12.1 %; Hematocrit 37.7 % (42.0-52.0); Hemoglobin 11.4 g/dL (11.7-16.6); Lymphocytes % 7.1 %; Mean Corpuscular HGB Conc 30.2 g/dL (30.0-36.0); Mean Corpuscular Volume 92.6 fl (80-94); Mean Platelet Volume 9.6 fL (7.4-10.4); Monocytes # 1.2 10^3/uL (0.2-0.9); Monocytes % 8.7 %; Neutrophils # 9.57 10^3/uL (1.8-7.7); Neutrophils % 69.6 %; Nucleated Red Blood Cells % 0 %; Platelet Count 213 10^3/cmm (130-400); Red Blood Count 4.07 10^6/uL (4.1-5.3); Red Cell Distribution Width 15.1 % (12.1-15.1); White Blood Count 13.8 10^3/uL (4.0-10.0)
[2021-07-16 04:24] LABS: ABG PCO2 40.3 mmHg (35-45); ABG PH Result 7.42 (7.35-7.45); Alveolar-Arterial Oxygen Gradi 22.3 mmHg (5-10); Arterial Blood Gas Hematocrit 37.8 % (42-52); Base Excess ABG 1.3 mmol/L (-2.0-2.0); Blood Gas Allen Test Pos; Blood Gas Operator Identificat JB; Blood Gas Sample Site Radial, right; Blood Gas Sample Type Arterial; Carboxyhemoglobin 1.4 %THgb (0.4-20.1); HCO3 ABG 25.9 mmol/L (22-26); HGB O2 Sat 90.7 % (95-100); Ionized Calcium Level - ABG 1.2 mmol/L (1.1-1.4); Methemoglobin 1.1 % (0.4-1.5); Oxygen Device BIPAP; Oxygen Saturation ABG 93.1; PO2 ABG 63.5 mmHg (80.0-100.0); Potassium Level - ABG 4.2 mmol/L (3.5-5.0); Total Hemoglobin 12.3 g/dL (14-18)
[2021-07-16 04:37] LABS: Alanine Aminotransferase 29 U/L (0-41); Albumin Level 3.3 g/dL (3.5-5.2); Alkaline Phosphatase 96 IU/L (40-130); Anion Gap 14.4 (5-19); Aspartate Amino Transferase 45 U/L (0-40); Blood Urea Nitrogen 62 mg/dL (6-20); Carbon Dioxide 26 mmol/L (22-29); Chloride 117 mmol/L (98-107); Globulin 2.2 g/dL (1.3-4.6); Glomerular Filtration Rate 53.2 mL/min (90-130); Glucose 98 mg/dL (65-115); Osmolality Calculated 334 mOsm/kg (285-295); Potassium 4.4 mmol/L (3.5-5.1); Sodium 153 mmol/L (136-145); Total Bilirubin 0.5 mg/dL (0.15-1.2); Total Protein 5.5 g/dL (6.6-8.7)
[2021-07-16 04:40] LABS: Ammonia 34 umol/L (16-60)
[2021-07-16] MEDS: dexamethasone 4 mg/mL INJ 3 MG IVP (06:01)
[2021-07-16] MEDS: dextrose 5% 1,000 ML 75 ML IV (07:18)
--- NOTE | 2021-07-16 07:28 | PC.NURSE ---
Shift Note Frequent safety and comfort rounds continue. Orders and/or nursing care completed as indicated. Patient monitored for response to intervention and treatment(s). Education provided includes anxiety management. Patient and/or sales representative facility services verbalized understanding but needs reinforcement. Will continue to monitor.
[2021-07-16] MEDS: budesonide 0.5 mg/2 mL Neb INHALATION ×2 (08:00→20:27)
[2021-07-16] MEDS: enoxaparin 40 mg/0.4 mL Syringe SUBCUT (09:14)
[2021-07-16] MEDS: pantoprazole 40 mg SDV IVP (09:14)
[2021-07-16] MEDS: docusate sodium 100 mg Capsule PO ×2 (09:14→17:39)
[2021-07-16] MEDS: quetiapine 100 mg Tablet PO ×2 (09:14→17:39)
[2021-07-16 12:34] LABS: Anion Gap 15.4 (5-19); Blood Urea Nitrogen 61 mg/dL (6-20); Calcium 8.6 mg/dL (8.5-10.5); Carbon Dioxide 25 mmol/L (22-29); Chloride 113 mmol/L (98-107); Glomerular Filtration Rate 53.2 mL/min (90-130); Glucose 122 mg/dL (65-115); Osmolality Calculated 327 mOsm/kg (285-295); Potassium 4.4 mmol/L (3.5-5.1); Sodium 149 mmol/L (136-145)
--- NOTE | 2021-07-16 13:48 | PC.NURSE ---
Noted labored breathing Labored breathing noted with restlessness. this nurse at bedside. encouraging deep breathing and remaining calm. RT at bedside increasing HHF from 40 to 50% fio2. after increase in spo2 fio2 decreased to 45% per RT. will closely monitor.
--- NOTE | 2021-07-16 15:13 | PC.RESP ---
RT Shift Note Frequent safety and respiratory rounds continue. Orders completed as indicated. Patient monitored pre and post treatments throughout shift. Patient [Did.] tolerate treatments appropriately. Condition [.DidNotChange]. Patient and/or sales support representative educated on respiratory treatment and medications. Patient and/or sales support representative [verbalized understanding, ]. Will continue to monitor patient progress.
--- NOTE | 2021-07-16 15:51 | P.PN_ITS ---
Subjective Subjective: Interval history: States he feels well. Denies any new problems today. Denies having any excessive cough. Denies chest pain pressure. No nausea or vomiting, no diarrhea. Has been feeling very thirsty. He tried to work with physical therapy today, tried to sit at the edge of the bed, became easily very tired, with associated decrease in oxygen saturation. Vitals/I&O/Wt Last Vital Signs Temp 98.0 F 07/16/21 07:00 Pulse 84 07/16/21 15:13 Resp 17 07/16/21 15:13 BP 132/93 07/16/21 12:00 Pulse Ox 94 07/16/21 15:13 07/16/21 07/16/21 07/16/21 06:59 14:59 22:59 Intake Total 204 / 540.633 806.167 / 806.167 Output Total 850 / 3000 Balance -646 / -2459.367 806.167 / 806.167 Weight last 48 hrs Weight 96.162 kg Physical Exam Const: COMMON NORMALS: no acute distress and alert EXAM LIMITATIONS: physical limitations and other limitations GENERAL APPEARANCE: cooperative ORIENTATION/CONSCIOUSNESS: Yes awake OTHER: Awake, alert, follows commands, interactive. HENMT: COMMON NORMALS: oropharynx normal Neck/C-Spine: COMMON NORMALS: no JVD Resp: COMMON NORMALS: normal respiratory effort and clear to auscultation bilaterally AUSCULTATION: clear to auscultation bilaterally OTHER: HHF on. Cardio: COMMON NORMALS: no JVD, regular rhythm, S1 normal heart sound present, S2 normal heart sound present and No murmurs present (Cardio) RHYTHM: regular rhythm HEART SOUNDS: S1 normal heart sound present and S2 normal heart sound present GI: COMMON NORMALS: Normal to inspection, nondistended, normoactive bowel sounds present, Soft to palpation and non-tender PALPATION: Yes Soft to palpation Extremity: COMMON NORMALS: no joint enlargement and no pedal edema Neuro: COMMON NORMALS: moves all extremities SENSORIUM/ORIENTATION: Yes alert Skin: COMMON NORMALS: no rashes or lesions noted GENERAL SKIN EXAM: no rashes or lesions noted Urinary Catheter Management^: Barnes: Cath Placed During This Visit: yes Reason for Continuing Indwelling Catheter: Accurate Measurement of Urinary Output in Critically Ill Patients Urinary Catheter Date of Insertion: 07/03/21 Urinary Catheter Time of Insertion: 07:56 Data : 07/16/21 03:54 07/16/21 12:00 A&P Assessment and plan (1) Acute respiratory failure due to COVID-19: Extubated. So far no signs of quite a respiratory distress he had last time after extubation, however, he is noted to be desaturating very easily, saturation dropping to 70s, as such for now continues to be monitored in ICU closely. Continue H HF support. Wean down as tolerating. Initiated PT, OT, with very limited exertional tolerance. Discussed with him will need prolonged rehabilitation. Appears likely also need prolonged weaning off oxygen support. Resume I-S, flutter valve. Continues on taper down dose of dexamethasone. Status: Acute (2) Sepsis: Sepsis so far has resolved. Has been taken off antibiotics. WBC count has been improving. Pending flow cytometry due to concern for possible leukemoid reaction. Continues on fluconazole due to yeast noted in sputum. C. difficile 07/14 -ve. Status: Acute (3) Shock: Resolved. Status: Acute (4) COVID-19: As above. Status: Acute (5) Acute kidney injury: Continues to gradually improve in terms of creatinine. Today worsening hypernatremia with noted large urine output, suspected in diuretic phase of recovery. Clear liquid diet trial today. Transiently received D5W with improvement in sodium down to 149. Continue to monitor HEATHER, fluid balance, sodium. Continues to improve. Monitor volume status, I&O as he appears may be in diuretic phase. BUN better. Hemoccult negative. C. difficile negative. Status: Acute (6) Hyperkalemia: Potassium better Status: Acute (7) Yeast species isolated but not further identified: On the sputum culture from repeat intubation on July 09. Fluconazole Status: Acute (8) Hyponatremia: Resolved. Status: Acute (9) Hypertension: At goal Status: Acute Qualifiers: Hypertension type: essential hypertension Qualified Code(s): I10 - Essential (primary) hypertension (10) Diarrhea: Repeat C diff negative Status: Acute (11) Elevated WBC count: Follow-up flow cytometry for assessment possible leukemoid reaction. Repeat C. difficile. Status: Resolved Qualifiers: Leukocytosis type: unspecified Qualified Code(s): D72.829 - Elevated white blood cell count, unspecified Additional A&P Information Case discussed with crew member. Attestations Medical Necessity Statement*: Continue weaning off high oxygen support, mobilize with physical therapy secondary to severe deconditioning, monitor for dehydration with polyuria with improving acute kidney injury. Hypernatremia. Disposition planning. 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
--- NOTE | 2021-07-16 17:34 | PC.NURSE ---
fentanyl 42 mL wasted with Kimmie HARRISON.
[2021-07-16] MEDS: fluconazole premix 100 MG in empty flexible container 1 EACH 50 MG IV (17:39)
[2021-07-16] MEDS: LORazepam 2 mg/mL INJ 1 mL 1 MG IVP (18:08)
--- NOTE | 2021-07-16 18:21 | NUR.SHIFT ---
Shift Note Frequent safety and comfort rounds continue. Orders and/or nursing care completed as indicated. Patient monitored for response to intervention and treatment(s). Patient worked with physical therapy today and was able to sit on the side the bed for a very short time before. Today required frequent deep breathing encouragement and relaxation techniques. remained at bedside during the majority of the day. Advanced diet to clear liquids and encouraged PO intake. Peripheral iv started via ultrasound to the left forearm. Central line removed from the left IJ. Pt tolerated well. Education provided includes plan of care and treatment goals as well as physical therapy activities.. Patient and/or floor representative verbalized understanding. Will continue to monitor. Patient was on 45% HHF and returned to bipap after dinner this evening per RT.
--- NOTE | 2021-07-16 22:01 | PM.PN ---
Subjective Subjective: Interval history: -Patient seen at bedside today -Successfully extubated yesterday to high flow 45 L and 45% -Follows commands and communicates-but appears extremely weak -Has episodes of tachypnea and requires Ativan 1 mg as needed -Already on Seroquel 100 mg p.o. twice daily and fentanyl patch and Precedex 0.7 gtt. for withdrawal and anxiety -Labs and imaging reviewed Medications: Reviewed: Yes Vitals/I&O/Wt Last Vital Signs Temp 97.9 F 07/16/21 16:00 Pulse 88 07/16/21 20:30 Resp 17 07/16/21 20:27 BP 133/92 07/16/21 20:00 Pulse Ox 96 07/16/21 20:30 07/16/21 07/16/21 07/16/21 06:59 14:59 22:59 Intake Total 204 / 540.633 806.167 / 841.519 9209 / 2160.167 Output Total 850 / 3000 1525 / 1525 Balance -646 / -2459.367 806.167 / 806.167 -171 / 635.167 Weight last 48 hrs Weight 212 lb Physical Exam Narrative: EXAM NARRATIVE: General: lying in bed, currently on high flow nasal cannula HEENT:NCAT, PERRLA, EOMI Neck: Supple Lungs: Bilateral diffuse crackles-improved Heart: s1/s2, RRR Abd: soft, NT, ND, BS + Normoactive Extremities: No edema MAKE UP OPERATOR: Appears weak, following commands SKIN: no rash Urinary Catheter Management^: Barnes: Cath Placed During This Visit: yes Reason for Continuing Indwelling Catheter: Accurate Measurement of Urinary Output in Critically Ill Patients Urinary Catheter Date of Insertion: 07/03/21 Urinary Catheter Time of Insertion: 07:56 Data : 07/16/21 03:54 07/16/21 12:00 Other Labs: Laboratory Results WBC 13.8 10^3/uL (4.0-10.0) H 07/16/21 03:54 RBC 4.07 10^6/uL (4.1-5.3) L 07/16/21 03:54 Hgb 11.4 g/dL (11.7-16.6) L 07/16/21 03:54 Hct 37.7 % (42.0-52.0) L 07/16/21 03:54 MCV 92.6 fl (80-94) 07/16/21 03:54 MCH 28.0 pg (28.0-34.0) 07/16/21 03:54 MCHC 30.2 g/dL (30.0-36.0) 07/16/21 03:54 RDW 15.1 % (12.1-15.1) 07/16/21 03:54 Plt Count 213 10^3/cmm (130-400) 07/16/21 03:54 MPV 9.6 fL (7.4-10.4) 07/16/21 03:54 Neut % (Auto) 69.6 % 07/16/21 03:54 Lymph % (Auto) 7.1 % 07/16/21 03:54 [place] % (Auto) 8.7 % 07/16/21 03:54 Eos % (Auto) 12.1 % 07/16/21 03:54 Baso % (Auto) 0.5 % 07/16/21 03:54 Neut # (Auto) 9.57 10^3/uL (1.8-7.7) H 07/16/21 03:54 Lymph # (Auto) 1.0 10^3/uL (0.8-4.8) 07/16/21 03:54 [place] # (Auto) 1.2 10^3/uL (0.2-0.9) H 07/16/21 03:54 Eos # (Auto) 1.7 10^3/uL (0.0-0.8) H 07/16/21 03:54 Baso # (Auto) 0.1 10^3/uL (0.0-0.1) 07/16/21 03:54 Nucleated RBC % (auto) 0 % 07/16/21 03:54 Total Counted 100 (0-100) 07/10/21 08:22 Atypical Lymphs % 6.0 % (0-5) H 07/10/21 08:22 Absolute Neutrophils 18.3 10^3/cmm (1.4-6.5) H 07/10/21 08:22 Segmented Neutrophils 71 % 07/10/21 08:22 Abs Segm Neuts (Man) 17.8 10/cmm (1.6-7.1) H 07/10/21 08:22 Band Neutrophils 2.0 % 07/10/21 08:22 Abs Band Neuts (Man) 0.5 10^3/cmm (0.0-1.2) 07/10/21 08:22 Absolute Lymphocytes 3.5 10^3/cmm (1.2-3.4) H 07/10/21 08:22 Lymphocytes (Manual) 8 % 07/10/21 08:22 Monocytes (Manual) 3.0 % 07/10/21 08: Absolute Monocytes 0.8 10^3/cmm (0.1-0.6) H 07/10/21 08:22 Eosinophils (Manual) 0 % 07/10/21 08: Absolute Eosinophils 0.0 10^3/cmm (0.0-0.7) 07/10/21 08: Basophils (Manual) 0.0 % 07/10/21 08: Absolute Basophils 0.0 10^3/cmm (0.0-0.2) 07/10/21 08: Metamyelocytes 10.0 % 07/10/21 08: Nucleated RBCs # 0.0 /100WBC 07/16/21 03:54 Platelet Estimate Normal (Normal) 07/10/21 08:22 D-Dimer 9.35 ug/mIFEU (0-0.59) H 07/07/21 14:31 Specimen Type Arterial 07/16/21 04:10 Sample Site Radial, right 07/16/21 04:10 ABG pH 7.42 (7.35-7.45) 07/16/21 04:10 ABG pCO2 40.3 mmHg (35-45) 07/16/21 04:10 ABG pO2 63.5 mmHg (80.0-100.0) L 07/16/21 04:10 ABG HCO3 25.9 mmol/L (22-26) 07/16/21 04:10 ABG O2 Saturation 93.1 07/16/21 04:10 ABG Base Excess 1.3 mmol/L (-2.0-2.0) 07/16/21 04:10 Gato Test Pos 07/16/21 04:10 A-a O2 Gradient 22.3 mmHg (5-10) H 07/16/21 04:10 Hematocrit 37.8 % (42-52) L 07/16/21 04:10 Hgb O2 Saturation 90.7 % (95-100) L 07/16/21 04:10 Carboxyhemoglobin 1.4 %THgb (0.4-20.1) 07/16/21 04:10 Methemoglobin 1.1 % (0.4-1.5) 07/16/21 04:10 Total Hemoglobin 12.3 g/dL (14-18) L 07/16/21 04:10 Sodium 155.0 mmol/L (131-143) H 07/16/21 04:10 Potassium 4.2 mmol/L (3.5-5.0) 07/16/21 04:10 Glucose 98.0 mg/dL (70-115) 07/16/21 04:10 Ionized Calcium 1.2 mmol/L (1.1-1.4) 07/16/21 04:10 O2 Delivery Device Bipap 07/16/21 04:10 O2 Liters/Min 3.0 % 06/26/21 12:40 FiO2 40.0 % 07/16/21 04:10 Tidal Volume 0.45 07/13/21 10:47 PEEP 10.0 cmH20 07/14/21 04:10 Milk Tanker Driver ID Marcelino 07/16/21 04:10 Sodium 149 mmol/L (136-145) H 07/16/21 12:00 Potassium 4.4 mmol/L (3.5-5.1) 07/16/21 12:00 Chloride 113 mmol/L (98-107) H 07/16/21 12:00 Carbon Dioxide 25 mmol/L (22-29) 07/16/21 12:00 Anion Gap 15.4 (5-19) 07/16/21 12:00 BUN 61 mg/dL (6-20) H 07/16/21 12:00 Creatinine 1.4 mg/dL (0.7-1.2) H 07/16/21 12:00 GFR Calculation 53.2 mL/min (90-130) L 07/16/21 12:00 Glucose 122 mg/dL (65-115) H 07/16/21 12:00 Calculated Osmolality 327 mOsm/kg (285-295) H 07/16/21 12:00 Lactic Acid 2.2 mmol/L (0.5-2.2) 06/26/21 13:08 Lactic Acid (Sepsis) 1.1 mmol/L (0.5-2.2) 06/26/21 17:10 Lactate 1.5 mmol/L (0.5-2.2) 07/05/21 06:05 Calcium 8.6 mg/dL (8.5-10.5) 07/16/21 12:00 Phosphorus 3.4 mg/dL (2.5-4.5) 07/07/21 03:12 Magnesium 3.1 mg/dL (1.7-2.3) H 07/14/21 10:05 Ferritin 1137 ng/mL (30-400) H 06/30/21 06:32 Total Bilirubin 0.5 mg/dL (0.15-1.2) 07/16/21 03:54 AST 45 U/L (0-40) H 07/16/21 03:54 ALT 29 U/L (0-41) 07/16/21 03:54 Alkaline Phosphatase 96 IU/L (40-130) 07/16/21 03:54 Ammonia 34 umol/L (16-60) 07/16/21 03:54 Creatine Kinase 648 U/L (39-308) H* 07/11/21 02:00 Troponin T Baseline 11 ng/L (0-15) 06/26/21 13:08 Troponin T 120 Minute 10.43 ng/L (0-15) 06/26/21 14:26 Delta Troponin T -0.57 ABS# (0-10) L 06/26/21 14:26 Troponin T Hi Sens 6Hr 9.82 ng/L (0-15) 06/26/21 18:40 Troponin T Hi Sens 6Hr Delta -1.18 ng/L (0-12) L 06/26/21 18:40 C-Reactive Protein 4.0 mg/L (0.0-4.9) 07/02/21 05:47 NT-Pro-B Natriuret Pep 65 pg/mL (0-125) 06/26/21 13:08 Total Protein 5.5 g/dL (6.6-8.7) L 07/16/21 03:54 Albumin 3.3 g/dL (3.5-5.2) L 07/16/21 03:54 Globulin 2.2 g/dL (1.3-4.6) 07/16/21 03:54 Procalcitonin 0.32 ng/mL (0-0.5) 07/05/21 06:05 Random Cortisol 0.70 ug/dL (2.47-19.5) L 07/11/21 14:35 Urine Color Dark yellow (Yellow) 07/07/21 23:04 Urine Appearance Hazy (CLEAR) A 07/07/21 23:04 Urine pH 5 (5-7) 07/07/21 23:04 Ur Specific [place] 1.020 (1.005-1.030) 07/07/21 23:04 Urine Protein Trace (Negative) 07/07/21 23:04 Urine Glucose (UA) Norm (Normal) 07/07/21 23:04 Urine Ketones Negative (Negative) 07/07/21 23:04 Urine Blood 3+ (Negative) H 07/07/21 23:04 Urine Nitrate Negative (Negative) 07/07/21 23:04 Urine Bilirubin Neg (Negative) 07/07/21 23:04 Urine Urobilinogen Norm mg/dL (Negative) 07/07/21 23:04 Ur Leukocyte Esterase Negative (Negative) 07/07/21 23:04 Urine RBC >100 /hpf (0-2) H 07/07/21 23:04 Urine WBC 0-4 /hpf (0-5) H 07/07/21 23:04 Ur Squamous Epith Cells 0-4 /hpf (0-5) H 07/07/21 23:04 Uric Acid Crystals 15-25 /hpf H 07/07/21 23:04 Amorphous Sediment 3+ /hpf 07/07/21 23:04 Urine Bacteria Trace /hpf (NONE) 07/07/21 23:04 Ur Random Sodium 22 mmol/L 07/07/21 23:04 Ur Random Potassium 19 mmol/L 07/07/21 23:04 Ur Random Chloride < 10 mmol/L 07/07/21 23:04 Urine Creatinine 140 mg/dL (39-259) 07/07/21 23:04 Impressions Chest CTA 07/01/21 12:32 IMPRESSION: 1. No pulmonary embolism. 2. Pneumomediastinum and pneumopericardium. 3. Diffuse multilobar areas of groundglass attenuation and developing areas of consolidation at the lung bases from Covid 19. 4. Mediastinal and hilar lymphadenopathy may be reactive. Notified Loki Kc MD at 07/01/2021 3:53 PM. Was unable to contact Dr. Kc with this report. Also attempted to speak to patient's nurse but was unsuccessful. Abdomen/Pelvis CT 07/05/21 12:00 IMPRESSION: 1. Currently no visible evidence for acute abdominal or pelvic pathologic process. 2. Mild diverticulosis coli without visible evidence for acute diverticulitis. 3. Liquid stool within the colon. No findings to suggest the presence of either inflammatory or infectious colitis, however. 4. Barnes catheter within a decompressed urinary bladder. Free air within the lumen the urinary bladder. Cannot differentiate iatrogenic introduction from gas producing organism from acute cystitis. 5. Pneumonitis/pneumonia lung bases. Findings would be consistent with Covid-19 pneumonitis/pneumonia. 6. Other nonurgent/nonemergent related findings as detailed in text above. COMMENTS: Consistent with the [employer]'s Incidental Findings Committee white paper (J Am Sage [employer]iol 2018): Any incidental renal lesion less than 1 cm or classified as too small to characterize, or any incidental cystic renal lesion characterized as simple-appearing, is likely benign. No follow-up imaging is recommended for these lesions per consensus recommendations based on imaging criteria. Radiation Dose CTDIVOL = (mGy): DLP = 2016.78 (mGy-cm) Chest X-Ray 07/16/21 04:00 Impression: 1. Removal of endotracheal tube and nasogastric tube. 2. No change in bilateral pulmonary opacities. A&P Assessment and plan (1) ARDS (adult respiratory distress syndrome): Status: Acute (2) Acute respiratory failure due to COVID-19: Status: Acute (3) Acute kidney injury: Status: Acute (4) Delirium: Status: Acute (5) Elevated WBC count: Status: Acute Qualifiers: Leukocytosis type: unspecified Qualified Code(s): D72.829 - Elevated white blood cell count, unspecified (6) Yeast species isolated but not further identified: Status: Acute (7) COVID-19: Status: Acute (8) Elevated WBC count: Status: Resolved Qualifiers: Leukocytosis type: unspecified Qualified Code(s): D72.829 - Elevated white blood cell count, unspecified (9) Hyperkalemia: Status: Acute -Initially extubated on 07/10/2021 patient was extremely anxious and combative, on max dose Precedex drip, pulling of his high flow nasal cannula and desaturating into the 70s - reintubated same day night 07/10/2021 and extubated 07/16/2021 to BiPAP -Awake and following commands-appeared weak -Has episodes of tachypnea and desaturation which resolves with reorientation and reassurance -Also Ativan 1 mg IV push helps, continue Precedex 0.7 drip and taper down gradually for anxiety -Fentanyl 25 MCG transdermal patch applied for opiate withdrawal and on Seroquel 100 mg p.o. twice daily -Chest x-ray 07/09/2021: No change in patchy bilateral pulmonary opacities - CTA 07/01/21:No PE; Pneumomediatinum and Pneumopericardium ; venous doppler negative for DVT which are consistent with interstitial viral pneumonia. No evidence of pneumomediastinum or pneumothorax - s/p 10 day dexamethasone 6 mg ivp carissa for 10 days; s/p 5 day remdesivir and Tocilizumab x 2 doses -Currently on dexamethasone 3 mg IV daily-we'll discuss please discontinue on 07/18/2021 - Duoneb q 6 hr carissa; pulmicort nebs, - monitor inflammatory markers q 48 hrs -LEANNE likely due to COVID-19 pneumonia-renal functions-improving - I/O/N -2.4 L / -3.4 L since admission; NA 153-started on dextrose at 75 cc/h-repeat BMP in 4 hours showed sodium 149-discontinued D5 and encouraged to drink more free water -LFTs normalized; ammonia 34-discontinue lactulose 10 mg p.o. 3 times daily and continue Colace 100 mg p.o. twice daily - sugars controlled - afebrile ; wbc decreasing 13 K; - CT abd/pelvis 07/05/21: no visible evidence for acute abdominal or pelvic pathologic process. - so far cultures, MRSA Nares, bacterial antigens negative; low procal -Off antibiotics -Sputum positive for yeast species-identification pending; on fluconazole until final results available - PPI for gi ppx; Colace 100 mg p.o. twice daily -Noted melena-stool occult negative, C. difficile PCR negative second time, normal H&H - Lovenox for DVT ppx - Feeding, jevity -Full code -Prognosis: Guarded -Updated at bedside -Would benefit from subacute rehab-select informed and currently waiting for authorization process recommendations conveyed to hospitalist, RN and RT covering the pt. Attestations Medical Necessity Statement*: Continue admission for hypoxic respiratory failure with severe COVID-19, ARDS, acute kidney injury, leukocytosis. Time Spent in Patient Care: Greater than 35 minutes (>than 50% of time spent in counselling and/or direct pt care on unit). Critical Care Time: The high probability of a clinically significant, sudden or life threatening deterioration of the patient's [respiratory, infectious, renal, ] system(s) required my full and direct attention, intervention and personal management. The critical care time is as shown. This time is in addition to time spent performing any reported procedures but includes the following: [x] Data and vital sign review and interpretation [x] Patient assessment, examination and intervention [x] Documentation [x] Medication orders and management Critical Care Time (min): 45 Coding Level of Care Code Established Pt Acute Plant Protection Guard for Chg Fwd Patient Type Established History Comprehensive Exam Comprehensive Medical Decision Making High Complexity Diagnoses ARDS (adult respiratory distress syndrome) J80 Acute respiratory failure due to COVID-19 U07.1; J96.00 Acute kidney injury N17.9 Delirium R41.0 Elevated WBC count D72.829 Leukocytosis type: unspecified Yeast species isolated but not further identified B37.9 COVID-19 U07.1 Elevated WBC count D72.829 Leukocytosis type: unspecified Hyperkalemia E87.5 Time Spent (min) 45
[2021-07-17] VITALS (54 sets, daily range): BP systolic 102–162; BP diastolic 77–104; PULSE 87–139; RESP 15–40; TEMP 36.8–37.1; O2SAT 85–100
[2021-07-17] MEDS: ipratropium-albuterol 3 mL Neb INHALATION ×5 (00:34→23:43)
[2021-07-17] MEDS: LORazepam 2 mg/mL INJ 1 mL 1 MG IVP (00:53)
--- NOTE | 2021-07-17 01:52 | PC.NURSE ---
Addendum entered by Almita Vázquez RN 07/17/21 07:08: Notified Dr. Rocha about vomiting. Ordered chest x-ray, antibiotics, and made NPO. Original Note: Shift Note Frequent safety and comfort rounds continue. Orders and/or nursing care completed as indicated. Patient monitored for response to intervention and treatment(s). Education provided includes Ativan. Patient and/or c s s representative needs reinforcement. Pt vomited while having the BIPAP mask on. No change with assessment or vitals. Will continue to monitor.
[2021-07-17] MEDS: dexmedetomidine 400 MCG in sodium chloride 0.9% (100 ml) 100 ML 18.5 MCG IV ×2 (03:31→23:55)
[2021-07-17] MEDS: piperacillin-tazobactam 3.375 GM in sodium chloride 0.9% (plus) 50 ML IV (03:36)
[2021-07-17 03:47] LABS: Basophils # 0.1 10^3/uL (0.0-0.1); Basophils % 0.4 %; Hemoglobin 11.2 g/dL (11.7-16.6); Lymphocytes # 1.6 10^3/uL (0.8-4.8); Lymphocytes % 9.8 %; Mean Corpuscular HGB Conc 30.3 g/dL (30.0-36.0); Mean Corpuscular Hemoglobin 28.1 pg (28.0-34.0); Mean Corpuscular Volume 92.7 fl (80-94); Mean Platelet Volume 9.4 fL (7.4-10.4); Monocytes # 1.4 10^3/uL (0.2-0.9); Monocytes % 8.8 %; Neutrophils # 11.05 10^3/uL (1.8-7.7); Nucleated Red Blood Cells % 0 %; Platelet Count 206 10^3/cmm (130-400); Red Blood Count 3.99 10^6/uL (4.1-5.3); Red Cell Distribution Width 15.2 % (12.1-15.1); White Blood Count 16.3 10^3/uL (4.0-10.0)
--- NOTE | 2021-07-17 04:00 | XR_ITS ---
WS: [id number] Portable AP upright chest, 07/17/2021 Clinical Data: vomited while on bipap Comparison: Portable chest, 07/16/2021 Findings: The left internal jugular venous catheter has been removed. The bilateral pulmonary opaciti es remain the same. The heart is at the upper limits of normal. Monitor leads are on the chest wall. XR/XR chest 1V portable [id number] Impression: No change in bilateral pulmonary opacities.
[2021-07-17 04:07] LABS: Alanine Aminotransferase 24 U/L (0-41); Albumin Level 3.3 g/dL (3.5-5.2); Alkaline Phosphatase 89 IU/L (40-130); Anion Gap 11.4 (5-19); Aspartate Amino Transferase 32 U/L (0-40); Blood Urea Nitrogen 51 mg/dL (6-20); Calcium 8.1 mg/dL (8.5-10.5); Carbon Dioxide 26 mmol/L (22-29); Chloride 114 mmol/L (98-107); Glomerular Filtration Rate 53.2 mL/min (90-130); Glucose 93 mg/dL (65-115); Osmolality Calculated 317 mOsm/kg (285-295); Potassium 4.4 mmol/L (3.5-5.1); Sodium 147 mmol/L (136-145); Total Bilirubin 0.6 mg/dL (0.15-1.2); Total Protein 5.3 g/dL (6.6-8.7)
[2021-07-17] MEDS: dexamethasone 4 mg/mL INJ 3 MG IVP (05:15)
[2021-07-17] MEDS: budesonide 0.5 mg/2 mL Neb INHALATION ×2 (07:54→20:19)
[2021-07-17] MEDS: docusate sodium 100 mg Capsule PO ×2 (08:11→18:17)
[2021-07-17] MEDS: enoxaparin 40 mg/0.4 mL Syringe SUBCUT (08:11)
[2021-07-17] MEDS: pantoprazole 40 mg SDV IVP (08:11)
[2021-07-17] MEDS: quetiapine 100 mg Tablet PO ×2 (08:11→18:17)
[2021-07-17] MEDS: dexmedetomidine 400 MCG in sodium chloride 0.9% (100 ml) 100 ML 15.86 MCG IV (08:56)
--- NOTE | 2021-07-17 13:40 | PC.NUTR ---
Nutrition follow up: Noted only 1 clear liquid meal consumed (at 25%), since extubation. Reportedly NPO today d/t vomiting incident, however clear liquid diet order remains in place. Recommend to clarify details of vomiting incident and safety of oral diet--BUILDING SUPERVISOR eval may be beneficial. If unable to consume oral diet, recommend to d/c clear liquid diet and consider resuming nutrition support. If able to safely consume diet, recommend clear liquids with addition of Ensure Clear for additional kcal/protein, and advance diet gradually as tolerated. See full RD assessment for further details.
[2021-07-17] MEDS: fluconazole premix 100 MG in empty flexible container 1 EACH 50 MG IV (18:17)
--- NOTE | 2021-07-17 18:50 | PC.NURSE ---
Precedex was titrated off this shift. Patient was alert and Oriented to self, year and situation. was at bedside. All questions answered.
--- NOTE | 2021-07-17 18:53 | PC.NURSE ---
Transfer Note Patient transferred to [facility] from ICU via Bed. Handoff given to Jodie. Patient oriented to environment and equipment. Covering service notified. Orders reviewed and will continue to monitor. at bedside. Precedex taken with patient and hung in room. This nurse passed on that precedex was to run at 0.1 over night.
--- NOTE | 2021-07-17 19:15 | PM.PN ---
Subjective Subjective: Interval history: -Patient seen at bedside today and check multiple times -Awake but still appears a bit confused-following commands and communicative and we can -Yesterday overnight he had an episode of vomiting and possible aspiration -Today plan is to taper down Precedex and watch him off Ativan -Labs and imaging reviewed Medications: Reviewed: Yes Vitals/I&O/Wt Last Vital Signs Temp 98.3 F 07/17/21 06:41 Pulse 102 H 07/17/21 17:29 Resp 27 H 07/17/21 16:30 BP 160/103 07/17/21 16:30 Pulse Ox 99 07/17/21 17:29 07/17/21 07/17/21 07/17/21 06:59 14:59 22:59 Intake Total 158.6 / 2318.767 188.530 / 188.530 126.61 / 315.140 Output Total 900 / 2425 350 / 350 1000 / 1350 Balance -741.4 / -106.233 -161.470 / -161.470 -873.39 / -1034.860 Weight last 48 hrs Weight 211 lb 14.4 oz Weight 212 lb Physical Exam Narrative: EXAM NARRATIVE: General: lying in bed, currently on high flow nasal cannula HEENT:NCAT, PERRLA, EOMI Neck: Supple Lungs: Bilateral diffuse crackles-improved Heart: s1/s2, RRR Abd: soft, NT, ND, BS + Normoactive Extremities: No edema PROGRAM SCHEDULE CLERK: Appears weak, following commands SKIN: no rash Urinary Catheter Management^: Barnes: Cath Placed During This Visit: yes Reason for Continuing Indwelling Catheter: Accurate Measurement of Urinary Output in Critically Ill Patients Urinary Catheter Date of Insertion: 07/03/21 Urinary Catheter Time of Insertion: 07:56 Data : 07/17/21 03:32 07/17/21 03:32 Other Labs: Laboratory Results WBC 16.3 10^3/uL (4.0-10.0) H 07/17/21 03:32 RBC 3.99 10^6/uL (4.1-5.3) L 07/17/21 03:32 Hgb 11.2 g/dL (11.7-16.6) L 07/17/21 03:32 Hct 37.0 % (42.0-52.0) L 07/17/21 03:32 MCV 92.7 fl (80-94) 07/17/21 03:32 MCH 28.1 pg (28.0-34.0) 07/17/21 03:32 MCHC 30.3 g/dL (30.0-36.0) 07/17/21 03:32 RDW 15.2 % (12.1-15.1) H 07/17/21 03:32 Plt Count 206 10^3/cmm (130-400) 07/17/21 03:32 MPV 9.4 fL (7.4-10.4) 07/17/21 03:32 Neut % (Auto) 68.0 % 07/17/21 03:32 Lymph % (Auto) 9.8 % 07/17/21 03:32 [place] % (Auto) 8.8 % 07/17/21 03:32 Eos % (Auto) 12.0 % 07/17/21 03:32 Baso % (Auto) 0.4 % 07/17/21 03:32 Neut # (Auto) 11.05 10^3/uL (1.8-7.7) H 07/17/21 03:32 Lymph # (Auto) 1.6 10^3/uL (0.8-4.8) 07/17/21 03:32 [place] # (Auto) 1.4 10^3/uL (0.2-0.9) H 07/17/21 03:32 Eos # (Auto) 2.0 10^3/uL (0.0-0.8) H 07/17/21 03:32 Baso # (Auto) 0.1 10^3/uL (0.0-0.1) 07/17/21 03:32 Nucleated RBC % (auto) 0 % 07/17/21 03:32 Total Counted 100 (0-100) 07/10/21 08:22 Atypical Lymphs % 6.0 % (0-5) H 07/10/21 08:22 Absolute Neutrophils 18.3 10^3/cmm (1.4-6.5) H 07/10/21 08:22 Segmented Neutrophils 71 % 07/10/21 08:22 Abs Segm Neuts (Man) 17.8 10/cmm (1.6-7.1) H 07/10/21 08:22 Band Neutrophils 2.0 % 07/10/21 08:22 Abs Band Neuts (Man) 0.5 10^3/cmm (0.0-1.2) 07/10/21 08:22 Absolute Lymphocytes 3.5 10^3/cmm (1.2-3.4) H 07/10/21 08:22 Lymphocytes (Manual) 8 % 07/10/21 08:22 Monocytes (Manual) 3.0 % 07/10/21 08: Absolute Monocytes 0.8 10^3/cmm (0.1-0.6) H 07/10/21 08:22 Eosinophils (Manual) 0 % 07/10/21 08: Absolute Eosinophils 0.0 10^3/cmm (0.0-0.7) 07/10/21 08: Basophils (Manual) 0.0 % 07/10/21 08: Absolute Basophils 0.0 10^3/cmm (0.0-0.2) 07/10/21 08: Metamyelocytes 10.0 % 07/10/21 08: Nucleated RBCs # 0.0 /100WBC 07/17/21 03:32 Platelet Estimate Normal (Normal) 07/10/21 08:22 D-Dimer 9.35 ug/mIFEU (0-0.59) H 07/07/21 14:31 Specimen Type Arterial 07/16/21 04:10 Sample Site Radial, right 07/16/21 04:10 ABG pH 7.42 (7.35-7.45) 07/16/21 04:10 ABG pCO2 40.3 mmHg (35-45) 07/16/21 04:10 ABG pO2 63.5 mmHg (80.0-100.0) L 07/16/21 04:10 ABG HCO3 25.9 mmol/L (22-26) 07/16/21 04:10 ABG O2 Saturation 93.1 07/16/21 04:10 ABG Base Excess 1.3 mmol/L (-2.0-2.0) 07/16/21 04:10 Gato Test Pos 07/16/21 04:10 A-a O2 Gradient 22.3 mmHg (5-10) H 07/16/21 04:10 Hematocrit 37.8 % (42-52) L 07/16/21 04:10 Hgb O2 Saturation 90.7 % (95-100) L 07/16/21 04:10 Carboxyhemoglobin 1.4 %THgb (0.4-20.1) 07/16/21 04:10 Methemoglobin 1.1 % (0.4-1.5) 07/16/21 04:10 Total Hemoglobin 12.3 g/dL (14-18) L 07/16/21 04:10 Sodium 155.0 mmol/L (131-143) H 07/16/21 04:10 Potassium 4.2 mmol/L (3.5-5.0) 07/16/21 04:10 Glucose 98.0 mg/dL (70-115) 07/16/21 04:10 Ionized Calcium 1.2 mmol/L (1.1-1.4) 07/16/21 04:10 O2 Delivery Device Bipap 07/16/21 04:10 O2 Liters/Min 3.0 % 06/26/21 12:40 FiO2 40.0 % 07/16/21 04:10 Tidal Volume 0.45 07/13/21 10:47 PEEP 10.0 cmH20 07/14/21 04:10 Geological Technical Officer ID Marcelino 07/16/21 04:10 Sodium 147 mmol/L (136-145) H 07/17/21 03:32 Potassium 4.4 mmol/L (3.5-5.1) 07/17/21 03:32 Chloride 114 mmol/L (98-107) H 07/17/21 03:32 Carbon Dioxide 26 mmol/L (22-29) 07/17/21 03:32 Anion Gap 11.4 (5-19) 07/17/21 03:32 BUN 51 mg/dL (6-20) H 07/17/21 03:32 Creatinine 1.4 mg/dL (0.7-1.2) H 07/17/21 03:32 GFR Calculation 53.2 mL/min (90-130) L 07/17/21 03:32 Glucose 93 mg/dL (65-115) 07/17/21 03:32 Calculated Osmolality 317 mOsm/kg (285-295) H 07/17/21 03:32 Lactic Acid 2.2 mmol/L (0.5-2.2) 06/26/21 13:08 Lactic Acid (Sepsis) 1.1 mmol/L (0.5-2.2) 06/26/21 17:10 Lactate 1.5 mmol/L (0.5-2.2) 07/05/21 06:05 Calcium 8.1 mg/dL (8.5-10.5) L 07/17/21 03:32 Phosphorus 3.4 mg/dL (2.5-4.5) 07/07/21 03:12 Magnesium 3.1 mg/dL (1.7-2.3) H 07/14/21 10:05 Ferritin 1137 ng/mL (30-400) H 06/30/21 06:32 Total Bilirubin 0.6 mg/dL (0.15-1.2) 07/17/21 03:32 AST 32 U/L (0-40) 07/17/21 03:32 ALT 24 U/L (0-41) 07/17/21 03:32 Alkaline Phosphatase 89 IU/L (40-130) 07/17/21 03:32 Ammonia 34 umol/L (16-60) 07/16/21 03:54 Creatine Kinase 648 U/L (39-308) H* 07/11/21 02:00 Troponin T Baseline 11 ng/L (0-15) 06/26/21 13:08 Troponin T 120 Minute 10.43 ng/L (0-15) 06/26/21 14:26 Delta Troponin T -0.57 ABS# (0-10) L 06/26/21 14:26 Troponin T Hi Sens 6Hr 9.82 ng/L (0-15) 06/26/21 18:40 Troponin T Hi Sens 6Hr Delta -1.18 ng/L (0-12) L 06/26/21 18:40 C-Reactive Protein 4.0 mg/L (0.0-4.9) 07/02/21 05:47 NT-Pro-B Natriuret Pep 65 pg/mL (0-125) 06/26/21 13:08 Total Protein 5.3 g/dL (6.6-8.7) L 07/17/21 03:32 Albumin 3.3 g/dL (3.5-5.2) L 07/17/21 03:32 Globulin 2.0 g/dL (1.3-4.6) 07/17/21 03:32 Procalcitonin 0.32 ng/mL (0-0.5) 07/05/21 06:05 Random Cortisol 0.70 ug/dL (2.47-19.5) L 07/11/21 14:35 Urine Color Dark yellow (Yellow) 07/07/21 23:04 Urine Appearance Hazy (CLEAR) A 07/07/21 23:04 Urine pH 5 (5-7) 07/07/21 23:04 Ur Specific [place] 1.020 (1.005-1.030) 07/07/21 23:04 Urine Protein Trace (Negative) 07/07/21 23:04 Urine Glucose (UA) Norm (Normal) 07/07/21 23:04 Urine Ketones Negative (Negative) 07/07/21 23:04 Urine Blood 3+ (Negative) H 07/07/21 23:04 Urine Nitrate Negative (Negative) 07/07/21 23:04 Urine Bilirubin Neg (Negative) 07/07/21 23:04 Urine Urobilinogen Norm mg/dL (Negative) 07/07/21 23:04 Ur Leukocyte Esterase Negative (Negative) 07/07/21 23:04 Urine RBC >100 /hpf (0-2) H 07/07/21 23:04 Urine WBC 0-4 /hpf (0-5) H 07/07/21 23:04 Ur Squamous Epith Cells 0-4 /hpf (0-5) H 07/07/21 23:04 Uric Acid Crystals 15-25 /hpf H 07/07/21 23:04 Amorphous Sediment 3+ /hpf 07/07/21 23:04 Urine Bacteria Trace /hpf (NONE) 07/07/21 23:04 Ur Random Sodium 22 mmol/L 07/07/21 23:04 Ur Random Potassium 19 mmol/L 07/07/21 23:04 Ur Random Chloride < 10 mmol/L 07/07/21 23:04 Urine Creatinine 140 mg/dL (39-259) 07/07/21 23:04 [facility] [place] comment 07/11/21 08:00 Impressions Chest CTA 07/01/21 12:32 IMPRESSION: 1. No pulmonary embolism. 2. Pneumomediastinum and pneumopericardium. 3. Diffuse multilobar areas of groundglass attenuation and developing areas of consolidation at the lung bases from Covid 19. 4. Mediastinal and hilar lymphadenopathy may be reactive. Notified Loki Kc MD at 07/01/2021 3:53 PM. Was unable to contact Dr. Kc with this report. Also attempted to speak to patient's nurse but was unsuccessful. Abdomen/Pelvis CT 07/05/21 12:00 IMPRESSION: 1. Currently no visible evidence for acute abdominal or pelvic pathologic process. 2. Mild diverticulosis coli without visible evidence for acute diverticulitis. 3. Liquid stool within the colon. No findings to suggest the presence of either inflammatory or infectious colitis, however. 4. Barnes catheter within a decompressed urinary bladder. Free air within the lumen the urinary bladder. Cannot differentiate iatrogenic introduction from gas producing organism from acute cystitis. 5. Pneumonitis/pneumonia lung bases. Findings would be consistent with Covid-19 pneumonitis/pneumonia. 6. Other nonurgent/nonemergent related findings as detailed in text above. COMMENTS: Consistent with the [employer]'s Incidental Findings Committee white paper (J Am [employer]iol 2018): Any incidental renal lesion less than 1 cm or classified as too small to characterize, or any incidental cystic renal lesion characterized as simple-appearing, is likely benign. No follow-up imaging is recommended for these lesions per consensus recommendations based on imaging criteria. Radiation Dose CTDIVOL = (mGy): DLP = 2016.78 (mGy-cm) Chest X-Ray 07/17/21 04:00 Impression: No change in bilateral pulmonary opacities. A&P Assessment and plan (1) ARDS (adult respiratory distress syndrome): Status: Acute (2) Acute respiratory failure due to COVID-19: Status: Acute (3) Acute kidney injury: Status: Acute (4) Delirium: Status: Acute (5) Elevated WBC count: Status: Acute Qualifiers: Leukocytosis type: unspecified Qualified Code(s): D72.829 - Elevated white blood cell count, unspecified (6) Yeast species isolated but not further identified: Status: Acute (7) COVID-19: Status: Acute (8) Elevated WBC count: Status: Resolved Qualifiers: Leukocytosis type: unspecified Qualified Code(s): D72.829 - Elevated white blood cell count, unspecified (9) Hyperkalemia: Status: Acute -Initially extubated on 07/10/2021 patient was extremely anxious and combative, on max dose Precedex drip, pulling of his high flow nasal cannula and desaturating into the 70s - reintubated same day night 07/10/2021 and extubated 07/16/2021 to BiPAP -Awake and following commands-appeared weak -Has episodes of tachypnea and desaturation which resolves with reorientation and reassurance -Today Taper off Precedex drip and watch him off Ativan: He needs aggressive physical therapy, out of bed to chair and incentive spirometry and flutter valve -Fentanyl 25 MCG transdermal patch applied for opiate withdrawal and on Seroquel 100 mg p.o. twice daily -Chest x-ray 07/09/2021: No change in patchy bilateral pulmonary opacities - CTA 07/01/21:No PE; Pneumomediatinum and Pneumopericardium ; venous doppler negative for DVT which are consistent with interstitial viral pneumonia. No evidence of pneumomediastinum or pneumothorax - s/p 10 day dexamethasone 6 mg ivp carissa for 10 days; s/p 5 day remdesivir and Tocilizumab x 2 doses -Currently on dexamethasone 3 mg IV daily-discontinued today - Duoneb q 6 hr carissa; pulmicort nebs, - monitor inflammatory markers q 48 hrs -LEANNE likely due to COVID-19 pneumonia-renal functions-improving - I/O/N -100 cc / -3.5 L since admission; sodium 147-encouraged to drink more free water -LFTs normalized; ammonia 34-discontinue lactulose 10 mg p.o. 3 times daily -continue Colace 100 mg p.o. twice daily - sugars controlled - afebrile ; WBC 16 K; had episode of vomiting and aspiration yesterday-started on Zosyn -Sputum positive for yeast species-identification pending; on fluconazole-started 07/10/2021-DC after 10 days - PPI for gi ppx; Colace 100 mg p.o. twice daily -Noted melena-stool occult negative, C. difficile PCR negative second time, normal H&H - Lovenox for DVT ppx - Feeding, jevity -Full code -Prognosis: Guarded -Updated at bedside -Would benefit from subacute rehab-[facility] informed and currently waiting for authorization process -Transfer to [facility] with cardiac monitoring and one-to-one observation recommendations conveyed to hospitalist, RN and RT covering the pt. Attestations Medical Necessity Statement*: Continue admission for hypoxic respiratory failure with severe COVID-19, ARDS, acute kidney injury, leukocytosis. Time Spent in Patient Care: Greater than 35 minutes (>than 50% of time spent in counselling and/or direct pt care on unit). Critical Care Time: The high probability of a clinically significant, sudden or life threatening deterioration of the patient's [respiratory, infectious, renal, neurological] system(s) required my full and direct attention, intervention and personal management. The critical care time is as shown. This time is in addition to time spent performing any reported procedures but includes the following: [x] Data and vital sign review and interpretation [x] Patient assessment, examination and intervention [x] Documentation [x] Medication orders and management Critical Care Time (min): 45 Coding Level of Care Code Established Pt Acute Medicaid Service Coordinator for Chg Fwd Patient Type Established History Comprehensive Exam Comprehensive Medical Decision Making High Complexity Diagnoses ARDS (adult respiratory distress syndrome) J80 Acute respiratory failure due to COVID-19 U07.1; J96.00 Acute kidney injury N17.9 Delirium R41.0 Elevated WBC count D72.829 Leukocytosis type: unspecified Yeast species isolated but not further identified B37.9 COVID-19 U07.1 Elevated WBC count D72.829 Leukocytosis type: unspecified Hyperkalemia E87.5 Time Spent (min) 45
--- NOTE | 2021-07-17 19:34 | P.PN_ITS ---
Subjective Subjective: Interval history: He reports he is feeling well. Worked with physical therapy today. Week. Set up at edge of the bed, with assistance stood up and had to be sedated. Most of the day spent on HHF. Currently on BiPAP. Denies chest pain or pressure. Vitals/I&O/Wt Last Vital Signs Temp 98.3 F 07/17/21 06:41 Pulse 102 H 07/17/21 17:29 Resp 27 H 07/17/21 16:30 BP 160/103 07/17/21 16:30 Pulse Ox 99 07/17/21 17:29 07/17/21 07/17/21 07/17/21 06:59 14:59 22:59 Intake Total 158.6 / 2318.767 188.530 / 188.530 126.61 / 315.140 Output Total 900 / 2425 350 / 350 1000 / 1350 Balance -741.4 / -106.233 -161.470 / -161.470 -873.39 / -1034.860 Weight last 48 hrs Weight 96.116 kg Weight 96.162 kg Physical Exam Narrative: EXAM NARRATIVE: at bedside. Const: COMMON NORMALS: no acute distress and alert EXAM LIMITATIONS: physical limitations and other limitations GENERAL APPEARANCE: cooperative ORIENTATION/CONSCIOUSNESS: Yes awake OTHER: Awake, alert, follows commands, interactive. HENMT: COMMON NORMALS: oropharynx normal Neck/C-Spine: COMMON NORMALS: no JVD Resp: COMMON NORMALS: normal respiratory effort and clear to auscultation bilaterally AUSCULTATION: clear to auscultation bilaterally OTHER: HHF on. Cardio: COMMON NORMALS: no JVD, regular rhythm, S1 normal heart sound present, S2 normal heart sound present and No murmurs present (Cardio) RHYTHM: regular rhythm HEART SOUNDS: S1 normal heart sound present and S2 normal heart sound present GI: COMMON NORMALS: Normal to inspection, nondistended, normoactive bowel sounds present, Soft to palpation and non-tender PALPATION: Yes Soft to palpation Extremity: COMMON NORMALS: no joint enlargement and no pedal edema Neuro: COMMON NORMALS: moves all extremities SENSORIUM/ORIENTATION: Yes alert Skin: COMMON NORMALS: no rashes or lesions noted GENERAL SKIN EXAM: no rashes or lesions noted Urinary Catheter Management^: Barnes: Cath Placed During This Visit: yes Reason for Continuing Indwelling Catheter: Accurate Measurement of Urinary Output in Critically Ill Patients Urinary Catheter Date of Insertion: 07/03/21 Urinary Catheter Time of Insertion: 07:56 Data : 07/17/21 03:32 07/17/21 03:32 A&P Assessment and plan (1) Acute respiratory failure due to COVID-19: Overnight episode of vomiting. Continue supportive care. Monitor closely. says will stay all night long, otherwise if not requested to order one-to-one sitter. Discussed with him in case he is nauseated to let someone know right away. Continue weaning off oxygen as tolerating. Continue mobilize with PT, OT. Discussed with him and his regarding placement to [facility] to continue weaning, rehabilitation, and they are interested if this were an option. I-S, flutter valve. Continue low concentrated Precedex for now if possible, 0.1. Repeat CXR Status: Acute (2) Sepsis: Sepsis so far has resolved. Has been taken off antibiotics. WBC count has been improving. Pending flow cytometry due to concern for possible leukemoid reaction. Continues on fluconazole due to yeast noted in sputum. DC on 07/19 C. difficile 07/14 -ve. Status: Acute (3) Shock: Resolved. Status: Acute (4) COVID-19: As above. Status: Acute (5) Acute kidney injury: Creatinine improved. Same stay at 1.4. Today worsening hypernatremia with noted large urine output, suspected in diuretic phase of recovery. BUN better. Hemoccult negative. C. difficile negative. Status: Acute (6) Hyperkalemia: Potassium better Status: Acute (7) Yeast species isolated but not further identified: On the sputum culture from repeat intubation on July 09. Fluconazole Status: Acute (8) Hyponatremia: Resolved. Hypernatremia gradually improving. Status: Acute (9) Hypertension: At goal Status: Acute Qualifiers: Hypertension type: essential hypertension Qualified Code(s): I10 - Essential (primary) hypertension (10) Diarrhea: Repeat C diff negative Status: Acute (11) Elevated WBC count: Follow-up flow cytometry for assessment possible leukemoid reaction. C. difficile negative. Status: Resolved Qualifiers: Leukocytosis type: unspecified Qualified Code(s): D72.829 - Elevated white blood cell count, unspecified Attestations Medical Necessity Statement*: Continue admission for hypoxic respite failure following severe COVID-19, continued weaning off high supplemental oxygen requirement, mobilize, close monitoring due to episodes of anxiety, not very good safety awareness. Coding Level of Care Code Acute Sales Center Manager for Chg Fwd Exam Comprehensive Diagnoses Acute respiratory failure due to COVID-19 U07.1; J96.00 Sepsis A41.9 Shock R57.9 COVID-19 U07.1 Acute kidney injury N17.9 Hyperkalemia E87.5 Yeast species isolated but not further identified B37.9 Hyponatremia E87.1 Hypertension I10 Hypertension type: essential hypertension Diarrhea R19.7 Elevated WBC count D72.829 Leukocytosis type: unspecified
--- NOTE | 2021-07-17 19:38 | PC.NURSE ---
Contacted regarding transferring patient to [facility] instead of [facility]. Physician ok to transfer patient to [facility] 107.
--- NOTE | 2021-07-17 20:50 | PC.NURSE ---
Shift Note Frequent safety and comfort rounds continue. Orders and/or nursing care completed as indicated. Patient monitored for response to intervention and treatment(s). Education provided includes Precedex. Patient and/or bottling equipment sales representative both verbalized complete understanding. Patient received from ICU. On heated high flow at 50%. at bedside with permission. Patient pleasant, alert and appropriate. Patient has rogers catheter and rectal tube placed. Will continue to monitor.
--- NOTE | 2021-07-17 22:25 | PC.NURSE ---
Patient feeling full and nauseous. Patient has one episode of emesis. Patient appears anxious. Pranav, RT in to see patient and adjust bipap. Informed Dr Rocha. Waiting response. Increased Precedex as documented to aid with anxiety and bipap use.
[2021-07-17] MEDS: fentaNYL 25 mcg Patch 1 PATCH TRANSDERMA (22:28)
--- NOTE | 2021-07-17 22:44 | PC.NURSE ---
Adjusted Precedex drip as documented. Patient remains alert but drowsy. Appears more relaxed. Tolerating bipap well at this time. Nausea improved.
--- NOTE | 2021-07-17 23:23 | PC.NURSE ---
Patient awake and alert. Drink provided. Adjusted medication as documented. Patient denies pain or other needs presently. Continuing to monitor.
[2021-07-18] VITALS (28 sets, daily range): BP systolic 114–156; BP diastolic 78–108; PULSE 79–126; RESP 21–37; TEMP 36.6–37.3; O2SAT 90–100
[2021-07-18] MEDS: piperacillin-tazobactam 3.375 GM in sodium chloride 0.9% (plus) 50 ML IV ×3 (01:37→18:42)
--- NOTE | 2021-07-18 01:41 | PC.NURSE ---
Patient has Precedex drip running as documented. Patient appears calm and cooperative with bipap. Alerted and oriented, wide awake. No complaints of pain or other needs at this time. No distress observed. Spouse remains at bedside.
[2021-07-18] MEDS: ipratropium-albuterol 3 mL Neb INHALATION ×6 (03:35→23:47)
--- NOTE | 2021-07-18 03:40 | PC.NURSE ---
Patient awake and alert. Tolerating bipap well. Decreased Precedex as documented.
--- NOTE | 2021-07-18 05:19 | PC.NURSE ---
Respiratory in to see patient. Removed bipap this morning and placed heated high flow nasal cannula. Patient expressed thanks and relief. Patient ready to see out the window this morning. He is in good spirits and appears AAOx3. Decreased Precedex as documented. Discussed plan to have Precedex discontinued early this morning with patient and spouse. Both expressed complete understanding. Patient denies pain or needs presently. No distress observed.
--- NOTE | 2021-07-18 06:04 | PC.NURSE ---
Shift Note Frequent safety and comfort rounds continue. Orders and/or nursing care completed as indicated. Patient monitored for response to intervention and treatment(s). Education provided includes precedex and heated high flow nc. Patient and/or merchandiser retail representative verbalized complete understanding. Spouse noted weight discrepancy, reported weighing 212 in ICU yesterday. Patient was transferred originally to [facility] where he was placed in a new bed. Instructed patient that may cause weight discrepancy. Both verbalized understanding. Patient having difficulty with heated high flow this morning. Informed RT. Waiting for response. Will continue to monitor.
[2021-07-18] MEDS: LORazepam 2 mg/mL INJ 1 mL 1 MG IVP ×2 (06:22→07:45)
--- NOTE | 2021-07-18 06:28 | PC.NURSE ---
Patient continues to struggle with heated high flow. Respirations increased and SpO2 decreased. RT in with patient replacing bipap. Ativan given as ordered for increased anxiety.
[2021-07-18 07:37] LABS: Basophils # 0.1 10^3/uL (0.0-0.1); Basophils % 0.5 %; Eosinophils # 2.1 10^3/uL (0.0-0.8); Eosinophils % 12.4 %; Hematocrit 35.1 % (42.0-52.0); Hemoglobin 10.7 g/dL (11.7-16.6); Lymphocytes # 1.3 10^3/uL (0.8-4.8); Lymphocytes % 7.7 %; Mean Corpuscular HGB Conc 30.5 g/dL (30.0-36.0); Mean Corpuscular Hemoglobin 28.6 pg (28.0-34.0); Mean Corpuscular Volume 93.9 fl (80-94); Mean Platelet Volume 9.9 fL (7.4-10.4); Monocytes # 1.5 10^3/uL (0.2-0.9); Monocytes % 9.2 %; Neutrophils # 11.62 10^3/uL (1.8-7.7); Neutrophils % 69.5 %; Nucleated Red Blood Cells % 0 %; Platelet Count 213 10^3/cmm (130-400); Red Blood Count 3.74 10^6/uL (4.1-5.3); White Blood Count 16.7 10^3/uL (4.0-10.0)
[2021-07-18] MEDS: budesonide 0.5 mg/2 mL Neb INHALATION ×2 (07:39→20:20)
[2021-07-18 08:03] LABS: Anion Gap 13.9 (5-19); Blood Urea Nitrogen 44 mg/dL (6-20); Calcium 8.5 mg/dL (8.5-10.5); Carbon Dioxide 24 mmol/L (22-29); Chloride 113 mmol/L (98-107); Glomerular Filtration Rate 63.6 mL/min (90-130); Glucose 98 mg/dL (65-115); Osmolality Calculated 315 mOsm/kg (285-295); Potassium 3.9 mmol/L (3.5-5.1); Sodium 147 mmol/L (136-145)
[2021-07-18] MEDS: quetiapine 100 mg Tablet PO ×2 (10:51→17:50)
[2021-07-18] MEDS: pantoprazole 40 mg SDV IVP (10:51)
[2021-07-18] MEDS: ondansetron 2 mg/ML SDV 2 mL 4 MG IVP ×2 (10:51→21:13)
[2021-07-18] MEDS: enoxaparin 40 mg/0.4 mL Syringe SUBCUT (10:52)
[2021-07-18] MEDS: calcium carbonate 500 mg Chew Tablet PO (10:55)
--- NOTE | 2021-07-18 11:46 | PM.PN ---
Subjective Subjective: Interval history: He had a difficult night, could not get much sleep. Had an episode of vomiting. was there and to cough oxygen mask before. In the morning became restless, required a dose of Ativan. Currently resting. Vitals/I&O/Wt Last Vital Signs Temp 98.4 F 07/18/21 04:24 Pulse 108 H 07/18/21 08:06 Resp 25 H 07/18/21 08:06 BP 128/91 07/18/21 04:22 Pulse Ox 97 07/18/21 08:06 07/17/21 07/18/21 07/18/21 22:59 06:59 14:59 Intake Total 195.637 / 192.131 6438.188 / 1539.355 13.045 / 13.045 Output Total 1000 / 1350 825 / 2175 Balance -804.363 / -965.833 330.188 / -635.645 13.045 / 13.045 Weight last 48 hrs Weight 69.581 kg Weight 96.116 kg Physical Exam Narrative: EXAM NARRATIVE: at bedside. Const: COMMON NORMALS: no acute distress GENERAL APPEARANCE: cooperative ORIENTATION/CONSCIOUSNESS: Yes awake OTHER: Wakes up easily. Answers questions. HENMT: COMMON NORMALS: oropharynx normal Neck/C-Spine: COMMON NORMALS: no JVD Resp: COMMON NORMALS: normal respiratory effort and clear to auscultation bilaterally AUSCULTATION: clear to auscultation bilaterally OTHER: HHF on. Cardio: COMMON NORMALS: no JVD, regular rhythm, S1 normal heart sound present, S2 normal heart sound present and No murmurs present (Cardio) RHYTHM: regular rhythm HEART SOUNDS: S1 normal heart sound present and S2 normal heart sound present GI: COMMON NORMALS: Normal to inspection, nondistended, normoactive bowel sounds present, Soft to palpation and non-tender PALPATION: Yes Soft to palpation Extremity: COMMON NORMALS: no joint enlargement and no pedal edema Neuro: COMMON NORMALS: moves all extremities Skin: COMMON NORMALS: no rashes or lesions noted GENERAL SKIN EXAM: no rashes or lesions noted Urinary Catheter Management^: Barnes: Cath Placed During This Visit: yes Reason for Continuing Indwelling Catheter: Acute Urinary Retention or Obstruction Urinary Catheter Date of Insertion: 07/03/21 Urinary Catheter Time of Insertion: 07:56 Data : 07/18/21 07:04 07/18/21 07:04 Micro: Microbiology 07/07/21 17:40 Gram Stain - Final Sputum - Endotracheal Tube Aspirate Sputum Culture - Final Ayleen guilliermondii A&P Assessment and plan (1) Acute respiratory failure due to COVID-19: Restless this morning. Overnight had an episode of vomiting. Oxygen was taken off by his before and. It is helpful if she is able to continue to stay with him, otherwise will need to order one-to-one sitter. Received Ativan this morning. Currently resting. Continuing on Precedex, discussed with nursing staff to wean off slowly. Does appear to withdrawal, and nausea and vomiting, tachycardia may be secondary to withdrawal as well. This morning on 70% FiO2, but were able to come down to 60% and saturating 92-93%. Likely able to calm down further. Sputum culture growing Ayleen guillermondii. Discussed with micro lab. Sensitivities will be sent out. Continues on Diflucan for today. Last dose 07/19. Continue mobilize with PT, OT. I-S, flutter valve. Repeat CXR Arrangements for placement to [facility] to continue weaning of high oxygen requirement, rehabilitation. Status: Acute (2) Sepsis: Leukocytosis, suspected related to episode of emesis night before yesterday. Repeat chest x-ray. He is currently off antibiotic, but if suggestion of acute infection restart antibiotic. Leukocytosis not as high as previously. Pending flow cytometry due to concern for possible leukemoid reaction. Continues on fluconazole due to yeast noted in sputum. DC on 07/19 C. difficile 07/14 -ve. Status: Acute (3) Shock: Resolved. Status: Acute (4) COVID-19: As above. Status: Acute (5) Acute kidney injury: Continuing to improve. BUN better. Hemoccult negative. C. difficile negative. Status: Acute (6) Hyperkalemia: Potassium better Status: Acute (7) Yeast species isolated but not further identified: On the sputum culture from repeat intubation on July 09. Ayleen guillermondii from 07/11. Requested sensitivities. Currently on Fluconazole. Planned to complete 07/19 Status: Acute (8) Hyponatremia: Resolved. Hypernatremia gradually improving. Status: Acute (9) Hypertension: At goal Status: Acute Qualifiers: Hypertension type: essential hypertension Qualified Code(s): I10 - Essential (primary) hypertension (10) Diarrhea: Repeat C diff negative Status: Acute (11) Elevated WBC count: Follow-up flow cytometry for assessment possible leukemoid reaction. C. difficile negative. Status: Resolved Qualifiers: Leukocytosis type: unspecified Qualified Code(s): D72.829 - Elevated white blood cell count, unspecified Additional A&P Information Emesis: Suspect possible withdrawal from Precedex. Continue slow wean off Precedex. Check abdominal series. Zofran as needed. She reports he said yesterday food felt like it was not progressing. Discussed with his also regarding Reglan as needed, discussed risk of extrapyramidal symptoms. Attestations Medical Necessity Statement*: Continue admission for cyst management of hypoxic respiratory failure, weaning of high oxygen requirement and gentleman requiring after severe COVID-19 infection, ARDS. Coding Level of Care Code Acute Medical Staff Specialist for [facility] Fwd Exam Comprehensive Diagnoses Acute respiratory failure due to COVID-19 U07.1; J96.00 Sepsis A41.9 Shock R57.9 COVID-19 U07.1 Acute kidney injury N17.9 Hyperkalemia E87.5 Yeast species isolated but not further identified B37.9 Hyponatremia E87.1 Hypertension I10 Hypertension type: essential hypertension Diarrhea R19.7 Elevated WBC count D72.829 Leukocytosis type: unspecified
--- NOTE | 2021-07-18 12:16 | XR_ITS ---
WS: [id number] Acute abdomen series, portable, 07/18/2021 Clinical Data: emesis Comparison: None. Findings: In the chest there are no nodules, masses or effusions. The heart is enlarged. The pulmonar y vascularity is not increased. The bilateral pulmonary opacities remain the same. The left diaphragm is elevated. Monitor leads are on the chest wall. No free air is seen beneath the diaphragms. No abnormal intra-abdominal masses or calcifications are seen. There is air in the stomach, small bowel and colon but the images are blurred because of the pa tient's breathing. No obstruction is seen. XR/XR acute abdomen series [id number] Impression: 1. No change in bilateral pulmonary opacities. 2. Moderate generalized ileus.
--- NOTE | 2021-07-18 12:43 | PC.OT ---
OT TREATMENT ATTEMPTED. FAMILY IN ROOM REPORTS THAT THE PATIENT HAS BEEN HAVING A ROUGH DAY; DID NOT SLEEP WELL LAST NIGHT AND REQUIRED ATIVAN TODAY. HR: 120s. FAMILY REQUESTS TO LET HIM REST TODAY.
[2021-07-18] MEDS: dexmedetomidine 400 MCG in sodium chloride 0.9% (100 ml) 100 ML 7.93 MCG IV (13:44)
[2021-07-18] MEDS: LORazepam 2 mg/mL INJ 1 mL 0.5 MG IVP ×2 (15:28→20:29)
[2021-07-18] MEDS: fluconazole premix 100 MG in empty flexible container 1 EACH 50 MG IV (17:50)
--- NOTE | 2021-07-18 19:43 | PC.NURSE ---
Shift Note Frequent safety and comfort rounds continue. Orders and/or nursing care completed as indicated. Patient monitored for response to intervention and treatment(s). Will continue to monitor.rectal tube was dc'd as ordered
[2021-07-19] VITALS (14 sets, daily range): BP systolic 144–166; BP diastolic 86–101; PULSE 106–140; RESP 29–50; TEMP 36.5–36.9; O2SAT 88–100
[2021-07-19] MEDS: piperacillin-tazobactam 3.375 GM in sodium chloride 0.9% (plus) 50 ML IV ×2 (02:06→13:47)
[2021-07-19] MEDS: LORazepam 2 mg/mL INJ 1 mL 0.5 MG IVP ×4 (02:15→18:29)
[2021-07-19] MEDS: dexmedetomidine 400 MCG in sodium chloride 0.9% (100 ml) 100 ML 15.86 MCG IV (03:15)
--- NOTE | 2021-07-19 04:50 | PC.NURSE ---
Around 0430: While giving patient a bed bath, I noted that the patient has developed a diffuse red rash to the upper anterior and posterior torso. Patient c/o itching. Notified Dr. Rocha.
[2021-07-19 05:02] LABS: ABG PCO2 37.6 mmHg (35-45); ABG PH Result 7.42 (7.35-7.45); Arterial Blood Gas Hematocrit 35.1 % (42-52); Base Excess ABG 0.3 mmol/L (-2.0-2.0); Blood Gas Allen Test Pos; Blood Gas Sample Site Radial, left; Blood Gas Sample Type Arterial; HCO3 ABG 24.6 mmol/L (22-26); Oxygen Device BIPAP; PO2 ABG 55.7 mmHg (80.0-100.0)
[2021-07-19] MEDS: diphenhydrAMINE 50 mg/mL SDV 1mL 25 MG IVP (05:35)
[2021-07-19] MEDS: famotidine 20 mg/2 mL INJ IVP (05:35)
[2021-07-19] MEDS: budesonide 0.5 mg/2 mL Neb INHALATION (08:14)
[2021-07-19] MEDS: ipratropium-albuterol 3 mL Neb INHALATION ×3 (08:14→15:14)
[2021-07-19 08:15] LABS: Basophils # 0.1 10^3/uL (0.0-0.1); Basophils % 0.5 %; Eosinophils # 1.6 10^3/uL (0.0-0.8); Eosinophils % 8.4 %; Hematocrit 37.7 % (42.0-52.0); Hemoglobin 11.8 g/dL (11.7-16.6); Lymphocytes # 1.2 10^3/uL (0.8-4.8); Lymphocytes % 6.1 %; Mean Corpuscular HGB Conc 31.3 g/dL (30.0-36.0); Mean Corpuscular Hemoglobin 28.9 pg (28.0-34.0); Mean Corpuscular Volume 92.2 fl (80-94); Mean Platelet Volume 11.4 fL (7.4-10.4); Monocytes # 1.7 10^3/uL (0.2-0.9); Monocytes % 8.6 %; Neutrophils # 14.53 10^3/uL (1.8-7.7); Neutrophils % 75.4 %; Nucleated Red Blood Cells % 0 %; Platelet Count 154 10^3/cmm (130-400); Red Blood Count 4.09 10^6/uL (4.1-5.3); Red Cell Distribution Width 15.2 % (12.1-15.1); White Blood Count 19.3 10^3/uL (4.0-10.0)
[2021-07-19] MEDS: pantoprazole DR 40 mg Tablet PO (08:57)
[2021-07-19] MEDS: quetiapine 100 mg Tablet PO (08:58)
[2021-07-19] MEDS: enoxaparin 40 mg/0.4 mL Syringe SUBCUT (08:58)
[2021-07-19 09:01] LABS: Blood Urea Nitrogen 35 mg/dL (6-20); Calcium 8.4 mg/dL (8.5-10.5); Carbon Dioxide 18 mmol/L (22-29); Chloride 109 mmol/L (98-107); Glomerular Filtration Rate 70.3 mL/min (90-130); Glucose 65 mg/dL (65-115); Osmolality Calculated 306 mOsm/kg (285-295); Sodium 145 mmol/L (136-145)
--- NOTE | 2021-07-19 10:18 | PC.NURSE ---
patients Bipap had came apart at the mask upon entering room this nurse fix mask patient was in the 60's and confused this nurse turned up FIo2 from 65% to 75% patient not recovering Blood pressure and HR elevating with increased respiratory need rapid response called for RT assistance Fi 02 increased by rt to 100% patient then began recovering HR remains elevated however lower than 150's Blood pressure 157/[address] Kc notified and to bedside No new orders received
--- NOTE | 2021-07-19 10:26 | PC.NURSE ---
Patient's bipap hose popped off and the patient de-sated as low as 61% Patient was turned up on FIO2 and talked to in order to keep calm. Rapid was called due to the time it took for the patient's oxygen to come up. Patient was turned up to 100%FiO2 so he could recover. Patient's oxygen maty to 97%. Titrated per respiratory therapy and patient currently on 80% Fio2 on bipap. at bedside. Will continue to monitor.
--- NOTE | 2021-07-19 10:31 | PC.OT ---
OT TREATMENT WITHHELD DUE TO RAPID RESPONSE CALLED.
--- NOTE | 2021-07-19 10:34 | PC.CHAP ---
Pastoral Care Encounter/Spiritual Assessment Type of Contact [] Declined patient service associate visit [] Patient/Family/Request visit [] Outpatient visit [] Follow-up visit [] Physician referral [] Code/Alert [] Routine visit [] Staff referral [] Actively dying [] Patient sleeping [] Family support [] [] Out of room [] Palliative care [] [] Receiving care in room [] Pre-surgical visit [] Trauma [] Long length of stay [] ICU visit [X] Other: Rapid Response Call; met with spouse Relational/Emotional Strength [] Patient feels connected with others/family/visitors/staff [] Distress [] Loneliness/isolation [] Abandonment Spirituality of Patient [] Person of Kellie [] Attends Anabaptism of their Kellie [] Believes in Prayer [] Reads Bible or Anabaptist materials [] There are Spiritual issues to be addressed Wax Room Supervisor Interventions [] Prayer [] Active listening [] Non-anxious presence [] Spiritual/emotional support [] Crisis/trauma care [] Spiritual counseling [] Bereavement support [] Provided bereavement packet [] Provided Bible/devotional materials [] Provided toy/stuffed animal, coloring book to patient or family member [] Provided Communion [] Anointing/Rozet [] Salvation [] Completed spiritual assessment [] Other: Impact on Illness or Injury [] Angry [] Fearful [] Anxious [] Often cries [] Exhaustion [] Unable to work [] Unable to attend rastafarian [] Unable to walk/stand [] Unable to read [] Unable to drive [] Unable to eat/drink [] Unable to sleep [] Unable to be with family [] Patient intubated [] Other: Summary: Post-rapid response call, patient service associate checked in with pt. ?Spouse? said that the call was more precautionary, that there had been technical difficulty with the breathing apparatus. Offered pastoral services but she said that they were good right now. Chaplain Cuadra had visited them this morning. Time spent with patient: <5 mins
[2021-07-19 10:46] LABS: Anion Gap 22.8 (5-19); Potassium 4.8 mmol/L (3.5-5.1)
--- NOTE | 2021-07-19 12:00 | PC.NURSE ---
Spoke with Dr Lopez patient lost IV access upon attempting to start a new on patient became very agitated and anxious was unable to regain access Dr lopez gave orders for Xanax 0.5mg PO x1 with a repeat x 1 PRN Erin 5/325mg po Q4H PRN for pain lidocaine jelly for IV start
[2021-07-19] MEDS: ALPRAZolam 0.5 mg Tablet PO (12:38)
--- NOTE | 2021-07-19 13:59 | PC.NURSE ---
called John with concerns of patient being placed on 100% fio2 saturation is low 90s doing ok however HR has remained elevated throughout shift john with increased concerns possible place patient in ICU
--- NOTE | 2021-07-19 15:06 | P.PN_ITS ---
Subjective Subjective: Interval history: Did not get much rest overnight. Anxious this morning. Rapid response called this afternoon after noted industry distress, but because identified as disconnection of the BiPAP conduit. Subsequently anxious after lost IV, and IV had to be replaced. Due to severe anxiety required Xanax. IV access obtained. Restarted on Precedex. Vitals/I&O/Wt Last Vital Signs Temp 98.4 F 07/19/21 11:56 Pulse 133 H 07/19/21 11:56 Resp 29 H 07/19/21 11:56 BP 159/92 07/19/21 11:56 Pulse Ox 95 07/19/21 11:56 07/19/21 07/19/21 07/19/21 06:59 14:59 22:59 Intake Total 138.181 / 437.045 159.475 / 159.475 Output Total 900 / 2160 Balance -761.819 / -1722.955 159.475 / 159.475 Weight last 48 hrs Weight 69.581 kg Physical Exam Narrative: EXAM NARRATIVE: at bedside. Const: COMMON NORMALS: no acute distress EXAM LIMITATIONS: physical limitations and other limitations GENERAL APPEARANCE: cooperative ORIENTATION/CONSCIOUSNESS: Yes awake HENMT: COMMON NORMALS: oropharynx normal Neck/C-Spine: COMMON NORMALS: no JVD Resp: COMMON NORMALS: normal respiratory effort and clear to auscultation bilaterally AUSCULTATION: clear to auscultation bilaterally OTHER: BiPAP on. Cardio: COMMON NORMALS: no JVD, regular rhythm, S1 normal heart sound present, S2 normal heart sound present and No murmurs present (Cardio) RHYTHM: regular rhythm HEART SOUNDS: S1 normal heart sound present and S2 normal heart sound present GI: COMMON NORMALS: Normal to inspection, nondistended, normoactive bowel sounds present, Soft to palpation and non-tender PALPATION: Yes Soft to palpation Extremity: COMMON NORMALS: no joint enlargement and no pedal edema Neuro: COMMON NORMALS: moves all extremities Skin: COMMON NORMALS: no rashes or lesions noted GENERAL SKIN EXAM: no rashes or lesions noted Urinary Catheter Management^: Barnes: Cath Placed During This Visit: yes Reason for Continuing Indwelling Catheter: Acute Urinary Retention or Obstruction Urinary Catheter Date of Insertion: 07/03/21 Urinary Catheter Time of Insertion: 07:56 Data : 07/19/21 06:58 07/19/21 06:58 Micro: Microbiology 07/07/21 17:40 Gram Stain - Final Sputum - Endotracheal Tube Aspirate Sputum Culture - Final Ayleen guilliermondii A&P Assessment and plan (1) Acute respiratory failure due to COVID-19: This morning FiO2 to be increased, but this seems to be mostly secondary to some more anxiety, restlessness. WBC count increased to 19,000. When I had seen him this morning we weaned down easily to 60% FiO2. However, subsequently after disconnection of the BiPAP circuit very restless, anxious, FiO2 requirement higher. Discussed with him and his regarding ileus on x-ray imaging. Discussed to go very slow on oral intake with clear liquid trial. Sputum culture growing Ayleen guillermondii. Discussed with micro lab. Sensitivities will be sent out. However, as it is not systemic infection, respiratory only, likely no need for additional treatment. Discontinue Diflucan after today. Continue mobilize with PT, OT. I-S, flutter valve. Arrangements for placement to [facility] to continue weaning of high oxygen requirement, rehabilitation. Status: Acute (2) Ileus: No vomiting last night or today. Trial of clear liquids. Discussed with him and his to go slow. I do hear bowel sounds though perhaps mildly sluggish. Status: Acute (3) Sepsis: Has been restarted on Zosyn due to episode of emesis, concern for rising leukocytosis, possible aspiration pneumonia. Leukocytosis not as high as previously. Pending flow cytometry due to concern for possible leukemoid reaction. Continues on fluconazole due to yeast noted in sputum. DC on 07/19 C. difficile 07/14 -ve. Status: Acute (4) Shock: Resolved. Status: Acute (5) COVID-19: As above. Status: Acute (6) Acute kidney injury: Continuing to improve. BUN better. Hemoccult negative. C. difficile negative. Status: Acute (7) Hyperkalemia: Potassium better Status: Acute (8) Yeast species isolated but not further identified: On the sputum culture from repeat intubation on July 09. Ayleen guillermondii from 07/11. Requested sensitivities. Not disseminated infection. Respiratory only. Currently on Fluconazole. Planned to complete 07/19 Status: Acute (9) Hyponatremia: Resolved. Hypernatremia gradually improving. Status: Acute (10) Hypertension: At goal Status: Acute Qualifiers: Hypertension type: essential hypertension Qualified Code(s): I10 - Essential (primary) hypertension (11) Diarrhea: Repeat C diff negative Status: Acute (12) Elevated WBC count: Follow-up flow cytometry for assessment possible leukemoid reaction. C. difficile negative. Status: Resolved Qualifiers: Leukocytosis type: unspecified Qualified Code(s): D72.829 - Elevated white blood cell count, unspecified Additional A&P Information Tachycardia: Possible withdrawal from Precedex, does get quite anxious, occasional nausea, emesis as well. Continue Precedex, wean down slowly over several days. Attestations Medical Necessity Statement*: Continue admission for hypoxic respite failure, weaning of high oxygen requirement, following ARDS, severe COVID-19 infection, currently complicated by ileus, prolonged weaning of sedatives, possibly withdrawal, additionally possible aspiration pneumonitis, pneumonia. 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
--- NOTE | 2021-07-19 15:42 | XRR_ITS ---
PROCEDURE INFORMATION: Exam: XR Chest Exam date and time: 07/19/2021 3:42 PM Age: 51 years old Clinical indication: Shortness of breath; Additional info: Hypoxia TECHNIQUE: Imaging protocol: XR of the chest. Views: 1 view. COMPARISON: CR XR chest 1V portable [id number] 07/17/2021 5:30 AM FINDINGS: Lungs: Diffuse reticular interstitial lung changes and hazy alveolar ground-glass opacities. Decreased lung volumes. Pleural spaces: Unremarkable. No pleural effusion. No pneumothorax. Heart/Mediastinum: Mild cardiac enlargement. Diaphragm: Mild asymmetric left diaphragm elevation. Bones/joints: Unremarkable. XR/XR chest 1V portable [id number] IMPRESSION: Widespread airspace disease radiographically worse than prior.
--- NOTE | 2021-07-19 16:45 | PC.NURSE ---
report called to ICU patient transferred to ICU 7 for closer monitoring and continued care
--- NOTE | 2021-07-19 17:16 | PC.NURSE ---
Pt arrived to unit transferred by bed on bipap. RT and CSU nurse Nancy at bedside. Lungs sounds noted to be diminished throughout. See documented vital signs. Pt attempting to take off bipap, reports it hurts. Pt has hands on his chest and reports chest pain, see EKG results. Bilateral radial and pedal pulses noted to be 3+. Zoysn and Precedex running via IV, see mar. Datar updated at this time. Will continue to monitor.
--- NOTE | 2021-07-19 17:34 | PC.NUTR ---
Nutrition follow up: Pt with worsening status and transfer back to ICU. Possible intubation per nursing. Recommend initiation of TPN when hemodynamically stable, given extended time period (24 days) of poor nutritional intake. See previous RD assessments, pt with minimal po intake before/after intubation, and very minimal calorie provision while intubated, with most days receiving zero TF. If unable to safetly consume oral diet or receive TF due to ileus, recommend increasing TPN per protocol to goal rate of 83 ml/hr. However, even if consuming oral diet or TF resumed, recommend consideration of supplemental TPN, as high TF provision or oral intake not anticipated. Notifed Dr. Kc of recommendations. Will add Ensure Clear with meals at this time, however po intake not anticipated given status. See full RD assessment for further details.
--- NOTE | 2021-07-19 17:56 | ECG_ITS ---
[facility] Test Date: 2021-07-19 Pat Name: Haim Gastelum Department: Room: [facility] Gender: Male Director Smb Sales: : 1970 Requested By: Loki Kc Order Number: [id number] Alden MD: Brittny Gonzalez M.D. Measurements Intervals Gary Rate: 139 P: 23 NE: 129 QRS: 5 QRSD: 81 T: 29 QT: 364 QTc: 555 Interpretive Statements SINUS TACHYCARDIA NONSPECIFIC T-WAVE ABNORMALITY Compared to ECG 06/26/2021 13:03:50 T-wave abnormality now present Myocardial infarct finding no longer present Electronically Signed On 07-19-2021 20:49:13 CDT by Brittny Gonzalez M.D. [id number]
[2021-07-19] MEDS: fentaNYL 50 mcg/mL INJ 2mL 25 MCG IVP (18:03)
[2021-07-19] MEDS: enoxaparin 80 mg/0.8 mL Syringe 70 MG SUBCUT (18:03)
--- NOTE | 2021-07-19 19:02 | PC.NURSE ---
Pt RR in 40s and HR in 140s. Pt on 0.7mcg of Precedex, ativan given IVP per PRN orders, 25mcg Fentanyl IVP given per Physician's orders. Physician,RT, and this nurse at bedside. Pt states, I'm tired Pt on Bipap with FiO2 of 100%. Rash noted to be on abdomen, physician notified, Zoysn discontinued at this time. Will continued to monitor.
[2021-07-19] MEDS: dexmedetomidine 400 MCG in sodium chloride 0.9% (100 ml) 100 ML 18.5 MCG IV (19:16)
--- NOTE | 2021-07-19 20:55 | P.DN_ITS ---
Pronouncement Note Date and Time of Date of : 07/19/21 Time of : 20:13 Preliminary cause of : COVID-19 Diagnoses/Contributing Factors (1) COVID-19: (2) Acute respiratory failure due to COVID-19: (3) Ileus: (4) Sepsis: (5) Shock: (6) Acute kidney injury: (7) Hyperkalemia: (8) Yeast species isolated but not further identified: (9) Hyponatremia: (10) Hypertension: (11) Diarrhea: (12) Elevated WBC count: Additional Details Patient had had respiratory decline off and on throughout the day. He was transferred to the ICU. He again declined. Dr. Kc contacted me regardin g intubation which he had discussed with the family. Patient was prepped for intubation and received RSI medications. Myself, Dr. Reinoso with pulmonology, and Dr. Ricardo from the ER were present. Cords were easily visualized. Took several attempts for successful ET tube placement. Tube was visualized passing through the cords with positive condensation, CO2 color change. Not too long after intubation, about 19:45 patient went into PEA. CPR was initiated and ACLS protocol was followed. Central line was attempted in the right groin by Dr. Reinoso. An IO was placed for additional access by Dr. Ricardo in the left lower extremity. Patient had bleeding from the airway that eventually obstructed the ETT, copious frothy bright red blood. Resuscitation efforts continued with family updates. Mr Gastelum subsequently went into asystole and we were not able to achieve reuten of spontaneous circulation. Bedside echo confirmed no heart wall movements. Code was called and patient pronounced at 2012. Mr Gastelum sister came to the room briefly during resuscitation. His Lynnette was in the waiting room and aware of situation. Support was offered and she was informed that her had despite every effort to save him. Chaplains called in for further family support. Cause of PEA/asytole from acute recurrent respiratory failure, multifactorial from covid associated ARDS/lung injury, possibly acute PE despite anticoagulation, possible secondary bacterial infection despite antibiotics and antifungals. Additional Data Confirmation of : no pulse, no respirations, no heart sounds and pupils fixed and dilated Family: contacted Additional persons at bedside: nursing staff and other (Dr Reinoso, Dr Ricardo, resp therapy) Attending physician: Loki Kc Attending/PCP notified?: Attending will be notified Was code activated?: Yes Autopsy requested?: No Advance directives?: No Hospice patient?: No
--- NOTE | 2021-07-19 21:07 | PM.ACPR ---
Procedure/Consent Time out: Time Out Performed: Yes Consent: Consent for Procedure: Emergency procedure Procedure Narrative: Endotracheal Intubation Procedure Note Indication for endotracheal intubation: Acute hypoxic respiratory failure desaturating < 40s-impending cardiac arrest Background: Patient was transferred to ICU evening for acute hypoxic respiratory failure, recently extubated and is being monitored in the cardiac stepdown unit on BiPAP 14/8 and 100% FiO2. Late afternoon patient became excessively tachycardic and was transferred to ICU complicated by severe anxiety, tachycardia-suspicious for PE. Patient was briefly comfortable after receiving fentanyl 25 MCG IV push. Lovenox was increased to therapeutic dose and plan was to do bilateral lower extremity Dopplers and obtain CT chest to rule out PE when patient is stable. At around 7 PM received a call from Dr. Kc that patient is tachycardic and decision was made to intubate. Consent: There was not time to obtain consent. The patient was in immediate danger, and required the procedure emergently. patient already sedated and paralyzed and initial attempts to intubate were unsuccessful by hospitalst and RT and patient started desaturating less than 40s. Equipment: Glidoscope Mac 4 View: Grade 2 Cricoid Pressure: No Number of attempts: 1 ETT location confirmed by fogging of ET Tube, colorimeter change and bilateral breath sounds. Aneudy DatarMD Pulm/Critical Care Medicine Acute Procedures Epistaxis Control: Time out performed: Yes
[2021-07-19] MEDS: midazolam 1 mg/mL INJ 2 mL 2 MG IVP (21:43)
[2021-07-19] MEDS: rocuronium 10 mg/mL INJ 5mL 70 MG IV (21:44)
[2021-07-19] MEDS: dextrose 50% syringe 50 mL (21:46)
--- NOTE | 2021-07-19 21:48 | PC.NURSE ---
[facility] declined donation for [facility] due to post Covid dx. Lashanda Carrillo notified.
--- NOTE | 2021-07-19 21:48 | PC.NURSE ---
late entry, Dr Kc rounding at shift change, decision made to intubate pt, during intubation pt desatted and unable to maintain airway, code blue called 1944 compressions started, epi, atopine 1946 pulse check, no pulse 1947 epi 1948 pulse check, no pulse, asytole 1949 1 gm calcium chloride, bicarb 1950 epi, pulse check, no pulse, PEA, SB, calcium in 1951 1 amp bicarb 1952 pulse check, SB, PEA, D50, epi 1953 D50 1954 pulse check, PEA, no pulse, D50 1955 epi, bicarb 1956 pulse check, PEA, no pulse 1957 fingerstick 554, epi in 1958 pulse check, PEA, SB, no cardiac wall movement 2000 cpr, IO 2001 epi, pulse check, asystole, PEA 2003 pulse check, asystole 2004 epi 2005 bicarb, pulse check, asystole 2007 epi, pulse check, asystole 2009 pulse check, no pulse, asystole 2009 epi 2011 pulse check, asystole, bicarb 2013 epi, pulse check, asystole, no pulse, time of
[2021-07-30 11:40] LABS: Miscellaneous Test See Scanned Lab Rpt
== END 2021-07-19 23:00 | disposition expired | DRG 207 ==
LOC: ER 16:48 → MEDSURG 19:49 → MS 2A 06-30 16:50 → ICU 07-01 15:43 → MEDSURG 07-17 18:37 → CSU 07-17 19:59 → ICU 07-19 16:42
PROVIDERS: Hospitalist; Internal Medicine Critical Care Medicine; Internal Medicine Pulmonary Disease; Student in an Organized Health Care Education/Training Program; Admitting Provider Internal Medicine; Emergency Provider Family Medicine; PCP Family Medicine; Visit Provider Internal Medicine
DX: U07.1 COVID-19 (principal); J12.82 Pneumonia due to coronavirus disease 2019; J80 Acute respiratory distress syndrome; R65.21 Severe sepsis with septic shock; N17.9 Acute kidney failure, unspecified; I31.9 Disease of pericardium, unspecified; F05 Delirium due to known physiological condition; E87.2 Acidosis; K56.7 Ileus, unspecified; E87.1 Hypo-osmolality and hyponatremia; I10 Essential (primary) hypertension; F41.9 Anxiety disorder, unspecified; K21.9 Gastro-esophageal reflux disease without esophagitis; M54.16 Radiculopathy, lumbar region; F17.210 Nicotine dependence, cigarettes, uncomplicated; G89.29 Other chronic pain; J98.2 Interstitial emphysema; R33.9 Retention of urine, unspecified; I46.9 Cardiac arrest, cause unspecified; R00.0 Tachycardia, unspecified; E87.5 Hyperkalemia; B37.9 Candidiasis, unspecified; I95.9 Hypotension, unspecified; R19.7 Diarrhea, unspecified
CPT/HCPCS: 31500; 36415; 36592; 36600; 51702; 71045; 71275; 74022; 74177; 80048; 80051; 80053; 80500; 81001; 81003; 82140; 82274; 82330; 82436; 82533; 82550; 82570; 82728; 82803; 82805; 83605; 83735; 83880; 84100; 84132; 84133; 84145; 84300; 84484; 85007; 85025; 85027; 85378; 86140; 86403; 87040; 87070; 87086; 87106; 87107; 87186; 87205; 87493; 87641; 88184; 88185; 93005; 93970; 94002; 94003; 94640; 94660; 94770; 94799; 96365; 96372; 96375; 97110; 97162; 97166; 97530; 99285; C9113; J0171; J0282; J0330; J0461; J0692; J0743; J1100; J1200; J1450; J1650; J1815; J1940; J2020; J2060; J2250; J2270; J2405; J2543; J2704; J3010; J3262; J3370; J3490; J3535; J7030; J7611; J7626; J7799; Q9967; S0030